=== PATIENT | female | born 1945 | race Caucasian/White ===

== ENCOUNTER 2019-09-03 14:08 | Outpatient (CLI) | payer MEDICARE, MEDICAID, SELFPAY ==
--- NOTE | ~2019-09-03 | MM_ITS ---
EXAMINATION: MM screening [facility] BI w francisco HISTORY: Screening mammogram TECHNIQUE: Craniocaudal and mediolateral oblique 3-D tomosynthesis images were obtained and synthetic 2-D images were generated. CAD analysis was submitted and interpreted. COMPARISON: Comparison to multiple prior studies sequentially, with oldest reviewed study dated 09/2015 2. BREAST PARENCHYMAL COMPOSITION: There are scattered areas of fibroglandular density. FINDINGS: There are areas of fat necrosis centrally in the left breast, likely related to previous vivi mpectomy.. There is no evidence of suspicious mass, calcification, or architectural distortion to sug gest malignancy in either breast. There has been no suspicious interval change. IMPRESSION: 1. No mammographic evidence of malignancy. 2. Recommend routine screening mammography in one year. BI-RADS Category 2: Benign finding(s). Reviewed, dictated and finalized at location A. KNOCKER
== END 2019-09-03 14:09 | disposition home or self-care (01) ==
LOC: ANHIMG 14:14
PROVIDERS: PCP Family Medicine; Visit Provider Family Medicine
DX: Z12.31 Encounter for screening mammogram for malignant neoplasm of breast (principal)
CPT/HCPCS: 77063; 77067

== ENCOUNTER 2020-01-27 15:06 | Outpatient (CLI) | payer MEDICARE, SELFPAY ==
--- NOTE | ~2020-01-27 | DEXA_ITS ---
Bone Density Report Name: Arianne Vasquez Age: 74 Sex: Female Ethnicity: White Date of : 1945 Indication: postmenopausal; height loss; prior fracture; cancer; asthma or emphysema; Referring Provider: [place] Study: Bone densitometry was performed. Exam Date: January 27, 2020 Accession number: [id number] Bone Density: Region BMD T-score Z-score Classification AP Spine (L1, L4) 1.205 1.5 3.8 Normal Femoral Neck (Right) 0.737 -1.0 1.0 Normal Total Hip (Right) 0.866 -0.6 1.1 Normal World Health Organization criteria for BMD impression classify patients as: Normal (T-score at or above -1.0), Osteopenia (T-score between -1.0 and -2.5), or Osteoporosis (T-score at or below -2.5). 10-year Fracture Risk: FRAX not reported because: All T-scores for Spine Total, Hip Total, Femoral Neck at or above -1.0 Prior hip or vertebral fracture Previous Exams: Region Exam Age BMD T-score BMD Change BMD Change Date g/cm2 vs Baseline vs Previous AP Spine(L1, L4) 01/27/2020 74 1.205 1.5 0.129(12.0%)# -0.003(-0.2%)# 04/03/2016 70 1.208 1.6 0.131(12.2%)# 0.194(19.1%)# 04/17/2012 66 1.014 -0.2 -0.063(-5.8%)# -0.116(-10.3%) 06/27/2009 63 1.130 0.8 0.054(5.0%)* -0.032(-2.8%)* 04/04/2007 61 1.162 1.1 0.086(8.0%)* 0.086(8.0%)* 11/08/2003 58 1.076 0.4 Total Hip(Right) 01/27/2020 74 0.866 -0.6 -0.032(-3.6%)# -0.008(-0.9%)# 04/03/2016 70 0.874 -0.6 -0.024(-2.7%)# -0.013(-1.4%)# 04/17/2012 66 0.887 -0.5 -0.011(-1.3%)# 0.027(3.2%)# 06/27/2009 63 0.859 -0.7 -0.039(-4.3%)* -0.011(-1.2%) 04/04/2007 61 0.870 -0.6 -0.028(-3.1%)* -0.028(-3.1%)* 11/08/2003 58 0.898 -0.4 *Denotes significance at 95% confidence level, LSC for AP Spine = 0.022 g/cm2, LSC for Total Hip = 0.027 g/cm2 Clinical Information Provided by Patient: Have had a previous hip or vertebral fracture Has had a low trauma fracture Has used the following medications: Vitamin D, Calcium Has the following medical conditions: Asthma or Emphysema, Cancer Patient maximum height was 67 No regular weight bearing exercise Drinks caffeinated beverages Onset of menses at age 13 Number of children 2 Impression: The patient has normal bone mass. The patient has risk factors, including: previous fracture. No significant bone loss was observed. Discussion: INCREASED RISK OF FRACTURE DUE TO HISTORY OF FRACTURE. The patient's previous fracture puts the patient at high risk of a future fracture.
== END 2020-01-27 15:07 | disposition home or self-care (01) ==
PROVIDERS: PCP Family Medicine; Visit Provider Internal Medicine Hematology & Oncology
DX: M81.0 Age-related osteoporosis without current pathological fracture (principal)
CPT/HCPCS: 77080

== ENCOUNTER 2020-02-09 12:46 | Outpatient (CLI) | payer MEDICARE, MEDICAID, SELFPAY ==
[2020-02-09 13:07] LABS: Basophils Percent Auto 0.4 % (0.2-1.2); Eosinophils Absolute Auto 0.2 K/mm3 (0-0.3); Eosinophils Percent Auto 3.3 % (0-4.4); Hematocrit 36.6 % (37.0-47.0); Hemoglobin 11.4 g/dL (12.0-15.0); Immature Granulocyte Absolute 0.04 K/mm3 (0.00-0.031); Immature Granulocyte Percent A 0.5 % (0-0.5); Lymphocytes Absolute Auto 1.25 K/mm3 (0.9-3.2); Lymphocytes Percent Auto 17.2 % (18.3-44.2); Mean Corpuscular HGB Conc 31.1 g/dl (32-36); Mean Corpuscular Hemoglobin 28.9 pg (26-34); Mean Corpuscular Volume 92.9 fl (80-100); Mean Platelet Volume 10.3 fl (7.4-10.4); Monocytes Absolute Auto 0.5 K/mm3 (0.1-0.6); Monocytes Percent Auto 7.1 % (2.6-8.5); Neutrophils Absolute Auto 5.2 K/mm3 (1.3-6.7); Neutrophils Percent Auto 71.5 % (45.5-73.1); Platelet Count Result 255 k/mm3 (150-375); Red Blood Count 3.94 M/mm3 (4.2-5.4); Red Cell Distribution Width 13.4 % (11.5-14.5); White Blood Count 7.3 K/mm3 (4.5-10.0)
[2020-02-09 15:29] LABS: Alanine Aminotransferase 9 U/L (4-35); Albumin Level 3.7 g/dL (3.5-5.1); Alkaline Phosphatase 89 U/L (38-126); Anion Gap 10 mmol/L (8-16); Aspartate Amino Transferase 14 U/L (14-36); Bilirubin,Total 0.2 mg/dL (0.2-1.3); Blood Urea Nitrogen 30 mg/dL (7-17); Calcium 8.8 mg/dL (8.4-10.2); Carbon Dioxide 27 mmol/L (22-30); Chloride 102 mmol/L (98-107); Estimated Glomerular Filt Rate 54; Glucose 126 mg/dL (65-105); Potassium 4.4 mmol/L (3.4-5.0); Sodium 139 mmol/L (137-145)
[2020-02-11 21:52] LABS: CA 27.29 39 U/mL (<38)
== END 2020-02-09 12:47 | disposition home or self-care (01) ==
LOC: ANHLAB 12:49
PROVIDERS: PCP Family Medicine; Visit Provider Internal Medicine Hematology & Oncology
DX: C50.512 Malignant neoplasm of lower-outer quadrant of left female breast (principal); Z17.0 Estrogen receptor positive status [ER+]
CPT/HCPCS: 36415; 80053; 85025; 86300

== ENCOUNTER 2020-02-25 12:47 | Emergency (ER) | payer MEDICARE, MEDICAID, SELFPAY ==
[2020-02-25 13:07] VITALS: BP 106/61; PULSE 57; RESP 20; TEMP 36.7; O2SAT 94
[2020-02-25 13:38] VITALS: BP 106/61; PULSE 78; RESP 20; TEMP 36.7; O2SAT 94
--- NOTE | 2020-02-25 13:42 | ED.GENADULT ---
HPI - General Adult General Chief complaint: Urogenital-Female Stated complaint: hematuria Time Seen by Provider: 02/25/20 13:06 Source: RN notes reviewed History of Present Illness HPI narrative: Patient presents to emergency department from home for hematuria. Patient states he began noticing blood in her urine yesterday into today. She states that it is painless and is had no abdominal pain or dysuria. She states he is on Plavix. She denies any fevers or chills abdominal pain nausea vomiting or any other symptoms Related Data Home Medications Medication Instructions Recorded Confirmed Entresto 0.5 tablet PO BID 05/15/19 01/28/20 albuterol sulfate [ProAir HFA] 2 puff INHALATION QID PRN 05/15/19 02/25/20 anastrozole 1 mg PO DAILY 05/15/19 02/25/20 aspirin [Aspirin Low Dose] 81 mg PO DAILY 05/15/19 02/25/20 carvedilol [Coreg] 12.5 mg PO BID 05/15/19 02/25/20 simvastatin 40 mg PO HS 05/15/19 02/25/20 furosemide 20 mg PO DAILY 05/16/19 02/25/20 Allergies Allergy/AdvReac Type Severity Reaction Status Date / Time levothyroxine sodium Allergy Intermediate swelling Verified 02/25/20 13:45 in feet diclofenac Allergy Unknown ABDOMINAL Verified 02/25/20 13:45 PAIN nortriptyline Allergy Unknown Rash Verified 02/25/20 13:45 rofecoxib Allergy Unknown HEART Verified 02/25/20 13:45 FAILURE ciprofloxacin [From Cipro] Allergy Unknown Verified 02/25/20 13:45 levothyroxine Allergy Swelling Verified 02/25/20 13:45 Review of Systems Review of Systems: Narrative: Gen.: Denies fevers or chills ENT: Denies congestion Respiratory: Denies shortness of breath or cough CV: Denies chest pain or palpitations GI: Denies abdominal pain nausea, emesis or diarrhea see HPI Musculoskeletal: Denies back pain or muscle pain Neuro: Denies numbness, tingling, weakness or focal weakness Skin: Denies rash Except as documented, all other systems reviewed and negative PMFSH Past Medical History Medical History Abnormal TSH Acute renal insufficiency Anxiety Arthritis Asthma Asthma Breast cancer, left Breast cancer, left Bronchitis Cardiac defibrillator in place Cardiomyopathy Cardiomyopathy CHF (congestive heart failure) Colitis Colitis COPD (chronic obstructive pulmonary disease) COPD (chronic obstructive pulmonary disease) DDD (degenerative disc disease) Depression Depression with anxiety Diverticulitis Diverticulitis Endocarditis Endocarditis Essential (primary) hypertension HTN (hypertension) Hyperthyroidism Hyperthyroidism Hypothyroid Left leg weakness Mitral valve prolapse MVP (mitral valve prolapse) Neuropathy, peripheral, idiopathic KYLER on CPAP Peripheral neuropathy Pneumonia Sciatic leg pain Slurred speech Stress incontinence Suspected cerebrovascular accident (CVA) Systolic CHF, chronic Uses continuous positive airway pressure (CPAP) ventilation at home 2L O2 at night Uses nebulizer and inhaler at home Supposed to use 4x per day, but often just uses it 1x per day Social History Social History Social History: Patient designate , Vel Vasquez, as her surrogate decision maker. She wishes to be a full code. She sees PATIENT CARE SPECIALIST at Dr. Monroe's office as her primary Smoking packs per day: 1 Smoking cigarettes per day: 20.0 Years smoked: 15 Smoking pack-years: 15.00 Smoking status: Former smoker Tobacco type: cigarettes Second hand tobacco smoke exposure: Yes Smoking end date: 07/01/09 Alcohol intake: former Drinks per week: 1 Substance use: current Substance use type: marijuana Other substance usage details: 1 beer/month, pt has edible marijuana Last use: 05/15/19 Additional living arrangements comments: With her Gender identity (if verbalized by the patient): Female Spiritual care concerns: No Agree to blood products: Yes Exam Narrat
[2020-02-25 13:58] LABS: Basophils Percent Auto 0.5 % (0.2-1.2); Eosinophils Absolute Auto 0.2 K/mm3 (0-0.3); Eosinophils Percent Auto 2.5 % (0-4.4); Hematocrit 33.5 % (37.0-47.0); Hemoglobin 10.8 g/dL (12.0-15.0); Immature Granulocyte Absolute 0.03 K/mm3 (0.00-0.031); Immature Granulocyte Percent A 0.3 % (0-0.5); Lymphocytes Absolute Auto 0.94 K/mm3 (0.9-3.2); Lymphocytes Percent Auto 10.8 % (18.3-44.2); Mean Corpuscular HGB Conc 32.2 g/dl (32-36); Mean Corpuscular Hemoglobin 29.1 pg (26-34); Mean Corpuscular Volume 90.3 fl (80-100); Mean Platelet Volume 11.1 fl (7.4-10.4); Monocytes Absolute Auto 0.5 K/mm3 (0.1-0.6); Monocytes Percent Auto 5.2 % (2.6-8.5); Neutrophils Percent Auto 80.7 % (45.5-73.1); Platelet Count Result 240 k/mm3 (150-375); Red Blood Count 3.71 M/mm3 (4.2-5.4); Red Cell Distribution Width 13.3 % (11.5-14.5); White Blood Count 8.7 K/mm3 (4.5-10.0)
[2020-02-25 14:05] LABS: Add Urine Microscopic? YES; Appearance Urine Clear (Clear); Bacteria Urine 2+ /hpf; Bilirubin Urine Negative (Negative); Blood Urine 1+ (Negative); Color Urine Yellow (Yellow); Glucose Urine UA Negative (Negative); Ketones Urine Negative (Negative); Leukocyte Esterase Ur Trace LEU/UL (Negative); Mucus Urine Rare /lpf; Nitrate Urine Negative (Negative); Protein Urine Negative (Negative); RBC Urine 0-2 /hpf (0-2); Specific Grav Ur 1.014 (1.001-1.035); Squamous Epithelial Cell Urine Occasional /hpf (Few); Urobilinogen Urine Negative mg/dL (<2.0)
[2020-02-25 14:07] LABS: INR 1.1; Prothrombin Time 14.3 Seconds (11.1-14.7)
[2020-02-25 14:08] LABS: Partial Thromboplastin Time 36.6 SECONDS (22.3-36.8)
[2020-02-25 14:12] LABS: Anion Gap 10 mmol/L (8-16); Blood Urea Nitrogen 29 mg/dL (7-17); Calcium 9.2 mg/dL (8.4-10.2); Carbon Dioxide 23 mmol/L (22-30); Chloride 104 mmol/L (98-107); Estimated CRCL calculation 50 ml/min; Estimated Glomerular Filt Rate 54; Glucose 114 mg/dL (65-105); Potassium 4.9 mmol/L (3.4-5.0); Sodium 137 mmol/L (137-145)
[2020-02-25] MEDS: NITROFURANTOIN MONOHYD MACROCR 100 MG CAP PO (14:23)
== END 2020-02-25 14:32 | disposition home or self-care (01) ==
PROVIDERS: Emergency Provider Emergency Medicine; PCP Family Medicine
DX: N39.0 Urinary tract infection, site not specified (principal); I50.22 Chronic systolic (congestive) heart failure; J44.9 Chronic obstructive pulmonary disease, unspecified; I11.0 Hypertensive heart disease with heart failure; I34.1 Nonrheumatic mitral (valve) prolapse; G47.33 Obstructive sleep apnea (adult) (pediatric); M19.90 Unspecified osteoarthritis, unspecified site; Z95.810 Presence of automatic (implantable) cardiac defibrillator; Z87.891 Personal history of nicotine dependence; Z85.3 Personal history of malignant neoplasm of breast; G60.9 Hereditary and idiopathic neuropathy, unspecified; Z79.02 Long term (current) use of antithrombotics/antiplatelets
CPT/HCPCS: 36415; 80048; 81001; 85025; 85610; 85730; 99283; A9270

== ENCOUNTER 2020-03-03 05:06 | Emergency (ER) | payer MEDICARE, MEDICAID, SELFPAY ==
[2020-03-03] VITALS (23 sets, daily range): BP systolic 101–130; BP diastolic 56–95; PULSE 64–80; RESP 12–22; TEMP 37; O2SAT 95–100
--- NOTE | ~2020-03-03 | CT_ITS ---
EXAMINATION: CT abdomen pelvis w con INDICATION: Epigastric abdominal pain TECHNIQUE: Computed tomographic images of the abdomen and pelvis were obtained after the administrati on of 100 cc of Omnipaque 350 intravenous contrast. The dose-length product (DLP) was 947.49 mGy-cm. Automated exposure control and iterative reconstruction technique were employed. COMPARISON: 02/14/2012 FINDINGS: There is a small loculated left pleural effusion. Minimal dependent atelectasis is present in the lung bases. More focal pleural-based opacities are seen in the lingula and left lower lobe whi ch have the appearance of round atelectasis. The heart size is normal. The liver, pancreas, and adren al glands are normal. Low-attenuation lesions of the liver measuring up to 7 mm likely reflect cysts or lymphangiomas. Stones are present in the nondistended gallbladder. Cysts of the kidneys measure up to 2.7 cm on the right. There is calcified atherosclerosis of the aorta and many of the other arteri es. No pathologically enlarged abdominal or pelvic lymph nodes are identified. There is no free intra peritoneal gas or evidence of bowel obstruction. The appendix is normal. There is severe lumbar spond ylosis. Changes of left total hip arthroplasty are noted. IMPRESSION: 1. No CT correlate for the patient's symptoms. 2. Cholelithiasis without evidence of cholecystitis. 3. Diverticulosis without diverticulitis. 4. Small loculated left pleural effusion with areas of rounded atelectasis in the left lung base. Reviewed, dictated and finalized at location A. IMPRESSION: 1. No CT correlate for the patient's symptoms. 2. Cholelithiasis without evidence of cholecystitis. 3. Diverticulosis without diverticulitis. 4. Small loculated left pleural effusion with areas of rounded atelectasis in t he left lung base.
--- NOTE | 2020-03-03 05:33 | ECG_ITS ---
Measurements Intervals [place] Rate: 82 P: 90 SD: 173 QRS: 38 QRSD: 110 T: 103 QT: 403 QTc: 472 Interpretive Statements SINUS RHYTHM FREQUENT VENTRICULAR PREMATURE COMPLEXES INCOMPLETE LEFT BUNDLE BRANCH BLOCK LOW QRS VOLTAGE- DIFFUSE LEADS NONSPECIFIC T-WAVE ABNORMALITY- ANTEROLAT/HIGH LAT LEADS BASELINE ARTIFACT- I, II, III, AVL, AVF, V4-V6 ABNORMAL ECG Electronically Signed On 03-03-2020 8:14:44 CDT by Tima Russ D.O.
--- NOTE | 2020-03-03 05:35 | ED.ABDPAIN ---
HPI - Abdominal Pain General Chief Complaint: Abdominal Pain <Ly Bernal MD - Last Filed: 03/03/20 20:59> Stated Complaint: ABD PAIN; N/V <Ly Bernal MD - Last Filed: 03/03/20 20:59> Time Seen by Provider: 03/03/20 05:22 <Ly Bernal MD - Last Filed: 03/03/20 20:59> Source: patient <Ly Bernal MD - Last Filed: 03/03/20 20:59> Mode of arrival: ambulatory <Ly Bernal MD - Last Filed: 03/03/20 20:59> Limitations: no limitations <Ly Bernal MD - Last Filed: 03/03/20 20:59> History of Present Illness HPI narrative: This patient is a 74 year old female who presents for evaluation of upper abdominal pain. She developed pain at 1900 yesterday and she she has continued to have constant pain. This pain is located epigastric and it radiates to lower abdominal pain. She is having associates nausea and vomiting but she denies diarrhea. She denies fever or chills. She reports sob due to the pain but she does wear chronic O2. She denies chest pain. <Ly Bernal MD - Last Filed: 03/03/20 20:59> MD elicited complaint: abdominal pain <Ly Bernal MD - Last Filed: 03/03/20 20:59> Location: epigastric <Ly Bernal MD - Last Filed: 03/03/20 20:59> Severity: severe <Ly Bernal MD - Last Filed: 03/03/20 20:59> Exacerbating factors: eating <Ly Bernal MD - Last Filed: 03/03/20 20:59> Associated symptoms: nausea and vomiting <Ly Bernal MD - Last Filed: 03/03/20 20:59> Related Data Home Medications: Home Medications Medication Instructions Recorded Confirmed Entresto 0.5 tablet PO BID 05/15/19 01/28/20 albuterol sulfate [ProAir HFA] 2 puff INHALATION QID PRN 05/15/19 02/25/20 anastrozole 1 mg PO DAILY 05/15/19 02/25/20 aspirin [Aspirin Low Dose] 81 mg PO DAILY 05/15/19 02/25/20 carvedilol [Coreg] 12.5 mg PO BID 05/15/19 02/25/20 simvastatin 40 mg PO HS 05/15/19 02/25/20 furosemide 20 mg PO DAILY 05/16/19 02/25/20 <Ly Bernal MD - Last Filed: 03/03/20 20:59> Allergies/Adverse Reactions: Allergies Allergy/AdvReac Type Severity Reaction Status Date / Time levothyroxine sodium Allergy Intermediate swelling Verified 02/25/20 13:45 in feet diclofenac Allergy Unknown ABDOMINAL Verified 02/25/20 13:45 PAIN nortriptyline Allergy Unknown Rash Verified 02/25/20 13:45 rofecoxib Allergy Unknown HEART Verified 02/25/20 13:45 FAILURE ciprofloxacin [From Cipro] Allergy Unknown Verified 02/25/20 13:45 levothyroxine Allergy Swelling Verified 02/25/20 13:45 <Ly Bernal MD - Last Filed: 03/03/20 20:59> Review of Systems Review of Systems: All systems reviewed & are unremarkable except as noted in HPI and below <Ly Bernal MD - Last Filed: 03/03/20 20:59> Constitutional: Constitutional: Denies chills and Denies fever(s) <Ly Bernal MD - Last Filed: 03/03/20 20:59> ENT: Denies nasal congestion and Denies sore throat <Ly Bernal MD - Last Filed: 03/03/20 20:59> Cardiovascular: Cardiovascular: Denies chest pain <Ly Bernal MD - Last Filed: 03/03/20 20:59> Respiratory: Respiratory: Denies cough and Reports dyspnea <Ly Bernal MD - Last Filed: 03/03/20 20:59> Gastrointestinal: Gastrointestinal: Reports abdominal pain, Denies diarrhea, Reports nausea and Reports vomiting <Ly Bernal MD - Last Filed: 03/03/20 20:59> Musculoskeletal: Musculoskeletal: Denies back pain <Ly Bernal MD - Last Filed: 03/03/20 20:59> PMFSH Past Medical History Medical History: Medical History Abnormal TSH Acute renal insufficiency Anxiety Arthritis Asthma Asthma Breast cancer, left Breast cancer, left Bronchitis Cardiac defibrillator in place Cardiomyopathy Cardiomyopathy CHF (congestive heart failure) Colitis Colitis COPD (chronic obstructive p
[2020-03-03] MEDS: PANTOPRAZOLE SODIUM IV 40 MG VIAL IV PUSH (05:47)
[2020-03-03] MEDS: ONDANSETRON INJ 4 MG/2 ML VIAL IV PUSH (05:47)
[2020-03-03 05:58] LABS: Basophils Percent Auto 0.3 % (0.2-1.2); Eosinophils Absolute Auto 0.1 K/mm3 (0-0.3); Eosinophils Percent Auto 0.5 % (0-4.4); Hematocrit 37.1 % (37.0-47.0); Immature Granulocyte Absolute 0.09 K/mm3 (0.00-0.031); Immature Granulocyte Percent A 0.6 % (0-0.5); Lymphocytes Absolute Auto 1.34 K/mm3 (0.9-3.2); Mean Corpuscular HGB Conc 32.3 g/dl (32-36); Mean Corpuscular Hemoglobin 29.3 pg (26-34); Mean Corpuscular Volume 90.7 fl (80-100); Mean Platelet Volume 11.4 fl (7.4-10.4); Monocytes Absolute Auto 0.5 K/mm3 (0.1-0.6); Neutrophils Percent Auto 86.6 % (45.5-73.1); Platelet Count Result 338 k/mm3 (150-375); Red Blood Count 4.09 M/mm3 (4.2-5.4); Red Cell Distribution Width 13.3 % (11.5-14.5)
[2020-03-03 06:08] LABS: INR 1.1; Prothrombin Time 13.8 Seconds (11.1-14.7)
[2020-03-03 06:10] LABS: Partial Thromboplastin Time 36.5 SECONDS (22.3-36.8)
[2020-03-03 06:11] LABS: Lactic Acid Reflex 2.1 mmol/L (0.7-2.1)
[2020-03-03 06:12] LABS: Alanine Aminotransferase 11 U/L (4-35); Albumin Level 4.4 g/dL (3.5-5.1); Alkaline Phosphatase 103 U/L (38-126); Anion Gap 11 mmol/L (8-16); Aspartate Amino Transferase 21 U/L (14-36); Bilirubin,Total 0.5 mg/dL (0.2-1.3); Blood Urea Nitrogen 27 mg/dL (7-17); Calcium 10.2 mg/dL (8.4-10.2); Carbon Dioxide 28 mmol/L (22-30); Chloride 98 mmol/L (98-107); Estimated CRCL calculation 54 ml/min; Estimated Glomerular Filt Rate > 60; Glucose 174 mg/dL (65-105); Lipase 81 U/L (23-300); Potassium 4.4 mmol/L (3.4-5.0); Sodium 137 mmol/L (137-145)
[2020-03-03 08:08] LABS: Add Urine Microscopic? YES; Appearance Urine Clear (Clear); Bacteria Urine Trace /hpf; Bilirubin Urine Negative (Negative); Blood Urine Negative (Negative); Color Urine Yellow (Yellow); Glucose Urine UA Negative (Negative); Ketones Urine Negative (Negative); Leukocyte Esterase Ur Negative LEU/UL (Negative); Mucus Urine Rare /lpf; Nitrate Urine Negative (Negative); Protein Urine 1+ mg/dL (Negative); RBC Urine 0-2 /hpf (0-2); Specific Grav Ur 1.028 (1.001-1.035); Squamous Epithelial Cell Urine Rare /hpf (Few); WBC Urine 0-3 /hpf
[2020-03-03 08:55] LABS: Reflex Lactic Acid Yes or No Add Lactic
[2020-03-03 10:04] LABS: Lactic Acid 0.9 mmol/L (0.7-2.1)
== END 2020-03-03 12:01 | disposition home or self-care (01) ==
PROVIDERS: General Practice; Emergency Provider Emergency Medicine; PCP Family Medicine
DX: R10.84 Generalized abdominal pain (principal); J44.9 Chronic obstructive pulmonary disease, unspecified; I11.0 Hypertensive heart disease with heart failure; I50.22 Chronic systolic (congestive) heart failure; G47.33 Obstructive sleep apnea (adult) (pediatric); G62.9 Polyneuropathy, unspecified; I34.1 Nonrheumatic mitral (valve) prolapse; Z79.82 Long term (current) use of aspirin; I42.9 Cardiomyopathy, unspecified; Z95.810 Presence of automatic (implantable) cardiac defibrillator; Z96.642 Presence of left artificial hip joint; Z95.5 Presence of coronary angioplasty implant and graft; Z87.891 Personal history of nicotine dependence; I49.3 Ventricular premature depolarization; I44.7 Left bundle-branch block, unspecified; R94.31 Abnormal electrocardiogram [ECG] [EKG]
CPT/HCPCS: 36415; 74177; 80053; 81001; 82948; 83605; 83690; 85025; 85610; 85730; 93005; 96365; 96375; 99284; C9113; J0131; J1170; J2405; Q9967

== ENCOUNTER 2020-03-11 15:27 | Outpatient (CLI) | payer MEDICARE, MEDICAID, SELFPAY ==
[2020-03-11 15:52] LABS: Basophils Percent Auto 0.4 % (0.2-1.2); Eosinophils Absolute Auto 0.2 K/mm3 (0-0.3); Eosinophils Percent Auto 1.9 % (0-4.4); Hematocrit 33.1 % (37.0-47.0); Hemoglobin 10.6 g/dL (12.0-15.0); Immature Granulocyte Absolute 0.02 K/mm3 (0.00-0.031); Immature Granulocyte Percent A 0.3 % (0-0.5); Lymphocytes Absolute Auto 0.89 K/mm3 (0.9-3.2); Lymphocytes Percent Auto 11.4 % (18.3-44.2); Mean Corpuscular Hemoglobin 29.3 pg (26-34); Mean Corpuscular Volume 91.4 fl (80-100); Mean Platelet Volume 11.3 fl (7.4-10.4); Monocytes Absolute Auto 0.4 K/mm3 (0.1-0.6); Monocytes Percent Auto 5.1 % (2.6-8.5); Neutrophils Absolute Auto 6.3 K/mm3 (1.3-6.7); Neutrophils Percent Auto 80.9 % (45.5-73.1); Platelet Count Result 259 k/mm3 (150-375); Red Blood Count 3.62 M/mm3 (4.2-5.4); Red Cell Distribution Width 13.5 % (11.5-14.5); White Blood Count 7.8 K/mm3 (4.5-10.0)
[2020-03-11 16:00] LABS: Cholesterol 131 mg/dL (0-200); HDL Direct 29 mg/dL; Triglycerides 173 mg/dL (<150)
[2020-03-11 16:01] LABS: Alanine Aminotransferase 7 U/L (4-35); Albumin Level 4.1 g/dL (3.5-5.1); Alkaline Phosphatase 84 U/L (38-126); Anion Gap 7 mmol/L (8-16); Aspartate Amino Transferase 15 U/L (14-36); Bilirubin,Total 0.4 mg/dL (0.2-1.3); Blood Urea Nitrogen 20 mg/dL (7-17); Carbon Dioxide 27 mmol/L (22-30); Chloride 105 mmol/L (98-107); Estimated Glomerular Filt Rate > 60; Glucose 109 mg/dL (65-105); Potassium 4.7 mmol/L (3.4-5.0); Sodium 139 mmol/L (137-145)
[2020-03-11 16:04] LABS: Hemoglobin A1C 5.7 % (<5.7)
[2020-03-11 16:11] LABS: LDL Cholesterol Direct 70 mg/dL
[2020-03-11 18:20] LABS: Free T4 Free Thyroxine Reflex 1.08 ng/dL (0.78-2.19)
[2020-03-11 21:26] LABS: Total Triiodothyronine (T3) 0.91 NG/ML (0.97-1.69)
== END 2020-03-11 15:28 | disposition home or self-care (01) ==
PROVIDERS: PCP Family Medicine; Visit Provider Physician Assistant
DX: R73.03 Prediabetes (principal); I50.9 Heart failure, unspecified; R53.83 Other fatigue; R63.5 Abnormal weight gain
CPT/HCPCS: 36415; 80053; 80061; 83036; 84439; 84443; 84480; 85025

== ENCOUNTER 2020-03-28 07:52 | Outpatient (CLI) | payer MEDICARE, MEDICAID, SELFPAY ==
--- NOTE | ~2020-03-28 | XR_ITS ---
XR chest 2V DATE: 03/28/2020 09:00 INDICATION: Chronic of central pulmonary disease with acute exacerbation TECHNIQUE: PA and lateral views COMPARISON: 07/24/2021 view chest 05/06/2019 CT chest 04/14/2019 PA and lateral chest 03/26/2018 two-view chest FINDINGS: At least 2 x 4 cm opacity is noted along the lower left lateral lung field, suggesting pulm onary pulmonary mass lesion. This area is obscured by the left implant on the lateral view. There is patchy left lower lobe infiltrate. CT Thorax is recommended for further evaluation. The lungs are hyperinflated, consistent with history of COPD. Normal heart size. There is aortic calcification. There is thoracolumbar scoliosis. Again noted is a subcutaneous left lateral chest implant with anterior chest wall electrode. IMPRESSION: Mass density and patchy infiltrate, left lower lung; CT thorax is recommended. Lung neop lasm must be considered. Dr. Ravi telephoned the report and CT Thorax recommendation to Dr. Sawant's Machine Try Out Setter Katie on 03/28/2020 at 1014 hours. Reviewed, dictated and finalized at location B. IMPRESSION: Mass density and patchy infiltrate, left lower lung; CT thorax is r ecommended. Lung neoplasm must be considered. Dr. Ravi telephoned the report and CT Thorax recommendation to Dr. Sawant's [facility] Library Information Technician Katie on 03/28/2020 at 1014 hours.
[2020-03-28 08:30] VITALS: PULSE 70; O2SAT 87
[2020-03-28 08:33] VITALS: O2SAT 87
[2020-03-28 08:35] VITALS: O2SAT 92
[2020-03-28 08:38] VITALS: O2SAT 87
[2020-03-28 08:40] VITALS: PULSE 89; O2SAT 90
[2020-03-28 08:45] VITALS: PULSE 75; O2SAT 94
--- NOTE | 2020-03-28 10:40 | HOMEO2EVAL ---
Home Oxygen Evaluation RC: Home Oxygen (O2) Evaluation Start: 03/28/20 10:37 Freq: Status: Active Protocol: RPE Activity Type Activity Date Activity User E-Sign Co-Sign Detail Recorded Client Recorded Date Recorded By Document 03/28/20 08:30 FARHAD [id number] 03/28/20 10:40 FARHAD Document 03/28/20 08:33 FARHAD [email or web address] 03/28/20 10:40 FARHAD Document 03/28/20 08:35 FARHAD [email or web address] 03/28/20 10:40 FARHAD Document 03/28/20 08:38 FARHAD [email or web address] 03/28/20 10:40 FARHAD Document 03/28/20 08:40 FARHAD [email or web address] 03/28/20 10:40 FARHAD Document 03/28/20 08:45 FARHAD [email or web address] 03/28/20 10:40 FARHAD 03/28/20 03/28/20 03/28/20 08:30 08:33 08:35 Home O2 Evaluation Test Phase Resting Resting Resting Oxygen Delivery Room Air Nasal Cannula Nasal Cannula Oxygen Flow Rate (L/min) 1 2 Pulse Oximetry (90-100 %) 87 L 87 L 92 Pulse Rate (60-100 beats/min) 70 Activity Tolerance Ambulation Distance (feet) Home Oxygen Evaluation Comments Treatment Charges O2 Evaluation 03/28/20 03/28/20 03/28/20 08:38 08:40 08:45 Home O2 Evaluation Test Phase Exercise Exercise Resting Oxygen Delivery Nasal Cannula Nasal Cannula Nasal Cannula Oxygen Flow Rate (L/min) 2 3 2 Pulse Oximetry (90-100 %) 87 L 90 94 Pulse Rate (60-100 beats/min) 89 75 Activity Tolerance Good Ambulation Distance (feet) 300 Home Oxygen Evaluation Comments PT REQUIRES 2 AT REST AND 3 WITH ACTIVITY Treatment Charges
== END 2020-03-28 07:53 | disposition home or self-care (01) ==
PROVIDERS: PCP Family Medicine; Visit Provider Nurse Practitioner Family
DX: J44.1 Chronic obstructive pulmonary disease with (acute) exacerbation (principal); R06.02 Shortness of breath; R91.8 Other nonspecific abnormal finding of lung field
CPT/HCPCS: 71046; 94618

== ENCOUNTER 2020-04-19 02:19 | Outpatient (CLI) | payer MEDICARE, MEDICAID, SELFPAY ==
[2020-04-19 19:02] LABS: SARS-CoV-2 RNA PCR Negative
== END 2020-04-19 02:20 | disposition home or self-care (01) ==
LOC: ANHCOVIDDT 02:20
PROVIDERS: PCP Family Medicine; Visit Provider Internal Medicine Gastroenterology
DX: Z01.812 Encounter for preprocedural laboratory examination (principal); Z20.828 Contact with and (suspected) exposure to other viral communicable diseases
CPT/HCPCS: 87635; C9803; U0003

== ENCOUNTER 2020-04-20 13:23 | Outpatient (CLI) | payer MEDICARE, MEDICAID, SELFPAY ==
--- NOTE | ~2020-04-20 | CT_ITS ---
EXAMINATION:CT chest wo con DATE: 04/20/2020 13:47 INDICATION: Chronic obstructive pulmonary disease, unspecified. TECHNIQUE: Computed tomography (CT) of the chest was performed without intravenous contrast. Automate d exposure control and iterative reconstruction technique were employed. The dose-length product (DLP ) was 278.62 mGy-cm. COMPARISON: Chest CT 05/06/2019 FINDINGS: There is moderate emphysema. There are chronic peripheral reticular opacities in right lung . There is volume loss of left hemithorax. There is a small left pleural effusion with chronic pleura l thickening. There is chronic rounded atelectasis in left upper lobe and left lower lobe adjacent to the pleural thickening. The heart size is normal. There are coronary artery calcifications. No peric ardial effusion. The central pulmonary arteries are enlarged, consistent with pulmonary arterial hype rtension. There is a 9 mm nodule in right thyroid lobe, likely not clinically significant. There is a n electronic device in left chest with subcutaneous electrode in left anterior chest wall. IMPRESSION: 1. Moderate emphysema. 2. Chronic small left pleural effusion with pleural thickening and chronic rounded atelectasis in lef t upper lobe and left lower lobe. Reviewed, dictated and finalized at location A. IMPRESSION: 1. Moderate emphysema. 2. Chronic small left pleural effusion with pleural thickening and chronic roun ded atelectasis in left upper lobe and left lower lobe.
== END 2020-04-20 13:24 | disposition home or self-care (01) ==
PROVIDERS: PCP Family Medicine; Visit Provider Nurse Practitioner Family
DX: J44.9 Chronic obstructive pulmonary disease, unspecified (principal); J43.9 Emphysema, unspecified; J90 Pleural effusion, not elsewhere classified
CPT/HCPCS: 71250

== ENCOUNTER 2020-04-21 01:19 | Day surgery (SDC) | payer MEDICARE, MEDICAID, SELFPAY ==
[2020-04-14 15:10] VITALS: BMI 30.9
[2020-04-21 08:01] VITALS: BP 119/83; PULSE 84; RESP 20; TEMP 36.3; O2SAT 95
[2020-04-21] MEDS: LACTATED RINGERS 1,000 ML 150 ML IV CONT (08:18)
--- NOTE | 2020-04-21 09:05 | WPDANESEPPF ---
Anes - Initial Pre Proc Eval Procedure: Operation Date: 04/21/20 09:00 Proposed Procedures p Esophagogastroduodenoscopy & Screening Colonoscopy - Javy Shields MD Date/Time: 04/21/20 09:05 Surgeon: Javy Shields MD Pre Op Diagnosis: Hx Of Colon Polyps, Dyshphagia Patient Data Age: 74 Gender: F Height: 5 ft 6 in Weight: 86.7 kg Last Vital Signs Temp 97.3 F L 04/21/20 08:01 Pulse 84 04/21/20 08:01 Resp 20 04/21/20 08:01 BP 119/83 04/21/20 08:01 Pulse Ox 95 04/21/20 08:01 Allergies Allergy/AdvReac Type Severity Reaction Status Date / Time levothyroxine sodium Allergy Intermediate swelling Verified 04/21/20 08:00 in feet ciprofloxacin [From Cipro] Allergy Mild Unknown Verified 04/21/20 08:00 diclofenac Allergy Unknown ABDOMINAL Verified 04/21/20 08:00 PAIN nortriptyline Allergy Unknown Rash Verified 04/21/20 08:00 rofecoxib Allergy Unknown HEART Verified 04/21/20 08:00 FAILURE Home Medications Medication Instructions Recorded Confirmed Type Entresto 0.5 tablet PO BID 05/15/19 04/14/20 History anastrozole 1 mg PO DAILY 05/15/19 04/14/20 History aspirin [Aspirin Low Dose] 81 mg PO DAILY 05/15/19 04/14/20 History carvedilol [Coreg] 12.5 mg PO BID 05/15/19 04/14/20 History simvastatin 40 mg PO HS 05/15/19 04/14/20 History furosemide 20 mg PO DAILY 05/16/19 04/14/20 History melatonin 10 mg PO HS #0 tablet 05/19/19 04/14/20 Rx ropinirole 0.5 mg tablet 0.5 mg PO HS 90 Days #90 tablet 02/29/20 04/14/20 Rx albuterol sulfate 90 mcg/actuation 2 puff INHALATION QID PRN #8.5 gm 03/09/20 04/14/20 Rx aerosol inhaler dicyclomine 20 mg tablet 20 mg PO QID #120 tablet 03/11/20 04/14/20 Rx fluticasone fur. 100 mcg-umeclid 1 inh INHALATION DAILY #60 each 03/11/20 04/14/20 Rx 62.5 mcg-vilant 25 mcg inhalat.powder clopidogrel 75 mg tablet 75 mg PO DAILY 30 Days #90 tablet 03/14/20 04/14/20 Rx linaclotide 72 mcg capsule 72 mcg PO DAILY #30 cap 03/14/20 04/14/20 Rx clotrimazole-betamethasone 1 1 applic TOPICAL DAILY #45 gm 03/15/20 04/14/20 Rx %-0.05 % topical cream gabapentin 800 mg tablet 800 mg PO TID #270 tablet 04/11/20 04/14/20 Rx hydrocodone 10 mg-acetaminophen 1 tablet PO Q6H PRN #120 tablet 04/11/20 04/14/20 Rx 325 mg tablet naloxone 4 mg/actuation nasal spray 1 spray INTRANASAL Q3M PRN #2 ea 04/11/20 04/14/20 Rx sertraline 50 mg tablet 50 mg PO BID #180 tablet 04/11/20 04/14/20 Rx Patient hx anesthesia problems: none Family hx anesthesia problems: none PMFSH Past Medical History Medical History (Updated 04/11/20 @ 21:00 by Sameera Monroe MD) Abnormal TSH Acute renal insufficiency Anxiety Arthritis Asthma Asthma Breast cancer, left Breast cancer, left Bronchitis Cardiac defibrillator in place Cardiomyopathy Cardiomyopathy CHF (congestive heart failure) Colitis Colitis COPD (chronic obstructive pulmonary disease) COPD (chronic obstructive pulmonary disease) DDD (degenerative disc disease) Depression Depression with anxiety Diverticulitis Diverticulitis Endocarditis Endocarditis Essential (primary) hypertension HTN (hypertension) Hyperthyroidism Hyperthyroidism Hypothyroid Left leg weakness MDD (major depressive disorder), recurrent episode, moderate Mitral valve prolapse MVP (mitral valve prolapse) Neuropathy, peripheral, idiopathic KYLER on CPAP Peripheral neuropathy Pneumonia Sciatic leg pain Slurred speech Stress incontinence Suspected cerebrovascular accident (CVA) Systolic CHF, chronic Uses continuous positive airway pressure (CPAP) ventilation at home 2L O2 at night Uses nebulizer and inhaler at home Supposed to use 4x per day, but often just uses it 1x per day Surgical History Surgical History H/O cardiac catheterization History of left hip replacement (~2011) History of left hip replacement History of lumpectomy of left breast S/P arterial stent Family History Family H
--- NOTE | 2020-04-21 09:15 | WPDGICN ---
Assessment and Plan Assessment and plan (1) Dysphagia: Code(s): R13.10 - Dysphagia, unspecified Status: Acute Assessment and Plan: Patient has difficulty swallowing with food hanging up in her throat. For this reason EGD will be performed. Further recommendations after endoscopy. (2) History of colon polyps: Code(s): Z86.010 - Personal history of colonic polyps Status: Acute Assessment and Plan: Patient has a history of colon polyps resected 2016. Plan to follow-up EGD at this time. (3) Encounter for diagnostic colonoscopy due to change in bowel habits: Code(s): R19.4 - Change in bowel habit Status: Acute Assessment and Plan: Because of change in bowel habits with increasing constipation, now requiring Linzess treatment. Plan is to proceed with colonoscopy. Particularly because of prior history of colon polyps. GI Consult Note Consult date/time: 04/21/20 09:15 HPI: Arianne Vasquez is a 74 year old female Seen in evaluation at the request of Dr. Cox. Patient has a history of colon polyps resected 2017 has recently had difficulty with constipation for which now takes Linzess. She presents today for follow-up examination because of change in bowel habits as well as history of colon polyps. She does take anticoagulation with Plavix and possibly Xarelto because of atrial fibrillation. Patient complains of difficulty swallowing. Currently states that food hangs up in her throat. This happens more with solids compared to liquids. An EGD is requested to assess for swallowing difficulties. This will be evaluated by EGD. She denies any heartburn or pain currently. Review of Systems Review of Systems: All systems reviewed & are unremarkable except as noted in HPI and below PMFSH Past Medical History Medical History Abnormal TSH Acute renal insufficiency Anxiety Arthritis Asthma Asthma Breast cancer, left Breast cancer, left Bronchitis Cardiac defibrillator in place Cardiomyopathy Cardiomyopathy CHF (congestive heart failure) Colitis Colitis COPD (chronic obstructive pulmonary disease) COPD (chronic obstructive pulmonary disease) DDD (degenerative disc disease) Depression Depression with anxiety Diverticulitis Diverticulitis Endocarditis Endocarditis Essential (primary) hypertension HTN (hypertension) Hyperthyroidism Hyperthyroidism Hypothyroid Left leg weakness MDD (major depressive disorder), recurrent episode, moderate Mitral valve prolapse MVP (mitral valve prolapse) Neuropathy, peripheral, idiopathic KYLER on CPAP Peripheral neuropathy Pneumonia Sciatic leg pain Slurred speech Stress incontinence Suspected cerebrovascular accident (CVA) Systolic CHF, chronic Uses continuous positive airway pressure (CPAP) ventilation at home 2L O2 at night Uses nebulizer and inhaler at home Supposed to use 4x per day, but often just uses it 1x per day Surgical History Surgical History H/O cardiac catheterization History of left hip replacement (~2011) History of left hip replacement History of lumpectomy of left breast S/P arterial stent Family History Family History Sibling Hypertension Mother Family history of cardiovascular disease Parkinsons Hypertension Hx of CABG Father Family history of malignant neoplasm of bone Mother Hypertension Father Bone cancer Daughter Seizures Social History Social History (Updated 04/11/20 @ 14:15 by Natalie Garcia) Social History: Patient designate , Vel Vasquez, as her surrogate decision maker. She wishes to be a full code. She sees HYDRA[employer] CONTROLS TECHNICIAN at Dr. Monroe's office as her primary Smoking packs per day: 1 Smoking cigarettes per day: 20.0 Years smoked: 15 Smoking pack-years: 15.00 Smoking status: Former smoker Marika
[2020-04-21 09:53] VITALS: BP 94/72; PULSE 72; RESP 18; O2SAT 95
[2020-04-21 10:03] VITALS: BP 101/47; PULSE 74; RESP 18; O2SAT 100
[2020-04-21 10:13] VITALS: BP 114/74; PULSE 72; RESP 18; O2SAT 100
== END 2020-04-21 10:38 | disposition home or self-care (01) ==
PROVIDERS: PCP Family Medicine; Visit Provider Internal Medicine Gastroenterology
PROC: 0DJ08ZZ Inspection of Upper Intestinal Tract, Via Natural or Artificial Opening Endoscopic (ICD-10-PCS; CPT 43235; principal; 2020-04-21 09:00)
DX: R13.10 Dysphagia, unspecified (principal); R19.4 Change in bowel habit; K21.00 Gastro-esophageal reflux disease with esophagitis, without bleeding; K29.00 Acute gastritis without bleeding; K57.30 Diverticulosis of large intestine without perforation or abscess without bleeding; K64.8 Other hemorrhoids; Z86.010 Personal history of colon polyps; I11.0 Hypertensive heart disease with heart failure; I50.22 Chronic systolic (congestive) heart failure; I48.20 Chronic atrial fibrillation, unspecified; I34.1 Nonrheumatic mitral (valve) prolapse; J45.909 Unspecified asthma, uncomplicated; J44.9 Chronic obstructive pulmonary disease, unspecified; I42.9 Cardiomyopathy, unspecified; E03.9 Hypothyroidism, unspecified; G60.9 Hereditary and idiopathic neuropathy, unspecified; G47.33 Obstructive sleep apnea (adult) (pediatric); F41.9 Anxiety disorder, unspecified; F32.9 Major depressive disorder, single episode, unspecified; Z96.642 Presence of left artificial hip joint; Z79.01 Long term (current) use of anticoagulants
CPT/HCPCS: 43239; 43450; 45378; 87081; J2704; J7120

== ENCOUNTER 2020-07-25 12:53 | Outpatient (CLI) | payer MEDICARE, MEDICAID, SELFPAY ==
[2020-07-25 13:20] VITALS: O2SAT 86
[2020-07-25 13:22] VITALS: O2SAT 87
[2020-07-25 13:25] VITALS: O2SAT 91
[2020-07-25 13:30] VITALS: O2SAT 87
[2020-07-25 13:33] VITALS: O2SAT 90
[2020-07-25 13:40] VITALS: O2SAT 91
--- NOTE | 2020-07-25 13:48 | HOMEO2EVAL ---
Home Oxygen Evaluation RC: Home Oxygen (O2) Evaluation Start: 07/25/20 13:41 Freq: Status: Active Protocol: RPE Activity Type Activity Date Activity User E-Sign Co-Sign Detail Recorded Client Recorded Date Recorded By Document 07/25/20 13:20 FARHAD [id number] 07/25/20 13:45 FARHAD Document 07/25/20 13:22 FARHAD [email or web address] 07/25/20 13:45 FARHAD Document 07/25/20 13:25 FARHAD [id number] 07/25/20 13:45 FARHAD Document 07/25/20 13:30 FARHAD [id number] 07/25/20 13:45 FARHAD Document 07/25/20 13:33 FARHAD [id number] 07/25/20 13:45 FARHAD Document 07/25/20 13:40 FARHAD [email or web address] 07/25/20 13:45 FARHAD 07/25/20 07/25/20 07/25/20 13:20 13:22 13:25 Home O2 Evaluation Test Phase Resting Resting Resting Oxygen Delivery Room Air Nasal Cannula Nasal Cannula Oxygen Flow Rate (L/min) 1 2 Pulse Oximetry (90-100 %) 86 L 87 L 91 Treatment Charges O2 Evaluation 07/25/20 07/25/20 07/25/20 13:30 13:33 13:40 Home O2 Evaluation Test Phase Exercise Exercise Resting Oxygen Delivery Nasal Cannula Nasal Cannula Nasal Cannula Oxygen Flow Rate (L/min) 2 3 2 Pulse Oximetry (90-100 %) 87 L 90 91 Treatment Charges
--- NOTE | 2020-07-25 13:49 | PCRCNOTE ---
HOME O2 EVAL FAXED TO DR RICKETTS
== END 2020-07-25 12:54 | disposition home or self-care (01) ==
LOC: ANHPFT 12:54
PROVIDERS: Family Provider Hospitalist; PCP Family Medicine; Visit Provider Internal Medicine Critical Care Medicine
DX: J96.10 Chronic respiratory failure, unspecified whether with hypoxia or hypercapnia (principal)
CPT/HCPCS: 94618

== ENCOUNTER 2020-08-18 14:44 | Outpatient (CLI) | payer MEDICARE, SELFPAY ==
[2020-08-18 15:01] LABS: Basophils Absolute Auto 0.1 K/mm3 (0.0-0.1); Basophils Percent Auto 0.5 % (0.2-1.2); Eosinophils Absolute Auto 0.2 K/mm3 (0-0.3); Eosinophils Percent Auto 1.9 % (0-4.4); Hematocrit 36.9 % (37.0-47.0); Immature Granulocyte Absolute 0.02 K/mm3 (0.00-0.031); Immature Granulocyte Percent A 0.2 % (0-0.5); Lymphocytes Percent Auto 13.1 % (18.3-44.2); Mean Corpuscular HGB Conc 32.5 g/dl (32-36); Mean Corpuscular Hemoglobin 28.5 pg (26-34); Mean Corpuscular Volume 87.6 fl (80-100); Mean Platelet Volume 10.2 fl (7.4-10.4); Monocytes Absolute Auto 0.5 K/mm3 (0.1-0.6); Monocytes Percent Auto 5.3 % (2.6-8.5); Neutrophils Absolute Auto 7.2 K/mm3 (1.3-6.7); Platelet Count Result 318 k/mm3 (150-375); Red Blood Count 4.21 M/mm3 (4.2-5.4); Red Cell Distribution Width 14.6 % (11.5-14.5); White Blood Count 9.2 K/mm3 (4.5-10.0)
[2020-08-18 15:05] LABS: Blood Urea Nitrogen 21 mg/dL (8-26); Carbon Dioxide 28 mmol/L (22-30); Chloride 103 mmol/L (98-109); Estimated Glomerular Filt Rate > 60; Glucose 119 mg/dL (70-105); Potassium 4.4 mmol/L (3.5-4.9); Sodium 141 mmol/L (138-146)
[2020-08-18 16:45] LABS: Alanine Aminotransferase 11 U/L (4-35); Albumin Level 3.9 g/dL (3.5-5.1); Alkaline Phosphatase 72 U/L (38-126); Anion Gap 8 mmol/L (8-16); Aspartate Amino Transferase 18 U/L (14-36); Bilirubin,Total 0.4 mg/dL (0.2-1.3); Blood Urea Nitrogen 22 mg/dL (7-17); Calcium 9.2 mg/dL (8.4-10.2); Carbon Dioxide 27 mmol/L (22-30); Chloride 105 mmol/L (98-107); Estimated Glomerular Filt Rate > 60; Glucose 120 mg/dL (65-105); Potassium 4.4 mmol/L (3.4-5.0); Sodium 140 mmol/L (137-145)
== END 2020-08-18 14:45 | disposition home or self-care (01) ==
LOC: ANHLAB 14:45
PROVIDERS: PCP Family Medicine; Visit Provider Internal Medicine Hematology & Oncology
DX: C50.512 Malignant neoplasm of lower-outer quadrant of left female breast (principal); Z17.0 Estrogen receptor positive status [ER+]
CPT/HCPCS: 36415; 80048; 80053; 85025

== ENCOUNTER 2020-09-30 15:05 | Outpatient (CLI) | payer MEDICARE, SELFPAY ==
--- NOTE | ~2020-09-30 | MM_ITS ---
EXAMINATION: MM screening [facility] BI w francisco HISTORY: Screening mammogram, history of left breast cancer TECHNIQUE: Craniocaudal and mediolateral oblique 3-D tomosynthesis images were obtained and synthetic 2-D images were generated. CAD analysis was submitted and interpreted. COMPARISON: 09/03/2019, 08/19/2018, 08/13/2018, 08/07/2017, 07/20/1917 BREAST PARENCHYMAL COMPOSITION: There are scattered areas of fibroglandular density. FINDINGS: Stable lumpectomy changes are present in the left breast. There is no evidence of suspiciou s mass, calcification, or architectural distortion to suggest malignancy in either breast. There has been no suspicious interval change. IMPRESSION: 1. No mammographic evidence of malignancy. 2. Recommend routine screening mammography in one year. BI-RADS Category 2: Benign finding(s). Reviewed, dictated and finalized at location A.
== END 2020-09-30 15:06 | disposition home or self-care (01) ==
PROVIDERS: PCP Family Medicine; Visit Provider Internal Medicine Hematology & Oncology
DX: Z12.31 Encounter for screening mammogram for malignant neoplasm of breast (principal)
CPT/HCPCS: 77063; 77067

== ENCOUNTER 2020-10-10 13:28 | Outpatient (CLI) | payer MEDICARE, SELFPAY | END 2020-10-10 13:29 | disposition home or self-care (01) | LOC: ANHCOVIDVC 13:28 | PROVIDERS: PCP Family Medicine | DX: Z23 Encounter for immunization (principal) | CPT/HCPCS: 0001A; 91300 ==

== ENCOUNTER 2020-10-31 13:29 | Outpatient (CLI) | payer MEDICARE, SELFPAY | END 2020-10-31 13:30 | disposition home or self-care (01) | LOC: ANHCOVIDVC 13:29 | PROVIDERS: PCP Family Medicine | DX: Z23 Encounter for immunization (principal) | CPT/HCPCS: 0002A; 91300 ==

== ENCOUNTER 2020-12-07 18:47 | Observation (INO) | payer MEDICARE, MEDICAID, SELFPAY ==
--- NOTE | ~2020-12-07 | CT_ITS ---
EXAMINATION: CTA chest PE protocol DATE: 12/07/2020 21:54 INDICATION: Dyspnea on exertion. Elevated d-dimer. TECHNIQUE: Computed tomography (CT) pulmonary angiogram of the chest was performed with 100 mL Omnipa que-350 intravenous contrast. Additional 3D reconstructions utilizing coronal maximum intensity proje ction (MIP) were performed. The dose-length product was 499.11 mGy-cm. COMPARISON: None FINDINGS: Excellent contrast opacification of the pulmonary arteries. There is mild streak artifact from dense contrast in the superior vena cava and right atrium. Mild scattered respiratory motion artifact which does not significantly limit evaluation. Moderate emphysema. Chronic small left pleural effusion wit h pleural thickening. Volume loss in the left hemithorax with chronic round atelectasis and associate d architectural distortion at the periphery of the right upper and lower lobes. There is increased sm ooth septal line thickening consistent with mild pulmonary edema at the right lung base and new small right pleural effusion. No pneumonia or pneumothorax. Heart size is normal. No pericardial effusion. Thoracic aorta is normal in caliber with no dissection. Unchanged mild enlargement of the central pu lmonary arteries consistent with pulmonary arterial hypertension. No pathologically enlarged thoracic lymphadenopathy. Likely implantable cardiac defibrillator along the lateral left chest wall with katie d extending cephalad superficial to the left side of the sternum. Visual is upper abdomen is unremark able. Mild thoracic dextroscoliosis with moderate spondylosis. IMPRESSION: 1. No pulmonary embolism. 2. Mild pulmonary edema with new small right pleural effusion. 3. Moderate emphysema. 4. Unchanged chronic small left pleural effusion with pleural thickening and chronic round atelectasi s in the left upper and lower lobes. Reviewed, dictated and finalized at location A. IMPRESSION: 1. No pulmonary embolism. 2. Mild pulmonary edema with new small right pleural effusion. 3. Moderate emphysema. 4. Unchanged chronic small left pleural effusion with pleural thickening and ch ronic round atelectasis in the left upper and lower lobes.
--- NOTE | ~2020-12-07 | XR_ITS ---
EXAMINATION: XR chest 2V DATE: 12/07/2020 19:19 INDICATION: COPD presenting with one week of increasing shortness of breath. TECHNIQUE: PA and lateral views of the chest were obtained. COMPARISON: Chest radiograph dated 03/28/[address] dated 04/20/2020 FINDINGS: Hyperexpansion of lungs with increased lucency and architectural distortion of the upper lung zones c onsistent with emphysema better appreciated on prior CT. Again seen is volume loss in left hemithorax with region of round atelectasis at the lateral left mid to lower lung zone and chronic small left p leural effusion seen both at the lung base and capping the left apex. Interval increase in an indisti nct interstitial pattern in the bilateral mid and lower lung zones most consistent with mild pulmonar y edema. New small right pleural effusion with blunting at the costophrenic angle. No pneumothorax. H eart size is normal. Implantable cardiac defibrillator overlying the lateral left chest wall with katie d extending cephalad in the presternal soft tissues. Thoracic dextroscoliosis with mild spondylosis. IMPRESSION: 1. Increasing indistinct interstitial pattern in the bilateral mid and lower lung zones most likely m ild pulmonary edema with differential including less likely pneumonia. 2. New small right pleural effusion. 3. Chronic small left pleural effusion and round atelectasis along the lateral left mid and lower ming g zones. Reviewed, dictated and finalized at location A. IMPRESSION: 1. Increasing indistinct interstitial pattern in the bilateral mid and lower vivi ng zones most likely mild pulmonary edema with differential including less like ly pneumonia. 2. New small right pleural effusion. 3. Chronic small left pleural effusion and round atelectasis along the lateral left mid and lower lung zones.
[2020-12-07 18:49] VITALS: BP 140/75; PULSE 63; RESP 22; TEMP 36.4; O2SAT 94
--- NOTE | 2020-12-07 18:52 | ECG_ITS ---
Measurements Intervals [place] Rate: 63 P: IN: 0 QRS: 16 QRSD: 96 T: 94 QT: 426 QTc: 438 Interpretive Statements SINUS RHYTHM VENTRICULAR PREMATURE COMPLEXES LOW QRS VOLTAGE- DIFFUSE LEADS CANNOT RULE OUT SEPTAL INFARCT, AGE INDETERMINATE NONSPECIFIC ST & T-WAVE ABNORMALITY- ANTEROLAT/HIGH LAT LEADS BASELINE ARTIFACT- I, II, III, AVR, AVL, AVF ABNORMAL ECG Electronically Signed On 12-07-2020 20:44:57 CDT by Tima Russ D.O.
[2020-12-07 19:03] LABS: Basophils Percent Auto 0.4 % (0.2-1.2); Eosinophils Absolute Auto 0.1 K/mm3 (0-0.3); Eosinophils Percent Auto 1.7 % (0-4.4); Hematocrit 35.7 % (37.0-47.0); Immature Granulocyte Absolute 0.02 K/mm3 (0.00-0.031); Immature Granulocyte Percent A 0.3 % (0-0.5); Lymphocytes Absolute Auto 0.97 K/mm3 (0.9-3.2); Lymphocytes Percent Auto 12.7 % (18.3-44.2); Mean Corpuscular HGB Conc 30.8 g/dl (32-36); Mean Corpuscular Hemoglobin 27.6 pg (26-34); Mean Corpuscular Volume 89.7 fl (80-100); Mean Platelet Volume 10.5 fl (7.4-10.4); Monocytes Absolute Auto 0.5 K/mm3 (0.1-0.6); Monocytes Percent Auto 6.8 % (2.6-8.5); Neutrophils Absolute Auto 5.9 K/mm3 (1.3-6.7); Neutrophils Percent Auto 78.1 % (45.5-73.1); Platelet Count Result 200 k/mm3 (150-375); Red Blood Count 3.98 M/mm3 (4.2-5.4); Red Cell Distribution Width 14.9 % (11.5-14.5); White Blood Count 7.6 K/mm3 (4.5-10.0)
[2020-12-07 19:25] LABS: Anion Gap 10 mmol/L (8-16); Blood Urea Nitrogen 13 mg/dL (7-17); Calcium 8.7 mg/dL (8.4-10.2); Carbon Dioxide 25 mmol/L (22-30); Chloride 108 mmol/L (98-107); Estimated CRCL calculation 66 ml/min; Estimated Glomerular Filt Rate > 60; Glucose 135 mg/dL (65-105); Sodium 143 mmol/L (137-145)
--- NOTE | 2020-12-07 19:43 | PC.NURSE ---
Called Kimberly aleman, added on BNP 1941
[2020-12-07 20:01] LABS: NT Pro B Type Natriuretic Pept 5790 pg/mL (5-100)
--- NOTE | 2020-12-07 20:56 | ED.SOB ---
HPI - SOB/Dyspnea General Chief Complaint: Shortness of Breath/Dyspnea Stated Complaint: sob Time Seen by Provider: 12/07/20 20:35 Source: patient and RN notes reviewed Mode of arrival: ambulatory Limitations: no limitations History of Present Illness HPI Narrative: This is a 75 year old female with history of CHF, COPD, sleep apnea on CPAP who presents for evaluation of shortness of breath. She states she has had intermittent episodes of shortness of breath over the past 1 week. She just returned from [place]. She states she feels better sitting up. Her symptoms are worse with exertion. She denies fever, cough, chest pain, weight gain or edema. She states she stop taking diuretics 2 years ago . She wears 3 L NC all the time and 4 L with activity. She is extremely sob just walking to bathroom. She is having to catch her breath. Related Data Home Medications Medication Instructions Recorded Confirmed Entresto 0.5 tablet PO BID 05/15/19 12/08/20 anastrozole 1 mg PO DAILY 05/15/19 12/08/20 aspirin [Aspirin Low Dose] 81 mg PO DAILY 05/15/19 12/08/20 carvedilol [Coreg] 12.5 mg PO BID 05/15/19 12/08/20 simvastatin 40 mg PO HS 05/15/19 12/08/20 furosemide 20 mg PO DAILY 05/16/19 12/08/20 clonazepam 0.5 mg PO DAILY 12/08/20 12/08/20 clotrimazole-betamethasone 1 applic TOPICAL DAILY PRN 12/08/20 12/08/20 dicyclomine 20 mg PO BID 12/08/20 12/08/20 dicyclomine 20 mg PO BID 12/08/20 12/08/20 gabapentin 2,400 mg PO QID 12/08/20 12/08/20 Allergies Allergy/AdvReac Type Severity Reaction Status Date / Time levothyroxine sodium Allergy Intermediate swelling Verified 12/07/20 23:53 in feet ciprofloxacin [From Cipro] Allergy Mild Unknown Verified 12/07/20 23:53 diclofenac Allergy Unknown ABDOMINAL Verified 12/07/20 23:53 PAIN nortriptyline Allergy Unknown Rash Verified 12/07/20 23:53 rofecoxib Allergy Unknown HEART Verified 12/07/20 23:53 FAILURE Review of Systems Review of Systems: All systems reviewed & are unremarkable except as noted in HPI and below PMFSH Past Medical History Medical History Abnormal TSH Acute renal insufficiency Anxiety Arthritis Asthma Asthma Breast cancer, left Breast cancer, left Bronchitis Cardiac defibrillator in place Cardiomyopathy Cardiomyopathy CHF (congestive heart failure) Chronic respiratory failure Colitis Colitis Complex sleep apnea syndrome COPD (chronic obstructive pulmonary disease) COPD (chronic obstructive pulmonary disease) DDD (degenerative disc disease) Depression Depression with anxiety Diverticulitis Diverticulitis Endocarditis Endocarditis Essential (primary) hypertension HTN (hypertension) Hyperthyroidism Hyperthyroidism Hypothyroid Left leg weakness MDD (major depressive disorder), recurrent episode, moderate Mitral valve prolapse MVP (mitral valve prolapse) Neuropathy, peripheral, idiopathic KYLER on CPAP Peripheral neuropathy Pneumonia Sciatic leg pain Slurred speech Stress incontinence Suspected cerebrovascular accident (CVA) Systolic CHF, chronic Uses nebulizer and inhaler at home Supposed to use 4x per day, but often just uses it 1x per day Vapes non-nicotine containing substance Surgical History Surgical History H/O cardiac catheterization History of left hip replacement (~2011) History of left hip replacement History of lumpectomy of left breast S/P arterial stent Family History Family History Sibling Hypertension Mother Family history of cardiovascular disease Parkinsons Hypertension Hx of CABG Father Family history of malignant neoplasm of bone Mother Hypertension Father Bone cancer Daughter Seizures Social History Social History Social History: Patient designate , Vel Vasquez, as her surrogate decision maker. She wishes to be a full co
[2020-12-07 21:18] LABS: Alveolar/Arterial O2 Gradient 96.9 mmHg; Base Excess ABG -0.4 mEq/l (+/-2.0); Carboxyhemoglobin 0.6 % THb (0-2.0); Fractional Inspired Oxygen 32 %; Methemoglobin ABG 0.1 %THb (0-1.5); Oxygen Content ABG 16.3 %vol (16.0-22.0); Oxygen Saturation ABG 96.7 % (95.0-100.0); Oxyhemoglobin 95.5 % THb (90.0-100.0); PCO2 ABG 38.4 mmHg (35.0-45.0); PO2 ABG 86.3 mmHg (80.0-100.0); Reduced Hemoglobin 3.8 %THb (0-5.0); Total Hemoglobin 12.1 g/dL (12.0-18.0); pH ABG 7.413 (7.350-7.450)
[2020-12-07 21:19] LABS: Device NASAL CANNULA; Modified Allen's Test Pass; Site Drawn RIGHT RADIAL
[2020-12-07 21:33] LABS: Partial Thromboplastin Time 36.1 SECONDS (22.3-36.8)
[2020-12-07 21:36] LABS: D Dimer 0.78 ug/mL (<0.48)
[2020-12-07] MEDS: FUROSEMIDE INJ 40 MG/4 ML VIAL IV PUSH (21:41)
[2020-12-07] MEDS: predniSONE 20 MG TABLET 60 MG PO (22:48)
[2020-12-07 22:59] VITALS: BP 140/89; PULSE 70; RESP 20; O2SAT 99
[2020-12-07 23:01] VITALS: PULSE 74; RESP 26; O2SAT 96
[2020-12-07 23:18] VITALS: PULSE 69; RESP 23; O2SAT 100
[2020-12-07 23:31] VITALS: PULSE 77; RESP 19; O2SAT 99
[2020-12-07 23:45] VITALS: PULSE 68; RESP 16; O2SAT 100
[2020-12-08] VITALS (19 sets, daily range): BP systolic 112–156; BP diastolic 57–79; PULSE 60–85; RESP 13–22; TEMP 36.2–37; O2SAT 95–100
--- NOTE | 2020-12-08 | ECHO_ITS ---
Patient Info Name: Arianne Vasquez Age: 75 years : 1945 Gender: Female Ht: 66 in Wt: 186 lbs BSA: 2.01 m2 HR: 67 bpm BP: 156 / 76 mmHg Heart Rhythm: Sinus Rhythm Technical Quality: Good Exam Date: 12/08/2020 8:32 AM Exam Location: [facility] Pul[facility] Patient Status: Outpatient Admit Date: 12/07/2020 Staff Ordering Physician: Percy Mohan MD Molder Floor: Darvin Hughes, SHADI, RT Attending Provider: Percy Mohan MD Referring Physician: Marques HELMS; Exam Type: CA echo doppler color flow Study Info Indications I50.9 - Heart failure, unspecified Complete two-dimensional, color flow and Doppler transthoracic echocardiogram is performed. Strain analysis performed. Summary 1. Complete two-dimensional, color flow and Doppler transthoracic echocardiogram is performed. 2. Left ventricular systolic function is mildly reduced, estimated at 45-50% with inferolateral hypokinesis.. 3. Left ventricular chamber dimension is mildly enlarged. 4. Left ventricular septal wall motion is abnormal with septal motion related to bundle branch block. 5. There is mildly increased left ventricular wall thickness. 6. The left ventricular diastolic function is grade I diastolic dysfunction. 7. There is mild to moderate mitral valve regurgitation. 8. There is trace tricuspid valve regurgitation. 9. Moderate pulmonary hypertension, estimated pulmonary arterial systolic pressure is 52 mmHg. Left Ventricle Left ventricular chamber dimension is mildly enlarged. Left ventricular systolic function is mildly reduced, estimated at 45-50% with inferolateral hypokinesis.. There is mildly increased left ventricular wall thickness. Left ventricular septal wall motion is abnormal with septal motion related to bundle branch block. The left ventricular diastolic function is grade I diastolic dysfunction. Global longitudinal strain is moderately elevated at -12 %. Right Ventricle Right ventricular chamber dimension is normal. Right ventricular systolic function is normal. Left Atria Left atrial chamber dimension is normal. Right Atria Right atrial chamber dimension is normal. Aortic Valve The aortic valve is probable trileaflet. There is mild aortic valve sclerosis. There is no aortic valve stenosis. Pulmonic Valve The pulmonic valve is not well visualized. There is trace pulmonic regurgitation. Mitral Valve The mitral valve has thickened leaflets. There is mild to moderate mitral valve regurgitation. The mitral valve annulus is moderately calcified. Tricuspid Valve The tricuspid valve leaflets are normal. There is trace tricuspid valve regurgitation. Moderate pulmonary hypertension, estimated pulmonary arterial systolic pressure is 52 mmHg. Pericardium/Pleural The pericardium appears normal. There is small pericardial effusion. Inferior Vena Cava Dilated inferior vena cava with >50% collapse upon inspiration consistent with elevated right atrial pressure, 10 mmHg. Aorta The aortic root size at the sinus of Valsalva is normal. Left Ventricular Outflow Tract Name Value Normal LVOT 2D LVOT Diameter 2.1 cm LVOT Doppler
[2020-12-08 00:57] LABS: Troponin I 0.013 ng/mL (0.000-0.034)
--- NOTE | 2020-12-08 02:00 | ADMGEN ---
This patient, Arianne Vasquez, was admitted to Intensive Care Unit-10. Patient/family oriented to hospital policies and general routines including ID bracelet, bed and alarms, visiting hours, pain management, procedures, bathroom and other care routines, personal items, smoking policy, room service/diet, and visiting hours. Information on how to activate the Rapid Response Team has been discussed. Patient/Family are encouraged to report perceived risks to care and to ask questions if they do not understand what they are told or what they should do.
[2020-12-08] MEDS: ALBUTEROL SULFATE NEB 2.5 MG/0.5 ML INH 5 MG INHALATION ×3 (02:44→21:53)
[2020-12-08] MEDS: IPRATROPIUM BR 0.02% INH SOLN 0.5 MG/2.5 ML VIAL INHALATION ×3 (02:44→21:53)
--- NOTE | 2020-12-08 03:21 | PM.IMHP ---
H&P: HPI History of Present Illness Date/Time: 12/08/20 03:21 Chief Complaint: Shortness of breath Narrative: This is a 75-year-old female with past medical history significant for chronic systolic heart failure ejection fraction of 40-45% as per echo from 2019, diastolic grade 1 congestive heart failure, hypertension, complex obstructive sleep apnea, chronic pain, on chronic opiate, COPD/emphysema, former smoker, currently vaping. Patient went just recently to visit her daughter in [place] and noted that upon coming back she started having increasing daily worsening shortness of breath to the point that he was difficult for her to lay flat in the bed she has also had a persistent cough with clear phlegm production. Patient denies any chills rigors or fevers, no chest pain, no palpitation, no near-syncope or syncope. No nausea no vomiting no diarrhea no abdominal pain. Preliminary workup was significant for elevated brain natriuretic peptide and chest x-ray with moderate emphysema and edema. A CTA was negative for pulmonary embolism but showed bilateral pleural effusions a small in size. In emergency room patient received Lasix and she was feeling better at the time of my visit patient has been placed in telemetry. Review of Systems Review of Systems: Narrative: Worsening shortness of breath Constitutional: Constitutional: Denies chills, Denies fatigue, Denies fever(s) and Denies weakness Eyes: Eyes: Denies change in vision ENT: Denies nasal congestion, Denies nasal discharge and Denies nasal obstruction Cardiovascular: Cardiovascular: Denies edema, Denies irregular heart rhythm, Denies lightheadedness, Denies radiating jaw, neck or arm pain, Denies palpitations, Reports dyspnea, Reports dyspnea on exertion and Reports orthopnea Respiratory: Respiratory: Reports cough, Reports dyspnea and Reports wheezing Comments: Clear phlegm Gastrointestinal: Gastrointestinal: Denies abdominal pain, Denies heartburn and Denies vomiting Genitourinary: Genitourinary: Denies dysuria Musculoskeletal: Musculoskeletal: Denies arthralgias, Denies joint swelling, Denies muscle cramps and Denies muscle weakness Integumentary/Breasts: Skin/Breast: Denies rash Neurologic: Denies focal weakness and Denies Sensory deficit (Neuro) Psychiatric: Psychiatric: Reports no additional psychiatric complaints Endocrine: Endocrine: Reports no additional endocrine complaints Hematologic/Lymphatic: Hematologic/Lymphatic: Reports no additional hematologic/lymphatic complaints Allergic/Immunologic: Allergic/Immunologic: Reports no additional allergic/immunologic complaints [facility] Past Medical History Medical History Abnormal TSH Acute renal insufficiency Anxiety Arthritis Asthma Asthma Breast cancer, left Breast cancer, left Bronchitis Cardiac defibrillator in place Cardiomyopathy Cardiomyopathy CHF (congestive heart failure) Chronic respiratory failure Colitis Colitis Complex sleep apnea syndrome COPD (chronic obstructive pulmonary disease) COPD (chronic obstructive pulmonary disease) DDD (degenerative disc disease) Depression Depression with anxiety Diverticulitis Diverticulitis Endocarditis Endocarditis Essential (primary) hypertension HTN (hypertension) Hyperthyroidism Hyperthyroidism Hypothyroid Left leg weakness MDD (major depressive disorder), recurrent episode, moderate Mitral valve prolapse MVP (mitral valve prolapse) Neuropathy, peripheral, idiopathic KYLER on CPAP Peripheral neuropathy Pneumonia Sciatic leg pain Slurred speech Stress incontinence Suspected cerebrovascular accident (CVA) Systolic CHF, chronic Uses nebulizer and inhaler at home Supposed to use 4x per day, but often just uses it 1x per day Vapes non-nicotine containing substance Surgical History Surgical History H/O cardiac catheterization History of left hip replacement (~2011) History of left hip replacement His
[2020-12-08] MEDS: methylPREDNISolone SOD SUCC 40 MG VIAL IV PUSH ×4 (06:39→23:41)
[2020-12-08] MEDS: ACETAMINOPHEN 325 MG TABLET 650 MG PO (08:30)
--- NOTE | 2020-12-08 09:14 | PM.CNCAR ---
Assessment and Plan Additional Plan 1-acute on chronic combined systolic and diastolic heart failure exacerbation 2-history of hypertension. 3-hyperlipidemia 4-history of peripheral arterial disease. 5-subcutaneous AICD This is a 75-year-old female with past history of chronic systolic and diastolic heart failure with last ejection fraction 35-43% August 2020. She follows up with Dr. bass. Presents to the hospital with increasing shortness of breath for the last 4-5 days. Evidence of pulmonary vascular congestion and right pleural effusion on CT scan of the chest. Continue IV Lasix for today 40 mg IV b.i.d. anticipated to switch to p.o. tomorrow. Continue low-dose Entresto. Continue Plavix. History of Present Illness History of Present Illness Consult date/time: Date of service 12/08/20 09:14 Requesting physician: Percy Mohan MD Consult reason: congestive heart failure Reason For Visit: CHF exacerbation Narrative: This is a 75-year-old female with past medical history significant for chronic systolic heart failure ejection fraction of 35-43% as per echo from August 2020, diastolic grade 1 congestive heart failure, hypertension, obstructive sleep apnea, chronic pain, on chronic opiate, COPD/emphysema, former smoker, currently vaping. Also she has history of subcutaneous AICD. She also has history of stent in the leg. She follows up with Dr. Bass Apparently she came back from [place] after a visit to her daughter and was feeling shortness of breath on exertion. Shortness of breath started to progressively worsened over 4-5 days. Denied lower limb edema, chest pain, dizziness, syncope, palpitations . Serum creatinine 0.7, brain atretic peptide 5800, CT thorax ruled out pulmonary embolism, which shows a new small right pleural effusion, pulmonary vascular congestion, moderate emphysema and chronic atelectasis of the left upper and lower lobes. EKG interpreted analyze myself shows sinus rhythm, low voltage, PVCs Last echocardiogram August 2020 shows ejection fraction visually estimated 35% and measured at 43%. Which is unchanged from before. Review of Systems Constitutional: Constitutional: Denies chills, Denies fever(s) and Denies poor appetite Eyes: Eyes: Denies eye discharge, Denies loss of vision, Denies eye pain and Denies photophobia ENT: Denies dizziness, Denies epistaxis, Denies nasal congestion and Denies sore throat Cardiovascular: Cardiovascular: Denies chest pain, Denies syncope, Denies pedal edema, Denies leg edema, Denies palpitations, Reports dyspnea, Reports dyspnea on exertion and Denies orthopnea Respiratory: Respiratory: Denies cough, Reports dyspnea, Reports dyspnea on exertion and Denies wheezing Gastrointestinal: Gastrointestinal: Denies abdominal pain, Denies diarrhea, Denies nausea and Denies vomiting Genitourinary: Genitourinary: Denies hematuria, Denies genital lesions and Denies dysuria Musculoskeletal: Musculoskeletal: Denies arthralgias, Denies joint swelling and Denies numbness Integumentary/Breasts: Skin/Breast: Denies pruritus and Denies rash Neurologic: Denies dizziness, Denies syncope, Denies loss of vision and Denies numbness Psychiatric: Psychiatric: Denies anxiety and Denies depression Endocrine: Endocrine: Denies cold intolerance, Denies heat intolerance and Denies palpitations Hematologic/Lymphatic: Hematologic/Lymphatic: Denies easy bleeding and Denies easy bruising Allergic/Immunologic: Allergic/Immunologic: Denies urticaria and Denies wheezing PMFSH Past Medical History Medical History Abnormal TSH Acute renal insufficiency Anxiety Arthritis Asthma Asthma Breast cancer, left Breast cancer, left Bronchitis Cardiac defibrillator in place Cardiomyopathy Cardiomyopathy CHF (congestive heart failure) Chronic respiratory failure Colitis Colitis Complex sleep apnea syndrome COPD (chronic obstructive pulmonary disease) COPD (chronic obstructive pulmona
[2020-12-08] MEDS: SACUBITRIL/VALSARTAN 12-13 MG TABLET 1 TAB PO ×2 (09:54→20:01)
[2020-12-08] MEDS: ASPIRIN 81 MG ENTERIC TABLET PO (09:55)
[2020-12-08] MEDS: carvediloL 12.5 MG TABLET PO ×2 (09:55→20:01)
[2020-12-08] MEDS: FUROSEMIDE INJ 40 MG/4 ML VIAL IV PUSH ×2 (09:55→20:01)
[2020-12-08] MEDS: ANASTROZOLE (*CHEMO) 1 MG TABLET PO (09:55)
[2020-12-08] MEDS: CLOPIDOGREL BISULFATE 75 MG TABLET PO (09:55)
[2020-12-08] MEDS: clonazePAM (*CRX) 0.5 MG TABLET PO (09:59)
[2020-12-08] MEDS: HYDROcodone/acetaminophen (*CRX) 10-325 MG TABLET 1 TAB PO ×2 (10:10→20:00)
[2020-12-08] MEDS: DICYCLOMINE HCL 10 MG CAPSULE 20 MG PO ×2 (10:52→17:21)
[2020-12-08] MEDS: POLYSACCHARIDE IRON COMPLEX 150 MG CAPSULE PO (10:52)
[2020-12-08] MEDS: GABAPENTIN 400 MG CAPSULE 800 MG PO ×3 (10:53→17:21)
[2020-12-08] MEDS: SERTRALINE HCL 25 MG TABLET 75 MG PO ×2 (10:53→17:22)
--- NOTE | 2020-12-08 15:51 | PM.IMPN ---
Progress Note: A&P Assessment and Plan (1) Acute on chronic systolic heart failure: Code(s): I50.23 - Acute on chronic systolic (congestive) heart failure Status: Acute Assessment and Plan: DC tomorrow started on entresto Diuresing Lasix 40 mg IV b.i.d. Echocardiogram in a.m. Cardiology consult (2) Essential (primary) hypertension: Code(s): I10 - Essential (primary) hypertension Status: Acute Assessment and Plan: Continue home med (3) Chronic respiratory failure: Qualifiers: Respiratory failure complication: hypoxia Qualified Code(s): J96.11 - Chronic respiratory failure with hypoxia Code(s): J96.10 - Chronic respiratory failure, unspecified whether with hypoxia or hypercapnia Status: Acute Assessment and Plan: Patient is on supplemental oxygen by nasal cannula (4) COPD (chronic obstructive pulmonary disease): Code(s): J44.9 - Chronic obstructive pulmonary disease, unspecified Status: Acute Assessment and Plan: Continue nebulizers Systemic steroids Continue to monitor (5) Vapes non-nicotine containing substance: Code(s): Z72.89 - Other problems related to lifestyle Status: Acute Assessment and Plan: Follow-up in outpatient setting (6) Complex sleep apnea syndrome: Code(s): G47.31 - Primary central sleep apnea Status: Acute Assessment and Plan: Unclear if patient on CPAP at nighttime (7) Chronic pain: Qualifiers: Chronic pain type: chronic pain syndrome Qualified Code(s): G89.4 - Chronic pain syndrome Code(s): G89.29 - Other chronic pain Status: Acute Assessment and Plan: Continue home med Follow-up in outpatient setting (8) Dysphagia: Code(s): R13.10 - Dysphagia, unspecified Status: Acute Assessment and Plan: Continue to monitor Subjective Date/time seen: 12/08/20 15:51 Interval history: 75-year-old female with past medical history significant for chronic systolic heart failure ejection fraction of 40-45% as per echo from 2019, diastolic grade 1 congestive heart failure, hypertension, complex obstructive sleep apnea, chronic pain, on chronic opiate, COPD/emphysema, former smoker, currently vaping. Medical stable. Review of Systems Review of Systems: All systems reviewed & are unremarkable except as noted in HPI and below Exam Const: General: comfortable, no acute distress, well developed, alert and awake Nutritional Appearance: average body habitus Orientation/consciousness: patient oriented x3 Resp: Effort & Inspection: normal respiratory effort and able to speak in complete sentences Cardio: Jugular venous distension: no JVD Rate: regular rate Rhythm: regular rhythm Heart sounds: S1 normal heart sound present and S2 normal heart sound present GI: Inspection: normal to inspection : General: Yes deferred Skin: Lesions: lesions noted Rashes: no rashes Wounds: no wounds Neuro: General: patient oriented x3 and CN's II-XI intact bilaterally Cranial nerves: Yes CN's II-XII intact bilaterally and Yes Equal, round and reactive pupils present Cognition (Neuro): normal cognition Speech: normal speech Gait exam (Neuro): Normal gait present Motor exam (neuro): 5/5 motor strength present throughout Sensory Exam: No Sensory deficit (Neuro) Extrem: General: normal to inspection, full ROM, no joint enlargement and edema bilateral (Ankle) Objective Data Vital Signs Vital Signs: Vital Signs - 24 hr 12/07/20 18:49 12/07/20 22:59 12/07/20 23:01 Temperature 36.4 C Pulse Rate 63 70 74 Respiratory Rate 22 H 20 26 H Blood Pressure 140/75 140/89 Pulse Oximetry 94 99 96 12/07/20 23:18 12/07/20 23:31 12/07/20 23:45 Temperature Pulse Rate 69 77 68 Respiratory Rate 23 H 19 16 Blood Pressure Pulse Oximetry 100 99 100 12/08/20 00:00 12/08/20 00:23 12/08/20 00:35 Temperature Pulse Rate 75 Respir
--- NOTE | 2020-12-08 18:18 | PC.NURSE ---
Transfer received from ICU 10. Patient and family oriented to the room. 12/08/20 2240.
--- NOTE | 2020-12-08 18:24 | PC.NURSE ---
This patient, Arianne Vasquez, was transferred to [facility] via bed on 12/08/20 at 1805 without issue. Personal belongings sent with patient. Report given to RONNY Garcia. Appropriate documentation sent with patient.
--- NOTE | 2020-12-08 19:31 | PHAR ---
Drug Name: Moy Ingredients: Linaclotide -- 72 MCG Related Documents: DRUGDEX Evaluations - LINACLOTIDE Color: White to Off-White Opaque Shape: Capsule-shape Imprint: FL 72 Form: Oral Capsule
[2020-12-08] MEDS: SIMVASTATIN 20 MG TABLET 40 MG PO (20:01)
[2020-12-08] MEDS: MELATONIN 5 MG TABLET 10 MG PO (20:02)
[2020-12-09] VITALS (22 sets, daily range): BP systolic 127–134; BP diastolic 56–59; PULSE 65–96; RESP 18–20; TEMP 36.2–36.3; O2SAT 95–99
[2020-12-09] MEDS: IPRATROPIUM BR 0.02% INH SOLN 0.5 MG/2.5 ML VIAL INHALATION ×4 (01:12→19:43)
[2020-12-09] MEDS: ALBUTEROL SULFATE NEB 2.5 MG/0.5 ML INH 5 MG INHALATION ×4 (01:12→19:43)
[2020-12-09] MEDS: methylPREDNISolone SOD SUCC 40 MG VIAL IV PUSH ×4 (05:55→23:15)
[2020-12-09] MEDS: POLYSACCHARIDE IRON COMPLEX 150 MG CAPSULE PO (08:27)
[2020-12-09] MEDS: ANASTROZOLE (*CHEMO) 1 MG TABLET PO (08:27)
[2020-12-09] MEDS: SACUBITRIL/VALSARTAN 12-13 MG TABLET 1 TAB PO ×2 (08:27→20:08)
[2020-12-09] MEDS: ASPIRIN 81 MG ENTERIC TABLET PO (08:27)
[2020-12-09] MEDS: carvediloL 12.5 MG TABLET PO ×2 (08:27→20:08)
[2020-12-09] MEDS: DICYCLOMINE HCL 10 MG CAPSULE 20 MG PO ×2 (08:27→16:21)
[2020-12-09] MEDS: SERTRALINE HCL 25 MG TABLET 75 MG PO ×2 (08:28→16:21)
[2020-12-09] MEDS: GABAPENTIN 400 MG CAPSULE 800 MG PO ×3 (08:28→16:21)
[2020-12-09] MEDS: CLOPIDOGREL BISULFATE 75 MG TABLET PO (08:28)
[2020-12-09] MEDS: clonazePAM (*CRX) 0.5 MG TABLET PO (08:28)
[2020-12-09] MEDS: FUROSEMIDE INJ 40 MG/4 ML VIAL IV PUSH (08:33)
[2020-12-09] MEDS: FLUTICASONE/UMECLIDIN/VILANTER 100-62.5-25 MCG ELLIPTA 1 PUFF INHALATION (09:08)
[2020-12-09] MEDS: HYDROcodone/acetaminophen (*CRX) 10-325 MG TABLET 1 TAB PO ×2 (12:27→23:15)
--- NOTE | 2020-12-09 14:23 | PM.IMPN ---
Progress Note: A&P Assessment and Plan (1) Acute on chronic systolic heart failure: Code(s): I50.23 - Acute on chronic systolic (congestive) heart failure Status: Acute Assessment and Plan: DC Saturday started on entresto Diuresing Lasix 40 mg IV b.i.d. EF 45% acute on chronic systolic CHf Cardiology consulted (2) Essential (primary) hypertension: Code(s): I10 - Essential (primary) hypertension Status: Acute Assessment and Plan: Continue home med (3) Chronic respiratory failure: Qualifiers: Respiratory failure complication: hypoxia Qualified Code(s): J96.11 - Chronic respiratory failure with hypoxia Code(s): J96.10 - Chronic respiratory failure, unspecified whether with hypoxia or hypercapnia Status: Acute Assessment and Plan: Patient is on supplemental oxygen by nasal cannula (4) COPD (chronic obstructive pulmonary disease): Code(s): J44.9 - Chronic obstructive pulmonary disease, unspecified Status: Acute Assessment and Plan: Continue nebulizers Systemic steroids Continue to monitor (5) Vapes non-nicotine containing substance: Code(s): Z72.89 - Other problems related to lifestyle Status: Acute Assessment and Plan: Follow-up in outpatient setting (6) Complex sleep apnea syndrome: Code(s): G47.31 - Primary central sleep apnea Status: Acute Assessment and Plan: Unclear if patient on CPAP at nighttime (7) Chronic pain: Qualifiers: Chronic pain type: chronic pain syndrome Qualified Code(s): G89.4 - Chronic pain syndrome Code(s): G89.29 - Other chronic pain Status: Acute Assessment and Plan: Continue home med Follow-up in outpatient setting (8) Dysphagia: Code(s): R13.10 - Dysphagia, unspecified Status: Acute Assessment and Plan: Continue to monitor Subjective Date/time seen: 12/09/20 14:23 Interval history: 75-year-old female with past medical history significant for chronic systolic heart failure ejection fraction of 40-45% as per echo from 2019, diastolic grade 1 congestive heart failure, hypertension, complex obstructive sleep apnea, chronic pain, on chronic opiate, COPD/emphysema, former smoker, currently vaping. Sob improving continue to diuresis today home tomorrow. Review of Systems Review of Systems: All systems reviewed & are unremarkable except as noted in HPI and below Exam Const: General: comfortable, no acute distress, well developed, alert and awake Nutritional Appearance: average body habitus Orientation/consciousness: patient oriented x3 Eyes: Pupils: Equal, round and reactive pupils present Resp: Effort & Inspection: normal respiratory effort and able to speak in complete sentences Auscultation: rhonchi (bl bases ) Cardio: Jugular venous distension: no JVD Rate: regular rate Rhythm: regular rhythm Heart sounds: S1 normal heart sound present and S2 normal heart sound present GI: Inspection: normal to inspection Neuro: General: patient oriented x3 and CN's II-XI intact bilaterally Cranial nerves: Yes CN's II-XII intact bilaterally and Yes Equal, round and reactive pupils present Cognition (Neuro): normal cognition Speech: normal speech Gait exam (Neuro): Normal gait present Motor exam (neuro): 5/5 motor strength present throughout Sensory Exam: No Sensory deficit (Neuro) Extrem: General: normal to inspection, full ROM, no joint enlargement and edema bilateral (Ankle) Objective Data Vital Signs Vital Signs: Vital Signs - 24 hr 12/08/20 16:00 12/08/20 20:00 12/08/20 20:01 Temperature 37.0 C Pulse Rate 76 85 80 Respiratory Rate 20 Blood Pressure 112/66 Pulse Oximetry 98 98 12/08/20 21:12 12/08/20 21:53 12/08/20 22:04 Temperature 36.6 C Pulse Rate 70 66 72 Respiratory Rate 18 20 20 Blood Pressure 127/57 L Pulse Oximetry 98 12/09/20 00:00 12/09/20 01:12 12/09/20 01:2
--- NOTE | 2020-12-09 14:48 | PM.PNCARD ---
Progress Note: A&P Assessment and Plan (1) Acute on chronic systolic heart failure: Code(s): I50.23 - Acute on chronic systolic (congestive) heart failure <JERED Blake - Last Filed: 12/09/20 15:15> Status: Acute <JERED Blake - Last Filed: 12/09/20 15:15> Assessment and Plan: History of chronic systolic and diastolic heart failure with last ejection fraction 35-45%. Presented with c/o shortness of breath. Patient had self discontinued her furosemide at home because she did not like using the bathroom frequently. She was placed on IV furosemide and diuresed well. Today, she has no lower extremity edema. She remains on 3 L of oxygen per nasal cannula which is her baseline (on home O2). She is still complaining of some shortness of breath but says it has drastically improved since admission. In anticipation for discharge tomorrow will transition her from IV furosemide to oral. We will see her in our office in a couple of weeks to ensure she is not retaining fluid. -check BMP -Continue Entresto. <JERED Blake - Last Filed: 12/09/20 15:15> Additional Plan Attending addendum: I have personally seen and examined the patient at bedside. I agree with above documentation and plan of care as outlined. Patient admitted with decompensated heart failure with reduced ejection fraction secondary to noncompliance with discontinuation of furosemide. Much improved with diuresis, baseline 3 L nasal cannula. Still short of breath not quite at baseline but close. Despite discharge home tomorrow. Will IV Lasix changed to oral. Follow-up set. Continue cardiovascular medical therapy. No other new complaints. Edema resolved. Exam: 8 0 x 3 nonfocal lungs diminished breath sounds diffusely, prolonged expiratory phase, no crackles. Cardiac exam regular and rhythm S1-S2 abdominal exam soft nontender nondistended positive bowel sounds extremities no edema clubbing cyanosis head atraumatic normocephalic nasal cannula noted. Impression/plan of care: IV Lasix changed to oral in setting of acute on chronic heart failure with reduced ejection fraction EF 35-40%. Continue Entresto. Renal function stable. BP control. Dyslipidemia continue current therapy. PAD stable. ICD. Patient much improved. Anticipate discharge home tomorrow if no acute issues overnight. Follow-up in 2 weeks as outpatient. Keep scheduled appointment with Dr. Bass as well. <Atilio Benedict MD - Last Filed: 12/09/20 19:22> Subjective Date/time seen: 12/09/20 14:48 <JERED Blake - Last Filed: 12/09/20 15:15> Interval history: Cardiology follow-up for his CHF Date of service 12/09/2020: Patient says she is feeling much improved today. She states that she still becomes dyspneic with exertion but denies shortness of breath at rest. She is currently receiving a nebulizer treatment. She is on 3 L of oxygen ordinarily. Her lower extremity edema has resolved. She tells me that she is unsure of how much Lasix she is taking at home and also states that she quit taking it because she did not like having to use the bathroom frequently discussed with her that adhering to her diuretic regimen is necessary in managing her symptoms and therefore keeping her out of the hospital. She verbalizes understanding and agrees to take her Lasix as prescribed. Plan is for her to discharge home tomorrow. <JERED Blake - Last Filed: 12/09/20 15:15> Review of Systems Review of Systems: All systems reviewed & are unremarkable except as noted in HPI and below <JERED Blake - Last Filed: 12/09/20 15:15> Constitutional: Constitutional: Denies chills, Denies fever(s) and Denies night sweats <JERED Blake - Last Filed: 12/09/20 15:15> Eyes: Eyes: Denies change in vision <JERED Blake - Last Filed: 12/09/20 15:15> ENT: Reports Normal hearing present <JERED Blake - Last File
[2020-12-09] MEDS: FUROSEMIDE 40 MG TABLET PO (16:21)
[2020-12-09 18:08] LABS: Anion Gap 13 mmol/L (8-16); Blood Urea Nitrogen 36 mg/dL (7-17); Calcium 8.9 mg/dL (8.4-10.2); Carbon Dioxide 27 mmol/L (22-30); Chloride 99 mmol/L (98-107); Estimated CRCL calculation 51 ml/min; Estimated Glomerular Filt Rate 54; Glucose 153 mg/dL (65-105); Sodium 139 mmol/L (137-145)
[2020-12-09] MEDS: ACETAMINOPHEN 325 MG TABLET 650 MG PO (20:07)
[2020-12-09] MEDS: MELATONIN 5 MG TABLET 10 MG PO (20:08)
[2020-12-09] MEDS: SIMVASTATIN 20 MG TABLET 40 MG PO (20:08)
[2020-12-10] VITALS (14 sets, daily range): BP systolic 140–155; BP diastolic 65–67; PULSE 60–76; RESP 18; TEMP 35.5–36.1; O2SAT 94–97
[2020-12-10] MEDS: ALBUTEROL SULFATE NEB 2.5 MG/0.5 ML INH 5 MG INHALATION ×3 (02:11→14:33)
[2020-12-10] MEDS: IPRATROPIUM BR 0.02% INH SOLN 0.5 MG/2.5 ML VIAL INHALATION ×3 (02:11→14:33)
[2020-12-10] MEDS: methylPREDNISolone SOD SUCC 40 MG VIAL IV PUSH ×2 (05:32→12:57)
--- NOTE | 2020-12-10 08:36 | PM.PNCARD ---
Progress Note: A&P Assessment and Plan (1) Acute on chronic systolic heart failure: Code(s): I50.23 - Acute on chronic systolic (congestive) heart failure Status: Acute Assessment and Plan: History of chronic systolic and diastolic heart failure with last ejection fraction 35-45%. -Continue Entresto. Will change her furosemide 40 mg daily from b.i.d. dosing. Okay for discharge from my perspective. She has follow-up in my office with me on Saturday (2) Essential (primary) hypertension: Code(s): I10 - Essential (primary) hypertension Status: Acute Assessment and Plan: Generally at goal (3) Cardiomyopathy: Code(s): I42.9 - Cardiomyopathy, unspecified Status: Acute Assessment and Plan: Moderate to severe (4) ICD (implantable cardioverter-defibrillator) in place: Code(s): Z95.810 - Presence of automatic (implantable) cardiac defibrillator Status: Acute Assessment and Plan: In place and previously function normally Subjective Date/time seen: 12/10/20 08:36 Interval history: Cardiology follow-up for his CHF Date of service 12/09/2020: Patient says she is feeling much improved today. She states that she still becomes dyspneic with exertion but denies shortness of breath at rest. She is currently receiving a nebulizer treatment. She is on 3 L of oxygen ordinarily. Her lower extremity edema has resolved. She tells me that she is unsure of how much Lasix she is taking at home and also states that she quit taking it because she did not like having to use the bathroom frequently discussed with her that adhering to her diuretic regimen is necessary in managing her symptoms and therefore keeping her out of the hospital. She verbalizes understanding and agrees to take her Lasix as prescribed. Plan is for her to discharge home tomorrow. Date of service 12/10/2020: She feels much better. Short of breath is still present but improved. Swelling gone. No chest pain Review of Systems Review of Systems: All systems reviewed & are unremarkable except as noted in HPI and below Constitutional: Constitutional: Denies chills, Denies fatigue, Denies fever(s), Denies headache(s), Denies night sweats and Denies poor appetite Eyes: Eyes: Denies change in vision, Denies eye discharge, Denies loss of vision, Denies eye pain and Denies photophobia ENT: Reports Normal hearing present, Denies dizziness, Denies headache(s), Denies epistaxis, Denies nasal congestion and Denies sore throat Cardiovascular: Cardiovascular: Denies chest pain, Denies syncope, Denies pedal edema, Denies leg edema, Denies lightheadedness, Denies palpitations, Reports dyspnea, Reports dyspnea on exertion and Denies orthopnea Respiratory: Respiratory: Denies cough, Denies hemoptysis, Reports dyspnea, Reports dyspnea on exertion and Denies wheezing Gastrointestinal: Gastrointestinal: Denies abdominal pain, Denies constipation, Denies diarrhea, Denies nausea and Denies vomiting Genitourinary: Genitourinary: Denies hematuria, Denies genital lesions, Denies dysuria and Reports urinary urgency Musculoskeletal: Musculoskeletal: Denies arthralgias, Denies joint swelling and Denies numbness Integumentary/Breasts: Skin/Breast: Denies pruritus, Denies rash and Denies unusual bruising Neurologic: Reports Normal hearing present, Denies confusion, Denies dizziness, Denies syncope, Denies headache(s), Denies loss of vision and Denies numbness Psychiatric: Psychiatric: Denies anxiety, Denies confusion and Denies depression Endocrine: Endocrine: Denies cold intolerance, Denies fatigue, Denies heat intolerance and Denies palpitations Hematologic/Lymphatic: Hematologic/Lymphatic: Denies easy bleeding and Denies easy bruising Allergic/Immunologic: Allergic/Immunologic: Denies GI upset with certain foods, Denies urticaria and Denies wheezing Exam Const: General: cooperative, comfortable, no acute distress, alert and
[2020-12-10] MEDS: FUROSEMIDE 40 MG TABLET PO (09:14)
[2020-12-10] MEDS: POLYSACCHARIDE IRON COMPLEX 150 MG CAPSULE PO (09:14)
[2020-12-10] MEDS: DICYCLOMINE HCL 10 MG CAPSULE 20 MG PO (09:14)
[2020-12-10] MEDS: carvediloL 12.5 MG TABLET PO (09:15)
[2020-12-10] MEDS: CLOPIDOGREL BISULFATE 75 MG TABLET PO (09:15)
[2020-12-10] MEDS: clonazePAM (*CRX) 0.5 MG TABLET PO (09:15)
[2020-12-10] MEDS: ANASTROZOLE (*CHEMO) 1 MG TABLET PO (09:15)
[2020-12-10] MEDS: GABAPENTIN 400 MG CAPSULE 800 MG PO ×2 (09:15→12:56)
[2020-12-10] MEDS: ASPIRIN 81 MG ENTERIC TABLET PO (09:15)
[2020-12-10] MEDS: SERTRALINE HCL 25 MG TABLET 75 MG PO (09:15)
[2020-12-10] MEDS: ACETAMINOPHEN 325 MG TABLET 650 MG PO (09:17)
[2020-12-10] MEDS: SACUBITRIL/VALSARTAN 12-13 MG TABLET 1 TAB PO (09:18)
[2020-12-10] MEDS: FLUTICASONE/UMECLIDIN/VILANTER 100-62.5-25 MCG ELLIPTA 1 PUFF INHALATION (10:00)
--- NOTE | 2020-12-10 12:43 | PM.DS ---
DS: Admitting Diagnosis Admitting Diagnosis Admitting Diagnosis: acute on chronic HFrEF DS: Discharge Diagnosis Discharge Diagnosis (1) Acute on chronic systolic heart failure: Code(s): I50.23 - Acute on chronic systolic (congestive) heart failure Status: Acute Assessment and Plan: started on entresto Lasix 40 mg PO b.i.d. EF 45% acute on chronic systolic CHf F/u with Dr. Bass in 6 days as scheduled (2) Essential (primary) hypertension: Code(s): I10 - Essential (primary) hypertension Status: Acute Assessment and Plan: Controlled (3) Chronic respiratory failure: Qualifiers: Respiratory failure complication: hypoxia Qualified Code(s): J96.11 - Chronic respiratory failure with hypoxia Code(s): J96.10 - Chronic respiratory failure, unspecified whether with hypoxia or hypercapnia Status: Acute Assessment and Plan: Patient is on supplemental oxygen by nasal cannula (4) COPD (chronic obstructive pulmonary disease): Code(s): J44.9 - Chronic obstructive pulmonary disease, unspecified Status: Acute Assessment and Plan: Continue bronchodilators (5) Vapes non-nicotine containing substance: Code(s): Z72.89 - Other problems related to lifestyle Status: Acute Assessment and Plan: Follow-up in outpatient setting (6) Complex sleep apnea syndrome: Code(s): G47.31 - Primary central sleep apnea Status: Acute Assessment and Plan: Outpatient f/u with PCP (7) Chronic pain: Qualifiers: Chronic pain type: chronic pain syndrome Qualified Code(s): G89.4 - Chronic pain syndrome Code(s): G89.29 - Other chronic pain Status: Acute Assessment and Plan: Continue home med Follow-up in outpatient setting (8) Dysphagia: Code(s): R13.10 - Dysphagia, unspecified Status: Acute Assessment and Plan: Doing well 12/10. Continue to monitor for recurrent sx's with PCP DS: Summary Hospital Course Reason for hospitalization: dyspnea and swelling Hospital Course: Admitted due to swelling and dyspnea. Known chronic systolic CHF and COPD with chronic hypoxemic respiratory failure requiring home oxygen. Confessed to skipping furosemide and eating more salt while visiting family in [place]. Symptoms gradually worsened during the trip. Did well with IV furosemide for diuresis. Tolerated addition of Entresto. By day of discharge was tired with on baseline oxygen and eating well. Pedal edema resolved. Status at Discharge Overall status at discharge: patient is progressing back to baseline Time Spent with Patient Time attestation: Total time spent providing and/or coordinating discharge services: Exam Narrative: Exam Narrative: HEENT: PERRL, sclerae nonicteric, pharyngeal mucosa pink and intact NECK: No JVD CHEST: Clear to auscultation. Normal effort. HEART: NL S1/S2, regular, no murmur ABDOMEN: BS+, soft, nontender, no mass, no bruits EXTREMITIES: No cyanosis, edema, or clubbing NEUROLOGIC: CN intact and symmetric to inspection. MUSCULOSKELETAL: Tone and strength symmetric. PSYCH: Alert. Oriented to person, place, and time. DS: Data Data Completed and Pending Labs on day of discharge: Labs from last 24 hours 12/09/20 17:28 Sodium 139 Potassium 4.0 Chloride 99 Carbon Dioxide 27 Anion Gap 13 BUN 36 H D Creatinine 1.00 Estim Creat Clear Calc 51 Estimated GFR 54 L Glucose 153 H Calcium 8.9 Discharge Plan Discharge Consulting providers: Jett Rivera Discharging Clinician: Micky Cooper Patient Disposition: Home, Self-Care Activity: no straining Diet: heart healthy and low sodium Stand Alone Forms: General Discharge Information Follow-up/Referrals: Juani Townsend, [employer] [Advanced Practice Nurse] - (You are scheduled for a follow up appointment on 12/28 at 10:00. Please arrive 10 minutes prior to your appointm
== END 2020-12-10 15:19 | disposition home or self-care (01) ==
LOC: ANHED 21:34 → ANHICU 23:28 → ANH2MED 12-10 12:50 → ANHICU 12-13 10:21
PROVIDERS: Emergency Medicine; Nurse Practitioner; Admitting Provider Internal Medicine; Emergency Provider General Practice; PCP Family Medicine; Visit Provider Internal Medicine
DX: I11.0 Hypertensive heart disease with heart failure (principal); I50.23 Acute on chronic systolic (congestive) heart failure; J96.11 Chronic respiratory failure with hypoxia; J44.9 Chronic obstructive pulmonary disease, unspecified; G47.31 Primary central sleep apnea; G89.4 Chronic pain syndrome; R13.10 Dysphagia, unspecified; I42.9 Cardiomyopathy, unspecified; F41.8 Other specified anxiety disorders; I34.1 Nonrheumatic mitral (valve) prolapse; G62.9 Polyneuropathy, unspecified; N39.3 Stress incontinence (female) (male); F12.90 Cannabis use, unspecified, uncomplicated; I34.0 Nonrheumatic mitral (valve) insufficiency; E78.5 Hyperlipidemia, unspecified; I73.9 Peripheral vascular disease, unspecified; Z95.820 Peripheral vascular angioplasty status with implants and grafts; Z95.810 Presence of automatic (implantable) cardiac defibrillator; Z85.3 Personal history of malignant neoplasm of breast; Z79.02 Long term (current) use of antithrombotics/antiplatelets; Z79.51 Long term (current) use of inhaled steroids; Z79.891 Long term (current) use of opiate analgesic; Z79.82 Long term (current) use of aspirin; Z79.811 Long term (current) use of aromatase inhibitors; Z87.891 Personal history of nicotine dependence; Z72.89 Other problems related to lifestyle
CPT/HCPCS: 36415; 36600; 71046; 71275; 80048; 82375; 82805; 83050; 83880; 84484; 85025; 85380; 85610; 85730; 93005; 93306; 94640; 96374; 96375; 96376; 97161; 99285; A9270; G0378; J1940; J2920; J7512; Q9967

== ENCOUNTER 2020-12-20 13:54 | Emergency (ER) | payer MEDICARE, SELFPAY ==
--- NOTE | ~2020-12-20 | XR_ITS ---
XR shoulder RT min 2V 12/20/2020 14:44 Indication: Right shoulder pain after fall Procedure: 4 views right shoulder Comparison: No prior studies for comparison. Findings: No fracture, subluxation or dislocation. There is anatomic alignment of the right shoulder. No significant soft tissue abnormality. No foreign bodies. Impression: 1: No significant bone or joint abnormality. Reviewed, dictated and finalized at location B. Impression: 1: No significant bone or joint abnormality.
--- NOTE | ~2020-12-20 | XR_ITS ---
XR knee RT min 4V 12/20/2020 14:43 Indication: Right knee pain after fall Procedure: 5 views right knee Comparison: No prior studies for comparison. Findings: No fracture, subluxation or dislocation. There is a vascular stent above the knee. No signi ficant joint effusion. No foreign bodies. Impression: 1: No acute bone or joint abnormality. Reviewed, dictated and finalized at location B. Impression: 1: No acute bone or joint abnormality.
[2020-12-20 14:01] VITALS: BP 112/69; PULSE 70; RESP 16; TEMP 36.8; O2SAT 100
--- NOTE | 2020-12-20 14:05 | ED.FALL ---
HPI - Fall General Chief Complaint: Fall Stated Complaint: rt elbow injury/henderson/rt knee injury Source: patient and RN notes reviewed Mode of arrival: ambulatory History of Present Illness HPI Narrative: This is a 75-year-old female that presented to urgent care with right knee shoulder and arm pain status post fall. According to patient and family members patient was attempting to get out of bed to go to the restroom and fell over a mattress on the floor. According to patient's daughter patient did not lose consciousness but may have possibly hit her head. I cannot find any evidence of head injury patient family member denies any altered mental status change. Patient denies any visual disturbance headaches, nausea vomiting, bumps, cuts or bruising to the right side of her head. There is no evidence that patient hit her head. Patient does have a laceration to her right elbow and right knee. She is able to bear weight to the right leg denies any numbness sensations positive for range of motion with pain to that right leg, arm and shoulder. Patient is unable to lift right arm in air. The patient denies SOB, CP, palpitation, extremity numbness, lightheadedness, dizziness, constipation, diarrhea, chills, or fever. MD complaint: fall Fall from: out of bed Fall witnessed: yes, by family Place fall occurred: home Loss of consciousness: none Related Data Home Medications Medication Instructions Recorded Confirmed anastrozole 1 mg PO DAILY 05/15/19 12/15/20 aspirin [Aspirin Low Dose] 81 mg PO DAILY 05/15/19 12/15/20 carvedilol [Coreg] 12.5 mg PO BID 05/15/19 12/15/20 simvastatin 40 mg PO HS 05/15/19 12/15/20 clonazepam 0.5 mg PO DAILY 12/08/20 12/15/20 clotrimazole-betamethasone 1 applic TOPICAL DAILY PRN 12/08/20 12/15/20 Allergies Allergy/AdvReac Type Severity Reaction Status Date / Time levothyroxine sodium Allergy Intermediate swelling Verified 12/15/20 16:52 in feet ciprofloxacin [From Cipro] Allergy Mild Unknown Verified 12/15/20 16:52 diclofenac Allergy Unknown ABDOMINAL Verified 12/15/20 16:52 PAIN nortriptyline Allergy Unknown Rash Verified 12/15/20 16:52 rofecoxib Allergy Unknown HEART Verified 12/15/20 16:52 FAILURE Review of Systems Review of Systems: Narrative: A 14 organ system Review of Systems was performed and pertinent positives included in the HPI, otherwise remaining ROS is negative. [facility] Past Medical History Medical History Abnormal TSH Acute renal insufficiency Anxiety Arthritis Asthma Asthma Breast cancer, left Breast cancer, left Bronchitis Cardiac defibrillator in place Cardiomyopathy Cardiomyopathy CHF (congestive heart failure) Chronic respiratory failure Colitis Colitis Complex sleep apnea syndrome COPD (chronic obstructive pulmonary disease) COPD (chronic obstructive pulmonary disease) DDD (degenerative disc disease) Depression Depression with anxiety Diverticulitis Diverticulitis Endocarditis Endocarditis Essential (primary) hypertension HTN (hypertension) Hyperthyroidism Hyperthyroidism Hypothyroid Left leg weakness MDD (major depressive disorder), recurrent episode, moderate Mitral valve prolapse MVP (mitral valve prolapse) Neuropathy, peripheral, idiopathic KYLER on CPAP Peripheral neuropathy Pneumonia Sciatic leg pain Slurred speech Stress incontinence Suspected cerebrovascular accident (CVA) Systolic CHF, chronic Uses nebulizer and inhaler at home Supposed to use 4x per day, but often just uses it 1x per day Vapes non-nicotine containing substance Surgical History Surgical History H/O cardiac catheterization History of left hip replacement (~2011) History of left hip replacement History of lumpectomy of left breast S/P arterial stent Family History Family History Sibling Hypertension Mother Family history of cardiovascular disease Parkinsons
== END 2020-12-20 15:16 | disposition home or self-care (01) ==
PROVIDERS: Emergency Provider Nurse Practitioner; PCP Family Medicine
DX: S46.911A Strain of unspecified muscle, fascia and tendon at shoulder and upper arm level, right arm, initial encounter (principal); S43.401A Unspecified sprain of right shoulder joint, initial encounter; S50.311A Abrasion of right elbow, initial encounter; S80.211A Abrasion, right knee, initial encounter; W18.09XA Striking against other object with subsequent fall, initial encounter; F41.9 Anxiety disorder, unspecified; Z85.3 Personal history of malignant neoplasm of breast; Z95.810 Presence of automatic (implantable) cardiac defibrillator; I11.0 Hypertensive heart disease with heart failure; I50.9 Heart failure, unspecified; J44.9 Chronic obstructive pulmonary disease, unspecified; F32.9 Major depressive disorder, single episode, unspecified; E03.9 Hypothyroidism, unspecified; I34.1 Nonrheumatic mitral (valve) prolapse; G47.33 Obstructive sleep apnea (adult) (pediatric); I34.9 Nonrheumatic mitral valve disorder, unspecified; G62.9 Polyneuropathy, unspecified
CPT/HCPCS: 73030; 73564; 99214; G0463

== ENCOUNTER 2020-12-29 16:46 | Outpatient (CLI) | payer MEDICARE, MEDICAID, SELFPAY ==
[2020-12-29 17:38] LABS: Anion Gap 9 mmol/L (8-16); Blood Urea Nitrogen 34 mg/dL (7-17); Calcium 9.3 mg/dL (8.4-10.2); Carbon Dioxide 31 mmol/L (22-30); Chloride 98 mmol/L (98-107); Estimated Glomerular Filt Rate 44; Glucose 100 mg/dL (65-105); Potassium 4.2 mmol/L (3.4-5.0); Sodium 138 mmol/L (137-145)
== END 2020-12-29 16:47 | disposition home or self-care (01) ==
PROVIDERS: PCP Family Medicine; Visit Provider Internal Medicine Cardiovascular Disease
DX: I50.20 Unspecified systolic (congestive) heart failure (principal)
CPT/HCPCS: 36415; 80048

== ENCOUNTER 2021-01-28 21:44 | Emergency (ER) | payer MEDICARE, MEDICAID, SELFPAY ==
--- NOTE | ~2021-01-28 | XR_ITS ---
EXAMINATION: XR wrist LT min 3V DATE: 01/28/2021 23:07 INDICATION: Generalized left wrist pain post fall TECHNIQUE: Posteroanterior, ulnar deviation, oblique, and lateral views of the left wrist were obtain ed. COMPARISON: none FINDINGS: Diffuse osteopenia. Alignment is normal. No fracture. Mild osteoarthritis at the distal radioulnar idania int and minimal osteoarthritis at many of the remaining joints in the left hand and wrist. Soft tissu es are unremarkable. IMPRESSION: 1. No acute osseous abnormality. Reviewed, dictated and finalized at location A.
--- NOTE | ~2021-01-28 | CT_ITS ---
EXAMINATION: CT cervical spine wo con DATE: 01/28/2021 22:57 INDICATION: Fall with head injury TECHNIQUE: Computed tomography (CT) of the cervical spine was performed without intravenous contrast. Automated exposure control and iterative reconstruction technique were employed. The dose-length pro duct was 438.40 mGy-cm. COMPARISON: None FINDINGS: Severe osteoarthritis at the atlantoaxial articulation. Reversal of the normal cervical lordosis with no spondylolisthesis or facet subluxation. Anterior fusion at C5-C6. Vertebral body heights are othe rwise normal. No fracture. Severe disc height loss at C7-T1, moderate to severe disc height loss at C 4-C5 and C6-C7, moderate disc height loss at T2-T3 and mild disc height loss at C3-C4 and T1-T2. Mult ilevel moderate to severe cervical facet and uncovertebral osteoarthritis. Posterior disc osteophyte complexes resulting in mild central canal stenosis at C4-C5 through C7-T1. There is also bilateral mu ltilevel mild to moderate neural foraminal stenosis. Atherosclerotic calcifications at the bilateral carotid bulbs. Likely benign 1 cm right thyroid nodule. Cervical soft tissues are otherwise unremarka ble. Mild emphysema at the apices of lungs. IMPRESSION: 1. Severe cervical spondylosis with anterior fusion at C5-C6. No acute osseous abnormality. 2. Mild emphysema. Reviewed, dictated and finalized at location A.
--- NOTE | ~2021-01-28 | XR_ITS ---
EXAMINATION: XR hip LT 2V w AP pelvis DATE: 01/28/2021 23:07 INDICATION: Generalized left hip pain post fall TECHNIQUE: Anteroposterior view of the pelvis and anteroposterior and frog-leg lateral views of the l eft hip were obtained. COMPARISON: CT dated 03/03/2020 FINDINGS: Left total hip arthroplasty which is in near-anatomic alignment. No fracture. Mild right hip osteoart hritis. Severe lumbar spondylosis. IMPRESSION: 1. Left total hip arthroplasty. No acute osseous abnormality. 2. Severe lumbar spondylosis. Reviewed, dictated and finalized at location A.
--- NOTE | ~2021-01-28 | CT_ITS ---
EXAMINATION: CT brain wo con DATE: 01/28/2021 22:57 INDICATION: Fall with head injury TECHNIQUE: Computed tomography (CT) of the head was performed without intravenous contrast. Sagittal and coronal reconstructions were performed. The mA was adjusted according to patient size. Iterative reconstruction technique was employed. The dose-length product was 605.33 mGy-cm. COMPARISON: head CT dated 05/15/2019 FINDINGS: No fracture. No acute intracranial hemorrhage, acute infarction or abnormal extra axial fluid collect ion. Small old lacunar infarct at the head of the right caudate nucleus. Symmetric prominence of the sulci consistent with mild to moderate age-appropriate diffuse cerebral volume loss. Ventricles are n ormal and symmetric. No mass/mass effect. Moderate mucosal thickening in the right maxillary sinus wh ich demonstrates thickened sclerotic fagan consistent with chronic sinusitis. The orbits and mastoid air cells are normal. Intracranial calcified cerebral atherosclerosis is noted. IMPRESSION: 1. No fracture or acute intracranial process. 2. Small old lacunar infarct at the head of the right caudate nucleus. 3. Chronic right maxillary sinusitis. Reviewed, dictated and finalized at location A.
[2021-01-28 21:42] VITALS: BP 132/72; PULSE 65; RESP 18; TEMP 36.7; O2SAT 100
--- NOTE | 2021-01-28 21:56 | PC.NURSE ---
updated both drs on pt falling and hitting her head.
--- NOTE | 2021-01-28 22:33 | ED.FALL ---
HPI - Fall History of Present Illness HPI Narrative: 75 yo female w/ multiple medical problems presents to the ED after a fall. She reports that she tripped and fell onto her left side. She caught herself with her right hand. She also struck her head on the ground. No LOC. She is on plavix and aspirin. She has pain in the left wrist, hip and thigh. Related Data Home Medications Medication Instructions Recorded Confirmed anastrozole 1 mg PO DAILY 05/15/19 01/26/21 aspirin [Aspirin Low Dose] 81 mg PO DAILY 05/15/19 01/26/21 carvedilol [Coreg] 12.5 mg PO BID 05/15/19 01/26/21 simvastatin 40 mg PO HS 05/15/19 01/26/21 clonazepam 0.5 mg PO DAILY 12/08/20 01/26/21 clotrimazole-betamethasone 1 applic TOPICAL DAILY PRN 12/08/20 01/26/21 Allergies Allergy/AdvReac Type Severity Reaction Status Date / Time levothyroxine sodium Allergy Intermediate swelling Verified 01/26/21 15:15 in feet ciprofloxacin [From Cipro] Allergy Mild Unknown Verified 01/26/21 15:15 diclofenac Allergy Unknown ABDOMINAL Verified 01/26/21 15:15 PAIN nortriptyline Allergy Unknown Rash Verified 01/26/21 15:15 rofecoxib Allergy Unknown HEART Verified 01/26/21 15:15 FAILURE Review of Systems Review of Systems: All systems reviewed & are unremarkable except as noted in HPI and below Eyes: Eyes: Reports no additional eye complaints ENT: Denies dizziness Cardiovascular: Cardiovascular: Denies chest pain Respiratory: Respiratory: Denies dyspnea Gastrointestinal: Gastrointestinal: Denies nausea Genitourinary: Genitourinary: Reports no additional female genitourinary complaints Neurologic: Denies dizziness, Denies headache(s), Denies numbness and Denies weakness [facility] Past Medical History Medical History Abnormal TSH Acute renal insufficiency Anxiety Arthritis Asthma Asthma Breast cancer, left Breast cancer, left Bronchitis Cardiac defibrillator in place Cardiomyopathy Cardiomyopathy CHF (congestive heart failure) Chronic respiratory failure Colitis Colitis Complex sleep apnea syndrome COPD (chronic obstructive pulmonary disease) COPD (chronic obstructive pulmonary disease) DDD (degenerative disc disease) Depression Depression with anxiety Diverticulitis Diverticulitis Endocarditis Endocarditis Essential (primary) hypertension HTN (hypertension) Hyperthyroidism Hyperthyroidism Hypothyroid Left leg weakness MDD (major depressive disorder), recurrent episode, moderate Mitral valve prolapse MVP (mitral valve prolapse) Neuropathy, peripheral, idiopathic KYLER on CPAP Peripheral neuropathy Pneumonia Sciatic leg pain Slurred speech Stress incontinence Suspected cerebrovascular accident (CVA) Systolic CHF, chronic Uses nebulizer and inhaler at home Supposed to use 4x per day, but often just uses it 1x per day Vapes non-nicotine containing substance Surgical History Surgical History H/O cardiac catheterization History of left hip replacement (~2011) History of left hip replacement History of lumpectomy of left breast S/P arterial stent Family History Family History Sibling Hypertension Mother Family history of cardiovascular disease Parkinsons Hypertension Hx of CABG Father Family history of malignant neoplasm of bone Mother Hypertension Father Bone cancer Daughter Seizures Social History Social History Social History: Patient designate , Vel Vasquez, as her surrogate decision maker. She wishes to be a full code. She sees EMBOSSING UNIT OPERATOR at Dr. Monroe's office as her primary Smoking packs per day: 1 Smoking cigarettes per day: 20.0 Years smoked: 20 Smoking pack-years: 20.00 Smoking status: Former smoker Tobacco type: cigarettes Second hand tobacco smoke exposure: Yes Smoking end date: 07/01/09 Alcohol intake:
[2021-01-29 00:29] VITALS: BP 126/78; PULSE 87; RESP 18; O2SAT 100
== END 2021-01-29 00:31 | disposition home or self-care (01) ==
PROVIDERS: Emergency Provider Emergency Medicine; PCP Family Medicine
DX: S70.02XA Contusion of left hip, initial encounter (principal); S63.502A Unspecified sprain of left wrist, initial encounter; J96.10 Chronic respiratory failure, unspecified whether with hypoxia or hypercapnia; I50.22 Chronic systolic (congestive) heart failure; I11.0 Hypertensive heart disease with heart failure; I38 Endocarditis, valve unspecified; I34.1 Nonrheumatic mitral (valve) prolapse; G47.33 Obstructive sleep apnea (adult) (pediatric); J43.9 Emphysema, unspecified; E05.90 Thyrotoxicosis, unspecified without thyrotoxic crisis or storm; G62.9 Polyneuropathy, unspecified; N39.3 Stress incontinence (female) (male); F41.8 Other specified anxiety disorders; Z85.3 Personal history of malignant neoplasm of breast; Z95.810 Presence of automatic (implantable) cardiac defibrillator; Z96.642 Presence of left artificial hip joint; Z95.5 Presence of coronary angioplasty implant and graft; Z79.82 Long term (current) use of aspirin; Z79.02 Long term (current) use of antithrombotics/antiplatelets; Z87.891 Personal history of nicotine dependence; M47.816 Spondylosis without myelopathy or radiculopathy, lumbar region; J32.0 Chronic maxillary sinusitis; M47.812 Spondylosis without myelopathy or radiculopathy, cervical region; W01.0XXA Fall on same level from slipping, tripping and stumbling without subsequent striking against object, initial encounter
CPT/HCPCS: 70450; 72125; 73110; 73502; 99284

== ENCOUNTER 2021-03-01 15:18 | Outpatient (CLI) | payer MEDICARE, MEDICAID, SELFPAY ==
[2021-03-01 15:36] LABS: Basophils Percent Auto 0.3 % (0.2-1.2); Eosinophils Absolute Auto 0.1 K/mm3 (0-0.3); Eosinophils Percent Auto 1.3 % (0-4.4); Hematocrit 35.6 % (37.0-47.0); Hemoglobin 11.4 g/dL (12.0-15.0); Immature Granulocyte Absolute 0.04 K/mm3 (0.00-0.031); Immature Granulocyte Percent A 0.4 % (0-0.5); Lymphocytes Absolute Auto 1.29 K/mm3 (0.9-3.2); Lymphocytes Percent Auto 12.2 % (18.3-44.2); Mean Corpuscular Hemoglobin 28.5 pg (26-34); Mean Platelet Volume 10.4 fl (7.4-10.4); Monocytes Absolute Auto 0.7 K/mm3 (0.1-0.6); Monocytes Percent Auto 6.3 % (2.6-8.5); Neutrophils Absolute Auto 8.4 K/mm3 (1.3-6.7); Neutrophils Percent Auto 79.5 % (45.5-73.1); Platelet Count Result 235 k/mm3 (150-375); Red Cell Distribution Width 14.9 % (11.5-14.5); White Blood Count 10.6 K/mm3 (4.5-10.0)
[2021-03-01 15:41] LABS: Blood Urea Nitrogen 33 mg/dL (8-26); Carbon Dioxide 28 mmol/L (22-30); Chloride 101 mmol/L (98-109); Estimated Glomerular Filt Rate 54; Glucose 110 mg/dL (70-105); Potassium 4.3 mmol/L (3.5-4.9); Sodium 139 mmol/L (138-146)
[2021-03-01 16:46] LABS: Alanine Aminotransferase 12 U/L (4-35); Albumin Level 4.1 g/dL (3.5-5.1); Alkaline Phosphatase 80 U/L (38-126); Anion Gap 9 mmol/L (8-16); Aspartate Amino Transferase 18 U/L (14-36); Bilirubin,Total 0.4 mg/dL (0.2-1.3); Blood Urea Nitrogen 35 mg/dL (7-17); Carbon Dioxide 26 mmol/L (22-30); Chloride 103 mmol/L (98-107); Estimated Glomerular Filt Rate > 60; Glucose 110 mg/dL (65-110); Potassium 4.5 mmol/L (3.4-5.0); Sodium 138 mmol/L (137-145)
== END 2021-03-01 15:19 | disposition home or self-care (01) ==
LOC: ANHLAB 15:24
PROVIDERS: PCP Family Medicine; Visit Provider Internal Medicine Hematology & Oncology
DX: C50.512 Malignant neoplasm of lower-outer quadrant of left female breast (principal); Z17.0 Estrogen receptor positive status [ER+]
CPT/HCPCS: 36415; 80048; 80053; 85025

== ENCOUNTER 2021-03-10 16:09 | Outpatient (CLI) | payer MEDICARE, MEDICAID, SELFPAY ==
[2021-03-10 16:49] LABS: Anion Gap 11 mmol/L (8-16); Blood Urea Nitrogen 28 mg/dL (7-17); Calcium 8.8 mg/dL (8.4-10.2); Carbon Dioxide 26 mmol/L (22-30); Chloride 102 mmol/L (98-107); Estimated Glomerular Filt Rate > 60; Glucose 146 mg/dL (65-110); Potassium 4.1 mmol/L (3.4-5.0); Sodium 139 mmol/L (137-145)
== END 2021-03-10 16:10 | disposition home or self-care (01) ==
PROVIDERS: PCP Family Medicine; Visit Provider Internal Medicine Cardiovascular Disease
DX: I50.20 Unspecified systolic (congestive) heart failure (principal)
CPT/HCPCS: 36415; 80048

== ENCOUNTER 2021-09-01 15:44 | Outpatient (CLI) | payer MEDICARE, SELFPAY ==
[2021-09-01 16:02] LABS: Basophils Absolute Auto 0.1 K/mm3 (0.0-0.1); Basophils Percent Auto 0.5 % (0.2-1.2); Eosinophils Absolute Auto 0.2 K/mm3 (0-0.3); Eosinophils Percent Auto 1.6 % (0-4.4); Hematocrit 38.2 % (37.0-47.0); Hemoglobin 11.7 g/dL (12.0-15.0); Immature Granulocyte Absolute 0.11 K/mm3 (0.00-0.031); Immature Granulocyte Percent A 1.2 % (0-0.5); Lymphocytes Absolute Auto 1.43 K/mm3 (0.9-3.2); Lymphocytes Percent Auto 15.2 % (18.3-44.2); Mean Corpuscular HGB Conc 30.6 g/dl (32-36); Mean Corpuscular Volume 94.8 fl (80-100); Mean Platelet Volume 10.5 fl (7.4-10.4); Monocytes Absolute Auto 0.5 K/mm3 (0.1-0.6); Monocytes Percent Auto 5.5 % (2.6-8.5); Neutrophils Absolute Auto 7.2 K/mm3 (1.3-6.7); Platelet Count Result 274 k/mm3 (150-375); Red Blood Count 4.03 M/mm3 (4.2-5.4); Red Cell Distribution Width 13.7 % (11.5-14.5); White Blood Count 9.4 K/mm3 (4.5-10.0)
[2021-09-01 16:41] LABS: Alanine Aminotransferase 14 U/L (4-35); Albumin Level 3.9 g/dL (3.5-5.1); Alkaline Phosphatase 79 U/L (38-126); Anion Gap 5 mmol/L (8-16); Aspartate Amino Transferase 66 U/L (14-36); Bilirubin,Total 0.4 mg/dL (0.2-1.3); Blood Urea Nitrogen 20 mg/dL (7-17); Calcium 7.9 mg/dL (8.4-10.2); Carbon Dioxide 38 mmol/L (22-30); Chloride 97 mmol/L (98-107); Estimated Glomerular Filt Rate > 60; Glucose 112 mg/dL (65-110); Potassium 3.6 mmol/L (3.4-5.0); Sodium 140 mmol/L (137-145)
[2021-09-05 20:23] LABS: CA 15-3 20 U/mL (<32)
== END 2021-09-01 15:45 | disposition home or self-care (01) ==
LOC: ANHLAB 15:46
PROVIDERS: PCP Family Medicine; Visit Provider Internal Medicine Hematology & Oncology
DX: C50.512 Malignant neoplasm of lower-outer quadrant of left female breast (principal); Z17.0 Estrogen receptor positive status [ER+]
CPT/HCPCS: 36415; 80053; 85025; 86300

== ENCOUNTER 2021-09-13 10:58 | Outpatient (CLI) | payer MEDICARE, SELFPAY ==
--- NOTE | ~2021-09-13 | XR_ITS ---
XR chest 2V DATE: 09/13/2021 11:15 INDICATION: COPD TECHNIQUE: AP and lateral views COMPARISON: 12/07/2020 CTA chest 12/07/2020 2 view chest FINDINGS: There is chronic left lung volume loss and pleuropulmonary scarring. There is right lung hy perinflation consistent with COPD. No new pulmonary infiltrate or consolidation, pulmonary vascular congestion or pleural effusion or pn eumothorax is detected. Heart size appears within normal range. Implanted left cardial defibrillator. There is aortic calci fication. There is diffuse osteopenia. There is dextroscoliosis. IMPRESSION: No significant change since 12/07/2020 Reviewed, dictated and finalized at location A.
== END 2021-09-13 10:59 | disposition home or self-care (01) ==
LOC: ANHIMG 11:00
PROVIDERS: PCP Family Medicine; Visit Provider Internal Medicine Critical Care Medicine
DX: J44.1 Chronic obstructive pulmonary disease with (acute) exacerbation (principal)
CPT/HCPCS: 71046

== ENCOUNTER → 2021-09-15 04:49 | Outpatient (CLI) | payer MEDICARE, MEDICAID, SELFPAY ==
[2021-09-15 12:32] LABS: SARS-CoV-2 RNA PCR Negative
== END ==
PROVIDERS: PCP Family Medicine; Visit Provider Internal Medicine Critical Care Medicine
DX: J44.1 Chronic obstructive pulmonary disease with (acute) exacerbation (principal); Z20.822 Contact with and (suspected) exposure to COVID-19
CPT/HCPCS: C9803; U0003; U0005

== ENCOUNTER 2021-09-15 16:24 | Outpatient (CLI) | payer MEDICARE, MEDICAID, SELFPAY | END 2021-09-15 16:25 | disposition home or self-care (01) | PROVIDERS: PCP Family Medicine; Visit Provider Internal Medicine Critical Care Medicine | DX: J44.1 Chronic obstructive pulmonary disease with (acute) exacerbation (principal) | CPT/HCPCS: 87070; 87205; C9803; U0003; U0005 ==

== ENCOUNTER 2021-09-26 01:17 | Inpatient (IN) | payer MEDICARE, MEDICAID, SELFPAY ==
[2021-09-26] VITALS (24 sets, daily range): BP systolic 113–158; BP diastolic 56–95; PULSE 69–102; RESP 14–30; TEMP 36.1–36.6; O2SAT 90–99; BMI 33.5
--- NOTE | ~2021-09-26 | XR_ITS ---
EXAMINATION: XR chest 1V portable DATE: 09/26/2021 02:18 INDICATION: Shortness of breath TECHNIQUE: frontal view of the chest was obtained. COMPARISON: Chest radiograph dated 09/13/[address] dated 09/26/2021 and 12/07/2020 FINDINGS: Emphysema with increased lucency and architectural distortion in the upper lung zones. There are incr eased interstitial and airspace opacities in the bilateral mid and lower lung zones, left greater florina n right. More dense peripheral consolidation at the left lower lung zones with appearance on prior CT consistent with round atelectasis. Small left pleural effusion. No pneumothorax. Heart size is withi n normal limits for AP technique. There is increased prominence of the left hilum and widening of the left side of the superior mediastinum corresponding to enlarged lymph nodes suspicious for metastati c disease in subsequent CT. Cardiac defibrillator along the lateral left chest wall with cephalad dir ected left parasternal region. IMPRESSION: 1. Emphysema with diffuse bilateral lung disease most likely mild pulmonary edema although differenti al includes pneumonia. 2. Chronic small left pleural effusion with chronic round atelectasis at the lateral left lower lung zone. 3. Left hilar and mediastinal lymphadenopathy consistent with metastatic disease. Reviewed, dictated and finalized at location A. IMPRESSION: 1. Emphysema with diffuse bilateral lung disease most likely mild pulmonary elda ma although differential includes pneumonia. 2. Chronic small left pleural effusion with chronic round atelectasis at the la teral left lower lung zone. 3. Left hilar and mediastinal lymphadenopathy consistent with metastatic diseas e.
--- NOTE | ~2021-09-26 | XR_ITS ---
EXAMINATION: XR barium swallow modified DATE: 09/29/2021 11:00 INDICATION: Dysphagia. TECHNIQUE: The patient was given barium-containing material of multiple consistencies to swallow by joselo smallwood speech pathologist while I performed fluoroscopy. Dose-area product was 1.533 Gy-cm2. 2 minutes fluoroscopy time FINDINGS: Oral Stage: Within functional limits Pharyngeal Phase: Within functional limits Cervical/Esophageal Stage: Within functional limits IMPRESSION: Modified esophagram findings as above. Please refer to the speech [facility] Reviewed, dictated and finalized at [facility]. Reviewed, dictated and finalized at location A. IMPRESSION: Modified esophagram findings as above. Please refer to the speech t herapy report for specific recommendations.
--- NOTE | ~2021-09-26 | CT_ITS ---
EXAMINATION: CT brain wo/w con DATE: 10/05/2021 11:20 INDICATION: Small cell lung cancer. TECHNIQUE: Computed tomography (CT) of the head was performed without and with 100 mL Omnipaque 350 i ntravenous contrast. The mA was adjusted according to patient size. Iterative reconstruction techniqu e was employed. The dose-length product was 1210.66 mGy-cm. COMPARISON: Head CT 01/28/2021 FINDINGS: There are scattered areas of low attenuation in the cerebral white matter, which is within normal limits for the patient's age. There is no intracranial hemorrhage, acute infarction, or abnorm al intracranial mass lesion. The ventricles are normal in size. There is mild mucosal thickening in t he paranasal sinuses. The mastoid air cells are normal. The orbits are normal. IMPRESSION: 1. Normal aging brain. Reviewed, dictated and finalized at location A. IMPRESSION: 1. Normal aging brain.
--- NOTE | ~2021-09-26 | XR_ITS ---
EXAMINATION: XR chest 1V portable INDICATION: Respiratory failure TECHNIQUE: Portable AP chest at 0529 hours COMPARISON: 10/12/2021 FINDINGS: Again noted are chronic volume loss and atelectasis of the left lung. Right basilar airspac e opacities are not significantly changed. There is no pleural effusion or pneumothorax. Left hilar a nd mediastinal lymphadenopathy are stable. The heart size is normal. A single lead pacemaker is impla nted in the left lower chest wall. IMPRESSION: 1. Stable right basilar airspace opacities, consistent with atelectasis versus pneumonia. 2. Stable chronic volume loss and rounded atelectasis of the left lung and metastatic left hilar and mediastinal lymphadenopathy. Reviewed, dictated and finalized at location A. IMPRESSION: 1. Stable right basilar airspace opacities, consistent with atelectasis versus pneumonia. 2. Stable chronic volume loss and rounded atelectasis of the left lung and meta static left hilar and mediastinal lymphadenopathy.
--- NOTE | ~2021-09-26 | XR_ITS ---
EXAMINATION: XR shoulder LT min 2V DATE: 09/30/2021 18:54 INDICATION: Left shoulder pain. TECHNIQUE: 4 views of left shoulder were obtained. COMPARISON: Chest CT 09/26/2021 FINDINGS: Bone alignment is normal. No fracture. There is mild osteoarthritis of glenohumeral joint a nd severe osteoarthritis of acromioclavicular joint. There is pleural thickening in left hemithorax. Left hilar lymphadenopathy is noted. There are airspace opacities in left lung. An implanted defibril lator is noted. IMPRESSION: 1. Polyarticular osteoarthritis. 2. Left hilar lymphadenopathy and left-sided pleural thickening, consistent with metastatic disease. 3. Airspace opacities in left lung, consistent with atelectasis versus pneumonia. Reviewed, dictated and finalized at location E. IMPRESSION: 1. Polyarticular osteoarthritis. 2. Left hilar lymphadenopathy and left-sided pleural thickening, consistent wit h metastatic disease. 3. Airspace opacities in left lung, consistent with atelectasis versus pneumoni a.
--- NOTE | ~2021-09-26 | XR_ITS ---
EXAMINATION: XR chest 1V portable INDICATION: Respiratory failure TECHNIQUE: Portable AP chest at 0511 hours COMPARISON: 10/11/2021 FINDINGS: Chronic volume loss atelectasis of the left lung are again noted. Right basilar airspace op acities persist without significant change. There is no pleural effusion or pneumothorax. The heart s ize is stable. Left hilar and mediastinal lymphadenopathy are again noted. A single lead pacemaker is implanted in the lower left chest wall. IMPRESSION: 1. Minimal right basilar airspace opacity, consistent with atelectasis versus pneumonia. 2. Chronic volume loss and rounded atelectasis of the left lung with metastatic left hilar and medias tinal lymphadenopathy. Reviewed, dictated and finalized at location A. IMPRESSION: 1. Minimal right basilar airspace opacity, consistent with atelectasis versus p neumonia. 2. Chronic volume loss and rounded atelectasis of the left lung with metastatic left hilar and mediastinal lymphadenopathy.
--- NOTE | ~2021-09-26 | XR_ITS ---
EXAMINATION: XR chest 1V portable INDICATION: Shortness of breath TECHNIQUE: Portable AP chest at 1142 hours COMPARISON: 0530 hours FINDINGS: There is unchanged chronic volume loss and atelectasis of the left lung. Minimal airspace o pacities of the right mid and lower lung zones are unchanged.. There is no pneumothorax. The heart si ze is normal. Left hilar and mediastinal lymphadenopathy. IMPRESSION: 1. Minimal airspace opacities of the right mid and lower lung zones, consistent with atelectasis vers us pneumonia. 2. Chronic volume loss and rounded atelectasis of the left lung with metastatic left hilar and medias tinal lymphadenopathy. Reviewed, dictated and finalized at location A. IMPRESSION: 1. Minimal airspace opacities of the right mid and lower lung zones, consistent with atelectasis versus pneumonia. 2. Chronic volume loss and rounded atelectasis of the left lung with metastatic left hilar and mediastinal lymphadenopathy.
--- NOTE | ~2021-09-26 | CT_ITS ---
EXAMINATION: CT abdomen pelvis w con DATE: 10/05/2021 11:20 INDICATION: Abdominal pain. TECHNIQUE: Computed tomography (CT) of the abdomen and pelvis was performed with 100 mL Omnipaque 350 intravenous contrast. Automated exposure control and iterative reconstruction technique were employe d. The dose-length product was 1414.07 mGy-cm. COMPARISON: CT abdomen and pelvis 03/03/2020 FINDINGS: The visualized portions of the lung bases demonstrate dependent airspace opacities in right lower lobe. There is left-sided nodular pleural thickening with rounded atelectasis abutting the ple ura. There is a 7 mm nodule in lingula. The heart size is normal. There are coronary artery calcifica tions. No pericardial effusion. There are greater than 20 masses in the liver measuring up to 5.9 cm. There are chronic masses in the spleen measuring up to 7 mm, likely granulomatous disease. The gallb ladder, pancreas, and adrenal glands are normal. There is cortical thinning of the kidneys. There is a 2.4 cm cyst in right kidney. There is diverticulosis of the colon without evidence of diverticuliti s. The appendix is normal. There is retrocrural, gastrohepatic, periportal, periceliac, aortocaval, a nd left para-aortic lymphadenopathy. There is a left inguinal hernia containing ascites. There is a t otal left hip arthroplasty. There is an implanted defibrillator in anterior abdominal wall. IMPRESSION: 1. Liver masses, abdominal lymphadenopathy, left lung nodule, and nodular left-sided pleural thickeni ng, consistent with metastatic disease. Reviewed, dictated and finalized at location A. IMPRESSION: 1. Liver masses, abdominal lymphadenopathy, left lung nodule, and nodular left- sided pleural thickening, consistent with metastatic disease.
--- NOTE | ~2021-09-26 | US_ITS ---
. EXAMINATION: US biopsy liver DATE: 10/02/2021 12:10 INDICATION: Liver mass. TECHNIQUE: The procedure including the risks, benefits, and alternatives was discussed with the patie nt. Risks discussed included bleeding and infection. The patient understood the risks and agreed to p roceed. The skin overlying the left hepatic lobe was prepped and draped in usual sterile fashion. An esthetic was administered with 1% lidocaine subcutaneously. An 18 gauge core biopsy needle was then used to obtain 4 core biopsy specimens under continuous sonographic guidance. The entry site was ashley erich and dressed. There were no immediate complications. FINDINGS: Ultrasound images demonstrate the needle in a 14 mm hypoechoic mass in left hepatic lobe. IMPRESSION: 1. Ultrasound-guided core needle biopsy of a liver mass. Reviewed, dictated and finalized at location A.
--- NOTE | ~2021-09-26 | CT_ITS ---
EXAMINATION: CTA chest PE protocol DATE: 09/26/2021 03:37 INDICATION: Dyspnea TECHNIQUE: Computed tomography (CT) pulmonary angiogram of the chest was performed with 100 mL Omnipa que-350 intravenous contrast. Additional 3D reconstructions utilizing coronal maximum intensity proje ction (MIP) were performed. Automated exposure control and iterative reconstruction technique were em ployed. The dose-length product was 884.25 mGy-cm. COMPARISON: None FINDINGS: Could contrast opacification of the pulmonary arteries. There is streak artifact from dense contrast in the superior vena cava and right atrium. Mild to moderate scattered respiratory motion artifact af fecting most prominently the right lower lung zone where it renders assessment in the subsegmental pu lmonary arteries essentially nondiagnostic. There is otherwise decreased sensitivity in the segmental pulmonary arteries in the right lower lung zones and in some of the remaining smaller subsegmental p ulmonary arteries. No pulmonary embolism identified. Emphysema. No significant change in chronic smal l left pleural effusion and a few regions of chronic round atelectasis at the periphery of the left l juan manuel with associated volume loss and architectural distortion. There is some groundglass opacity predo minately at the periphery of the left lung which could represent mild pulmonary edema or pneumonia. M ultiple peripheral pleural-based nodular opacities at the left apex with additional electronically en larged left hilar and mediastinal lymphadenopathy consistent with metastatic disease. Borderline hear t size with right atrial enlargement. Reflux of contrast into the inferior vena cava consistent with tricuspid regurgitation. No pericardial effusion. Thoracic aorta is normal in caliber with no dissect ion. Hypodense hepatic nodules and masses the largest measuring up to 5 cm in the right hepatic lobe consistent with metastatic disease. Multiple enlarged lymph nodes in the upper abdomen also consisten t with metastatic disease. Severe lower cervical spondylosis. Chronic sclerotic T5 bone island. Posto perative change of the left breast consistent with reported history of prior breast cancer. Cardiac d efibrillator along the lateral left chest wall with lead extending cephalad to the subcutaneous tissu es along the left side of the sternum. IMPRESSION: 1. No pulmonary embolism. Evaluation limited in the subsegmental and right lower lobar segmental rakan sathish primarily due to respiratory motion. 2. Metastatic disease with multiple peripheral pleural-based nodules in the left hemithorax, left hil ar, mediastinal and upper abdominal lymphadenopathy and multiple hepatic masses. Could consider ultra sound-guided biopsy of one of the hepatic masses. 3. Chronic small left pleural effusion with unchanged regions of peripheral round atelectasis. 4. Peripheral predominant groundglass opacities in the right lung which could represent pulmonary elda ma or pneumonia. 5. Emphysema. Reviewed, dictated and finalized at location A. IMPRESSION: 1. No pulmonary embolism. Evaluation limited in the subsegmental and right lowe r lobar segmental arteries primarily due to respiratory motion. 2. Metastatic disease with multiple peripheral pleural-based nodules in the lef t hemithorax, left hilar, mediastinal and upper abdominal lymphadenopathy and m ultiple hepatic masses. Could consider ultrasound-guided biopsy of one of the h epatic masses. 3. Chronic small left pleural effusion with unchanged regions of peripheral rou nd atelectasis. 4. Peripheral predominant groundglass opacities in the right lung which could r epresent pulmonary edema or pneumonia. 5. Emphysema.
--- NOTE | ~2021-09-26 | US_ITS ---
EXAMINATION: US renal BI DATE: 10/07/2021 15:13 INDICATION: elevated creatinine TECHNIQUE: Multiple grayscale and Doppler ultrasound images of the abdomen were obtained. COMPARISON: CT abdomen and pelvis with contrast 10/05/2021 ultrasound renal bilateral 05/16/2019. FINDINGS: The right kidney measures 9.6 x 5.7 x 4.4 cm. The left kidney measures 10.5 x 5.2 x 4.9 cm. The kidne ys demonstrate slightly increased parenchymal echogenicity and cortical thinning.No sonographic evide nce of nephrolithiasis. 2.2 cm anechoic right midpole cyst, no other masses. No hydronephrosis. The b ladder is well distended. Bladder wall thickness 0.3 cm. IMPRESSION: 1. Bilateral mild atrophy and medical renal disease. 2. Bladder wall thickening as can be seen with cystitis. Reviewed, dictated and finalized at location K.
--- NOTE | ~2021-09-26 | XR_ITS ---
EXAMINATION: XR chest 1V portable INDICATION: Shortness of breath TECHNIQUE: Portable AP chest at 0533 hours COMPARISON: 10/07/2021 FINDINGS: There is unchanged volume loss of the left hemithorax. Patchy areas of rounded atelectasis are present in the left mid and lower lung zones without significant change. There is stable left hil ar and mediastinal lymphadenopathy. The heart size is normal. There are minimal airspace opacities of the right mid and lower lung zones. A single living pacemaker is implanted in the left lower/lateral chest wall with its lead projecting in the midline. IMPRESSION: 1. Chronic volume loss and rounded atelectasis of the left lung and metastatic left hilar and mediast inal lymphadenopathy. 2. Minimal airspace opacities of the right mid and lower lung zones, consistent with atelectasis vers us pneumonia. Reviewed, dictated and finalized at location A. IMPRESSION: 1. Chronic volume loss and rounded atelectasis of the left lung and metastatic left hilar and mediastinal lymphadenopathy. 2. Minimal airspace opacities of the right mid and lower lung zones, consistent with atelectasis versus pneumonia.
--- NOTE | ~2021-09-26 | XR_ITS ---
EXAMINATION: XR chest 1V portable DATE: 10/14/2021 05:47 INDICATION: Respiratory failure. TECHNIQUE: A single frontal view of the chest was obtained. COMPARISON: Chest single view 10/13/2021, CT abdomen and pelvis 10/05/2021, chest CT 09/26/2021 FINDINGS: There is volume loss of left hemithorax. There is pleural thickening in left hemithorax. Th ere are airspace opacities in all left lung zones. There are mild airspace opacities in right mid and lower lung zones. No pleural effusion or pneumothorax. The heart size is normal. There is a defibril lator in anterior chest wall. There is mediastinal and left hilar lymphadenopathy. IMPRESSION: 1. Mediastinal and left hilar lymphadenopathy, consistent with metastatic disease. 2. Pleural thickening in left hemithorax. Stable airspace opacities in left lung are likely at least predominantly rounded atelectasis. Pneumonia cannot be excluded. 3. Stable mild airspace opacities in right mid and lower lung zones, consistent with atelectasis vers us pneumonia. Reviewed, dictated and finalized at location A. IMPRESSION: 1. Mediastinal and left hilar lymphadenopathy, consistent with metastatic disea se. 2. Pleural thickening in left hemithorax. Stable airspace opacities in left ming g are likely at least predominantly rounded atelectasis. Pneumonia cannot be ex cluded. 3. Stable mild airspace opacities in right mid and lower lung zones, consistent with atelectasis versus pneumonia.
--- NOTE | ~2021-09-26 | XR_ITS ---
EXAMINATION: XR abdomen obstructive series DATE: 10/03/2021 13:16 INDICATION: Nausea and abdominal pain TECHNIQUE: Frontal supine and upright views of the abdomen were obtained. COMPARISON: CT abdomen and pelvis dated 03/03/[address] chest dated 09/26/2021 FINDINGS: Large amount stool in the distal colon with oral contrast material scattered throughout the more prox imal colon likely related to a modified barium swallow study performed 4 days prior which suggest con stipation. No dilated gas-filled loops of bowel to suggest obstruction. No free intraperitoneal gas. Chronic opacities and associated architectural distortion at the left lower lung zone likely relate d to round atelectasis and chronic small left pleural effusion better appreciated on prior CT. Heart size is normal. Implanted cardiac fibrillator along the lateral left chest wall with cephalad extensi on of a left paramedian lead. Left total hip arthroplasty. Severe lumbar spondylosis. IMPRESSION: 1. No free intraperitoneal gas or dilated gas-filled loops of bowel to suggest obstruction. 2. Large amount of colonic stool and retained oral contrast material from study dated 4 days prior co nsistent with constipation. 3. Opacities in the left lower lung zone consistent with chronic small left pleural effusion and asso ciated atelectasis/scarring. Reviewed, dictated and finalized at location B. IMPRESSION: 1. No free intraperitoneal gas or dilated gas-filled loops of bowel to suggest obstruction. 2. Large amount of colonic stool and retained oral contrast material from study dated 4 days prior consistent with constipation. 3. Opacities in the left lower lung zone consistent with chronic small left ple ural effusion and associated atelectasis/scarring.
--- NOTE | ~2021-09-26 | XR_ITS ---
EXAMINATION: XR chest 1V portable EXAM DATE: 10/07/2021 00:36 INDICATION: New onset chest pain. TECHNIQUE: Portable AP frontal chest x-ray was obtained. Comparison is made to prior examination from 09/26/2021. FINDINGS: Single lead pacemaker/AICD device. Cardiomegaly. There is chronic left-sided airspace disea se, chronic left hilar enlargement, patient's known metastatic lymphadenopathy. No evidence of superi mposed acute airspace disease. No pneumothorax.. The cardiomediastinal silhouette is prominent but ma gnified on this AP technique. Chronic left pleural blunting. No right pleural effusion. IMPRESSION: 1. Chronic left lung findings, hilar lymphadenopathy. 2. No definite acute cardiopulmonary findings. Reviewed, dictated and finalized at location A.
--- NOTE | 2021-09-26 01:35 | ECG_ITS ---
Measurements Intervals [place] Rate: 100 P: 80 AR: 191 QRS: 14 QRSD: 97 T: 79 QT: 357 QTc: 462 Interpretive Statements SINUS TACHYCARDIA WITH OCCASIONAL VENTRICULAR PREMATURE COMPLEXES WITH OCCASIONAL SUPRAVENTRICULAR PREMATURE COMPLEXES LOW QRS VOLTAGE [QRS DEFLECTION < 0.5/1.0 mV IN LIMB/CHEST LEADS] CANNOT RULE OUT PREVIOUS SEPTAL INFARCTION COMPARED TO ECG 12/07/2020 19:02:20 NO SIGNIFICANT CHANGE Electronically Signed On 09-26-2021 17:15:02 CDT by Jett Rivera M.D.
[2021-09-26] MEDS: ALBUTEROL SULFATE NEB 2.5 MG/0.5 ML INH 5 MG INHALATION ×3 (01:58→19:48)
[2021-09-26] MEDS: IPRATROPIUM BR 0.02% INH SOLN 0.5 MG/2.5 ML VIAL INHALATION ×3 (01:59→19:48)
[2021-09-26 02:08] LABS: Alveolar/Arterial O2 Gradient 207.8 mmHg; Base Excess ABG 8.5 mEq/l (+/-2.0); Fractional Inspired Oxygen 36 %; HCO3 ABG 33.6 mEq/l (22.0-26.0); PCO2 ABG 48.6 mmHg (35.0-45.0); PO2 FiO2 Ratio Arterial Blood 1.11 %; Total Hemoglobin 12.1 g/dL (12.0-18.0); pH ABG 7.458 (7.350-7.450)
[2021-09-26 02:10] LABS: Oxygen Saturation ABG 77.1 % (95.0-100.0); Oxyhemoglobin 76.7 % THb (90.0-100.0); Site Drawn RIGHT BRACHIAL
[2021-09-26 02:11] LABS: Device NASAL CANNULA; Modified Allen's Test Pass
[2021-09-26 02:33] LABS: Basophils Percent Auto 0.3 % (0.2-1.2); Eosinophils Absolute Auto 0.1 K/mm3 (0-0.3); Eosinophils Percent Auto 0.7 % (0-4.4); Hemoglobin 11.1 g/dL (12.0-15.0); Lymphocytes Absolute Auto 0.68 K/mm3 (0.9-3.2); Lymphocytes Percent Auto 6.7 % (18.3-44.2); Mean Corpuscular HGB Conc 31.7 g/dl (32-36); Mean Corpuscular Hemoglobin 29.5 pg (26-34); Mean Corpuscular Volume 93.1 fl (80-100); Mean Platelet Volume 10.4 fl (7.4-10.4); Monocytes Absolute Auto 0.3 K/mm3 (0.1-0.6); Monocytes Percent Auto 3.3 % (2.6-8.5); Neutrophils Absolute Auto 8.9 K/mm3 (1.3-6.7); Platelet Count Result 205 k/mm3 (150-375); Red Blood Count 3.76 M/mm3 (4.2-5.4); Red Cell Distribution Width 14.8 % (11.5-14.5); White Blood Count 10.2 K/mm3 (4.5-10.0)
[2021-09-26 02:45] LABS: Alanine Aminotransferase 19 U/L (4-35); Albumin Level 3.8 g/dL (3.5-5.1); Alkaline Phosphatase 92 U/L (38-126); Anion Gap 7 mmol/L (8-16); Aspartate Amino Transferase 43 U/L (14-36); Bilirubin,Total 0.6 mg/dL (0.2-1.3); Blood Urea Nitrogen 16 mg/dL (7-17); Calcium 8.1 mg/dL (8.4-10.2); Carbon Dioxide 34 mmol/L (22-30); Chloride 97 mmol/L (98-107); Estimated CRCL calculation 68 ml/min; Estimated Glomerular Filt Rate > 60; Glucose 152 mg/dL (65-110); INR 1.1; Lactic Acid Reflex 1.6 mmol/L (0.7-2.1); Potassium 3.6 mmol/L (3.4-5.0); Prothrombin Time 13.5 Seconds (11.1-14.7); Sodium 138 mmol/L (137-145)
[2021-09-26 02:56] LABS: NT Pro B Type Natriuretic Pept 4340 pg/mL (5-100); Troponin I 0.016 ng/mL (0.000-0.034)
--- NOTE | 2021-09-26 03:27 | ED.GENADULT ---
HPI - General Adult General Chief complaint: Shortness of Breath/Dyspnea Stated complaint: SOB Time Seen by Provider: 09/26/21 01:25 History of Present Illness HPI narrative: Patient 26-year-old female presents the emergency department with chief complaint of shortness of breath. Patient states over the last week she has been having worsening symptoms patient was tested for Covid as an outpatient was negative she been treated with steroids and antibiotic as outpatient by her primary care physician patient is chronically on 4 L nasal cannula for COPD. Patient reports that her symptoms are worsened with exertion and improved with rest Related Data Home Medications Medication Instructions Recorded Confirmed aspirin [Aspirin Low Dose] 81 mg PO DAILY 05/15/19 09/07/21 albuterol sulfate 09/26/21 albuterol sulfate INHALATION 09/26/21 anastrozole mg 09/26/21 carvedilol 09/26/21 clopidogrel 09/26/21 dicyclomine mg 09/26/21 [id number] INHALATION 09/26/21 [Trelegy Ellipta] furosemide 09/26/21 gabapentin 09/26/21 hydrocodone-acetaminophen tablet 09/26/21 ipratropium-albuterol ml INHALATION 09/26/21 nystatin [Nystop] TOPICAL 09/26/21 omeprazole 09/26/21 prednisone 09/26/21 ropinirole mg 09/26/21 sacubitril-valsartan [Entresto] 09/26/21 sertraline mg 09/26/21 simvastatin mg 09/26/21 Allergies Allergy/AdvReac Type Severity Reaction Status Date / Time levothyroxine sodium Allergy Intermediate swelling Verified 09/26/21 01:53 in feet ciprofloxacin [From Cipro] Allergy Mild Unknown Verified 09/26/21 01:53 diclofenac Allergy Unknown ABDOMINAL Verified 09/26/21 01:53 PAIN nortriptyline Allergy Unknown Rash Verified 09/26/21 01:53 rofecoxib Allergy Unknown HEART Verified 09/26/21 01:53 FAILURE Review of Systems Review of Systems: A 10 system review of systems was completed on the patient and is negative except for what is stated in the HPI. Nursing and ancillary documentation was reviewed. PMFSH Past Medical History Medical History Acute renal insufficiency Anxiety Arthritis Asthma Breast cancer, left Bronchitis Cardiac defibrillator in place Cardiomyopathy CHF (congestive heart failure) Chronic respiratory failure Colitis Complex sleep apnea syndrome COPD (chronic obstructive pulmonary disease) DDD (degenerative disc disease) Depression with anxiety Diverticulitis Endocarditis Essential (primary) hypertension HTN (hypertension) Hyperthyroidism Hypothyroid Left leg weakness MDD (major depressive disorder), recurrent episode, moderate Mitral valve prolapse MVP (mitral valve prolapse) Neuropathy, peripheral, idiopathic KYLER on CPAP Peripheral neuropathy Pneumonia Sciatic leg pain Slurred speech Stress incontinence Suspected cerebrovascular accident (CVA) Systolic CHF, chronic Uses nebulizer and inhaler at home Supposed to use 4x per day, but often just uses it 1x per day Vapes non-nicotine containing substance Surgical History Surgical History H/O cardiac catheterization History of left hip replacement (~2011) History of left hip replacement History of lumpectomy of left breast S/P arterial stent Family History Family History Sibling Hypertension Mother Family history of cardiovascular disease Parkinsons Hypertension Hx of CABG Father Family history of malignant neoplasm of bone Mother Hypertension Father Bone cancer Daughter Seizures Social History Social History Social History: Patient designate , Vel Vasquez, as her surrogate decision maker. She wishes to be a full code. She sees FOOT MITER OPERATOR at Dr. Monroe's office as her primary Smoking packs per day: 1 Smoking cigarettes per day: 20.0 Years smoked: 20 Smoking pack-years: 20.
[2021-09-26] MEDS: ONDANSETRON INJ 4 MG/2 ML VIAL IV PUSH ×3 (03:52→22:02)
[2021-09-26] MEDS: FUROSEMIDE INJ 40 MG/4 ML VIAL IV PUSH (03:53)
[2021-09-26] MEDS: MORPHINE SULFATE (*CRX) 4 MG/ML INJ IV PUSH (03:55)
[2021-09-26 05:22] LABS: Add Urine Microscopic? NO; Appearance Urine Clear (Clear); Bilirubin Urine Negative (Negative); Blood Urine Negative (Negative); Color Urine Colorless (Yellow); Glucose Urine UA Negative (Negative); Ketones Urine Negative (Negative); Leukocyte Esterase Ur Negative LEU/UL (Negative); Nitrate Urine Negative (Negative); Protein Urine Negative (Negative); Specific Grav Ur 1.012 (1.001-1.035); Urobilinogen Urine Negative mg/dL (<2.0)
[2021-09-26 06:30] LABS: SARS-CoV-2 RNA PCR Negative
--- NOTE | 2021-09-26 07:55 | ADMGEN ---
This patient, Arianne Vasquez, was admitted to 3 Med Surg Room 317-02. Patient/family oriented to hospital policies and general routines including ID bracelet, bed and alarms, visiting hours, pain management, procedures, bathroom and other care routines, personal items, smoking policy, room service/diet, and visiting hours. Information on how to activate the Rapid Response Team has been discussed. Patient/Family are encouraged to report perceived risks to care and to ask questions if they do not understand what they are told or what they should do.
--- NOTE | 2021-09-26 11:25 | PM.IMHP ---
H&P: HPI History of Present Illness Date/Time: Date of Service 09/26/21 10:10 76F with a past medical history of cardiomyopathy s/p AICD on 4LNC continuous at home, L. breast CA s/p xrt on AI, COPD, depression, anxiety, diverticulitis, HTN, hypothyroidism, idiopathic peripheral neuropathy who presented ot the ED with shortness of breath. Patient says she has noticed increased shortness of breath for the past few days after finishing a course of steroids and augmentin prescribed by her audio visual secretary on 09/13, but says this shortness of breath has been bothersome since May 2021. She reports temporarily feeling better while on the steroids. She says the shortness of breath is only with exertion and denies having shortness of breath at rest. Denies chest pain, lightheadedness, dizziness, fever, chills, rhinorrhea, sore throat, abdominal pain, nausea, vomiting, dysuria, hematuria. Denies having had to increase her home oxygen above 4LPM due to her shortness of breath as it improves with rest. Tested negative for COVID 19 prior to having steroids and antibiotics. Had her two doses and 3rd dose of COVID19 vaccine. Says she recently saw her Glove Parts Inspector who also worked up her shortness of breath and was told she may need to be referred to another specialist as he was unable to find a cause for her new shortness of breath. Patient says she has noticed some increased swelling initially in her feet and then ankles for which she took PRN furosemide 40 mg and the fluid seemed to be removed. In the ED, BNP elevated-->Furosemide 40 mg IV x1, CTA chest noted lymphadenopathy and hepatic nodules concerning for metastatic disease and R. lung ground glass opacity. Leukocytosis. Neative urine and negative COVID19. Chief Complaint: Shortness of Breath Review of Systems ENT: Reports nasal congestion Cardiovascular: Cardiovascular: Denies chest pain, Reports pedal edema, Reports leg edema and Denies lightheadedness Respiratory: Respiratory: Denies chest congestion, Denies cough, Reports dyspnea, Reports dyspnea on exertion and Denies wheezing Gastrointestinal: Gastrointestinal: Denies abdominal pain, Denies nausea and Denies vomiting Genitourinary: Genitourinary: Denies hematuria and Denies dysuria Musculoskeletal: Musculoskeletal: Reports arthralgias Comments: Right shoulder pain Neurologic: Denies confusion and Denies vertigo [facility] Past Medical History Medical History Acute renal insufficiency Anxiety Arthritis Asthma Breast cancer, left Bronchitis Cardiac defibrillator in place Cardiomyopathy CHF (congestive heart failure) Chronic respiratory failure Colitis Complex sleep apnea syndrome COPD (chronic obstructive pulmonary disease) DDD (degenerative disc disease) Depression with anxiety Diverticulitis Endocarditis Essential (primary) hypertension HTN (hypertension) Hyperthyroidism Hypothyroid Left leg weakness MDD (major depressive disorder), recurrent episode, moderate Mitral valve prolapse MVP (mitral valve prolapse) Neuropathy, peripheral, idiopathic KYLER on CPAP Peripheral neuropathy Pneumonia Sciatic leg pain Slurred speech Stress incontinence Suspected cerebrovascular accident (CVA) Systolic CHF, chronic Uses nebulizer and inhaler at home Supposed to use 4x per day, but often just uses it 1x per day Vapes non-nicotine containing substance Surgical History Surgical History H/O cardiac catheterization History of left hip replacement (~2011) History of left hip replacement History of lumpectomy of left breast S/P arterial stent Family History Family History Sibling Hypertension Mother Family history of cardiovascular disease Parkinsons Hypertension Hx of CABG Father Family history of malignant neoplasm of bone Mother Hypertension Father Bone cancer Daughter Seizures Social History Social H
[2021-09-26] MEDS: HYDROcodone/acetaminophen (*CRX) 10-325 MG TABLET 1 TAB PO ×2 (12:09→18:24)
[2021-09-26] MEDS: FUROSEMIDE INJ 40 MG/4 ML VIAL 20 MG IV PUSH (12:39)
[2021-09-26] MEDS: GABAPENTIN 400 MG CAPSULE 800 MG PO ×2 (12:40→16:54)
[2021-09-26] MEDS: ANASTROZOLE (*CHEMO) 1 MG TABLET PO (12:40)
[2021-09-26] MEDS: TOLNAFTATE 1% POWDER 45 GM BTL 1 APPLIC TOPICAL ×2 (12:40→16:55)
[2021-09-26] MEDS: SERTRALINE HCL 50 MG TABLET 200 MG PO (12:44)
[2021-09-26] MEDS: SERTRALINE HCL 50 MG TABLET 100 MG PO (16:54)
[2021-09-26] MEDS: DICYCLOMINE HCL 10 MG CAPSULE 20 MG PO (16:54)
[2021-09-26] MEDS: rOPINIRole HCL 0.5 MG TABLET PO (22:01)
[2021-09-26] MEDS: SACUBITRIL/VALSARTAN 24-26 MG TABLET 1 TAB PO (22:02)
[2021-09-26] MEDS: carvediloL 12.5 MG TABLET PO (22:02)
[2021-09-27] VITALS (15 sets, daily range): BP systolic 105–131; BP diastolic 59–80; PULSE 65–79; RESP 14–20; TEMP 36.1–36.4; O2SAT 92–98
--- NOTE | 2021-09-27 | ECHO_ITS ---
Patient Info Name: Arianne Vasquez Age: 76 years : 1945 Gender: Female Ht: 66 in Wt: 207 lbs BSA: 2.13 m2 HR: 80 bpm BP: 105 / 61 mmHg Heart Rhythm: Sinus Rhythm Technical Quality: Fair Exam Date: 09/27/2021 10:00 AM Exam Location: [facility] Pulmonary Exam Room: [facility] Patient Status: Inpatient Admit Date: 09/26/2021 Staff Ordering Physician: Isa Booker MD [employer]: Kristie Lara RDCS Attending Provider: Radha Martinez DO Referring Physician: Ade EMMANUEL; Exam Type: CA echo doppler color flow Study Info Indications - shortness of breath Complete two-dimensional, color flow and Doppler transthoracic echocardiogram is performed. Summary 1. Complete two-dimensional, color flow and Doppler transthoracic echocardiogram is performed. 2. Left ventricular chamber dimension is mild to moderately enlarged. 3. Left ventricular systolic function is severely reduced, estimated at 30% with hypokinesis of the anterolateral wall.. 4. Left ventricular septal wall motion is abnormal with septal motion related to bundle branch block. 5. The left ventricular diastolic function is grade I diastolic dysfunction. 6. There is no aortic valve stenosis. 7. There is mild mitral valve regurgitation. Left Ventricle Left ventricular chamber dimension is mild to moderately enlarged. Left ventricular systolic function is severely reduced, estimated at 30% with hypokinesis of the anterolateral wall.. There is no increased left ventricular wall thickness. Left ventricular septal wall motion is abnormal with septal motion related to bundle branch block. The left ventricular diastolic function is grade I diastolic dysfunction. Right Ventricle Right ventricular chamber dimension is normal. Right ventricular systolic function is normal. Left Atria Left atrial chamber dimension is mildly enlarged. Right Atria Right atrial chamber dimension is normal. Aortic Valve The aortic valve is not well visualized. There is no aortic valve stenosis. There is no aortic valve regurgitation. Pulmonic Valve The pulmonic valve is not well visualized. Mitral Valve The mitral valve has thickened leaflets. There is mild mitral valve regurgitation. The mitral valve annulus is moderately calcified. Tricuspid Valve The tricuspid valve leaflets are normal. There is trace tricuspid valve regurgitation. No pulmonary hypertension, estimated pulmonary arterial systolic pressure is 33 mmHg. Pericardium/Pleural The pericardium appears normal. There is no pericardial effusion. Inferior Vena Cava Normal inferior vena cava with >50% collapse upon inspiration consistent with normal right atrial pressure, 5 mmHg. Aorta The aortic root size at the sinus of Valsalva is normal. Left Ventricular Outflow Tract Name Value Normal LVOT 2D LVOT Diameter 2.0 cm LVOT Doppler LVOT Peak Gradient 4 mmHg LVOT Mean Gradient 2 mmHg LVOT VTI 22 cm LVOT VTI/AV VTI Ratio 0.7 LVOT Stroke Volume
[2021-09-27] MEDS: HYDROcodone/acetaminophen (*CRX) 10-325 MG TABLET 1 TAB PO ×4 (00:41→23:29)
[2021-09-27] MEDS: IPRATROPIUM BR 0.02% INH SOLN 0.5 MG/2.5 ML VIAL INHALATION ×4 (02:28→21:40)
[2021-09-27] MEDS: ALBUTEROL SULFATE NEB 2.5 MG/0.5 ML INH 5 MG INHALATION ×4 (02:28→21:40)
[2021-09-27 06:47] LABS: Basophils Percent Auto 0.2 % (0.2-1.2); Eosinophils Absolute Auto 0.1 K/mm3 (0-0.3); Eosinophils Percent Auto 0.6 % (0-4.4); Hematocrit 35.8 % (37.0-47.0); Hemoglobin 11.1 g/dL (12.0-15.0); Immature Granulocyte Absolute 0.05 K/mm3 (0.00-0.031); Immature Granulocyte Percent A 0.6 % (0-0.5); Lymphocytes Absolute Auto 0.95 K/mm3 (0.9-3.2); Lymphocytes Percent Auto 10.6 % (18.3-44.2); Mean Corpuscular Hemoglobin 29.5 pg (26-34); Mean Corpuscular Volume 95.2 fl (80-100); Mean Platelet Volume 10.4 fl (7.4-10.4); Monocytes Absolute Auto 0.6 K/mm3 (0.1-0.6); Monocytes Percent Auto 6.6 % (2.6-8.5); Neutrophils Absolute Auto 7.3 K/mm3 (1.3-6.7); Neutrophils Percent Auto 81.4 % (45.5-73.1); Platelet Count Result 201 k/mm3 (150-375); Red Blood Count 3.76 M/mm3 (4.2-5.4); Red Cell Distribution Width 14.6 % (11.5-14.5)
[2021-09-27 06:56] LABS: Anion Gap 7 mmol/L (8-16); Blood Urea Nitrogen 22 mg/dL (7-17); Carbon Dioxide 36 mmol/L (22-30); Chloride 94 mmol/L (98-107); Estimated CRCL calculation 61 ml/min; Estimated Glomerular Filt Rate > 60; Glucose 137 mg/dL (65-110); Potassium 3.7 mmol/L (3.4-5.0); Sodium 137 mmol/L (137-145)
[2021-09-27 07:41] LABS: Procalcitonin 0.1 ng/mL
--- NOTE | 2021-09-27 07:56 | PM.IMPN ---
Progress Note: A&P Assessment and Plan (1) SOB (shortness of breath): Code(s): R06.02 - Shortness of breath Status: Acute Assessment and Plan: Hx of chronic respiratory failure on 4LNC at baseline. BNP elevated w/ hx of multiple hospitalizations for volume overload. COVID19 negative w/ emphysema noted. Former smoker. 08/22/20 echo EF 35% w/ moderate global LV systolic dysfunction and Grade I diastolic dysfunction w/ RVSP 21 mmHg. CTA w/ no PE. Recent treatment w/ steroids w/ mild leukocytosis and CT chest w/ possible PNA vs atelectasis but no worsening of cough or infectious sx. Mild improvement in volume status. TSH normal & procalcitonin equivocal but leukocytosis resolved. Will continue to defer antibiotics. EF 30% w/ anterolateral wall hypokineses & grade I diastolic dysfunction. Pulmonary HTN no longer present. Appears clinically stable. -Oxygen as needed -Furosemide 20 mg po BID (2) Lymphadenopathy: Code(s): R59.1 - Generalized enlarged lymph nodes Status: Acute Assessment and Plan: CTA chest notes metastasic disease with multiple peripheral pleural based nodules in the L. hemithorax, L. hilar, mediastinal and upper abdominal lymphadenopathy. Oncology consulted in ED. -Appreciate recommendations from oncology -Orded CA 15-2 and CEA as per Oncology request (3) Liver mass: Code(s): R16.0 - Hepatomegaly, not elsewhere classified Status: Acute Assessment and Plan: Multiple hepatic masses concerning for metastasis on CTA chest. Oncology consulted in the ED. -Appreciate recommendations from Oncology -Patient is unable to get liver biopsy until clopidogrel is held for five days (4) Leukocytosis: Code(s): D72.829 - Elevated white blood cell count, unspecified Status: Acute Assessment and Plan: UA negative. CXR w/ diffuse bilateral lung disease and CT chest w/ R. lung ground glass opacity concerning for pneumonia. Afebrile. Procalcitonin 0.1 and leukocytosis has resolved. (5) Chronic respiratory failure with hypoxia: Code(s): J96.11 - Chronic respiratory failure with hypoxia Status: Acute Assessment and Plan: Per chart review patient was previously on 2-3LNC documented in SENIOR CREDIT ANALYST note from Cardiology visit. Same note also shows RSVP of November documenting pulmonary HTN that had normalized subsequently. Echo today showed RSVP 33. -Continue oxygen as needed (6) COPD (chronic obstructive pulmonary disease): Qualifiers: COPD type: unspecified COPD Qualified Code(s): J44.9 - Chronic obstructive pulmonary disease, unspecified Code(s): J44.9 - Chronic obstructive pulmonary disease, unspecified Status: Acute Assessment and Plan: Continue home inhalers. (7) Chronic pain disorder: Code(s): G89.4 - Chronic pain syndrome Status: Acute Assessment and Plan: Moon PRN with colace (8) HTN (hypertension): Code(s): I10 - Essential (primary) hypertension Status: Acute Assessment and Plan: Continue carvedilol (9) Cardiomyopathy: Qualifiers: Cardiomyopathy type: unspecified Qualified Code(s): I42.9 - Cardiomyopathy, unspecified Code(s): I42.9 - Cardiomyopathy, unspecified Status: Acute Assessment and Plan: w/ AICD. Continue entresto, furosemide. Subjective Date/time seen: Date of Service 09/27/21 07:56 Patient says she feels ok. Says her legs are a little less swollen today. Clarified saying she has not had a right or left heart cath in a few years but that she had an echo a few months ago. Review of Systems Respiratory: Respiratory: Reports dyspnea Exam Narrative: GENERAL: NAD, cooperative HEENT: Normocephalic, atraumatic, anicteric NECK:Supple CV: Normal S1, S2, RRR, No MRG RESP: CTAB, Normal work of breathing at rest on 4LNC EXTREMITIES: Warm and well perfused, no clubbing, cyanosis. Less bilat
[2021-09-27] MEDS: ONDANSETRON INJ 4 MG/2 ML VIAL IV PUSH (08:18)
[2021-09-27] MEDS: GABAPENTIN 400 MG CAPSULE 800 MG PO ×3 (09:22→17:47)
[2021-09-27] MEDS: SIMVASTATIN 20 MG TABLET 40 MG PO (09:24)
[2021-09-27] MEDS: PANTOPRAZOLE 40 MG TABLET PO (09:24)
[2021-09-27] MEDS: FUROSEMIDE 20 MG TABLET PO (09:25)
[2021-09-27] MEDS: SACUBITRIL/VALSARTAN 24-26 MG TABLET 1 TAB PO ×2 (09:26→21:01)
[2021-09-27] MEDS: carvediloL 12.5 MG TABLET PO ×2 (09:26→21:45)
[2021-09-27] MEDS: DICYCLOMINE HCL 10 MG CAPSULE 20 MG PO ×2 (09:27→17:47)
[2021-09-27] MEDS: ANASTROZOLE (*CHEMO) 1 MG TABLET PO (09:27)
[2021-09-27] MEDS: SERTRALINE HCL 50 MG TABLET 100 MG PO ×2 (09:28→17:48)
[2021-09-27] MEDS: TOLNAFTATE 1% POWDER 45 GM BTL 1 APPLIC TOPICAL (11:42)
[2021-09-27 12:15] LABS: Carcinoembryonic Antigen 3.7 ng/mL (0.0-3.0)
--- NOTE | 2021-09-27 14:00 | PDONCCN ---
HPI - Date of Consult Date/Time: 09/27/21 14:00 Requesting Physician: Radha Martinez DO Primary Care Provider: Sameera Monroe MD - Consult Narrative Narrative: Arianne Vasquez is a 76 year old female whi is being followed by Dr Tolbert for a history of T 1 N 1 Breast Cancer treated in 2014 she was on adjuvant hormonal therapy since- recent follow up was negative for recurrence. She was admitted for dyspnea-she has an COPD for which she was receiving O2. CT scan done showed lymphadenopathy and liver lesions. Review of Systems - Constitutional Reports fatigue - Respiratory Reports dyspnea - Neurologic Denies confusion, Denies vertigo PMFSH Medical History: Medical History (Last Reviewed 09/26/21 @ 22:53 by Isa Booker MD) Acute renal insufficiency Anxiety Arthritis Asthma Breast cancer, left Bronchitis Cardiac defibrillator in place Cardiomyopathy CHF (congestive heart failure) Chronic respiratory failure Colitis Complex sleep apnea syndrome COPD (chronic obstructive pulmonary disease) DDD (degenerative disc disease) Depression with anxiety Diverticulitis Endocarditis Essential (primary) hypertension HTN (hypertension) Hyperthyroidism Hypothyroid Left leg weakness MDD (major depressive disorder), recurrent episode, moderate Mitral valve prolapse MVP (mitral valve prolapse) Neuropathy, peripheral, idiopathic KYLER on CPAP Peripheral neuropathy Pneumonia Sciatic leg pain Slurred speech Stress incontinence Suspected cerebrovascular accident (CVA) Systolic CHF, chronic Uses nebulizer and inhaler at home Supposed to use 4x per day, but often just uses it 1x per day Vapes non-nicotine containing substance Surgical History: Surgical History (Last Reviewed 09/26/21 @ 22:53 by Isa Booker MD) H/O cardiac catheterization History of left hip replacement Onset Date: ~2011 History of left hip replacement History of lumpectomy of left breast S/P arterial stent Family History: Family History (Last Reviewed 09/26/21 @ 22:53 by Isa Booker MD) Sibling Hypertension Mother Family history of cardiovascular disease Parkinsons Hypertension Hx of CABG Father Family history of malignant neoplasm of bone Mother Hypertension Father Bone cancer Daughter Seizures - Social History Social History: Social History (Last Reviewed 09/26/21 @ 22:53 by Isa Booker MD) Gender Identity: Gender identity (if verbalized by the patient): Female Sexual Orientation: Sexual Orientation (if Verbalized by the Patient): Straight or Heterosexual Alcohol Use: Alcohol intake: current Alcohol use details: occasionally Substance Use: Substance use: current Substance use type: marijuana Other substance usage details: 1 beer/month, pt has edible marijuana once a day Last use: 05/15/19 Others: Spiritual care concerns: No Agree to blood products: Yes Smoking Status: Smoking status: Former smoker Second hand tobacco smoke exposure: Yes Smoking Pack-years: Smoking packs per day: 1 Smoking cigarettes per day: 20.0 Years smoked: 20 Smoking pack-years: 20.00 Meds Home Medications Medication Instructions Recorded Confirmed Type aspirin [Aspirin Low Dose] 81 mg PO DAILY 05/15/19 09/07/21 History polysaccharide iron complex 150 mg 150 mg PO DAILY #90 cap 06/13/20 09/07/21 Rx iron capsule albuterol sulfate 2 puff INHALATION QID PRN 09/26/21 09/26/21 History albuterol sulfate 2.5 mg INHALATION Q4-6H PRN 09/26/21 09/26/21 History anastrozole 1 mg PO DAILY 09/26/21 09/26/21 History carvedilol 12.5 mg PO Q12H 09/26/21 09/26/21 History clopidogrel 75 mg PO DAILY 09/26/21 09/26/21 History clotrimazole-betamethasone 1 applic TOPICAL DAILY 09/26/21 09/26/21 History dicyclomine 20 mg PO BID 09/26/21 09/26/21 History venckomxnvq-qnbbpsedo-vxckdlsm 1 ea INHALATION DAILY 09/26/21 09/26/21 History [Trelegy
--- NOTE | 2021-09-27 14:18 | PC.NURSE ---
On 09/27/21, the student, Jameel Lara, provided care and completed [facility] documentation on this patient. I have reviewed the student's documentation and agree with the findings.
--- NOTE | 2021-09-27 14:34 | PCCCNOTE ---
On 09/27/21, the student, [Imelda Pires ], provided care and completed [facility] documentation on this patient. I have reviewed the student's documentation and agree with the findings.
[2021-09-27] MEDS: BETAMETHASONE/CLOTRIMAZOLE CR 45 GM TUBE 1 APPLIC TOPICAL (15:30)
--- NOTE | 2021-09-27 17:23 | PCRCNOTE ---
PT states is bringing their home unit in sometime this evening for pt to use.
[2021-09-27] MEDS: ENOXAPARIN 40 MG/0.4 ML SYRINGE SUB-Q (18:00)
[2021-09-27] MEDS: rOPINIRole HCL 0.5 MG TABLET PO (21:01)
[2021-09-27] MEDS: DOCUSATE SODIUM 100 MG CAPSULE PO (21:01)
--- NOTE | 2021-09-27 23:43 | PCRCNOTE ---
Pt wears ASV at home and we do not have a machine to accompany ASV. Per DR's order pt is to be placed in AVAPS: VT 430, RR 12, EPAP 10, and varying pressures of 13-25.
[2021-09-28] VITALS (19 sets, daily range): BP systolic 106–145; BP diastolic 45–94; PULSE 68–80; RESP 15–20; TEMP 35.9–36.3; O2SAT 94–98
--- NOTE | 2021-09-28 01:25 | PCRCNOTE ---
RT unaware that pt had home unit on person in room. RT called maintenance to have them look over pt home unit. Maintenance okayed machine, pt signed consent form to use home unit, and the pt is now resting comfortably on her home unit with 4L 02 bleed in.
[2021-09-28] MEDS: ALBUTEROL SULFATE NEB 2.5 MG/0.5 ML INH 5 MG INHALATION ×3 (02:39→13:40)
[2021-09-28] MEDS: IPRATROPIUM BR 0.02% INH SOLN 0.5 MG/2.5 ML VIAL INHALATION ×3 (02:39→13:40)
[2021-09-28] MEDS: HYDROcodone/acetaminophen (*CRX) 10-325 MG TABLET 1 TAB PO ×3 (05:31→22:55)
[2021-09-28 05:54] LABS: Basophils Percent Auto 0.3 % (0.2-1.2); Eosinophils Absolute Auto 0.2 K/mm3 (0-0.3); Eosinophils Percent Auto 1.6 % (0-4.4); Hematocrit 36.8 % (37.0-47.0); Hemoglobin 11.5 g/dL (12.0-15.0); Immature Granulocyte Absolute 0.07 K/mm3 (0.00-0.031); Immature Granulocyte Percent A 0.7 % (0-0.5); Lymphocytes Absolute Auto 0.86 K/mm3 (0.9-3.2); Lymphocytes Percent Auto 9.1 % (18.3-44.2); Mean Corpuscular HGB Conc 31.3 g/dl (32-36); Mean Corpuscular Hemoglobin 29.3 pg (26-34); Mean Corpuscular Volume 93.6 fl (80-100); Mean Platelet Volume 10.5 fl (7.4-10.4); Monocytes Absolute Auto 0.7 K/mm3 (0.1-0.6); Monocytes Percent Auto 7.7 % (2.6-8.5); Neutrophils Absolute Auto 7.7 K/mm3 (1.3-6.7); Neutrophils Percent Auto 80.6 % (45.5-73.1); Platelet Count Result 196 k/mm3 (150-375); Red Blood Count 3.93 M/mm3 (4.2-5.4); Red Cell Distribution Width 14.5 % (11.5-14.5); White Blood Count 9.5 K/mm3 (4.5-10.0)
[2021-09-28 06:06] LABS: Anion Gap 4 mmol/L (8-16); Blood Urea Nitrogen 26 mg/dL (7-17); Calcium 8.1 mg/dL (8.4-10.2); Carbon Dioxide 37 mmol/L (22-30); Chloride 93 mmol/L (98-107); Estimated CRCL calculation 55 ml/min; Estimated Glomerular Filt Rate > 60; Glucose 137 mg/dL (65-110); Potassium 4.1 mmol/L (3.4-5.0); Sodium 134 mmol/L (137-145)
--- NOTE | 2021-09-28 07:28 | PM.IMPN ---
Progress Note: A&P Assessment and Plan (1) SOB (shortness of breath): Code(s): R06.02 - Shortness of breath Status: Acute Assessment and Plan: Hx of chronic respiratory failure on 4LNC at baseline. BNP elevated w/ hx of multiple hospitalizations for volume overload. COVID19 negative w/ emphysema noted. Former smoker. 08/22/20 echo EF 35% w/ moderate global LV systolic dysfunction and Grade I diastolic dysfunction w/ RSVP 21 mmHg. CTA w/ no PE. Recent treatment w/ steroids w/ mild leukocytosis and CT chest w/ possible PNA vs atelectasis but no worsening of cough or infectious sx. Mild improvement in volume status. TSH normal & procalcitonin equivocal but leukocytosis resolved. Will continue to defer antibiotics. EF 30% w/ anterolateral wall hypokineses & grade I diastolic dysfunction. RSVP 33. -Oxygen as needed -Furosemide 20 mg IV daily -Pulmonology consult -Cardiology consult (2) Lymphadenopathy: Code(s): R59.1 - Generalized enlarged lymph nodes Status: Acute Assessment and Plan: CTA chest notes metastasic disease with multiple peripheral pleural based nodules in the L. hemithorax, L. hilar, mediastinal and upper abdominal lymphadenopathy. Oncology consulted in ED. -Appreciate recommendations from oncology -Orded CA 15-2 and CEA as per Oncology request (3) Liver mass: Code(s): R16.0 - Hepatomegaly, not elsewhere classified Status: Acute Assessment and Plan: Multiple hepatic masses concerning for metastasis on CTA chest. Oncology consulted in the ED. -Appreciate recommendations from Oncology -Patient is unable to get liver biopsy until clopidogrel is held for five days (Last dose of clopidogrel 09/26/2021) (4) Leukocytosis: Code(s): D72.829 - Elevated white blood cell count, unspecified Status: Acute Assessment and Plan: UA negative. CXR w/ diffuse bilateral lung disease and CT chest w/ R. lung ground glass opacity concerning for pneumonia. Afebrile. Procalcitonin 0.1 and leukocytosis has resolved. (5) Chronic respiratory failure with hypoxia: Code(s): J96.11 - Chronic respiratory failure with hypoxia Status: Acute Assessment and Plan: Per chart review patient was previously on 2-3LNC documented in LEGAL EXECUTIVE note from Cardiology visit. Same note also shows RSVP of November documenting pulmonary HTN that had normalized subsequently. Echo RSVP 33. -Continue oxygen as needed (6) COPD (chronic obstructive pulmonary disease): Qualifiers: COPD type: unspecified COPD Qualified Code(s): J44.9 - Chronic obstructive pulmonary disease, unspecified Code(s): J44.9 - Chronic obstructive pulmonary disease, unspecified Status: Acute Assessment and Plan: Continue home inhalers. (7) Chronic pain disorder: Code(s): G89.4 - Chronic pain syndrome Status: Acute Assessment and Plan: Coldiron PRN with colace (8) HTN (hypertension): Code(s): I10 - Essential (primary) hypertension Status: Acute Assessment and Plan: Continue carvedilol (9) Cardiomyopathy: Qualifiers: Cardiomyopathy type: unspecified Qualified Code(s): I42.9 - Cardiomyopathy, unspecified Code(s): I42.9 - Cardiomyopathy, unspecified Status: Acute Assessment and Plan: w/ AICD. Continue entresto, furosemide. Subjective Date/time seen: Date of Service 09/28/21 07:28 Patient says she continues to feel short of breath. She denies chest pain. She say she had seen her Cardioloist Dr. Bass within the last few weeks and was told she was an anomaly. She says she had mentioned her increasing shortness of breath to the Information Tech and had some workup for it. She says just going from her hospital bed to the bedside commode cause her to have to rest due to shortness of breath. Review of Systems Cardiovascular: Cardiovascular: Reports pedal edema Respi
[2021-09-28] MEDS: GABAPENTIN 400 MG CAPSULE 800 MG PO ×3 (09:26→17:10)
[2021-09-28] MEDS: DICYCLOMINE HCL 10 MG CAPSULE 20 MG PO ×2 (09:26→17:09)
[2021-09-28] MEDS: DOCUSATE SODIUM 100 MG CAPSULE PO ×2 (09:26→20:40)
[2021-09-28] MEDS: SIMVASTATIN 20 MG TABLET 40 MG PO (09:26)
[2021-09-28] MEDS: ANASTROZOLE (*CHEMO) 1 MG TABLET PO (09:26)
[2021-09-28] MEDS: PANTOPRAZOLE 40 MG TABLET PO (09:27)
[2021-09-28] MEDS: SACUBITRIL/VALSARTAN 24-26 MG TABLET 1 TAB PO ×2 (09:27→20:40)
[2021-09-28] MEDS: SERTRALINE HCL 50 MG TABLET 100 MG PO ×2 (09:27→17:10)
[2021-09-28] MEDS: carvediloL 12.5 MG TABLET PO ×2 (09:27→20:40)
[2021-09-28] MEDS: FUROSEMIDE 20 MG TABLET PO (09:28)
[2021-09-28] MEDS: ONDANSETRON INJ 4 MG/2 ML VIAL IV PUSH ×2 (09:37→17:08)
--- NOTE | 2021-09-28 10:26 | PCSTNOTE ---
Please refer to the Bedside Swallow Evaluation in the EMR. Please note, silent aspiration cannot be ruled out at bedside.
[2021-09-28] MEDS: ENOXAPARIN 40 MG/0.4 ML SYRINGE SUB-Q (10:59)
[2021-09-28] MEDS: DICLOFENAC SODIUM 1% 100 GM GEL (*BKC) 1 APPLIC TOPICAL ×3 (12:57→20:43)
--- NOTE | 2021-09-28 13:03 | PM.CNPUL ---
Assessment and Plan Assessment and plan (1) Dyspnea: Code(s): R06.00 - Dyspnea, unspecified Status: Acute Assessment and Plan: 76-year-old woman with a history of 50 pack year tobacco, quit 10 years ago, COPD with PFTS from 2018 with moderate obstructive abnormality with air trapping and a severely decreased DLCO ( I have a report but no raw data), hypoxemic respiratory failure requiring 4 L nasal cannula 24-7, obstructive sleep apnea on noninvasive ventilation at night with 4 L nasal cannula presents now with dyspnea on exertion at 3 steps. Regarding pulmonary etiologies for her dyspnea she has no PE by CT angiogram, she has tested negative for COVID, she has no complaints of a pneumonia or bronchitis and no change in her phlegm production or volume suggestive of a COPD exacerbation. She has no wheezes on presentation and no wheezes today. she does have new pleural based lesions as well as hilar and mediastinal adenopathy, hepatic masses and abdominal lymphadenopathy which are new since most recent CT scan on 12/07/2020. She may have metastatic disease and this may be leading to worsening dyspnea on exertion. I would proceed with ultrasound-guided liver biopsy once off plavix for 5 days. I agree with trelegy inhaler and will discontinue nebulized albuterol and ipratropium because she is on maximum dose of beta agonist and anti muscarinic antagonist with the trelegy. I do not recommend antibiotics or systemic steroids at this time. The patient is morbidly obese and deconditioned and this may also be contributing to her dyspnea on exertion. The patient has an elevated BNP and an echocardiogram now with an EF of 30%. Patient has been followed by Cardiology and their outpatient note on 09/15/21 recommended that she have a right and left heart catheterization. Would discuss with her team their approach now that she is admitted to the hospital. (2) KYLER (obstructive sleep apnea): Code(s): G47.33 - Obstructive sleep apnea (adult) (pediatric) Status: Acute Assessment and Plan: Patient has a history of obstructive sleep apnea and is on ASV mode of ventilation at home with 4 L bleed in. I have contacted our coordinator of library services who will attempt to obtain a download. In the meantime I agree with continuing her home machine with 4 L bleed in. ropinerole for RLS. Discussed with Dr. Rocío Booker. Will follow with you History of Present Illness History of Present Illness Consult date: 09/28/21 Reason for consult: dyspnea Chief complaint: Dyspnea, Hilar Lymphadenopathy/Mass Narrative: 09/28/2021: This is a new Pulmonary consultation for dyspnea. 76-year-old woman with a history of hypertension, congestive heart failure, AICD, history of left breast cancer on adjuvant therapy, COPD with hypoxemic respiratory failure requiring 4 L oxygen 24-7 and Sleep apnea on ASV ventilation at night With 4 L bleed in. Patient was seen in the Pulmonary Clinic on 09/13 for COPD exacerbation and was prescribed Augmentin and prednisone. COVID test was negative, and chest x-ray was no significant change from 12/07/2020 with right lung hyperinflation, chronic left lung volume loss with pleural scarring. sputum culture showed moderate wbc's few epithelial cells and mixed bacterial erika. Patient took the Augmentin and prednisone and improved but when she stop taking the prednisone on 09/22 and stop taking the antibiotic on 09/24 her dyspnea on exertion returned. Her phlegm had improved With this treatment. Saw Cardiology on 09/15/2021, Dr. Bass, his assessment and plan was to per for ER form a right and left heart catheterization and per the patient this was scheduled on 10/12/2021. at baseline the patient's does that a month ago she could walk across the room and currently can only walk 3 steps now. She smoked tobacco from age [age] at 1 pack per day. Patient was exposed to secondhand smoke f
[2021-09-28] MEDS: FUROSEMIDE INJ 40 MG/4 ML VIAL 20 MG IV PUSH (14:38)
--- NOTE | 2021-09-28 15:14 | PM.CNCAR ---
Assessment and Plan Assessment and plan (1) Dyspnea: Code(s): R06.00 - Dyspnea, unspecified <JERED Blake - Last Filed: 09/28/21 16:43> Status: Acute <Juani LuKesha JERED Townsend - Last Filed: 09/28/21 16:43> Assessment and Plan: Progressive dyspnea over a number of months but worsening dyspnea exertion in the past couple of weeks. Probably multifactorial. She does have COPD and chronic hypoxic respiratory failure on home oxygen. She also had an elevated BNP on presentation though on exam she does not appear to be volume overloaded, so doubt this is related to CHF. Concerningly, her chest CTA showed evidence of metastatic disease with multiple peripheral pleural-based nodules in the left hemothorax, left hilar, mediastinal and upper abdominal lymphadenopathy and multiple hepatic masses. Metastatic disease certainly could be contributing to her worsening dyspnea. Oncology has been consulted and recommended liver lesion biopsy. Pulmonology is also following. Prior to this admission patient had right and left heart catheterization arranged at [facility] ordered by Dr. Bass because of patient's complaints of worsening dyspnea. Plan for now will not be to pursue R/LHC during this admission until liver lesion biopsy and other work up complete. <JERED Blake - Last Filed: 09/28/21 16:43> (2) Acute on chronic systolic heart failure: Code(s): I50.23 - Acute on chronic systolic (congestive) heart failure <JERED Blake - Last Filed: 09/28/21 16:43> Status: Acute <JERED Blake - Last Filed: 09/28/21 16:43> Assessment and Plan: Her BNP was elevated on presentation around 4000. However, no edema, do not appreciate any pulmonary rales or crackles on exam. Continue with 20 mg IV furosemide daily for now. Continue current medical regimen. <JERED Blake - Last Filed: 09/28/21 16:43> (3) Chronic respiratory failure with hypoxia: Code(s): J96.11 - Chronic respiratory failure with hypoxia <JERED Blake - Last Filed: 09/28/21 16:43> Status: Acute <JAC BlakeC - Last Filed: 09/28/21 16:43> Assessment and Plan: History of COPD on continuous home oxygen. Pulmonology is following. <JERED Blake - Last Filed: 09/28/21 16:43> (4) Liver mass: Code(s): R16.0 - Hepatomegaly, not elsewhere classified <JERED Blake - Last Filed: 09/28/21 16:43> Status: Acute <JAC BlakeC - Last Filed: 09/28/21 16:43> Assessment and Plan: Oncology is following. Plan for liver mass biopsy. <JERED Blake - Last Filed: 09/28/21 16:43> (5) Lymphadenopathy: Code(s): R59.1 - Generalized enlarged lymph nodes <JERED Blake - Last Filed: 09/28/21 16:43> Status: Acute <JAC BlakeC - Last Filed: 09/28/21 16:43> Assessment and Plan: Oncology is following <JERED Blake - Last Filed: 09/28/21 16:43> (6) KYLER (obstructive sleep apnea): Code(s): G47.33 - Obstructive sleep apnea (adult) (pediatric) <JAC BlakeC - Last Filed: 09/28/21 16:43> Status: Acute <JERED Blake - Last Filed: 09/28/21 16:43> Assessment and Plan: On CPAP. <JERED Blake - Last Filed: 09/28/21 16:43> Additional Plan Attending Addendum: I have personally seen and examined this patient at bedside. I agree with the above documentation and plan of care as outlined. -patient is a very pleasant 76-year-old female followed by Dr. Carter with history of nonobstructive CAD, nonischemic cardiomyopathy, chronic heart failure with reduced ejection fraction, history of breast cancer, COPD chronic hypoxic respiratory failure on home oxygen with progressive shortness of breath without clear explanation who was scheduled for left and right heart catheterization
--- NOTE | 2021-09-28 15:43 | PCSTNOTE ---
MBS will be completed in the morning.
[2021-09-28] MEDS: rOPINIRole HCL 0.5 MG TABLET PO (20:40)
[2021-09-29] VITALS (14 sets, daily range): BP systolic 96–128; BP diastolic 54–81; PULSE 68–88; RESP 16–18; TEMP 35.9–36.8; O2SAT 92–98
[2021-09-29] MEDS: ONDANSETRON INJ 4 MG/2 ML VIAL IV PUSH ×2 (00:28→18:32)
[2021-09-29] MEDS: HYDROcodone/acetaminophen (*CRX) 10-325 MG TABLET 1 TAB PO ×3 (05:55→18:32)
[2021-09-29 06:01] LABS: Basophils Percent Auto 0.2 % (0.2-1.2); Eosinophils Absolute Auto 0.1 K/mm3 (0-0.3); Eosinophils Percent Auto 1.2 % (0-4.4); Hematocrit 36.1 % (37.0-47.0); Hemoglobin 10.9 g/dL (12.0-15.0); Immature Granulocyte Absolute 0.05 K/mm3 (0.00-0.031); Immature Granulocyte Percent A 0.6 % (0-0.5); Lymphocytes Absolute Auto 0.81 K/mm3 (0.9-3.2); Lymphocytes Percent Auto 9.1 % (18.3-44.2); Mean Corpuscular HGB Conc 30.2 g/dl (32-36); Mean Corpuscular Hemoglobin 28.7 pg (26-34); Mean Platelet Volume 10.3 fl (7.4-10.4); Monocytes Absolute Auto 0.6 K/mm3 (0.1-0.6); Monocytes Percent Auto 6.9 % (2.6-8.5); Neutrophils Absolute Auto 7.3 K/mm3 (1.3-6.7); Platelet Count Result 173 k/mm3 (150-375); Red Cell Distribution Width 14.3 % (11.5-14.5); White Blood Count 8.9 K/mm3 (4.5-10.0)
[2021-09-29 06:18] LABS: Anion Gap 4 mmol/L (8-16); Blood Urea Nitrogen 27 mg/dL (7-17); Calcium 8.1 mg/dL (8.4-10.2); Carbon Dioxide 38 mmol/L (22-30); Chloride 93 mmol/L (98-107); Estimated CRCL calculation 50 ml/min; Estimated Glomerular Filt Rate 54; Glucose 146 mg/dL (65-110); Potassium 4.1 mmol/L (3.4-5.0); Sodium 135 mmol/L (137-145)
[2021-09-29] MEDS: FLUTICASONE/UMECLIDIN/VILANTER 100-62.5-25 MCG ELLIPTA 1 PUFF INHALATION (09:02)
[2021-09-29] MEDS: DICLOFENAC SODIUM 1% 100 GM GEL (*BKC) 1 APPLIC TOPICAL ×4 (09:22→20:28)
[2021-09-29] MEDS: ANASTROZOLE (*CHEMO) 1 MG TABLET PO (09:23)
[2021-09-29] MEDS: carvediloL 12.5 MG TABLET PO ×2 (09:23→20:28)
[2021-09-29] MEDS: DICYCLOMINE HCL 10 MG CAPSULE 20 MG PO ×2 (09:23→18:25)
[2021-09-29] MEDS: ENOXAPARIN 40 MG/0.4 ML SYRINGE SUB-Q (09:24)
[2021-09-29] MEDS: DOCUSATE SODIUM 100 MG CAPSULE PO ×2 (09:24→20:28)
[2021-09-29] MEDS: FUROSEMIDE INJ 40 MG/4 ML VIAL 20 MG IV PUSH (09:24)
[2021-09-29] MEDS: PANTOPRAZOLE 40 MG TABLET PO ×2 (09:24→22:45)
[2021-09-29] MEDS: GABAPENTIN 400 MG CAPSULE 800 MG PO ×3 (09:24→18:26)
[2021-09-29] MEDS: SACUBITRIL/VALSARTAN 24-26 MG TABLET 1 TAB PO ×2 (09:25→20:28)
[2021-09-29] MEDS: SERTRALINE HCL 50 MG TABLET 100 MG PO ×2 (09:25→18:26)
[2021-09-29] MEDS: SIMVASTATIN 20 MG TABLET 40 MG PO (09:25)
--- NOTE | 2021-09-29 10:00 | PM.PNPUL ---
Progress Note: A&P Assessment and Plan (1) Dyspnea: Code(s): R06.00 - Dyspnea, unspecified Status: Acute Assessment and Plan: 76-year-old woman with a history of 50 pack year tobacco, quit 10 years ago, COPD with PFTS from 2018 with moderate obstructive abnormality with air trapping and a severely decreased DLCO ( I have a report but no raw data), hypoxemic respiratory failure requiring 4 L nasal cannula 24-7, obstructive sleep apnea on noninvasive ventilation at night with 4 L nasal cannula presents now with dyspnea on exertion at 3 steps. 09/28 Regarding pulmonary etiologies for her dyspnea she has no PE by CT angiogram, she has tested negative for COVID, she has no complaints of a pneumonia or bronchitis and no change in her phlegm production or volume suggestive of a COPD exacerbation. She has no wheezes on presentation and no wheezes today. she does have new pleural based lesions as well as hilar and mediastinal adenopathy, hepatic masses and abdominal lymphadenopathy which are new since most recent CT scan on 12/07/2020. She may have metastatic disease and this may be leading to worsening dyspnea on exertion. I would proceed with ultrasound-guided liver biopsy once off plavix for 5 days. I agree with trelegy inhaler and will discontinue nebulized albuterol and ipratropium because she is on maximum dose of beta agonist and anti muscarinic antagonist with the trelegy. I do not recommend antibiotics or systemic steroids at this time. The patient is morbidly obese and deconditioned and this may also be contributing to her dyspnea on exertion. The patient has an elevated BNP and an echocardiogram now with an EF of 30%. Patient has been followed by Cardiology and their outpatient note on 09/15/21 recommended that she have a right and left heart catheterization. Would discuss with her team their approach now that she is admitted to the hospital. 09/29 Patient is 30% better and has no wheezing and continues on her trelegy. she is being diuresed with Lasix 20 IV a day. Creatinine is 1.0. I do not believe she has an active COPD exacerbation at this time and I see no need for antibiotics or steroids. I suspect that the pleural lesions are causing her left chest are min back pain. Diuresis per hospitalist and Cardiology. Patient will ultimately get a hepatic mass biopsy once she is off the Plavix for 5 days. Further cardiac workup pending results from this biopsy. I updated the patient's daughter via face time with the patient this morning. (2) KYLER (obstructive sleep apnea): Code(s): G47.33 - Obstructive sleep apnea (adult) (pediatric) Status: Acute Assessment and Plan: 09/28 Patient has a history of obstructive sleep apnea and is on ASV mode of ventilation at home with 4 L bleed in. I have contacted our printing services coordinator who will attempt to obtain a download. In the meantime I agree with continuing her home machine with 4 L bleed in. ropinerole for RLS. 09/29 Patient tolerated her home machine with nasal pillows and 4 L bleed in overnight. I am attempting to get a download to determine patient's compliance at home. I will perform an overnight oximetry on her home machine with 4 L bleed in tonight. Discussed with Dr. Rocío Booker. Inpatient Pulmonary Services will resume on 10/02. Subjective Date/time seen: 09/29/21 10:00 Interval history: 09/28/2021: This is a new Pulmonary consultation for dyspnea. 76-year-old woman with a history of hypertension, congestive heart failure, AICD, history of left breast cancer on adjuvant therapy, COPD with hypoxemic respiratory failure requiring 4 L oxygen 24-7 and Sleep apnea on ASV ventilation at night With 4 L bleed in. Patient was seen in the Pulmonary Clinic on 09/13 for COPD exacerbation and was prescribed Augmentin and prednisone. COVID test was negative, and chest x-ray was no significant change from 12/07/2020 with
--- NOTE | 2021-09-29 13:05 | P.PNONC_ITS ---
Progress Note: A/P (1) Adenopathy, hilar Code(s): R59.0 - Localized enlarged lymph nodes Status: Acute - Additional Plan Will await pethology of biopsy when done- Dr Tolbert to follow - Time Spent With Patient Total time spent is greater than 50% in coordination of care (as documented) at patient's floor/unit and/or counseling patient: 15 - 25 minutes Review of Systems - Review of Systems All systems reviewed & are unremarkable except as noted in HPI and bel - Neurologic Reports system reviewed and no additional complaints, except as documented, Reports hearing normal, Denies confusion, Denies vertigo, Denies headache(s), Denies loss of vision, Denies numbness, Denies weakness Exam Vital signs: Temp Pulse Resp BP Pulse Ox 36.1 C L 76 16 96/55 L 97 09/29/21 12:00 09/29/21 12:00 09/29/21 12:00 09/29/21 12:00 09/29/21 12:00 PN: Objective Data - Labs CBC & Chem 7: 09/29/21 05:52 09/29/21 05:52 Labs: Laboratory Results - last 24 hr 09/29/21 09/29/21 05:52 05:52 WBC 8.9 RBC 3.80 L Hgb 10.9 L Hct 36.1 L MCV 95.0 MCH 28.7 MCHC 30.2 L RDW 14.3 Plt Count 173 MPV 10.3 Immature Gran % (Auto) 0.6 H Neut % (Auto) 82.0 H Lymph % (Auto) 9.1 L [place] % (Auto) 6.9 Eos % (Auto) 1.2 Baso % (Auto) 0.2 Lymph # (Auto) 0.81 L [place] # (Auto) 0.6 Eos # (Auto) 0.1 Baso # (Auto) 0.0 Abs Immat Gran (auto) 0.05 H Absolute Neuts (auto) 7.3 H Absolute Nucleated RBC 0.0 Nucleated RBC % 0.0 Sodium 135 L Potassium 4.1 Chloride 93 L Carbon Dioxide 38 H Anion Gap 4 L BUN 27 H Creatinine 1.00 Estim Creat Clear Calc 50 Estimated GFR 54 L Glucose 146 H Calcium 8.1 L
--- NOTE | 2021-09-29 14:52 | PM.IMPN ---
Progress Note: A&P Assessment and Plan (1) SOB (shortness of breath): Code(s): R06.02 - Shortness of breath Status: Acute Assessment and Plan: Hx of chronic respiratory failure on 4LNC at baseline. BNP elevated w/ hx of multiple hospitalizations for volume overload. COVID19 negative w/ emphysema noted. Former smoker. 08/22/20 echo EF 35% w/ moderate global LV systolic dysfunction and Grade I diastolic dysfunction w/ RSVP 21 mmHg. CTA w/ no PE. Recent treatment w/ steroids w/ mild leukocytosis and CT chest w/ possible PNA vs atelectasis but no worsening of cough or infectious sx. Mild improvement in volume status. TSH normal & procalcitonin equivocal but leukocytosis resolved. Will continue to defer antibiotics. EF 30% w/ anterolateral wall hypokineses & grade I diastolic dysfunction. RSVP 33. New wheezing on exam. -Oxygen as needed -Furosemide 20 mg IV daily -Pulmonology consult - Recommends discontinue Trelegy. Give budesonide 500 mg BID and albuterol q4h scheduled. -Cardiology consult - will defer R&LHC until after biopsy (2) Lymphadenopathy: Code(s): R59.1 - Generalized enlarged lymph nodes Status: Acute Assessment and Plan: CTA chest notes metastasic disease with multiple peripheral pleural based nodules in the L. hemithorax, L. hilar, mediastinal and upper abdominal lymphadenopathy. Oncology consulted in ED. CEA elevated. -Appreciate recommendations from oncology -CA 15-2 pending (3) Liver mass: Code(s): R16.0 - Hepatomegaly, not elsewhere classified Status: Acute Assessment and Plan: Multiple hepatic masses concerning for metastasis on CTA chest. Oncology consulted in the ED. -Appreciate recommendations from Oncology -Patient is unable to get liver biopsy until clopidogrel is held for five days (Last dose of clopidogrel 09/26/2021) -3/5 days with plan for liver biopsy on Saturday (4) Leukocytosis: Code(s): D72.829 - Elevated white blood cell count, unspecified Status: Acute Assessment and Plan: UA negative. CXR w/ diffuse bilateral lung disease and CT chest w/ R. lung ground glass opacity concerning for pneumonia. Afebrile. Procalcitonin 0.1 and leukocytosis has resolved. (5) Chronic respiratory failure with hypoxia: Code(s): J96.11 - Chronic respiratory failure with hypoxia Status: Acute Assessment and Plan: Per chart review patient was previously on 2-3LNC documented in SENIOR HEALTH CONSULTANT note from Cardiology visit. Same note also shows RSVP of November documenting pulmonary HTN that had normalized subsequently. Echo RSVP 33. -Continue oxygen as needed (6) COPD (chronic obstructive pulmonary disease): Qualifiers: COPD type: unspecified COPD Qualified Code(s): J44.9 - Chronic obstructive pulmonary disease, unspecified Code(s): J44.9 - Chronic obstructive pulmonary disease, unspecified Status: Acute Assessment and Plan: May be having a COPD exacerbation with significant wheezing noted on exam today. -Discontinue Trelegy -Budesonide 500 mg BID -Albuterol neb q4h scheduled (7) Chronic pain disorder: Code(s): G89.4 - Chronic pain syndrome Status: Acute Assessment and Plan: [place] PRN with colace (8) HTN (hypertension): Code(s): I10 - Essential (primary) hypertension Status: Acute Assessment and Plan: Continue carvedilol (9) Cardiomyopathy: Qualifiers: Cardiomyopathy type: unspecified Qualified Code(s): I42.9 - Cardiomyopathy, unspecified Code(s): I42.9 - Cardiomyopathy, unspecified Status: Acute Assessment and Plan: w/ AICD. Continue entresto, furosemide. Subjective Date/time seen: Date of Service 09/29/21 0920 Pateint says she feels worse today. She says she is wheezing. Patient says her left shoulder is hurting her and florina previously she had a similar type of pain when she had a gastric ulcer
--- NOTE | 2021-09-29 16:41 | PM.PNCARD ---
Progress Note: A&P Assessment and Plan (1) Dyspnea: Code(s): R06.00 - Dyspnea, unspecified Status: Acute Assessment and Plan: Progressive dyspnea over a number of months but worsening dyspnea exertion in the past couple of weeks. Probably multifactorial. She does have COPD and chronic hypoxic respiratory failure on home oxygen. She also had an elevated BNP on presentation though on exam she does not appear to be volume overloaded, so doubt this is related to CHF. Concerningly, her chest CTA showed evidence of metastatic disease with multiple peripheral pleural-based nodules in the left hemothorax, left hilar, mediastinal and upper abdominal lymphadenopathy and multiple hepatic masses. Metastatic disease certainly could be contributing to her worsening dyspnea. Oncology has been consulted and recommended liver lesion biopsy. Pulmonology is also following. Prior to this admission patient had right and left heart catheterization arranged at [facility] ordered by Dr. Bass because of patient's complaints of worsening dyspnea. No plans to pursue R/LHC during this admission until clarification of prognosis and nature of her metastatic disease. Patient clinically stable from cardiac perspective at this time. Will see patient on an as-needed basis. Disposition per hospitalist service. Continue patient's current medical therapy. (2) Acute on chronic systolic heart failure: Code(s): I50.23 - Acute on chronic systolic (congestive) heart failure Status: Acute Assessment and Plan: Her BNP was elevated on presentation around 4000. However, no edema, do not appreciate any pulmonary rales or crackles on exam. Change Lasix to 40 mg p.o. daily. (3) Chronic respiratory failure with hypoxia: Code(s): J96.11 - Chronic respiratory failure with hypoxia Status: Acute Assessment and Plan: History of COPD on continuous home oxygen. Pulmonology is following. (4) Liver mass: Code(s): R16.0 - Hepatomegaly, not elsewhere classified Status: Acute Assessment and Plan: Oncology is following. Plan for liver mass biopsy. (5) Lymphadenopathy: Code(s): R59.1 - Generalized enlarged lymph nodes Status: Acute Assessment and Plan: Oncology is following (6) KYLER (obstructive sleep apnea): Code(s): G47.33 - Obstructive sleep apnea (adult) (pediatric) Status: Acute Assessment and Plan: On CPAP. Subjective Date/time seen: Date of service: 09/29/21 16:41 Follow-up for shortness of breath, cardiomyopathy Patient feels about the same. No new issues overnight. Short of breath with activity. No chest pain, palpitations. No fevers or chills. Review of Systems Review of Systems: All systems reviewed & are unremarkable except as noted in HPI and below Constitutional: Constitutional: Denies excessive sweating, Denies fatigue, Denies headache(s), Denies lethargy and Denies weakness Eyes: Eyes: Denies change in vision, Denies loss of vision and Denies other visual disturbances ENT: Reports Normal hearing present, Denies headache(s), Denies neck pain and Denies tinnitus Cardiovascular: Cardiovascular: Denies chest pain, Denies pedal edema, Denies leg edema, Denies palpitations, Reports dyspnea and Reports dyspnea on exertion Respiratory: Respiratory: Reports dyspnea and Reports dyspnea on exertion Gastrointestinal: Gastrointestinal: Denies abdominal pain, Denies melena, Denies bloating, Denies constipation, Denies diarrhea and Reports nausea Genitourinary: Genitourinary: Denies nocturia, Denies urinary incontinence and Denies urinary hesitancy Musculoskeletal: Musculoskeletal: Denies back pain, Denies arthralgias, Denies neck pain and Denies numbness Integumentary/Breasts: Skin/Breast: Reports unusual bruising Neurologic: Reports Normal hearing present, Denies confusion, Denies headache(s), Denies loss of vision, Denies numbness and Denies we
[2021-09-29] MEDS: BUDESONIDE RESPULE NEB 0.5 MG/2 ML AMP INHALATION ×2 (16:49→21:35)
[2021-09-29] MEDS: ALBUTEROL SULFATE NEB 2.5 MG/0.5 ML INH INHALATION ×2 (16:49→21:35)
[2021-09-29] MEDS: rOPINIRole HCL 0.5 MG TABLET PO (20:28)
[2021-09-29] MEDS: ONDANSETRON HCL ODT 4 MG TABLET PO (22:34)
[2021-09-30] VITALS (23 sets, daily range): BP systolic 100–123; BP diastolic 44–73; PULSE 62–84; RESP 16–20; TEMP 36.6–36.8; O2SAT 90–97
[2021-09-30] MEDS: HYDROcodone/acetaminophen (*CRX) 10-325 MG TABLET 1 TAB PO ×4 (00:41→23:53)
[2021-09-30] MEDS: WATER FOR IRRIGATION, STERILE 1,000 ML BOTTLE 1000 ML (00:44)
--- NOTE | 2021-09-30 00:57 | PCRCNOTE ---
0000 UPD treatment not given on 09/30 due to pt being on apnea link study.
[2021-09-30] MEDS: ALBUTEROL SULFATE NEB 2.5 MG/0.5 ML INH INHALATION ×6 (04:35→23:51)
[2021-09-30 06:05] LABS: CA 15-3 27 U/mL (<32)
[2021-09-30] MEDS: ONDANSETRON HCL ODT 4 MG TABLET PO ×3 (06:51→23:54)
[2021-09-30] MEDS: BUDESONIDE RESPULE NEB 0.5 MG/2 ML AMP INHALATION ×2 (08:25→19:43)
[2021-09-30] MEDS: FLUTICASONE/UMECLIDIN/VILANTER 100-62.5-25 MCG ELLIPTA 1 PUFF INHALATION ×2 (08:33→08:37)
[2021-09-30] MEDS: SIMVASTATIN 20 MG TABLET 40 MG PO (08:35)
[2021-09-30] MEDS: DICLOFENAC SODIUM 1% 100 GM GEL (*BKC) 1 APPLIC TOPICAL ×4 (08:35→20:04)
[2021-09-30] MEDS: ENOXAPARIN 40 MG/0.4 ML SYRINGE SUB-Q (08:35)
[2021-09-30] MEDS: GABAPENTIN 400 MG CAPSULE 800 MG PO ×3 (08:35→16:37)
[2021-09-30] MEDS: SERTRALINE HCL 50 MG TABLET 100 MG PO ×2 (08:36→16:38)
[2021-09-30] MEDS: DOCUSATE SODIUM 100 MG CAPSULE PO ×2 (08:36→20:01)
[2021-09-30] MEDS: carvediloL 12.5 MG TABLET PO ×2 (08:36→20:02)
[2021-09-30] MEDS: PANTOPRAZOLE 40 MG TABLET PO ×2 (08:36→20:02)
[2021-09-30] MEDS: SACUBITRIL/VALSARTAN 24-26 MG TABLET 1 TAB PO ×2 (08:36→20:02)
[2021-09-30] MEDS: ANASTROZOLE (*CHEMO) 1 MG TABLET PO (08:37)
[2021-09-30] MEDS: DICYCLOMINE HCL 10 MG CAPSULE 20 MG PO ×2 (08:37→16:37)
[2021-09-30] MEDS: FUROSEMIDE 40 MG TABLET PO (08:37)
[2021-09-30 08:50] LABS: Anion Gap 2 mmol/L (8-16); Blood Urea Nitrogen 25 mg/dL (7-17); Calcium 8.2 mg/dL (8.4-10.2); Carbon Dioxide 38 mmol/L (22-30); Chloride 93 mmol/L (98-107); Estimated CRCL calculation 55 ml/min; Estimated Glomerular Filt Rate > 60; Glucose 126 mg/dL (65-110); Magnesium 2.2 mg/dL (1.6-2.3); Phosphorus 3.4 mg/dL (2.5-4.5); Sodium 133 mmol/L (137-145)
[2021-09-30 08:56] LABS: Potassium 4.5 mmol/L (3.4-5.0)
--- NOTE | 2021-09-30 10:02 | ECG_ITS ---
Measurements Intervals [place] Rate: 63 P: 34 GA: 174 QRS: 13 QRSD: 92 T: 91 QT: 379 QTc: 389 Interpretive Statements SINUS RHYTHM BASELINE ARTIFACT LOW QRS VOLTAGE IN EXTREMITY LEADS [QRS DEFLECTION < 0.5 mV IN LIMB LEADS] NONSPECIFIC T-WAVE ABNORMALITY BORDERLINE ECG COMPARED TO ECG 09/26/2021 03:40:56 HEART RATE HAS DECREASED Electronically Signed On 09-30-2021 16:57:51 CDT by Atilio Benedict M.D.
--- NOTE | 2021-09-30 10:08 | PC.NURSE ---
Reported pt c/o chest pain to Md Booker and cardiologyist Jose Antonio. STAT EKg and trops ordered. pt c/o l chest/arm pain 6/10 continuous pain per pt report. Awaiting ekg and trop results.
--- NOTE | 2021-09-30 10:31 | PC.NURSE ---
MD Booker reported EKG sinus rhythm low qrs voltage in extremity leads <0.5ms abnormal qrs-t axis angle axis difference >60 abnormal ekg. vent rate 63 bpm, pr int 174 ms, 92 ms, qt/qtc 379/386 prt axes 34 13 91. Reported to MD Marcosmit cardiology.
[2021-09-30 10:45] LABS: Troponin I 0.014 ng/mL (0.000-0.034)
--- NOTE | 2021-09-30 11:52 | PC.NURSE ---
trop 0.014 report to Md Booker, nno.
[2021-09-30] MEDS: polyethylene glycoL 3350 17 GM POWD.PACK PO (16:37)
--- NOTE | 2021-09-30 18:15 | PM.IMPN ---
Progress Note: A&P Assessment and Plan (1) SOB (shortness of breath): Code(s): R06.02 - Shortness of breath Status: Acute Assessment and Plan: Hx of chronic respiratory failure on 4LNC at baseline. BNP elevated w/ hx of multiple hospitalizations for volume overload. COVID19 negative w/ emphysema noted. Former smoker. 08/22/20 echo EF 35% w/ moderate global LV systolic dysfunction and Grade I diastolic dysfunction w/ RSVP 21 mmHg. CTA w/ no PE. Recent treatment w/ steroids w/ mild leukocytosis and CT chest w/ possible PNA vs atelectasis but no worsening of cough or infectious sx. Mild improvement in volume status. TSH normal & procalcitonin equivocal but leukocytosis resolved. Will continue to defer antibiotics. EF 30% w/ anterolateral wall hypokineses & grade I diastolic dysfunction. RSVP 33. New wheezing on exam. -Oxygen as needed -Furosemide 40 mg po daily -Pulmonology consult - Recommends discontinue Trelegy. Give budesonide 500 mg BID and albuterol q4h scheduled. -Cardiology consult - will defer R&LHC until after biopsy (2) Lymphadenopathy: Code(s): R59.1 - Generalized enlarged lymph nodes Status: Acute Assessment and Plan: CTA chest notes metastasic disease with multiple peripheral pleural based nodules in the L. hemithorax, L. hilar, mediastinal and upper abdominal lymphadenopathy. Oncology consulted in ED. CEA elevated. -Appreciate recommendations from oncology -CA 15-2 pending (3) Liver mass: Code(s): R16.0 - Hepatomegaly, not elsewhere classified Status: Acute Assessment and Plan: Multiple hepatic masses concerning for metastasis on CTA chest. Oncology consulted in the ED. -Appreciate recommendations from Oncology -Patient is unable to get liver biopsy until clopidogrel is held for five days (Last dose of clopidogrel 09/26/2021) -4/5 days with plan for liver biopsy on Saturday (4) Leukocytosis: Code(s): D72.829 - Elevated white blood cell count, unspecified Status: Acute Assessment and Plan: UA negative. CXR w/ diffuse bilateral lung disease and CT chest w/ R. lung ground glass opacity concerning for pneumonia. Afebrile. Procalcitonin 0.1 and leukocytosis has resolved. (5) Chronic respiratory failure with hypoxia: Code(s): J96.11 - Chronic respiratory failure with hypoxia Status: Acute Assessment and Plan: Per chart review patient was previously on 2-3LNC documented in TECHNICAL SPECIALIST note from Cardiology visit. Same note also shows RSVP of November documenting pulmonary HTN that had normalized subsequently. Echo RSVP 33. -Continue oxygen as needed (6) COPD (chronic obstructive pulmonary disease): Qualifiers: COPD type: unspecified COPD Qualified Code(s): J44.9 - Chronic obstructive pulmonary disease, unspecified Code(s): J44.9 - Chronic obstructive pulmonary disease, unspecified Status: Acute Assessment and Plan: May be having a COPD exacerbation with significant wheezing noted on exam today. -Discontinue Trelegy -Budesonide 500 mg BID -Albuterol neb q4h scheduled (7) Chronic pain disorder: Code(s): G89.4 - Chronic pain syndrome Status: Acute Assessment and Plan: [place] PRN with colace (8) HTN (hypertension): Code(s): I10 - Essential (primary) hypertension Status: Acute Assessment and Plan: Continue carvedilol (9) Cardiomyopathy: Qualifiers: Cardiomyopathy type: unspecified Qualified Code(s): I42.9 - Cardiomyopathy, unspecified Code(s): I42.9 - Cardiomyopathy, unspecified Status: Acute Assessment and Plan: w/ AICD. Continue entresto, furosemide. (10) Left shoulder pain: Code(s): M25.512 - Pain in left shoulder Status: Acute Assessment and Plan: Will get XR left shoulder to look for pathology. (11) Chest pain: Code(s): R07.9 - Chest pain, unspecified
[2021-09-30] MEDS: rOPINIRole HCL 0.5 MG TABLET PO (20:01)
[2021-09-30] MEDS: SUCRALFATE SUSP 100 MG/ML 10 ML UDC 1000 MG PO (21:08)
[2021-10-01] VITALS (19 sets, daily range): BP systolic 94–109; BP diastolic 45–88; PULSE 60–76; RESP 16–20; TEMP 36.2–36.8; O2SAT 94–97
[2021-10-01] MEDS: ALBUTEROL SULFATE NEB 2.5 MG/0.5 ML INH INHALATION ×5 (03:29→19:59)
[2021-10-01] MEDS: ACETAMINOPHEN 325 MG TABLET 650 MG PO ×3 (03:31→16:07)
[2021-10-01] MEDS: SUCRALFATE SUSP 100 MG/ML 10 ML UDC 1000 MG PO ×4 (05:35→20:21)
[2021-10-01 06:22] LABS: Anion Gap 1 mmol/L (8-16); Blood Urea Nitrogen 28 mg/dL (7-17); Calcium 8.2 mg/dL (8.4-10.2); Carbon Dioxide 36 mmol/L (22-30); Chloride 94 mmol/L (98-107); Estimated CRCL calculation 50 ml/min; Estimated Glomerular Filt Rate 54; Glucose 121 mg/dL (65-110); Magnesium 2.2 mg/dL (1.6-2.3); Phosphorus 3.4 mg/dL (2.5-4.5); Potassium 4.9 mmol/L (3.4-5.0); Sodium 131 mmol/L (137-145)
[2021-10-01] MEDS: BUDESONIDE RESPULE NEB 0.5 MG/2 ML AMP INHALATION ×2 (08:01→20:00)
--- NOTE | 2021-10-01 08:12 | PM.IMPN ---
Progress Note: A&P Assessment and Plan (1) SOB (shortness of breath): Code(s): R06.02 - Shortness of breath Status: Acute Assessment and Plan: Hx of chronic respiratory failure on 4LNC at baseline. BNP elevated w/ hx of multiple hospitalizations for volume overload. COVID19 negative w/ emphysema noted. Former smoker. 08/22/20 echo EF 35% w/ moderate global LV systolic dysfunction and Grade I diastolic dysfunction w/ RSVP 21 mmHg. CTA w/ no PE. Recent treatment w/ steroids w/ mild leukocytosis and CT chest w/ possible PNA vs atelectasis but no worsening of cough or infectious sx. Mild improvement in volume status. TSH normal & procalcitonin equivocal but leukocytosis resolved. Will continue to defer antibiotics. EF 30% w/ anterolateral wall hypokineses & grade I diastolic dysfunction. RSVP 33. Clinically stable. -Oxygen as needed -Furosemide 40 mg po daily -Pulmonology consult - Recommends discontinue Trelegy. Give budesonide 500 mg BID and albuterol q4h scheduled. -Cardiology consult - will defer R&LHC until after biopsy with no plans for intervention this hospitalization (2) Lymphadenopathy: Code(s): R59.1 - Generalized enlarged lymph nodes Status: Acute Assessment and Plan: CTA chest notes metastasic disease with multiple peripheral pleural based nodules in the L. hemithorax, L. hilar, mediastinal and upper abdominal lymphadenopathy. Oncology consulted in ED. CEA elevated. CA 15-2 27 up from 20 in early 2021. -Appreciate recommendations from oncology (3) Liver mass: Code(s): R16.0 - Hepatomegaly, not elsewhere classified Status: Acute Assessment and Plan: Multiple hepatic masses concerning for metastasis on CTA chest. Oncology consulted in the ED. -Appreciate recommendations from Oncology -Patient is unable to get liver biopsy until clopidogrel is held for five days (Last dose of clopidogrel 09/26/2021) -5/5 days with plan for liver biopsy on Saturday -US liver biopsy ordered and coags ordered for the morning -NPO after midnight for liver biopsy (4) Leukocytosis: Code(s): D72.829 - Elevated white blood cell count, unspecified Status: Acute Assessment and Plan: UA negative. CXR w/ diffuse bilateral lung disease and CT chest w/ R. lung ground glass opacity concerning for pneumonia. Afebrile. Procalcitonin 0.1 and leukocytosis has resolved. (5) Chronic respiratory failure with hypoxia: Code(s): J96.11 - Chronic respiratory failure with hypoxia Status: Acute Assessment and Plan: Per chart review patient was previously on 2-3LNC documented in HAZARDOUS WASTE MATERIAL TECHNICIAN note from Cardiology visit. Same note also shows RSVP of November documenting pulmonary HTN that had normalized subsequently. Echo RSVP 33. -Continue oxygen as needed (6) COPD (chronic obstructive pulmonary disease): Qualifiers: COPD type: unspecified COPD Qualified Code(s): J44.9 - Chronic obstructive pulmonary disease, unspecified Code(s): J44.9 - Chronic obstructive pulmonary disease, unspecified Status: Acute Assessment and Plan: May be having a COPD exacerbation with significant wheezing noted on exam today. -Discontinue Trelegy -Budesonide 500 mg BID -Albuterol neb q4h scheduled (7) Chronic pain disorder: Code(s): G89.4 - Chronic pain syndrome Status: Acute Assessment and Plan: [place] PRN with colace (8) HTN (hypertension): Code(s): I10 - Essential (primary) hypertension Status: Acute Assessment and Plan: Continue carvedilol (9) Cardiomyopathy: Qualifiers: Cardiomyopathy type: unspecified Qualified Code(s): I42.9 - Cardiomyopathy, unspecified Code(s): I42.9 - Cardiomyopathy, unspecified Status: Acute Assessment and Plan: w/ AICD. Continue entresto, furosemide. (10) Left shoulder pain: Code(s): M25.512 - Pain in left shoulder
[2021-10-01] MEDS: FUROSEMIDE 40 MG TABLET PO (08:24)
[2021-10-01] MEDS: carvediloL 12.5 MG TABLET PO ×2 (08:24→22:21)
[2021-10-01] MEDS: DICYCLOMINE HCL 10 MG CAPSULE 20 MG PO ×2 (08:24→16:05)
[2021-10-01] MEDS: SERTRALINE HCL 50 MG TABLET 100 MG PO ×2 (08:24→16:05)
[2021-10-01] MEDS: DICLOFENAC SODIUM 1% 100 GM GEL (*BKC) 1 APPLIC TOPICAL ×4 (08:24→20:20)
[2021-10-01] MEDS: ENOXAPARIN 40 MG/0.4 ML SYRINGE SUB-Q (08:24)
[2021-10-01] MEDS: ANASTROZOLE (*CHEMO) 1 MG TABLET PO (08:24)
[2021-10-01] MEDS: DOCUSATE SODIUM 100 MG CAPSULE PO ×2 (08:24→20:21)
[2021-10-01] MEDS: PANTOPRAZOLE 40 MG TABLET PO ×2 (08:25→20:21)
[2021-10-01] MEDS: SIMVASTATIN 20 MG TABLET 40 MG PO (08:25)
[2021-10-01] MEDS: GABAPENTIN 400 MG CAPSULE 800 MG PO ×3 (08:25→16:05)
[2021-10-01] MEDS: SACUBITRIL/VALSARTAN 24-26 MG TABLET 1 TAB PO ×2 (08:25→20:21)
[2021-10-01] MEDS: HYDROcodone/acetaminophen (*CRX) 10-325 MG TABLET 1 TAB PO ×3 (09:03→22:22)
[2021-10-01] MEDS: ONDANSETRON HCL ODT 4 MG TABLET PO ×3 (09:03→22:21)
--- NOTE | 2021-10-01 09:28 | PC.NURSE ---
called MD Cooper for tylenol order, pt requesting tylenol order, currently taking norco 10/325 prn q6hrs. Awaiting call back from .
--- NOTE | 2021-10-01 10:05 | PC.NURSE ---
Md Booker called for tylenol order, N.O tylenol 650 mg po q6h prn .
[2021-10-01] MEDS: polyethylene glycoL 3350 17 GM POWD.PACK PO (10:44)
[2021-10-01] MEDS: FLUTICASONE/UMECLIDIN/VILANTER 100-62.5-25 MCG ELLIPTA 1 PUFF INHALATION (12:00)
[2021-10-01] MEDS: LIDOCAINE 5% PATCH 1 PATCH TRANSDERM ×2 (13:17)
[2021-10-01] MEDS: TOLNAFTATE 1% POWDER 45 GM BTL 1 APPLIC TOPICAL (13:19)
[2021-10-01] MEDS: rOPINIRole HCL 0.5 MG TABLET PO (20:21)
[2021-10-02] VITALS (18 sets, daily range): BP systolic 130–147; BP diastolic 77–120; PULSE 65–96; RESP 16–19; TEMP 36.2–36.7; O2SAT 92–100
[2021-10-02] MEDS: ALBUTEROL SULFATE NEB 2.5 MG/0.5 ML INH INHALATION ×3 (00:23→08:00)
[2021-10-02] MEDS: ACETAMINOPHEN 325 MG TABLET 650 MG PO ×4 (00:37→21:19)
[2021-10-02] MEDS: HYDROcodone/acetaminophen (*CRX) 10-325 MG TABLET 1 TAB PO ×3 (05:27→21:19)
[2021-10-02] MEDS: SUCRALFATE SUSP 100 MG/ML 10 ML UDC 1000 MG PO ×3 (05:29→21:17)
[2021-10-02 06:06] LABS: Basophils Percent Auto 0.2 % (0.2-1.2); Eosinophils Absolute Auto 0.1 K/mm3 (0-0.3); Eosinophils Percent Auto 1.2 % (0-4.4); Hematocrit 34.9 % (37.0-47.0); Hemoglobin 10.8 g/dL (12.0-15.0); Immature Granulocyte Absolute 0.04 K/mm3 (0.00-0.031); Immature Granulocyte Percent A 0.5 % (0-0.5); Lymphocytes Absolute Auto 0.69 K/mm3 (0.9-3.2); Mean Corpuscular HGB Conc 30.9 g/dl (32-36); Mean Corpuscular Volume 93.6 fl (80-100); Mean Platelet Volume 10.7 fl (7.4-10.4); Monocytes Absolute Auto 0.6 K/mm3 (0.1-0.6); Monocytes Percent Auto 6.4 % (2.6-8.5); Neutrophils Absolute Auto 7.2 K/mm3 (1.3-6.7); Neutrophils Percent Auto 83.7 % (45.5-73.1); Platelet Count Result 180 k/mm3 (150-375); Red Blood Count 3.73 M/mm3 (4.2-5.4); Red Cell Distribution Width 14.1 % (11.5-14.5); White Blood Count 8.6 K/mm3 (4.5-10.0)
[2021-10-02 06:13] LABS: Anion Gap 4 mmol/L (8-16); Blood Urea Nitrogen 29 mg/dL (7-17); Calcium 8.5 mg/dL (8.4-10.2); Carbon Dioxide 38 mmol/L (22-30); Chloride 92 mmol/L (98-107); Estimated CRCL calculation 45 ml/min; Estimated Glomerular Filt Rate 48; Glucose 117 mg/dL (65-110); Potassium 4.7 mmol/L (3.4-5.0); Sodium 134 mmol/L (137-145)
[2021-10-02 06:23] LABS: INR 1.1; Prothrombin Time 13.6 Seconds (11.1-14.7)
[2021-10-02 06:24] LABS: Partial Thromboplastin Time 38.8 SECONDS (22.3-36.8)
[2021-10-02] MEDS: ALBUTEROL SULFATE NEB 2.5 MG/0.5 ML INH (08:00)
[2021-10-02] MEDS: FLUTICASONE/UMECLIDIN/VILANTER 100-62.5-25 MCG ELLIPTA 1 PUFF INHALATION (08:12)
[2021-10-02] MEDS: LIDOCAINE 5% PATCH 1 PATCH TRANSDERM ×2 (09:25→09:26)
[2021-10-02] MEDS: DICLOFENAC SODIUM 1% 100 GM GEL (*BKC) 1 APPLIC TOPICAL ×3 (09:27→16:28)
--- NOTE | 2021-10-02 11:04 | PM.PNPUL ---
Progress Note: A&P Assessment and Plan (1) Dyspnea: Code(s): R06.00 - Dyspnea, unspecified Status: Acute Assessment and Plan: 76-year-old woman with a history of 50 pack year tobacco, quit 10 years ago, COPD with PFTS from 2018 with moderate obstructive abnormality with air trapping and a severely decreased DLCO ( I have a report but no raw data), hypoxemic respiratory failure requiring 4 L nasal cannula 24-7, obstructive sleep apnea on noninvasive ventilation at night with 4 L nasal cannula presents now with dyspnea on exertion at 3 steps. 09/28 Regarding pulmonary etiologies for her dyspnea she has no PE by CT angiogram, she has tested negative for COVID, she has no complaints of a pneumonia or bronchitis and no change in her phlegm production or volume suggestive of a COPD exacerbation. She has no wheezes on presentation and no wheezes today. she does have new pleural based lesions as well as hilar and mediastinal adenopathy, hepatic masses and abdominal lymphadenopathy which are new since most recent CT scan on 12/07/2020. She may have metastatic disease and this may be leading to worsening dyspnea on exertion. I would proceed with ultrasound-guided liver biopsy once off plavix for 5 days. I agree with trelegy inhaler and will discontinue nebulized albuterol and ipratropium because she is on maximum dose of beta agonist and anti muscarinic antagonist with the trelegy. I do not recommend antibiotics or systemic steroids at this time. The patient is morbidly obese and deconditioned and this may also be contributing to her dyspnea on exertion. The patient has an elevated BNP and an echocardiogram now with an EF of 30%. Patient has been followed by Cardiology and their outpatient note on 09/15/21 recommended that she have a right and left heart catheterization. Would discuss with her team their approach now that she is admitted to the hospital. 09/29 Patient is 30% better and has no wheezing and continues on her trelegy. she is being diuresed with Lasix 20 IV a day. Creatinine is 1.0. I do not believe she has an active COPD exacerbation at this time and I see no need for antibiotics or steroids. I suspect that the pleural lesions are causing her left chest are min back pain. Diuresis per hospitalist and Cardiology. Patient will ultimately get a hepatic mass biopsy once she is off the Plavix for 5 days. Further cardiac workup pending results from this biopsy. I updated the patient's daughter via face time with the patient this morning. 10/02 10/02 In use to improvement tells me she has not been breathing this well in the last 3-4 months. The best she can do is walk from her car to the door of [employer] and then get an electric cart and she feels like she could walk this far today. She denies wheezing, or rest shortness of breath. She states her left arm and chest pain is better with the medications, lidocaine ointment and Andrew-Saenz or ointment. Patient had an overnight oximetry on 09/29/2021 demonstrating a baseline saturation of 89%, lowest saturation 77%, saturation less than or equal to 88% was 183 minutes or 64% of monitored time. Patient states she does not need the scheduled albuterol nebulizer and I will change him to p.r.n.. Will continue her trilogy 100-62.5-25 at 1 puff q.day. (2) KYLER (obstructive sleep apnea): Code(s): G47.33 - Obstructive sleep apnea (adult) (pediatric) Status: Acute Assessment and Plan: 09/28 Patient has a history of obstructive sleep apnea and is on ASV mode of ventilation at home with 4 L bleed in. I have contacted our audience coordinator who will attempt to obtain a download. In the meantime I agree with continuing her home machine with 4 L bleed in. ropinerole for RLS. 09/29 Patient tolerated her home machine with nasal pillows and 4 L bleed in overnight. I am attempting to get a download to determine patient's compliance at home. I will
--- NOTE | 2021-10-02 12:41 | PM.IMPN ---
Progress Note: A&P Assessment and Plan (1) SOB (shortness of breath): Code(s): R06.02 - Shortness of breath Status: Acute Assessment and Plan: Hx of chronic respiratory failure on 4LNC at baseline. BNP elevated w/ hx of multiple hospitalizations for volume overload. COVID19 negative w/ emphysema noted. Former smoker. Echo EF 30% w/ Grade I diastolic dysfunction and anterolateral HK but no pulmonary HTN. CTA w/ no PE. Recent treatment w/ steroids w/ mild leukocytosis and CT chest w/ possible PNA vs atelectasis but no worsening of cough or infectious sx. Mild improvement in volume status. TSH normal & procalcitonin equivocal but leukocytosis resolved. Will continue to defer antibiotics. Pulmonology consulted and appreciate their input. Will continue Trelegy and stop budesonide. Discussed with pulmonary. Echo showing further decline in EF and now wall motion abnormalities. Cardiology consult and appreciate their input. (2) Lymphadenopathy: Code(s): R59.1 - Generalized enlarged lymph nodes Status: Acute Assessment and Plan: CTA chest notes metastatic disease with multiple peripheral pleural based nodules in the left hemithorax, left hilar, mediastinal and upper abdominal lymphadenopathy. Probably the etiology of the chest pain. Oncology consulted. CEA elevated. CA 15-2 27 up from 20 in early 2021. Appreciate recommendations from oncology. Liver biopsy today. (3) Liver mass: Code(s): R16.0 - Hepatomegaly, not elsewhere classified Status: Acute Assessment and Plan: Multiple hepatic masses concerning for metastasis on CTA chest. As above. Patient is unable to get liver biopsy until clopidogrel is held for five days (Last dose of clopidogrel 09/26/2021). Biopsy planned for today. (4) Leukocytosis: Code(s): D72.829 - Elevated white blood cell count, unspecified Status: Acute Assessment and Plan: UA negative. CT chest w/ right lung ground glass opacity concerning for pneumonia but afebrile and procalcitonin 0.1. Leukocytosis has resolved. (5) Chronic respiratory failure with hypoxia: Code(s): J96.11 - Chronic respiratory failure with hypoxia Status: Acute Assessment and Plan: Patient is on 4LNC chronically at home. She was noted to be severely hypoxic at night despite the 4L O2 and ASV unit. Adjustments being made by pulmonary. Discussed. Plan home tomorow. (6) COPD (chronic obstructive pulmonary disease): Qualifiers: COPD type: unspecified COPD Qualified Code(s): J44.9 - Chronic obstructive pulmonary disease, unspecified Code(s): J44.9 - Chronic obstructive pulmonary disease, unspecified Status: Acute Assessment and Plan: Patietn with chronic resp failure but not felt to be having a COPD exacerbation. Continue Trelegy and stop Budesonide. Albuterol changed to prn. Follow (7) Chronic pain disorder: Code(s): G89.4 - Chronic pain syndrome Status: Acute Assessment and Plan: Topical agents available. Oral narcotics as Seney available PRN. Add scheduled Miralax (8) HTN (hypertension): Code(s): I10 - Essential (primary) hypertension Status: Acute Assessment and Plan: Patient's blood pressure was reviewed on 10/02 Blood pressure remains reasonably well controlled. Will continue current medications. (9) Cardiomyopathy: Qualifiers: Cardiomyopathy type: unspecified Qualified Code(s): I42.9 - Cardiomyopathy, unspecified Code(s): I42.9 - Cardiomyopathy, unspecified Status: Acute Assessment and Plan: w/ AICD. Continue entresto, furosemide and Coreg. Appreciate cardiology. (10) Left shoulder pain: Code(s): M25.512 - Pain in left shoulder Status: Acute Assessment and Plan: XR left shoulder shows severe acromioclavicular joint arthritis. Lidocaine TD to left shoulder. Tylenol and Norca as needed
[2021-10-02] MEDS: polyethylene glycoL 3350 17 GM POWD.PACK PO (14:45)
[2021-10-02] MEDS: ONDANSETRON HCL ODT 4 MG TABLET PO ×2 (15:20→21:19)
[2021-10-02] MEDS: GABAPENTIN 400 MG CAPSULE 800 MG PO (16:29)
[2021-10-02] MEDS: DICYCLOMINE HCL 10 MG CAPSULE 20 MG PO (16:30)
[2021-10-02] MEDS: SERTRALINE HCL 50 MG TABLET 100 MG PO (16:30)
[2021-10-02] MEDS: SACUBITRIL/VALSARTAN 24-26 MG TABLET 1 TAB PO (21:17)
[2021-10-02] MEDS: DOCUSATE SODIUM 100 MG CAPSULE PO (21:17)
[2021-10-02] MEDS: PANTOPRAZOLE 40 MG TABLET PO (21:18)
[2021-10-02] MEDS: rOPINIRole HCL 0.5 MG TABLET PO (21:18)
[2021-10-02] MEDS: carvediloL 12.5 MG TABLET PO (21:22)
[2021-10-03] VITALS (17 sets, daily range): BP systolic 103–141; BP diastolic 60–107; PULSE 69–89; RESP 14–18; TEMP 35.7–37.1; O2SAT 87–97
[2021-10-03] MEDS: ONDANSETRON HCL ODT 4 MG TABLET PO ×3 (02:50→17:57)
[2021-10-03] MEDS: HYDROcodone/acetaminophen (*CRX) 10-325 MG TABLET 1 TAB PO ×3 (02:50→21:39)
[2021-10-03] MEDS: ACETAMINOPHEN 325 MG TABLET 650 MG PO ×2 (02:56→08:47)
[2021-10-03] MEDS: DICLOFENAC SODIUM 1% 100 GM GEL (*BKC) 1 APPLIC TOPICAL ×5 (03:02→21:44)
[2021-10-03] MEDS: SUCRALFATE SUSP 100 MG/ML 10 ML UDC 1000 MG PO ×4 (07:26→21:38)
[2021-10-03] MEDS: GABAPENTIN 400 MG CAPSULE 800 MG PO ×3 (08:06→16:02)
[2021-10-03] MEDS: ENOXAPARIN 40 MG/0.4 ML SYRINGE SUB-Q (08:17)
[2021-10-03] MEDS: polyethylene glycoL 3350 17 GM POWD.PACK PO ×2 (08:21→16:00)
[2021-10-03] MEDS: ANASTROZOLE (*CHEMO) 1 MG TABLET PO (08:23)
[2021-10-03] MEDS: FUROSEMIDE 40 MG TABLET PO (08:27)
[2021-10-03] MEDS: SERTRALINE HCL 50 MG TABLET 100 MG PO ×2 (08:28→16:02)
[2021-10-03] MEDS: DICYCLOMINE HCL 10 MG CAPSULE 20 MG PO ×2 (08:33→16:02)
[2021-10-03] MEDS: DOCUSATE SODIUM 100 MG CAPSULE PO ×2 (08:35→21:40)
[2021-10-03] MEDS: SACUBITRIL/VALSARTAN 24-26 MG TABLET 1 TAB PO ×2 (08:36→21:40)
[2021-10-03] MEDS: SIMVASTATIN 20 MG TABLET 40 MG PO (08:36)
[2021-10-03] MEDS: carvediloL 12.5 MG TABLET PO ×2 (08:37→21:41)
[2021-10-03] MEDS: PANTOPRAZOLE 40 MG TABLET PO ×2 (08:38→21:40)
[2021-10-03] MEDS: LIDOCAINE 5% PATCH 1 PATCH TRANSDERM ×2 (08:40→09:24)
[2021-10-03] MEDS: FLUTICASONE/UMECLIDIN/VILANTER 100-62.5-25 MCG ELLIPTA 1 PUFF INHALATION (09:04)
--- NOTE | 2021-10-03 09:18 | PM.PNCARD ---
Progress Note: A&P Assessment and Plan (1) Dyspnea: Code(s): R06.00 - Dyspnea, unspecified Status: Acute Assessment and Plan: Progressive dyspnea over a number of months but worsening dyspnea exertion in the past couple of weeks. Probably multifactorial. She does have COPD and chronic hypoxic respiratory failure on home oxygen. She also had an elevated BNP on presentation though on exam she does not appear to be volume overloaded, so doubt this is related to CHF. Concerningly, her chest CTA showed evidence of metastatic disease with multiple peripheral pleural-based nodules in the left hemothorax, left hilar, mediastinal and upper abdominal lymphadenopathy and multiple hepatic masses. Metastatic disease certainly could be contributing to her worsening dyspnea. Oncology has been consulted and recommended liver lesion biopsy which was performed yesterday, results are pending. Pulmonology is also following. Prior to this admission patient had right and left heart catheterization arranged at [facility] ordered by Dr. Bass because of patient's complaints of worsening dyspnea. No plans to pursue R/LHC during this admission until clarification of prognosis and nature of her metastatic disease. Patient clinically stable from cardiac perspective at this time. Will see patient on an as-needed basis. Disposition per hospitalist service. Continue patient's current medical therapy. (2) Acute on chronic systolic heart failure: Code(s): I50.23 - Acute on chronic systolic (congestive) heart failure Status: Acute Assessment and Plan: Her BNP was elevated on presentation around 4000. Looks euvolemic on exam. Continue current diuretic dose. (3) Chronic respiratory failure with hypoxia: Code(s): J96.11 - Chronic respiratory failure with hypoxia Status: Acute Assessment and Plan: History of COPD on continuous home oxygen. Pulmonology is following. (4) Liver mass: Code(s): R16.0 - Hepatomegaly, not elsewhere classified Status: Acute Assessment and Plan: Oncology is following. Plan for liver mass biopsy. (5) Lymphadenopathy: Code(s): R59.1 - Generalized enlarged lymph nodes Status: Acute Assessment and Plan: Oncology is following (6) KYLER (obstructive sleep apnea): Code(s): G47.33 - Obstructive sleep apnea (adult) (pediatric) Status: Acute Assessment and Plan: On CPAP. Subjective Date/time seen: 10/03/21 09:18 Cardiology follow up Patient is complaining of abdominal pain. She states this pain has been persistent for a few days but improves with Review of Systems Review of Systems: All systems reviewed & are unremarkable except as noted in HPI and below Constitutional: Constitutional: Denies excessive sweating, Denies fatigue, Denies headache(s), Denies lethargy and Denies weakness Eyes: Eyes: Denies change in vision, Denies loss of vision and Denies other visual disturbances ENT: Reports Normal hearing present, Denies headache(s), Denies neck pain and Denies tinnitus Cardiovascular: Cardiovascular: Denies chest pain, Denies pedal edema, Denies leg edema, Denies palpitations, Reports dyspnea and Reports dyspnea on exertion Respiratory: Respiratory: Reports dyspnea and Reports dyspnea on exertion Gastrointestinal: Gastrointestinal: Denies abdominal pain, Denies melena, Denies bloating, Denies constipation, Denies diarrhea and Reports nausea Genitourinary: Genitourinary: Denies nocturia, Denies urinary incontinence and Denies urinary hesitancy Musculoskeletal: Musculoskeletal: Denies back pain, Denies arthralgias, Denies neck pain and Denies numbness Integumentary/Breasts: Skin/Breast: Reports unusual bruising Neurologic: Reports Normal hearing present, Denies confusion, Denies headache(s), Denies loss of vision, Denies numbness and Denies weakness Psychiatric: Psychiatric: Denies confusion and Denies depression
--- NOTE | 2021-10-03 09:28 | PCPTNOTE ---
Patient refused treatment this session due to pain. RN aware.
--- NOTE | 2021-10-03 10:14 | PM.PNPUL ---
Progress Note: A&P Assessment and Plan (1) Dyspnea: Code(s): R06.00 - Dyspnea, unspecified Status: Acute Assessment and Plan: 76-year-old woman with a history of 50 pack year tobacco, quit 10 years ago, COPD with PFTS from 2018 with moderate obstructive abnormality with air trapping and a severely decreased DLCO ( I have a report but no raw data), hypoxemic respiratory failure requiring 4 L nasal cannula 24-7, obstructive sleep apnea on noninvasive ventilation at night with 4 L nasal cannula presents now with dyspnea on exertion at 3 steps. 09/28 Regarding pulmonary etiologies for her dyspnea she has no PE by CT angiogram, she has tested negative for COVID, she has no complaints of a pneumonia or bronchitis and no change in her phlegm production or volume suggestive of a COPD exacerbation. She has no wheezes on presentation and no wheezes today. she does have new pleural based lesions as well as hilar and mediastinal adenopathy, hepatic masses and abdominal lymphadenopathy which are new since most recent CT scan on 12/07/2020. She may have metastatic disease and this may be leading to worsening dyspnea on exertion. I would proceed with ultrasound-guided liver biopsy once off plavix for 5 days. I agree with trelegy inhaler and will discontinue nebulized albuterol and ipratropium because she is on maximum dose of beta agonist and anti muscarinic antagonist with the trelegy. I do not recommend antibiotics or systemic steroids at this time. The patient is morbidly obese and deconditioned and this may also be contributing to her dyspnea on exertion. The patient has an elevated BNP and an echocardiogram now with an EF of 30%. Patient has been followed by Cardiology and their outpatient note on 09/15/21 recommended that she have a right and left heart catheterization. Would discuss with her team their approach now that she is admitted to the hospital. 09/29 Patient is 30% better and has no wheezing and continues on her trelegy. she is being diuresed with Lasix 20 IV a day. Creatinine is 1.0. I do not believe she has an active COPD exacerbation at this time and I see no need for antibiotics or steroids. I suspect that the pleural lesions are causing her left chest are min back pain. Diuresis per hospitalist and Cardiology. Patient will ultimately get a hepatic mass biopsy once she is off the Plavix for 5 days. Further cardiac workup pending results from this biopsy. I updated the patient's daughter via face time with the patient this morning. 10/02 In use to improvement tells me she has not been breathing this well in the last 3-4 months. The best she can do is walk from her car to the door of [employer] and then get an electric cart and she feels like she could walk this far today. She denies wheezing, or rest shortness of breath. She states her left arm and chest pain is better with the medications, lidocaine ointment and Andrew-Saenz or ointment. Patient had an overnight oximetry on 09/29/2021 demonstrating a baseline saturation of 89%, lowest saturation 77%, saturation less than or equal to 88% was 183 minutes or 64% of monitored time. liver biopsy performed later in the day. Patient states she does not need the scheduled albuterol nebulizer and I will change him to p.r.n.. Will continue her trelegy 100-62.5-25 at 1 puff q.day. 10/03 Patient tells me that she is close to her baseline. She still has dyspnea on exertion walking across the room. Saturations on 4 L nasal cannula are 96. She also complains of indigestion upper abdominal pain and this pain happened she also gets right shoulder pain. This was successfully treated with Tylenol gabapentin and Zofran last night. From a pulmonary perspective patient is stable for discharge on these pulmonary medicines: Trelegy 100/62.5/25 At 1 puff q.day Rescue albuterol 2 puffs q.i.d. p.r.n shortness of breath and wheezing Rescue albuterol nebulizers Q 4-6 hour
--- NOTE | 2021-10-03 11:31 | PCPTNOTE ---
Patient refused treatment this session due to pain. Patient reported pain at 6/10 and that she is in too much pain to work with therapy. RN notified.
--- NOTE | 2021-10-03 12:02 | HOMEO2EVAL ---
Evaluation was performed at [facility] Home Oxygen Evaluation RC: Home Oxygen (O2) Evaluation Start: 10/03/21 08:34 Freq: ONCE Status: Active Protocol: RPE Activity Type Activity Date Activity User E-Sign Co-Sign Detail Recorded Client Recorded Date Recorded By Document 10/03/21 11:45 FARHAD [email or web address] 10/03/21 12:02 FARHAD Document 10/03/21 11:46 FARHAD [email or web address] 10/03/21 12:02 FARHAD Document 10/03/21 11:50 FARHAD [email or web address] 10/03/21 12:02 FARHAD Document 10/03/21 11:55 FARHAD [email or web address] 10/03/21 12:02 FARHAD 10/03/21 10/03/21 10/03/21 11:45 11:46 11:50 Home O2 Evaluation Test Phase Resting Resting Exercise Oxygen Delivery Room Air Nasal Cannula Nasal Cannula Oxygen Flow Rate (L/min) 4 4 Pulse Oximetry (90-100 %) 87 L 93 91 Home Oxygen Evaluation Comments PT REQUIRES 4L AT REST AN DWITH ACTIVITY Treatment Charges O2 Evaluation - Inpatient 10/03/21 11:55 Home O2 Evaluation Test Phase Resting Oxygen Delivery Nasal Cannula Oxygen Flow Rate (L/min) 4 Pulse Oximetry (90-100 %) 94 Home Oxygen Evaluation Comments Treatment Charges
--- NOTE | 2021-10-03 12:02 | PCRCNOTE ---
HOME O2 EVAL DONE, NO CHANGE FROM PRIOR SETTINGS. PT HAS POC, WILL BRING IN UPON D/C.
[2021-10-03] MEDS: LACTULOSE 20 GM/30 ML UDC PO (14:03)
--- NOTE | 2021-10-03 14:30 | PM.IMPN ---
Progress Note: A&P Assessment and Plan (1) Small cell lung cancer: Code(s): C34.90 - Malignant neoplasm of unspecified part of unspecified bronchus or lung Status: Acute Assessment and Plan: Called by basket machine operator informed that the preliminary biopsy results showing small cell cancer. Probably lung as primary. Will notify Oncology of these findings. She will most likely need CT Abd/Pelvis and brain MR. Will defer to Oncology about further imaging. (2) Constipation: Qualifiers: Constipation type: drug induced constipation Qualified Code(s): K59.03 - Drug induced constipation Code(s): K59.00 - Constipation, unspecified Status: Acute Assessment and Plan: Patient still has not had a bowel movement. Obstructive series shows large amount of colonic stool retained oral contrast consistent with constipation. Continue MiraLax and will advance dose. Continue Colace. Lactulose once. (3) SOB (shortness of breath): Code(s): R06.02 - Shortness of breath Status: Acute Assessment and Plan: Hx of chronic respiratory failure on 4LNC at baseline. BNP elevated w/ hx of multiple hospitalizations for volume overload. COVID19 negative w/ emphysema noted. Former smoker. Echo EF 30% w/ Grade I diastolic dysfunction and anterolateral HK but no pulmonary HTN. CTA w/ no PE. Recent treatment w/ steroids w/ mild leukocytosis and CT chest w/ possible PNA vs atelectasis but no worsening of cough or infectious sx. Mild improvement in volume status. TSH normal & procalcitonin equivocal but leukocytosis resolved. Will continue to defer antibiotics. Suspect related to the lung masses. Echo showing further decline in EF and now wall motion abnormalities. Cardiology consult and appreciate their input. Pulmonology consulted and appreciate their input. Discussed with pulmonary. (4) Lymphadenopathy: Code(s): R59.1 - Generalized enlarged lymph nodes Status: Acute Assessment and Plan: CTA chest notes metastatic disease with multiple peripheral pleural based nodules in the left hemithorax, left hilar, mediastinal and upper abdominal lymphadenopathy. Probably the etiology of the chest pain. Oncology consulted. CEA elevated. CA 15-2 27 up from 20 in early 2021. Biopsy results as above. (5) Liver mass: Code(s): R16.0 - Hepatomegaly, not elsewhere classified Status: Acute Assessment and Plan: Multiple hepatic masses concerning for metastasis on CTA chest. As above. Patient was unable to get liver biopsy until clopidogrel is held for five days (Last dose of clopidogrel 09/26/2021). Biopsy completed on 10/02. Okay to resume Plavix. As above. (6) Leukocytosis: Code(s): D72.829 - Elevated white blood cell count, unspecified Status: Acute Assessment and Plan: UA negative. CT chest w/ right lung ground glass opacity concerning for pneumonia but afebrile and procalcitonin 0.1. Leukocytosis has resolved. (7) Chronic respiratory failure with hypoxia: Code(s): J96.11 - Chronic respiratory failure with hypoxia Status: Acute Assessment and Plan: Patient is on 4LNC chronically at home. She was noted to be severely hypoxic at night despite the 4L O2 and ASV unit. O2 changed to 6L at night by pulmonary. Discussed. Plan home tomorrow if feeling better. (8) COPD (chronic obstructive pulmonary disease): Qualifiers: COPD type: unspecified COPD Qualified Code(s): J44.9 - Chronic obstructive pulmonary disease, unspecified Code(s): J44.9 - Chronic obstructive pulmonary disease, unspecified Status: Acute Assessment and Plan: Patient with chronic resp failure but not felt to be having a COPD exacerbation. Continue Trelegy. Albuterol changed to prn. Follow (9) Chronic pain disorder: Code(s): G89.4 - Chronic pain syndrome Status: Acute Assessment and Plan: Topical agents avail
--- NOTE | 2021-10-03 14:56 | PC.NURSE ---
On 10/03/21, the student, Whitley Nguyen, provided care and completed [facility] documentation on this patient. I have reviewed the student's documentation and agree with the findings.
[2021-10-03] MEDS: ALBUTEROL SULFATE NEB 2.5 MG/0.5 ML INH INHALATION (19:58)
[2021-10-03] MEDS: ONDANSETRON INJ 4 MG/2 ML VIAL IV PUSH (21:38)
[2021-10-03] MEDS: rOPINIRole HCL 0.5 MG TABLET PO (21:40)
[2021-10-04] VITALS (9 sets, daily range): BP systolic 85–119; BP diastolic 54–81; PULSE 64–96; RESP 16–20; TEMP 36.1–37; O2SAT 90–99
[2021-10-04] MEDS: HYDROcodone/acetaminophen (*CRX) 10-325 MG TABLET 1 TAB PO ×2 (03:25→09:25)
[2021-10-04] MEDS: SUCRALFATE SUSP 100 MG/ML 10 ML UDC 1000 MG PO ×4 (06:14→20:40)
[2021-10-04] MEDS: ACETAMINOPHEN 325 MG TABLET 650 MG PO ×2 (06:15→16:37)
[2021-10-04 06:25] LABS: Basophils Percent Auto 0.2 % (0.2-1.2); Eosinophils Absolute Auto 0.1 K/mm3 (0-0.3); Eosinophils Percent Auto 0.5 % (0-4.4); Hematocrit 38.2 % (37.0-47.0); Hemoglobin 11.8 g/dL (12.0-15.0); Immature Granulocyte Absolute 0.08 K/mm3 (0.00-0.031); Immature Granulocyte Percent A 0.8 % (0-0.5); Lymphocytes Percent Auto 6.7 % (18.3-44.2); Mean Corpuscular HGB Conc 30.9 g/dl (32-36); Mean Corpuscular Hemoglobin 28.6 pg (26-34); Mean Corpuscular Volume 92.5 fl (80-100); Mean Platelet Volume 10.5 fl (7.4-10.4); Monocytes Absolute Auto 0.6 K/mm3 (0.1-0.6); Neutrophils Percent Auto 85.8 % (45.5-73.1); Platelet Count Result 197 k/mm3 (150-375); Red Blood Count 4.13 M/mm3 (4.2-5.4); Red Cell Distribution Width 13.9 % (11.5-14.5); White Blood Count 10.4 K/mm3 (4.5-10.0)
[2021-10-04 06:37] LABS: Alanine Aminotransferase 21 U/L (4-35); Albumin Level 3.8 g/dL (3.5-5.1); Alkaline Phosphatase 122 U/L (38-126); Anion Gap 6 mmol/L (8-16); Aspartate Amino Transferase 50 U/L (14-36); Blood Urea Nitrogen 23 mg/dL (7-17); Calcium 8.4 mg/dL (8.4-10.2); Carbon Dioxide 33 mmol/L (22-30); Chloride 90 mmol/L (98-107); Estimated CRCL calculation 55 ml/min; Estimated Glomerular Filt Rate > 60; Glucose 150 mg/dL (65-110); Potassium 4.1 mmol/L (3.4-5.0); Sodium 129 mmol/L (137-145)
[2021-10-04] MEDS: FLUTICASONE/UMECLIDIN/VILANTER 100-62.5-25 MCG ELLIPTA 1 PUFF INHALATION (08:05)
--- NOTE | 2021-10-04 08:38 | PM.PNPUL ---
Progress Note: A&P Assessment and Plan (1) Dyspnea: Code(s): R06.00 - Dyspnea, unspecified Status: Acute Assessment and Plan: 76-year-old woman with a history of 50 pack year tobacco, quit 10 years ago, COPD with PFTS from 2018 with moderate obstructive abnormality with air trapping and a severely decreased DLCO ( I have a report but no raw data), hypoxemic respiratory failure requiring 4 L nasal cannula 24-7, obstructive sleep apnea on noninvasive ventilation at night with 4 L nasal cannula presents now with dyspnea on exertion at 3 steps. 09/28 Regarding pulmonary etiologies for her dyspnea she has no PE by CT angiogram, she has tested negative for COVID, she has no complaints of a pneumonia or bronchitis and no change in her phlegm production or volume suggestive of a COPD exacerbation. She has no wheezes on presentation and no wheezes today. she does have new pleural based lesions as well as hilar and mediastinal adenopathy, hepatic masses and abdominal lymphadenopathy which are new since most recent CT scan on 12/07/2020. She may have metastatic disease and this may be leading to worsening dyspnea on exertion. I would proceed with ultrasound-guided liver biopsy once off plavix for 5 days. I agree with trelegy inhaler and will discontinue nebulized albuterol and ipratropium because she is on maximum dose of beta agonist and anti muscarinic antagonist with the trelegy. I do not recommend antibiotics or systemic steroids at this time. The patient is morbidly obese and deconditioned and this may also be contributing to her dyspnea on exertion. The patient has an elevated BNP and an echocardiogram now with an EF of 30%. Patient has been followed by Cardiology and their outpatient note on 09/15/21 recommended that she have a right and left heart catheterization. Would discuss with her team their approach now that she is admitted to the hospital. 09/29 Patient is 30% better and has no wheezing and continues on her trelegy. she is being diuresed with Lasix 20 IV a day. Creatinine is 1.0. I do not believe she has an active COPD exacerbation at this time and I see no need for antibiotics or steroids. I suspect that the pleural lesions are causing her left chest are min back pain. Diuresis per hospitalist and Cardiology. Patient will ultimately get a hepatic mass biopsy once she is off the Plavix for 5 days. Further cardiac workup pending results from this biopsy. I updated the patient's daughter via face time with the patient this morning. 10/02 In use to improvement tells me she has not been breathing this well in the last 3-4 months. The best she can do is walk from her car to the door of [employer] and then get an electric cart and she feels like she could walk this far today. She denies wheezing, or rest shortness of breath. She states her left arm and chest pain is better with the medications, lidocaine ointment and Andrew-Saenz or ointment. Patient had an overnight oximetry on 09/29/2021 demonstrating a baseline saturation of 89%, lowest saturation 77%, saturation less than or equal to 88% was 183 minutes or 64% of monitored time. liver biopsy performed later in the day. Patient states she does not need the scheduled albuterol nebulizer and I will change him to p.r.n.. Will continue her trelegy 100-62.5-25 at 1 puff q.day. 10/03 Patient tells me that she is close to her baseline. She still has dyspnea on exertion walking across the room. Saturations on 4 L nasal cannula are 96. She also complains of indigestion upper abdominal pain and this pain happened she also gets right shoulder pain. This was successfully treated with Tylenol gabapentin and Zofran last night. Later in the day the pathologist called me and told me the liver biopsy was consistent with small cell cancer, additional stains are pending. Oncology, Dr. Tolbert, was consulted. 10/04 Patient states that she is at her baseline from a br
[2021-10-04] MEDS: GABAPENTIN 400 MG CAPSULE 800 MG PO ×2 (09:26→14:21)
[2021-10-04] MEDS: ENOXAPARIN 40 MG/0.4 ML SYRINGE SUB-Q (09:26)
[2021-10-04] MEDS: SIMVASTATIN 20 MG TABLET 40 MG PO (09:26)
[2021-10-04] MEDS: FUROSEMIDE 40 MG TABLET PO (09:26)
[2021-10-04] MEDS: DICLOFENAC SODIUM 1% 100 GM GEL (*BKC) 1 APPLIC TOPICAL ×3 (09:27→20:45)
[2021-10-04] MEDS: ANASTROZOLE (*CHEMO) 1 MG TABLET PO (09:27)
[2021-10-04] MEDS: CLOPIDOGREL BISULFATE 75 MG TABLET PO (09:27)
[2021-10-04] MEDS: LIDOCAINE 5% PATCH 1 PATCH TRANSDERM ×3 (09:28→10:45)
[2021-10-04] MEDS: polyethylene glycoL 3350 17 GM POWD.PACK PO (09:30)
[2021-10-04] MEDS: DOCUSATE SODIUM 100 MG CAPSULE PO ×2 (09:31→20:39)
[2021-10-04] MEDS: ONDANSETRON HCL ODT 4 MG TABLET PO ×2 (10:44→16:37)
[2021-10-04] MEDS: SACUBITRIL/VALSARTAN 24-26 MG TABLET 1 TAB PO ×2 (10:44→20:40)
[2021-10-04] MEDS: carvediloL 12.5 MG TABLET PO ×2 (10:45→20:39)
[2021-10-04] MEDS: DICYCLOMINE HCL 10 MG CAPSULE 20 MG PO ×2 (10:45→16:39)
[2021-10-04] MEDS: PANTOPRAZOLE 40 MG TABLET PO ×2 (10:46→20:39)
[2021-10-04] MEDS: SERTRALINE HCL 50 MG TABLET 100 MG PO ×2 (10:46→16:39)
--- NOTE | 2021-10-04 12:31 | PM.IMPN ---
Progress Note: A&P Assessment and Plan (1) Small cell lung cancer: Code(s): C34.90 - Malignant neoplasm of unspecified part of unspecified bronchus or lung Status: Acute Assessment and Plan: Called by special collections librarian and informed that the preliminary biopsy results showing small cell cancer. Probably lung as primary. Oncology was notified of these findings. She will most likely need CT Abd/Pelvis and brain MR. Will proceed with CT A/P with contrast today given her current symptoms. (2) Constipation: Qualifiers: Constipation type: drug induced constipation Qualified Code(s): K59.03 - Drug induced constipation Code(s): K59.00 - Constipation, unspecified Status: Acute Assessment and Plan: Patient still has not had a bowel movement. Obstructive series shows large amount of colonic stool retained oral contrast consistent with constipation but no free air or dilated loops. Continue MiraLax and Colace. Soap suds enema today. Consider hypaque enema. (3) SOB (shortness of breath): Code(s): R06.02 - Shortness of breath Status: Acute Assessment and Plan: Hx of chronic respiratory failure on 4LNC at baseline. BNP elevated w/ hx of multiple hospitalizations for volume overload. COVID19 negative w/ emphysema noted. Former smoker. Echo EF 30% w/ Grade I diastolic dysfunction and anterolateral HK but no pulmonary HTN. CTA w/ no PE. Recent treatment w/ steroids w/ mild leukocytosis and CT chest w/ possible PNA vs atelectasis but no worsening of cough or infectious sx. Mild improvement in volume status. TSH normal & procalcitonin equivocal but leukocytosis resolved. Will continue to defer antibiotics. Suspect SOB related to the lung masses. Echo showing further decline in EF and now wall motion abnormalities. Cardiology consult and appreciate their input. Pulmonology consulted and appreciate their input. (4) Lymphadenopathy: Code(s): R59.1 - Generalized enlarged lymph nodes Status: Acute Assessment and Plan: CTA chest notes metastatic disease with multiple peripheral pleural based nodules in the left hemithorax, left hilar, mediastinal and upper abdominal lymphadenopathy. Probably the etiology of the chest pain and SOB. Oncology consulted. CEA elevated. CA 15-2 27 up from 20 in early 2021. Biopsy results as above. (5) Liver mass: Code(s): R16.0 - Hepatomegaly, not elsewhere classified Status: Acute Assessment and Plan: Multiple hepatic masses concerning for metastasis on CTA chest. As above. Patient was unable to get liver biopsy until clopidogrel is held for five days (Last dose of clopidogrel 09/26/2021). Biopsy completed on 10/02. Plavix was reviewed. As above. (6) Leukocytosis: Code(s): D72.829 - Elevated white blood cell count, unspecified Status: Acute Assessment and Plan: UA negative. CT chest w/ right lung ground glass opacity concerning for pneumonia but afebrile and procalcitonin 0.1. Leukocytosis has resolved. (7) Chronic respiratory failure with hypoxia: Code(s): J96.11 - Chronic respiratory failure with hypoxia Status: Acute Assessment and Plan: Patient is on 4LNC chronically at home. She was noted to be severely hypoxic at night despite the 4L O2 and ASV unit. O2 changed to 6L at night by pulmonary. Discussed. Plan home when feeling better. (8) COPD (chronic obstructive pulmonary disease): Qualifiers: COPD type: unspecified COPD Qualified Code(s): J44.9 - Chronic obstructive pulmonary disease, unspecified Code(s): J44.9 - Chronic obstructive pulmonary disease, unspecified Status: Acute Assessment and Plan: Patient with chronic resp failure but not felt to be having a COPD exacerbation. Continue Trelegy. Albuterol changed to prn. Follow (9) Chronic pain disorder: Code(s): G89.4 - Chronic pain syndrome Status: Acute
--- NOTE | 2021-10-04 13:01 | P.PNONC_ITS ---
Progress Note: A/P - Additional Plan Extensive stage small cell lung cancer. Patient had liver biopsy done on October 02 and pathology came back positive for small cell cancer likely primary site is lung cancer. I have discussed pathology with Dr. Talamantes. I had a long discussion with patient and the daughter on the phone today. I discussed the treatment and prognosis with the patient in detail. I will order brain scan as well. CTA chest showed metastatic disease with multiple pleural based nodules in the left hemothorax, left hilar mediastinal upper abdominal lymphadenopathy and multiple hepatic masses. I recommended palliative chemotherapy. Patient would discuss and think about chemotherapy. If she decides to proceed with chemotherapy as an outpatient then we will proceed with MediPort placement while she is in the hospital. I have answered all the questions to patient's satisfaction. History of stage I left-sided breast cancer. Patient is in remission and currently on Arimidex. - Time Spent With Patient Total time spent is greater than 50% in coordination of care (as documented) at patient's floor/unit and/or counseling patient: 15 - 25 minutes Subjective Interval history: Extensive stage small cell lung cancer Review of Systems - Review of Systems Patient complain of tiredness and fatigue. She remains short of breath. Denies any chest pain. Denies any headache and seizures. No other new complaints. - Neurologic Reports system reviewed and no additional complaints, except as documented, Reports hearing normal, Denies confusion, Denies vertigo, Denies headache(s), Denies loss of vision, Denies numbness, Denies weakness Exam Vital signs: Temp Pulse Resp BP Pulse Ox 37.0 C 80 16 119/81 96 10/04/21 05:38 10/04/21 10:45 10/04/21 08:00 10/04/21 05:38 10/04/21 08:05 Narrative: Lungs are clear to auscultation bilaterally Cardiovascular regular rate rhythm no murmurs Abdomen soft nontender nondistended bowel sounds are positive Extremities mild edema PN: Objective Data - Labs CBC & Chem 7: 10/04/21 06:12 10/04/21 06:12 Labs: Laboratory Results - last 24 hr 10/04/21 10/04/21 06:12 06:12 WBC 10.4 H RBC 4.13 L Hgb 11.8 L Hct 38.2 MCV 92.5 MCH 28.6 MCHC 30.9 L RDW 13.9 Plt Count 197 MPV 10.5 H Immature Gran % (Auto) 0.8 H Neut % (Auto) 85.8 H Lymph % (Auto) 6.7 L [place] % (Auto) 6.0 Eos % (Auto) 0.5 Baso % (Auto) 0.2 Lymph # (Auto) 0.70 L [place] # (Auto) 0.6 Eos # (Auto) 0.1 Baso # (Auto) 0.0 Abs Immat Gran (auto) 0.08 H Absolute Neuts (auto) 9.0 H Absolute Nucleated RBC 0.0 Nucleated RBC % 0.0 Sodium 129 L Potassium 4.1 Chloride 90 L Carbon Dioxide 33 H Anion Gap 6 L BUN 23 H Creatinine 0.90 Estim Creat Clear Calc 55 Estimated GFR > 60 Glucose 150 H Calcium 8.4 Total Bilirubin 1.0 AST 50 H ALT 21 Alkaline Phosphatase 122 Total Protein 7.0 Albumin 3.8
--- NOTE | 2021-10-04 15:58 | PC.NURSE ---
will attempt ct scan tomorrow no iv access, pt will need to be npo for scan x4hrs prior to scan.
[2021-10-04] MEDS: HYDROcodone/acetaminophen (*CRX) 5-325 MG TABLET 1 TAB PO ×2 (16:41→22:28)
--- NOTE | 2021-10-04 18:28 | PC.NURSE ---
Plan for MRI tomorrow r/t on IV access, MD Levy aware. IV US nurse can hopefully place IV tomorrow due to pt this difficulty stick.
[2021-10-04] MEDS: rOPINIRole HCL 0.5 MG TABLET PO (20:39)
[2021-10-05] VITALS (14 sets, daily range): BP systolic 100–129; BP diastolic 50–79; PULSE 66–94; RESP 16–18; TEMP 36.5–36.6; O2SAT 92–98
[2021-10-05 06:23] LABS: Anion Gap 5 mmol/L (8-16); Blood Urea Nitrogen 22 mg/dL (7-17); Calcium 8.3 mg/dL (8.4-10.2); Carbon Dioxide 34 mmol/L (22-30); Chloride 88 mmol/L (98-107); Estimated CRCL calculation 55 ml/min; Estimated Glomerular Filt Rate > 60; Glucose 121 mg/dL (65-110); Potassium 3.8 mmol/L (3.4-5.0); Sodium 127 mmol/L (137-145)
--- NOTE | 2021-10-05 07:49 | PC.NURSE ---
Adelita IV nurse called this am for IV placement with US for MRI and Ct with contrast needed for pt.
[2021-10-05] MEDS: FLUTICASONE/UMECLIDIN/VILANTER 100-62.5-25 MCG ELLIPTA 1 PUFF INHALATION (07:58)
[2021-10-05] MEDS: ACETAMINOPHEN 325 MG TABLET 650 MG PO ×2 (08:55→14:45)
[2021-10-05] MEDS: DICLOFENAC SODIUM 1% 100 GM GEL (*BKC) 1 APPLIC TOPICAL ×4 (08:56→21:05)
[2021-10-05] MEDS: ONDANSETRON HCL ODT 4 MG TABLET PO (08:56)
[2021-10-05] MEDS: HYDROcodone/acetaminophen (*CRX) 5-325 MG TABLET 1 TAB PO ×3 (08:56→21:02)
[2021-10-05] MEDS: SIMVASTATIN 20 MG TABLET 40 MG PO (08:57)
[2021-10-05] MEDS: LIDOCAINE 5% PATCH 1 PATCH TRANSDERM ×2 (08:57→08:59)
[2021-10-05] MEDS: carvediloL 12.5 MG TABLET PO ×2 (08:57→21:03)
[2021-10-05] MEDS: ENOXAPARIN 40 MG/0.4 ML SYRINGE SUB-Q (08:57)
[2021-10-05] MEDS: polyethylene glycoL 3350 17 GM POWD.PACK PO ×2 (08:58→17:24)
[2021-10-05] MEDS: DOCUSATE SODIUM 100 MG CAPSULE PO ×2 (08:58→21:03)
[2021-10-05] MEDS: ANASTROZOLE (*CHEMO) 1 MG TABLET PO (08:58)
[2021-10-05] MEDS: FUROSEMIDE 40 MG TABLET PO (08:58)
[2021-10-05] MEDS: SACUBITRIL/VALSARTAN 24-26 MG TABLET 1 TAB PO ×2 (08:59→21:02)
[2021-10-05] MEDS: PANTOPRAZOLE 40 MG TABLET PO ×2 (08:59→21:03)
[2021-10-05] MEDS: CLOPIDOGREL BISULFATE 75 MG TABLET PO (08:59)
[2021-10-05] MEDS: DICYCLOMINE HCL 10 MG CAPSULE 20 MG PO ×2 (08:59→16:19)
[2021-10-05] MEDS: GABAPENTIN 400 MG CAPSULE 800 MG PO ×3 (09:00→17:24)
[2021-10-05] MEDS: SERTRALINE HCL 50 MG TABLET 100 MG PO ×2 (09:01→16:19)
[2021-10-05] MEDS: SUCRALFATE SUSP 100 MG/ML 10 ML UDC 1000 MG PO ×3 (12:21→21:03)
--- NOTE | 2021-10-05 13:04 | WPDONCPN ---
Progress Note: A/P - Additional Plan Extensive stage small cell lung cancer status post liver biopsy. CT head showed no evidence of metastatic disease. CT abdomen and pelvis noted that showed liver masses, abdominal lymphadenopathy, left lung nodule and nodular left-sided pleural thickening consistent with metastatic disease. I had a long discussion with patient and the family today. She decided to proceed with chemotherapy. We will order MediPort placement. Patient will follow-up with me in the office to initiate the chemotherapy. - Time Spent With Patient Total time spent is greater than 50% in coordination of care (as documented) at patient's floor/unit and/or counseling patient: 15 - 25 minutes Subjective Interval history: Extensive stage small cell lung cancer Review of Systems - Review of Systems Patient complain of lower abdominal pain. She denies any chest pain. Does have some shortness of breath. Denies any headache. Remains quite tired and fatigued. - Neurologic Reports system reviewed and no additional complaints, except as documented, Reports hearing normal, Denies confusion, Denies vertigo, Denies headache(s), Denies loss of vision, Denies numbness, Denies weakness Exam Narrative: Lungs are clear to auscultation bilaterally Cardiovascular regular rate rhythm no murmurs Abdomen soft nontender nondistended Extremities no edema PN: Objective Data - Labs CBC & Chem 7: 10/04/21 06:12 10/05/21 05:54 Labs: Laboratory Results - last 24 hr 10/05/21 05:54 Sodium 127 L Potassium 3.8 Chloride 88 L Carbon Dioxide 34 H Anion Gap 5 L BUN 22 H Creatinine 0.90 Estim Creat Clear Calc 55 Estimated GFR > 60 Glucose 121 H Calcium 8.3 L
[2021-10-05] MEDS: ONDANSETRON INJ 4 MG/2 ML VIAL IV PUSH (14:46)
--- NOTE | 2021-10-05 15:03 | P.PNIM_ITS ---
Progress Note: A&P Assessment and Plan (1) Small cell lung cancer: Code(s): C34.90 - Malignant neoplasm of unspecified part of unspecified bronchus or lung Status: Acute Assessment and Plan: Called by bitumastic applier and informed that the preliminary biopsy results showing small cell cancer. Probably lung as primary. Oncology was notified of these findings. She will most likely need CT Abd/Pelvis and brain MR. Will proceed with CT A/P with contrast today given her current symptoms. (2) Constipation: Qualifiers: Constipation type: drug induced constipation Qualified Code(s): K59.03 - Drug induced constipation Code(s): K59.00 - Constipation, unspecified Status: Acute Assessment and Plan: Patient still has not had a bowel movement. Obstructive series shows large amount of colonic stool retained oral contrast consistent with constipation but no free air or dilated loops. Continue MiraLax and Colace. Soap suds enema today. Consider hypaque enema. (3) SOB (shortness of breath): Code(s): R06.02 - Shortness of breath Status: Acute Assessment and Plan: Hx of chronic respiratory failure on 4LNC at baseline. BNP elevated w/ hx of multiple hospitalizations for volume overload. COVID19 negative w/ emphysema noted. Former smoker. Echo EF 30% w/ Grade I diastolic dysfunction and anterolateral HK but no pulmonary HTN. CTA w/ no PE. Recent treatment w/ steroids w/ mild leukocytosis and CT chest w/ possible PNA vs atelectasis but no worsening of cough or infectious sx. Mild improvement in volume status. TSH normal & procalcitonin equivocal but leukocytosis resolved. Will continue to defer antibiotics. Suspect SOB related to the lung masses. Echo showing further decline in EF and now wall motion abnormalities. Cardiology consult and appreciate their input. Pulmonology consulted and appreciate their input. (4) Lymphadenopathy: Code(s): R59.1 - Generalized enlarged lymph nodes Status: Acute Assessment and Plan: CTA chest notes metastatic disease with multiple peripheral pleural based nodule s in the left hemithorax, left hilar, mediastinal and upper abdominal lymphadenopathy. Probably the etiology of the chest pain and SOB. Oncology consulted. CEA elevated. CA 15-2 27 up from 20 in early 2021. Biopsy results as above. (5) Liver mass: Code(s): R16.0 - Hepatomegaly, not elsewhere classified Status: Acute Assessment and Plan: Multiple hepatic masses concerning for metastasis on CTA chest. As above. Patient was unable to get liver biopsy until clopidogrel is held for five days (Last dose of clopidogrel 09/26/2021). Biopsy completed on 10/02. Plavix was reviewed. As above. (6) Leukocytosis: Code(s): D72.829 - Elevated white blood cell count, unspecified Status: Acute Assessment and Plan: UA negative. CT chest w/ right lung ground glass opacity concerning for pneumonia but afebrile and procalcitonin 0.1. Leukocytosis has resolved. (7) Chronic respiratory failure with hypoxia: Code(s): J96.11 - Chronic respiratory failure with hypoxia Status: Acute Assessment and Plan: Patient is on 4LNC chronically at home. She was noted to be severely hypoxic at night despite the 4L O2 and ASV unit. O2 changed to 6L at night by pulmonary. Discussed. Plan home when feeling better. (8) COPD (chronic obstructive pulmonary disease): Qualifiers: COPD type: unspecified COPD Qualified Code(s): J44.9 - Chronic obstructive pulmonary disease, unspecified Code(s):
[2021-10-05] MEDS: SODIUM CHLORIDE 0.9% IV 500 ML 50 ML IV CONT (17:24)
--- NOTE | 2021-10-05 18:03 | PC.NURSE ---
Pt daughter used TENS unit for pain relief on pt, pt defibilator fired and shocked pt, reported to Md Clark. vital signs stable 98% 18 66 109/77, continued to monitor per Md Clark.
[2021-10-05] MEDS: rOPINIRole HCL 0.5 MG TABLET PO (21:03)
[2021-10-06] VITALS (9 sets, daily range): BP systolic 107–135; BP diastolic 51–72; PULSE 62–72; RESP 16–18; TEMP 36.2–36.6; O2SAT 93–100
[2021-10-06] MEDS: ONDANSETRON INJ 4 MG/2 ML VIAL IV PUSH (01:19)
[2021-10-06] MEDS: ACETAMINOPHEN 325 MG TABLET 650 MG PO (01:19)
[2021-10-06] MEDS: SUCRALFATE SUSP 100 MG/ML 10 ML UDC 1000 MG PO ×4 (05:25→20:41)
--- NOTE | 2021-10-06 08:11 | PCNWS ---
Weekly nutritional screen. Patient is tolerating current diet with adequate intake. No weight loss reported. No nutritional needs at this time.
[2021-10-06] MEDS: HYDROcodone/acetaminophen (*CRX) 5-325 MG TABLET 1 TAB PO ×2 (08:27→20:49)
[2021-10-06] MEDS: CALCIUM CARBONATE (TUMS) 500 MG (200 MG ELEMENTAL) PO ×2 (08:27→16:33)
[2021-10-06] MEDS: ENOXAPARIN 40 MG/0.4 ML SYRINGE SUB-Q (08:29)
[2021-10-06] MEDS: SERTRALINE HCL 50 MG TABLET 100 MG PO ×2 (08:29→16:30)
[2021-10-06] MEDS: DICYCLOMINE HCL 10 MG CAPSULE 20 MG PO ×2 (08:29→16:29)
[2021-10-06] MEDS: PANTOPRAZOLE 40 MG TABLET PO ×2 (08:29→20:42)
[2021-10-06] MEDS: LIDOCAINE 5% PATCH 1 PATCH TRANSDERM (08:29)
[2021-10-06] MEDS: DOCUSATE SODIUM 100 MG CAPSULE PO ×2 (08:30→20:41)
[2021-10-06] MEDS: ANASTROZOLE (*CHEMO) 1 MG TABLET PO (08:30)
[2021-10-06] MEDS: carvediloL 12.5 MG TABLET PO ×2 (08:30→20:41)
[2021-10-06] MEDS: SIMVASTATIN 20 MG TABLET 40 MG PO (08:30)
[2021-10-06] MEDS: CLOPIDOGREL BISULFATE 75 MG TABLET PO (08:30)
[2021-10-06] MEDS: FUROSEMIDE 40 MG TABLET PO (08:30)
[2021-10-06] MEDS: SACUBITRIL/VALSARTAN 24-26 MG TABLET 1 TAB PO ×2 (08:31→20:41)
[2021-10-06] MEDS: polyethylene glycoL 3350 17 GM POWD.PACK PO (08:31)
[2021-10-06] MEDS: DICLOFENAC SODIUM 1% 100 GM GEL (*BKC) 1 APPLIC TOPICAL ×4 (08:31→20:46)
[2021-10-06] MEDS: GABAPENTIN 400 MG CAPSULE 800 MG PO ×3 (08:31→16:29)
[2021-10-06] MEDS: FLUTICASONE/UMECLIDIN/VILANTER 100-62.5-25 MCG ELLIPTA 1 PUFF INHALATION (09:14)
--- NOTE | 2021-10-06 14:45 | PM.IMPN ---
Progress Note: A&P Assessment and Plan (1) Constipation: Qualifiers: Constipation type: drug induced constipation Qualified Code(s): K59.03 - Drug induced constipation Code(s): K59.00 - Constipation, unspecified Status: Resolved Assessment and Plan: Patient had a good bowel movement. (2) SOB (shortness of breath): Code(s): R06.02 - Shortness of breath Status: Acute Assessment and Plan: Hx of chronic respiratory failure on 4LNC at baseline. BNP elevated w/ hx of multiple hospitalizations for volume overload. COVID19 negative w/ emphysema noted. Former smoker. Echo EF 30% w/ Grade I diastolic dysfunction and anterolateral HK but no pulmonary HTN. CTA w/ no PE. Recent treatment w/ steroids w/ mild leukocytosis and CT chest w/ possible PNA vs atelectasis but no worsening of cough or infectious symptoms. Sob most likely secondary to COPD exacerbation continue to treat (3) Lymphadenopathy: Code(s): R59.1 - Generalized enlarged lymph nodes Status: Acute Assessment and Plan: CTA chest notes metastatic disease with multiple peripheral pleural based nodules in the left hemithorax, left hilar, mediastinal and upper abdominal lymphadenopathy. Oncology consulted. CEA elevated. CA 15-2 27 up from 20 in early 2021. Pt had negative biopsy. Pt to follow up with Dr Tolbert for her treatment for breast cancer (4) Liver mass: Code(s): R16.0 - Hepatomegaly, not elsewhere classified Status: Acute Assessment and Plan: Multiple hepatic masses concerning for metastasis on CTA chest. As above. Patient was unable to get liver biopsy until clopidogrel is held for five days (Last dose of clopidogrel 09/26/2021). Biopsy completed on 10/02. Plavix was reviewed. (5) Leukocytosis: Code(s): D72.829 - Elevated white blood cell count, unspecified Status: Acute Assessment and Plan: UA negative. CT chest w/ right lung ground glass opacity concerning for pneumonia but afebrile and procalcitonin 0.1. Leukocytosis has resolved. (6) Chronic respiratory failure with hypoxia: Code(s): J96.11 - Chronic respiratory failure with hypoxia Status: Acute Assessment and Plan: Patient is on 4LNC chronically at home. She was noted to be severely hypoxic at night despite the 4L O2 and ASV unit. O2 changed to 6L at night by pulmonary. (7) COPD (chronic obstructive pulmonary disease): Qualifiers: COPD type: unspecified COPD Qualified Code(s): J44.9 - Chronic obstructive pulmonary disease, unspecified Code(s): J44.9 - Chronic obstructive pulmonary disease, unspecified Status: Acute Assessment and Plan: Patient with chronic resp failure but not felt to be having a COPD exacerbation. Continue Trelegy. Albuterol changed to prn. Follow (8) Chronic pain disorder: Code(s): G89.4 - Chronic pain syndrome Status: Acute Assessment and Plan: Topical agents available. Oral narcotics as [place] available PRN. (9) HTN (hypertension): Code(s): I10 - Essential (primary) hypertension Status: Acute Assessment and Plan: Patient's blood pressure was reviewed on 10/04 Blood pressure remains well controlled. (10) Cardiomyopathy: Qualifiers: Cardiomyopathy type: unspecified Qualified Code(s): I42.9 - Cardiomyopathy, unspecified Code(s): I42.9 - Cardiomyopathy, unspecified Status: Acute Assessment and Plan: w/ AICD. Continue Entresto, furosemide and Coreg. Appreciate cardiology input. (11) Left shoulder pain: Code(s): M25.512 - Pain in left shoulder Status: Acute Assessment and Plan: XR left shoulder shows severe acromioclavicular joint arthritis. Lidocaine topical to left shoulder. Continue Tylenol. Decrease [place] (12) Chest pain: Code(s): R07.9 - Chest pain, unspecified Status: Acute
[2021-10-06] MEDS: rOPINIRole HCL 0.5 MG TABLET PO (20:41)
[2021-10-06] MEDS: FAMOTIDINE 20 MG TABLET PO (20:41)
[2021-10-07] VITALS (13 sets, daily range): BP systolic 85–109; BP diastolic 59–72; PULSE 61–70; RESP 16–22; TEMP 35.6–37.1; O2SAT 93–100
--- NOTE | 2021-10-07 00:16 | ECG_ITS ---
Measurements Intervals [place] Rate: 64 P: 91 IN: 193 QRS: 15 QRSD: 110 T: 89 QT: 445 QTc: 460 Interpretive Statements SINUS RHYTHM LOW QRS VOLTAGE IN EXTREMITY LEADS [QRS DEFLECTION < 0.5 mV IN LIMB LEADS] MODERATE INTRAVENTRICULAR CONDUCTION DELAY [105+ ms QRS DURATION, 80+ ms Q/S IN V1/V2, NO Q AND 60+ ms R IN I/aVL/V5/V6] COMPARED TO ECG 09/30/2021 10:22:05 INTRAVENTRICULAR CONDUCTION DELAY NOW PRESENT Electronically Signed On 10-07-2021 6:47:39 CDT by Mi Marcus M.D.
[2021-10-07] MEDS: ACETAMINOPHEN 325 MG TABLET 650 MG PO (00:40)
[2021-10-07] MEDS: CALCIUM CARBONATE (TUMS) 500 MG (200 MG ELEMENTAL) PO (00:40)
[2021-10-07] MEDS: ONDANSETRON INJ 4 MG/2 ML VIAL IV PUSH ×2 (00:40→12:01)
[2021-10-07 01:10] LABS: Troponin I < 0.012 ng/mL (0.000-0.034)
[2021-10-07 01:17] LABS: Alanine Aminotransferase 22 U/L (4-35); Albumin Level 3.6 g/dL (3.5-5.1); Alkaline Phosphatase 130 U/L (38-126); Anion Gap 7 mmol/L (8-16); Aspartate Amino Transferase 59 U/L (14-36); Bilirubin,Total 0.7 mg/dL (0.2-1.3); Blood Urea Nitrogen 35 mg/dL (7-17); Calcium 8.2 mg/dL (8.4-10.2); Carbon Dioxide 31 mmol/L (22-30); Chloride 83 mmol/L (98-107); Estimated CRCL calculation 32 ml/min; Estimated Glomerular Filt Rate 31; Glucose 119 mg/dL (65-110); Potassium 3.7 mmol/L (3.4-5.0); Sodium 121 mmol/L (137-145)
[2021-10-07] MEDS: IBUPROFEN 400 MG TABLET PO (01:57)
[2021-10-07 06:03] LABS: Basophils Percent Auto 0.3 % (0.2-1.2); Eosinophils Absolute Auto 0.1 K/mm3 (0-0.3); Eosinophils Percent Auto 0.8 % (0-4.4); Hematocrit 33.6 % (37.0-47.0); Hemoglobin 11.1 g/dL (12.0-15.0); Immature Granulocyte Absolute 0.04 K/mm3 (0.00-0.031); Immature Granulocyte Percent A 0.5 % (0-0.5); Lymphocytes Percent Auto 8.8 % (18.3-44.2); Mean Corpuscular Volume 87.7 fl (80-100); Mean Platelet Volume 10.4 fl (7.4-10.4); Monocytes Absolute Auto 0.5 K/mm3 (0.1-0.6); Monocytes Percent Auto 6.7 % (2.6-8.5); Neutrophils Absolute Auto 6.6 K/mm3 (1.3-6.7); Neutrophils Percent Auto 82.9 % (45.5-73.1); Platelet Count Result 211 k/mm3 (150-375); Red Blood Count 3.83 M/mm3 (4.2-5.4)
[2021-10-07 06:15] LABS: Anion Gap 5 mmol/L (8-16); Blood Urea Nitrogen 35 mg/dL (7-17); Calcium 7.9 mg/dL (8.4-10.2); Carbon Dioxide 34 mmol/L (22-30); Chloride 83 mmol/L (98-107); Estimated CRCL calculation 28 ml/min; Estimated Glomerular Filt Rate 27; Glucose 104 mg/dL (65-110); Potassium 3.4 mmol/L (3.4-5.0); Sodium 122 mmol/L (137-145)
[2021-10-07 06:24] LABS: Troponin I < 0.012 ng/mL (0.000-0.034)
[2021-10-07 07:17] LABS: Glucose Point of Care 103 mg/dl (65-105)
[2021-10-07] MEDS: LIDOCAINE 5% PATCH 1 PATCH TRANSDERM ×2 (08:38)
[2021-10-07] MEDS: SIMVASTATIN 20 MG TABLET 40 MG PO (08:39)
[2021-10-07] MEDS: PANTOPRAZOLE 40 MG TABLET PO ×2 (08:39→20:22)
[2021-10-07] MEDS: DICYCLOMINE HCL 10 MG CAPSULE 20 MG PO ×2 (08:39→17:07)
[2021-10-07] MEDS: FAMOTIDINE 20 MG TABLET PO ×2 (08:39→20:22)
[2021-10-07] MEDS: SACUBITRIL/VALSARTAN 24-26 MG TABLET 1 TAB PO ×2 (08:39→20:22)
[2021-10-07] MEDS: carvediloL 12.5 MG TABLET PO ×2 (08:39→20:22)
[2021-10-07] MEDS: GABAPENTIN 400 MG CAPSULE 800 MG PO ×3 (08:39→17:05)
[2021-10-07] MEDS: ENOXAPARIN 40 MG/0.4 ML SYRINGE SUB-Q (08:39)
[2021-10-07] MEDS: SERTRALINE HCL 50 MG TABLET 100 MG PO ×2 (08:40→17:08)
[2021-10-07] MEDS: DICLOFENAC SODIUM 1% 100 GM GEL (*BKC) 1 APPLIC TOPICAL ×4 (08:40→20:23)
[2021-10-07] MEDS: FUROSEMIDE 40 MG TABLET PO (08:40)
[2021-10-07] MEDS: DOCUSATE SODIUM 100 MG CAPSULE PO (08:40)
[2021-10-07] MEDS: ANASTROZOLE (*CHEMO) 1 MG TABLET PO (08:40)
[2021-10-07] MEDS: CLOPIDOGREL BISULFATE 75 MG TABLET PO (08:40)
--- NOTE | 2021-10-07 10:28 | PM.IMPN ---
Progress Note: A&P Assessment and Plan (1) Constipation: Qualifiers: Constipation type: drug induced constipation Qualified Code(s): K59.03 - Drug induced constipation Code(s): K59.00 - Constipation, unspecified Status: Resolved Assessment and Plan: Improved, monitor (2) SOB (shortness of breath): Code(s): R06.02 - Shortness of breath Status: Acute Assessment and Plan: Hx of chronic respiratory failure on 4LNC at baseline. BNP elevated w/ hx of multiple hospitalizations for volume overload. COVID19 negative w/ emphysema noted. Former smoker. Echo EF 30% w/ Grade I diastolic dysfunction Respiratory status appears to be improved today (3) Lymphadenopathy: Code(s): R59.1 - Generalized enlarged lymph nodes Status: Acute Assessment and Plan: CTA chest notes metastatic disease with multiple peripheral pleural based nodules in the left hemithorax, left hilar, mediastinal and upper abdominal lymphadenopathy. (4) Liver mass: Code(s): R16.0 - Hepatomegaly, not elsewhere classified Status: Acute Assessment and Plan: Multiple hepatic masses concerning for metastasis on CTA chest. Diagnosis of cancer being followed by Oncology (5) Leukocytosis: Code(s): D72.829 - Elevated white blood cell count, unspecified Status: Acute Assessment and Plan: Improved, monitored (6) Chronic respiratory failure with hypoxia: Code(s): J96.11 - Chronic respiratory failure with hypoxia Status: Acute Assessment and Plan: Patient is on 4LNC chronically at home. Monitor (7) COPD (chronic obstructive pulmonary disease): Qualifiers: COPD type: unspecified COPD Qualified Code(s): J44.9 - Chronic obstructive pulmonary disease, unspecified Code(s): J44.9 - Chronic obstructive pulmonary disease, unspecified Status: Acute Assessment and Plan: Patient with chronic resp failure but not felt to be having a COPD exacerbation. (8) Chronic pain disorder: Code(s): G89.4 - Chronic pain syndrome Status: Acute Assessment and Plan: Oral narcotics as [place] available PRN. (9) HTN (hypertension): Code(s): I10 - Essential (primary) hypertension Status: Acute Assessment and Plan: Monitor blood pressure (10) Cardiomyopathy: Qualifiers: Cardiomyopathy type: unspecified Qualified Code(s): I42.9 - Cardiomyopathy, unspecified Code(s): I42.9 - Cardiomyopathy, unspecified Status: Acute Assessment and Plan: w/ AICD. Continue Entresto, furosemide and Coreg. Appreciate cardiology input. (11) Left shoulder pain: Code(s): M25.512 - Pain in left shoulder Status: Acute Assessment and Plan: XR left shoulder shows severe acromioclavicular joint arthritis. Lidocaine topical to left shoulder. Continue Tylenol. Decrease [place] (12) Chest pain: Code(s): R07.9 - Chest pain, unspecified Status: Acute Assessment and Plan: EKG similar to previous EKGs. Troponin negative. (13) DVT prophylaxis: Code(s): Z29.9 - Encounter for prophylactic measures, unspecified Status: Acute Assessment and Plan: Lovenox (14) Acute kidney failure: Code(s): N17.9 - Acute kidney failure, unspecified Status: Acute Assessment and Plan: Creatinine is 1 point 8. Baseline is normal. Consul Nephrology (15) Hyponatremia: Code(s): E87.1 - Hypo-osmolality and hyponatremia Status: Acute Assessment and Plan: Will check labs for hyponatremia workup. Likely multifactorial with decreased p.o. intake heart failure. Will consult Nephrology Subjective Date/time seen: 10/07/21 10:28 patient is pleasant without complaints Exam Narrative: GENERAL: Tired chronically ill moderately obese on oxygen LUNGS: normal respiratory effort CVS: RRR A
[2021-10-07] MEDS: FLUTICASONE/UMECLIDIN/VILANTER 100-62.5-25 MCG ELLIPTA 1 PUFF INHALATION (11:03)
[2021-10-07 11:21] LABS: Glucose Point of Care 118 mg/dl (65-105)
[2021-10-07] MEDS: HYDROcodone/acetaminophen (*CRX) 5-325 MG TABLET 1 TAB PO (11:56)
[2021-10-07] MEDS: SUCRALFATE SUSP 100 MG/ML 10 ML UDC 1000 MG PO ×3 (11:57→20:22)
--- NOTE | 2021-10-07 12:17 | PM.CNNEP ---
Assessment and Plan Additional Plan 1. the patient has acute kidney injury. The patient's baseline creatinine is normal at 0.9. It was 1.6 yesterday and 1.8 today. She is making urine but it is not being collected. She did have a CT with contrast the day before the creatinine started rising. She does have chronic pre renal azotemia because of her heart failure which is probably the risk factor for this. Although she looks euvolemic to me right now. There are other causes of kidney disease as well including obstruction, interstitial nephritis, glomerulonephritis, and paraneoplastic issues such as membranous glomerulonephritis. However I think these are less likely in this clinical scenario. I will check urinalysis, renal ultrasound, and follow along. Hopefully the renal function will improve spontaneously. 1.5. The patient has hyponatremia. Her sodium level is low. Her sodium was normal on admission. Couple days after admission while her creatinine was still okay, her sodium was mildly low. Then it worsened substantially along with the decline of kidney function. This does not look like a chronic problem, but there are several components to the low sodium.. Her renal insufficiency is certainly playing a role. She is on diuretics which could do this. She has congestive heart failure which could do this as well. She is on sertraline which could do this also. And pain pills can do this as well. Of course she has metastatic breast cancer which could also be contributing. CT head was negative so this is not a cause for her hyponatremia. I will put her on a fluid restriction. Will check serum and urine osmolality. We can check a TSH and a cortisol level as well. 2. Metastatic breast cancer. Oncology is on the case. 3. Congestive heart failure. The patient looks euvolemic right now. 4. COPD. The patient is on supportive care. 5. Anemia. The patient has mildly reduced hemoglobin. 6. 7. 8. History of Present Illness Reason for Consult Consult date: 10/07/21 Chief Complaint Chief complaint: Dyspnea, Hilar Lymphadenopathy/Mass History of Present Illness Narrative: Arianne is a very pleasant 76-year-old lady who has multiple medical problems including metastatic breast cancer, congestive heart failure, COPD, anxiety, arthritis, congestive heart failure, hypertension, hypothyroidism, depression, sleep apnea, asthma, bronchitis, stroke, neuropathy, and mitral valve prolapse. The patient came in the hospital because of shortness of breath. She was admitted. She was given diuretics and improved a little bit. Cardiology felt that her volume status was good but she was still little short of breath so pulmonary consultation was requested. She is getting supportive care for her COPD and asthma. The patient also was found to have a liver lesion. This was biopsied which showed metastatic breast cancer. Because of this further workup was performed. One of these was a CT of the chest with contrast. This was done on the . Yesterday and today it was noted that the patient's creatinine, which had been prior to this running around 0.9, kim to 1.6 yesterday that and then 1.8 today so renal consultation was requested. the patient has had no kidney problems before this. No kidney stones. Occasional bladder infections but not very often. The patient denies any bloody urine, foamy urine, kidney stones, or bladder infections. No pain with urination. No swelling that is unusual. No skin rash or itching. No unusual joint pains. She did receive a dose of ibuprofen today but has not received any before today. Review of Systems Constitutional: Constitutional: Reports no additional constitutional complaints Eyes: Eyes: Reports no additional eye complaints ENT: Reports system reviewed and no additional complaints, except as documented Cardiovascular: Cardiovascular: Reports no additional cardiovascular com
[2021-10-07 13:49] LABS: Creatine Kinase 128 U/L (30-135)
[2021-10-07 17:33] LABS: Add Urine Microscopic? YES; Appearance Urine Cloudy (Clear); Bilirubin Urine Negative (Negative); Blood Urine Negative (Negative); Color Urine Yellow (Yellow); Glucose Urine UA Negative (Negative); Ketones Urine Negative (Negative); Leukocyte Esterase Ur Negative LEU/UL (NEGATIVE); Nitrate Urine Negative (Negative); Protein Urine Negative (Negative); Squamous Epithelial Cell Urine Rare /hpf (Few); WBC Urine 0-3 /hpf (0-3)
[2021-10-07 17:36] LABS: Creatinine Urine 94.7 mg/dL
[2021-10-07 17:37] LABS: Sodium Urine Random 13 meq/L
--- NOTE | 2021-10-07 17:55 | PC.NURSE ---
4pm sodium level not drawn per lab. unable to call provider. lab to try and draw lab at another time.
[2021-10-07] MEDS: rOPINIRole HCL 0.5 MG TABLET PO (20:22)
[2021-10-07] MEDS: ALBUTEROL SULFATE NEB 2.5 MG/0.5 ML INH INHALATION (20:42)
[2021-10-07 22:34] LABS: Sodium 120 mmol/L (137-145)
[2021-10-08] VITALS (13 sets, daily range): BP systolic 102–153; BP diastolic 63–88; PULSE 61–88; RESP 16–20; TEMP 36.3–36.7; O2SAT 90–99
[2021-10-08 02:28] LABS: Free T4 Free Thyroxine Reflex 1.21 ng/dL (0.78-2.19)
[2021-10-08 04:30] LABS: Total Triiodothyronine (T3) 0.65 NG/ML (0.97-1.69)
[2021-10-08 06:37] LABS: Anion Gap 9 mmol/L (8-16); Blood Urea Nitrogen 42 mg/dL (7-17); Calcium 7.9 mg/dL (8.4-10.2); Carbon Dioxide 27 mmol/L (22-30); Chloride 86 mmol/L (98-107); Estimated CRCL calculation 23 ml/min; Estimated Glomerular Filt Rate 22; Glucose 88 mg/dL (65-110); Phosphorus 4.1 mg/dL (2.5-4.5); Potassium 3.8 mmol/L (3.4-5.0); Sodium 122 mmol/L (137-145)
[2021-10-08] MEDS: FLUTICASONE/UMECLIDIN/VILANTER 100-62.5-25 MCG ELLIPTA 1 PUFF INHALATION (08:19)
[2021-10-08] MEDS: ONDANSETRON INJ 4 MG/2 ML VIAL IV PUSH ×3 (08:56→21:24)
[2021-10-08] MEDS: DOCUSATE SODIUM 100 MG CAPSULE PO ×2 (08:56→20:40)
[2021-10-08] MEDS: HYDROcodone/acetaminophen (*CRX) 5-325 MG TABLET 1 TAB PO (08:56)
[2021-10-08] MEDS: ENOXAPARIN 40 MG/0.4 ML SYRINGE SUB-Q (08:56)
[2021-10-08] MEDS: LIDOCAINE 5% PATCH 1 PATCH TRANSDERM ×2 (08:57)
[2021-10-08] MEDS: PANTOPRAZOLE 40 MG TABLET PO ×2 (08:57→20:40)
[2021-10-08] MEDS: ANASTROZOLE (*CHEMO) 1 MG TABLET PO (08:57)
[2021-10-08] MEDS: SERTRALINE HCL 50 MG TABLET 100 MG PO ×2 (08:57→16:15)
[2021-10-08] MEDS: FAMOTIDINE 20 MG TABLET PO ×2 (08:57→20:40)
[2021-10-08] MEDS: GABAPENTIN 400 MG CAPSULE 800 MG PO ×3 (08:57→16:14)
[2021-10-08] MEDS: carvediloL 12.5 MG TABLET PO ×2 (08:58→20:42)
[2021-10-08] MEDS: DICLOFENAC SODIUM 1% 100 GM GEL (*BKC) 1 APPLIC TOPICAL ×4 (08:58→20:44)
[2021-10-08] MEDS: SIMVASTATIN 20 MG TABLET 40 MG PO (08:58)
[2021-10-08] MEDS: CLOPIDOGREL BISULFATE 75 MG TABLET PO (08:58)
[2021-10-08] MEDS: FUROSEMIDE 40 MG TABLET PO (08:58)
[2021-10-08] MEDS: SACUBITRIL/VALSARTAN 24-26 MG TABLET 1 TAB PO ×2 (08:58→20:40)
[2021-10-08] MEDS: DICYCLOMINE HCL 10 MG CAPSULE 20 MG PO ×2 (08:58→16:15)
--- NOTE | 2021-10-08 09:18 | PM.PNNEP ---
Progress Note: A&P Additional Plan 1. the patient has acute kidney injury. The patient's baseline creatinine is normal at 0.9. It was 1.6 then 1.8 and now 2.2. Renal ultrasound shows mild renal atrophy. Urine electrolytes are pre renal. CPK is normal urinalysis is bland most likely this is acute kidney injury due to Pre renal azotemia and contrast. chest x-rays does not show excess fluid and the patient is comfortable. Will try 1L of IV fluids. Check another creatinine tomorrow. 1.5. The patient has hyponatremia. Her sodium level is low. She has baseline normal sodium. Cortisol is okay. TSH is a little high. She is on diuretics. She is on sertraline She is on narcotics. She has breast cancer. She is on a fluid restriction of 1800cc. Will change this [id number]. We are stopping the diuretics and I will give a little bit of fluid. 2. Metastatic breast cancer. Oncology is on the case. 3. Congestive heart failure. The patient looks euvolemic right now. 4. COPD. The patient is on supportive care. 5. Anemia. The patient has mildly reduced hemoglobin. Subjective Date/time seen: 10/08/21 09:18 Interval history: Arianne feels okay. She slept well. She is eating okay. Review of Systems Cardiovascular: Cardiovascular: Reports no additional cardiovascular complaints Respiratory: Respiratory: Reports no additional respiratory complaints Gastrointestinal: Gastrointestinal: Reports no additional gastrointestinal complaints Genitourinary: Genitourinary: Reports no additional female genitourinary complaints Exam Narrative: WDWN in NAD skin no rash head ncat lungs clear cor reg no rub abd BS+ nontender and soft ext Trace edema. Objective Data Vital Signs Vital Signs: Vital Signs - 24 hr 10/07/21 11:05 10/07/21 12:00 10/07/21 14:00 Temperature 35.6 C L Pulse Rate 61 69 68 Respiratory Rate 22 H Blood Pressure 102/59 L Pulse Oximetry 93 99 10/07/21 20:22 10/07/21 20:43 10/07/21 20:49 Temperature Pulse Rate 67 64 Respiratory Rate 18 Blood Pressure Pulse Oximetry 100 10/07/21 21:59 10/07/21 22:10 10/08/21 02:30 Temperature 37.1 C Pulse Rate 64 65 70 Respiratory Rate 18 Blood Pressure 85/67 L Pulse Oximetry 100 99 95 10/08/21 06:00 10/08/21 08:22 10/08/21 08:23 Temperature 36.3 C L Pulse Rate 75 71 71 Respiratory Rate 18 16 Blood Pressure 102/63 Pulse Oximetry 90 97 10/08/21 08:58 Temperature Pulse Rate 78 Respiratory Rate Blood Pressure Pulse Oximetry Intake/Output Intake/Output: Intake & Output 10/05/21 10/06/21 10/07/21 10/08/21 23:59 23:59 23:59 23:59 Intake Total 777 533 2558 220 Output Total 1 501 Balance 036 970 9053 281 Meds/Results Medications: Active Medications Generic Name Dose Route Start Last Admin Trade Name Freq PRN Reason Stop Dose Admin Acetaminophen 650 mg 10/04/21 12:45 10/07/21 00:40 Acetaminophen 325 Mg Tablet PO 650 mg Q6H PRN Administration Pain Rated 5 or Less Hydrocodone Bitart/Acetaminophen 1 tab 10/04/21 12:41 10/08/21 08:56 Hydrocodone/Acetaminophen (*Crx) 5-325 Mg Tablet PO 1 tab Q6H PRN Administration Pain Rated 6-10 Albuterol 2.5 mg 10/02/21 11:13 10/07/21 20:42 Albuterol Sulfate Neb 2.5 Mg/0.5 Ml Inh INHALATION 2.5 mg Q6HRT PRN Administration Wheezing Anastrozole 1 mg 09/26/21 12:05 10/08/21 08:57 Anastrozole (*Chemo) 1 Mg Tablet PO 1 mg DAILY CELESTINA Administration Calcium Carbonate 200 mg 10/02/21 22:01 10/07/21 00:40 Calcium Carbonate (Tums) 500 Mg (200 Mg Elemental) PO 200 mg Q6H PRN Administration Indigestion Carvedilol 12.5 mg 09/26/21 21:00 10/08/21 08:58 Carvedilol 12.5 Mg Tablet PO 12.5 mg Q12HR CELESTINA Administration Clopidogrel Bisulfate 75 mg 09/27/21 09:00 10/08/21 08:58 Clopidogrel Bisulfate 75 Mg Tablet PO 75 mg DAILY CELESTINA
[2021-10-08] MEDS: SODIUM CHLORIDE 0.9% IV 1,000 ML 100 ML IV CONT (09:41)
[2021-10-08] MEDS: CALCIUM CARBONATE (TUMS) 500 MG (200 MG ELEMENTAL) PO (11:00)
[2021-10-08] MEDS: SUCRALFATE SUSP 100 MG/ML 10 ML UDC 1000 MG PO ×3 (12:14→20:39)
--- NOTE | 2021-10-08 12:25 | PM.IMPN ---
Progress Note: A&P Assessment and Plan (1) Constipation: Qualifiers: Constipation type: drug induced constipation Qualified Code(s): K59.03 - Drug induced constipation Code(s): K59.00 - Constipation, unspecified Status: Resolved Assessment and Plan: Improved, monitor (2) SOB (shortness of breath): Code(s): R06.02 - Shortness of breath Status: Acute Assessment and Plan: Hx of chronic respiratory failure on 4LNC at baseline. BNP elevated w/ hx of multiple hospitalizations for volume overload. COVID19 negative w/ emphysema noted. Former smoker. Echo EF 30% w/ Grade I diastolic dysfunction Respiratory status appears to be improved overall. 1liter of normal saline has been ordered by renal to help kidney function. Will monitor respiratory status. (3) Lymphadenopathy: Code(s): R59.1 - Generalized enlarged lymph nodes Status: Acute Assessment and Plan: CTA chest notes metastatic disease with multiple peripheral pleural based nodules in the left hemithorax, left hilar, mediastinal and upper abdominal lymphadenopathy. Primary diagnosis per Oncology. (4) Liver mass: Code(s): R16.0 - Hepatomegaly, not elsewhere classified Status: Acute Assessment and Plan: Multiple hepatic masses concerning for metastasis on CTA chest. Diagnosis of cancer being followed by Oncology (5) Leukocytosis: Code(s): D72.829 - Elevated white blood cell count, unspecified Status: Acute Assessment and Plan: Improved, monitored (6) Chronic respiratory failure with hypoxia: Code(s): J96.11 - Chronic respiratory failure with hypoxia Status: Acute Assessment and Plan: Patient is on 4LNC chronically at home. Monitor (7) COPD (chronic obstructive pulmonary disease): Qualifiers: COPD type: unspecified COPD Qualified Code(s): J44.9 - Chronic obstructive pulmonary disease, unspecified Code(s): J44.9 - Chronic obstructive pulmonary disease, unspecified Status: Acute Assessment and Plan: Patient with chronic resp failure but not felt to be having a COPD exacerbation. (8) Chronic pain disorder: Code(s): G89.4 - Chronic pain syndrome Status: Acute Assessment and Plan: Monitored continue pain medicine (9) HTN (hypertension): Code(s): I10 - Essential (primary) hypertension Status: Acute Assessment and Plan: Monitor blood pressure (10) Cardiomyopathy: Qualifiers: Cardiomyopathy type: unspecified Qualified Code(s): I42.9 - Cardiomyopathy, unspecified Code(s): I42.9 - Cardiomyopathy, unspecified Status: Acute Assessment and Plan: w/ AICD. Continue Entresto, furosemide and Coreg. Appreciate cardiology input. (11) Left shoulder pain: Code(s): M25.512 - Pain in left shoulder Status: Acute Assessment and Plan: XR left shoulder shows severe acromioclavicular joint arthritis. Lidocaine topical to left shoulder. Continue Tylenol. Decrease Gaffney (12) Chest pain: Code(s): R07.9 - Chest pain, unspecified Status: Acute Assessment and Plan: EKG similar to previous EKGs. Troponin negative. No further workup indicated (13) DVT prophylaxis: Code(s): Z29.9 - Encounter for prophylactic measures, unspecified Status: Acute Assessment and Plan: Lovenox (14) Acute kidney failure: Code(s): N17.9 - Acute kidney failure, unspecified Status: Acute Assessment and Plan: Creatinine is elevated 2.2. Likely prerenal. IV fluids. Monitor for CHF Once resolve or improve creatinine can likely be discharged home (15) Hyponatremia: Code(s): E87.1 - Hypo-osmolality and hyponatremia Status: Acute Assessment and Plan: Will check labs for hyponatremia workup. Likely multifactorial with decreased p.o. intake heart failure i
[2021-10-08 16:21] LABS: Sodium 126 mmol/L (137-145)
[2021-10-08] MEDS: ALBUTEROL SULFATE NEB 2.5 MG/0.5 ML INH INHALATION (18:39)
[2021-10-08] MEDS: rOPINIRole HCL 0.5 MG TABLET PO (20:40)
[2021-10-09] VITALS (12 sets, daily range): BP systolic 81–104; BP diastolic 49–72; PULSE 62–108; RESP 16–20; TEMP 35.9–36.8; O2SAT 91–98
[2021-10-09 05:56] LABS: Albumin Level 3.7 g/dL (3.5-5.1); Anion Gap 10 mmol/L (8-16); Blood Urea Nitrogen 44 mg/dL (7-17); Calcium 8.1 mg/dL (8.4-10.2); Carbon Dioxide 26 mmol/L (22-30); Chloride 87 mmol/L (98-107); Estimated CRCL calculation 23 ml/min; Estimated Glomerular Filt Rate 22; Glucose 104 mg/dL (65-110); Phosphorus 4.1 mg/dL (2.5-4.5); Potassium 3.7 mmol/L (3.4-5.0); Sodium 123 mmol/L (137-145)
[2021-10-09] MEDS: SUCRALFATE SUSP 100 MG/ML 10 ML UDC 1000 MG PO ×4 (06:08→20:39)
[2021-10-09] MEDS: FLUTICASONE/UMECLIDIN/VILANTER 100-62.5-25 MCG ELLIPTA 1 PUFF INHALATION (08:16)
[2021-10-09] MEDS: SIMVASTATIN 20 MG TABLET 40 MG PO (08:35)
[2021-10-09] MEDS: FAMOTIDINE 20 MG TABLET PO ×2 (08:38→20:37)
[2021-10-09] MEDS: LIDOCAINE 5% PATCH 1 PATCH TRANSDERM (08:38)
[2021-10-09] MEDS: ENOXAPARIN 40 MG/0.4 ML SYRINGE SUB-Q (08:38)
[2021-10-09] MEDS: HYDROcodone/acetaminophen (*CRX) 5-325 MG TABLET 1 TAB PO (08:40)
[2021-10-09] MEDS: SERTRALINE HCL 50 MG TABLET 100 MG PO ×2 (08:41→16:21)
[2021-10-09] MEDS: DICYCLOMINE HCL 10 MG CAPSULE 20 MG PO ×2 (08:41→16:21)
[2021-10-09] MEDS: PANTOPRAZOLE 40 MG TABLET PO ×2 (08:42→20:37)
[2021-10-09] MEDS: SACUBITRIL/VALSARTAN 24-26 MG TABLET 1 TAB PO ×2 (08:42→20:39)
[2021-10-09] MEDS: CLOPIDOGREL BISULFATE 75 MG TABLET PO (08:42)
[2021-10-09] MEDS: GABAPENTIN 400 MG CAPSULE 800 MG PO ×3 (08:42→16:22)
[2021-10-09] MEDS: ANASTROZOLE (*CHEMO) 1 MG TABLET PO (08:42)
[2021-10-09] MEDS: carvediloL 12.5 MG TABLET PO (08:42)
[2021-10-09] MEDS: DICLOFENAC SODIUM 1% 100 GM GEL (*BKC) 1 APPLIC TOPICAL ×2 (08:43→20:35)
[2021-10-09] MEDS: ONDANSETRON INJ 4 MG/2 ML VIAL IV PUSH ×3 (09:44→20:47)
--- NOTE | 2021-10-09 09:46 | PCOTNOTE ---
Attempted to see patient for OT. Patient in bed and refused secondary to nausea and not getting a good night's rest.
[2021-10-09 11:08] LABS: Anion Gap 8 mmol/L (8-16); Blood Urea Nitrogen 44 mg/dL (7-17); Calcium 7.8 mg/dL (8.4-10.2); Carbon Dioxide 29 mmol/L (22-30); Chloride 87 mmol/L (98-107); Estimated CRCL calculation 26 ml/min; Estimated Glomerular Filt Rate 24; Glucose 104 mg/dL (65-110); Potassium 4.1 mmol/L (3.4-5.0); Sodium 124 mmol/L (137-145)
[2021-10-09] MEDS: ACETAMINOPHEN 325 MG TABLET 650 MG PO (11:43)
--- NOTE | 2021-10-09 12:36 | WPDCDIQUERY2 ---
CDI Query Clarification Request . 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 Looks euvolemic on exam. Continue current diuretic dose. 09/26 CXR IMPRESSION: 1. Emphysema with diffuse bilateral lung disease most likely mild pulmonary edema although differential includes pneumonia. 2. Chronic small left pleural effusion with chronic round atelectasis at the lateral left lower lung zone. 3. Left hilar and mediastinal lymphadenopathy consistent with metastatic disease. Please clarify if Acute on Chronic systolic (congestive) heart failure has been ruled in or ruled out or unable to determine <Sharlene Chavarria - Last Filed: 10/09/21 12:50> Provider Comments Acute on chronic systolic (congestive) heart failure Pt appears euvolemic at this time <Inocencia Otoole MD - Last Filed: 10/09/21 17:53>
[2021-10-09] MEDS: oxyCODONE HCL (*CRX) 5 MG TAB IR PO ×2 (13:17→20:41)
[2021-10-09] MEDS: ALBUTEROL SULFATE NEB 2.5 MG/0.5 ML INH INHALATION ×2 (14:40→21:20)
--- NOTE | 2021-10-09 15:46 | PM.PNNEP ---
Progress Note: A&P Assessment and Plan (1) SOHEILA (acute kidney injury): Code(s): N17.9 - Acute kidney failure, unspecified Status: Acute Assessment and Plan: suspect due to prerenal azotemia and contrast exposure evaluation to date: renal ultrasound shows mild renal atrophy urine electrolytes are pre renal CPK normal urinalysis is bland follow trend with supportive therapy (2) Hyponatremia: Code(s): E87.1 - Hypo-osmolality and hyponatremia Status: Acute Assessment and Plan: multiple risk factors for this issue: diuretic use SSRI use (sertraline) narcotic use underlying lung disease (COPD) malinancy (breast and lung cancer) cortisol okay; TSH a bit elevated slow improvement in sodium noted continue fluid restriction diuretic currently on hold follow trend of sodium (3) COPD (chronic obstructive pulmonary disease): Code(s): J44.9 - Chronic obstructive pulmonary disease, unspecified Status: Chronic Assessment and Plan: etiology of chronic respiratory failure on chronic supplemental oxygen stable at this time (4) CHF (congestive heart failure): Qualifiers: Heart failure type: unspecified Heart failure chronicity: unspecified Qualified Code(s): I50.9 - Heart failure, unspecified Code(s): I50.9 - Heart failure, unspecified Status: Chronic Assessment and Plan: known cardiomyopathy at baseline appears compensated follow closely since diuretics on hold Will contiue to follow. Subjective Date/time seen: 10/09/21 15:46 Chart reviewed - assuming care from Dr. Denney; no apparent distress voiced at the time of my visit; no issues/events overnight or earlier this morning. Exam Narrative: General: elderly female in NAD Heart: normal S1 and S2; no rub Lungs: clear to auscultation Abdomen: soft, nontender, nondistended, positive bowel sounds Extremities: no cyanosis or clubbing; trace edema Skin: warm and dry Objective Data Vital Signs Vital Signs: Vital Signs Temp Pulse Resp BP Pulse Ox 10/09/21 14:49 63 18 10/09/21 14:41 65 18 10/09/21 14:00 35.9 C L 67 16 81/52 L 94 10/09/21 08:42 82 10/09/21 08:17 93 10/09/21 08:00 93 10/09/21 06:00 36.5 C 70 18 104/49 L 91 10/09/21 03:10 62 98 10/08/21 22:30 65 99 10/08/21 21:59 36.7 C 73 18 115/80 99 10/08/21 20:42 70 10/08/21 20:20 70 20 99 10/08/21 18:49 64 20 10/08/21 18:39 61 18 Intake/Output Intake/Output: Intake & Output 10/06/21 10/07/21 10/08/21 10/09/21 23:59 23:59 23:59 23:59 Intake Total 600 1122 820 236 Output Total 1 1451 Balance 599 1122 -631 236 Meds/Results Medications: Active Medications Generic Name Dose Route Start Last Admin Trade Name Freq PRN Reason Stop Dose Admin Acetaminophen 650 mg 10/04/21 12:45 10/09/21 11:43 Acetaminophen 325 Mg Tablet PO 650 mg Q6H PRN Administration Pain Rated 5 or Less Albuterol 2.5 mg 10/02/21 11:13 10/09/21 14:40 Albuterol Sulfate Neb 2.5 Mg/0.5 Ml Inh INHALATION 2.5 mg Q6HRT PRN Administration Wheezing Anastrozole 1 mg 09/26/21 12:05 10/09/21 08:42 Anastrozole (*Chemo) 1 Mg Tablet PO 1 mg DAILY CELESTINA Administration Calcium Carbonate 200 mg 10/02/21 22:01 10/08/21 11:00 Calcium Carbonate (Tums) 500 Mg (200 Mg Elemental) PO 200 mg Q6H PRN Administration Indigestion Carvedilol 12.5 mg 09/26/21 21:00 10/09/21 08:42 Carvedilol 12.5 Mg Tablet PO 12.5 mg Q12HR CELESTINA Administration Clopidogrel Bisulfate 75 mg 09/27/21 09:00 10/09/21 08:42 Clopidogrel Bisulfate 75 Mg Tablet PO 75 mg DAILY CELESTINA Administration Diclofenac Sodium 1 applic 09/28/21 13:00 10/09/21 16:22 Diclofenac Sodium 1% 100 Gm Gel (*Bkc) TOPICAL Not Given QID CELESTINA Dicyclomine HCl 20 mg 09/26/21 17:00 10/09/21 16:21 Dicy
--- NOTE | 2021-10-09 15:46 | P.PNNP_ITS ---
Progress Note: A&P Assessment and Plan (1) SOHEILA (acute kidney injury): Code(s): N17.9 - Acute kidney failure, unspecified Status: Acute Assessment and Plan: * suspect due to prerenal azotemia and contrast exposure * evaluation to date: * renal ultrasound shows mild renal atrophy * urine electrolytes are pre renal * CPK normal * urinalysis is bland * follow trend with supportive therapy (2) Hyponatremia: Code(s): E87.1 - Hypo-osmolality and hyponatremia Status: Acute Assessment and Plan: * multiple risk factors for this issue: * diuretic use * SSRI use (sertraline) * narcotic use * underlying lung disease (COPD) * malinancy (breast and lung cancer) * cortisol okay; TSH a bit elevated * slow improvement in sodium noted * continue fluid restriction * diuretic currently on hold * follow trend of sodium (3) COPD (chronic obstructive pulmonary disease): Code(s): J44.9 - Chronic obstructive pulmonary disease, unspecified Status: Chronic Assessment and Plan: * etiology of chronic respiratory failure * on chronic supplemental oxygen * stable at this time (4) CHF (congestive heart failure): Qualifiers: Heart failure type: unspecified Heart failure chronicity: unspecified Qualified Code(s): I50.9 - Heart failure, unspecified Code(s): I50.9 - Heart failure, unspecified Status: Chronic Assessment and Plan: * known cardiomyopathy at baseline * appears compensated * follow closely since diuretics on hold Will contiue to follow. Subjective Date/time seen: 10/09/21 15:46 Chart reviewed - assuming care from Dr. Denney; no apparent distress voiced at the time of my visit; no issues/events overnight or earlier this morning. Exam Narrative: General: elderly female in NAD Heart: normal S1 and S2; no rub Lungs: clear to auscultation Abdomen: soft, nontender, nondistended, positive bowel sounds Extremities: no cyanosis or clubbing; trace edema Skin: warm and dry Objective Data Vital Signs Vital Signs: Vital Signs Temp Pulse Resp BP Pulse Ox 10/09/21 14:49 63 18 10/09/21 14:41 65 18 10/09/21 14:00 35.9 C L 67 16 81/52 L 94 10/09/21 08:42 82 10/09/21 08:17 93 10/09/21 08:00 93 10/09/21 06:00 36.5 C 70 18 104/49 L 91 10/09/21 03:10 62 98 10/08/21 22:30 65 99 10/08/21 21:59 36.7 C 73 18 115/80 99 10/08/21 20:42 70 10/08/21 20:20 70 20 99 10/08/21 18:49 64 20 10/08/21 18:39 61 18 Intake/Output Intake/Output: Intake & Output 10/06/21 10/07/21 10/08/21 10/09/21 23:59 23:59 23:59 23:59 Intake Total 600 1122 820 236 Output Total 1 1451 Balance 599 1122 -631 236 Meds/Results Medications: Active Medications Generic Name Dose Route Start Last Admin Trade Name Freq PRN Reason Stop Dose Admin Acetaminophen 650 mg 10/04/21 12:45 10/09/21 11:43 Acetaminophen 325 Mg Tablet PO 650 mg Q6H PRN Administration Pain Rated 5 or Less Albuterol 2.5 mg 10/02/21 11:13 10/09/21 14:40 Albuterol Sulfate Neb 2.5 Mg/0.5 Ml Inh
--- NOTE | 2021-10-09 17:32 | PM.IMPN ---
Progress Note: A&P Assessment and Plan (1) Constipation: Qualifiers: Constipation type: drug induced constipation Qualified Code(s): K59.03 - Drug induced constipation Code(s): K59.00 - Constipation, unspecified Status: Resolved Assessment and Plan: Improved, monitor (2) SOB (shortness of breath): Code(s): R06.02 - Shortness of breath Status: Acute Assessment and Plan: Hx of chronic respiratory failure on 4LNC at baseline. (3) Lymphadenopathy: Code(s): R59.1 - Generalized enlarged lymph nodes Status: Acute Assessment and Plan: CTA chest notes metastatic disease with multiple peripheral pleural based nodules in the left hemithorax, left hilar, mediastinal and upper abdominal lymphadenopathy. Oncology consulted. CEA elevated. CA 15-2 27 up from 20 in early 2021. Pt had negative biopsy. Pt to follow up with Dr Tolbert for her treatment for breast cancer (4) Liver mass: Code(s): R16.0 - Hepatomegaly, not elsewhere classified Status: Acute Assessment and Plan: Multiple hepatic masses concerning for metastasis on CTA chest. (5) Leukocytosis: Code(s): D72.829 - Elevated white blood cell count, unspecified Status: Acute Assessment and Plan: Improved, monitored (6) Chronic respiratory failure with hypoxia: Code(s): J96.11 - Chronic respiratory failure with hypoxia Status: Acute Assessment and Plan: Patient is on 4LNC chronically at home. Monitor (7) COPD (chronic obstructive pulmonary disease): Qualifiers: COPD type: unspecified COPD Qualified Code(s): J44.9 - Chronic obstructive pulmonary disease, unspecified Code(s): J44.9 - Chronic obstructive pulmonary disease, unspecified Status: Acute Assessment and Plan: Patient with chronic resp failure but not felt to be having a COPD exacerbation. (8) Chronic pain disorder: Code(s): G89.4 - Chronic pain syndrome Status: Acute Assessment and Plan: Monitored continue pain medicine (9) HTN (hypertension): Code(s): I10 - Essential (primary) hypertension Status: Acute Assessment and Plan: Monitor blood pressure (10) Cardiomyopathy: Qualifiers: Cardiomyopathy type: unspecified Qualified Code(s): I42.9 - Cardiomyopathy, unspecified Code(s): I42.9 - Cardiomyopathy, unspecified Status: Acute Assessment and Plan: w/ AICD. Continue Entresto, furosemide and Coreg. Appreciate cardiology input. (11) Left shoulder pain: Code(s): M25.512 - Pain in left shoulder Status: Acute Assessment and Plan: XR left shoulder shows severe acromioclavicular joint arthritis. (12) Chest pain: Code(s): R07.9 - Chest pain, unspecified Status: Acute Assessment and Plan: EKG similar to previous EKGs. Troponin negative. No further workup indicated (13) DVT prophylaxis: Code(s): Z29.9 - Encounter for prophylactic measures, unspecified Status: Acute Assessment and Plan: Lovenox (14) Acute kidney failure: Code(s): N17.9 - Acute kidney failure, unspecified Status: Acute Assessment and Plan: Creatinine is elevated 2.0 (15) Hyponatremia: Code(s): E87.1 - Hypo-osmolality and hyponatremia Status: Acute Assessment and Plan: Will check labs for hyponatremia sodium 124 Subjective Date/time seen: 10/09/21 17:32 Interval history: 76F with a past medical history of cardiomyopathy s/p AICD on 4LNC continuous at home, L. breast CA s/p xrt on AI, COPD, depression, anxiety, diverticulitis, HTN, hypothyroidism, idiopathic peripheral neuropathy who presented ot the ED with shortness of breath. Patient says she has noticed increased shortness of breath for the past few days after finishing a course of steroids and Augmentin prescribed by her pulmono
[2021-10-09] MEDS: rOPINIRole HCL 0.5 MG TABLET PO (20:38)
--- NOTE | 2021-10-09 23:19 | PCRCNOTE ---
Pt has her home ASV machine, which she uses independently. Machine is set up and ready for pt use. However, pt states that she is feeling extremely nauseous and does not want to use it right now. Pt was advised that it is ready for her to use if she changes her mind.
[2021-10-10] VITALS (14 sets, daily range): BP systolic 113–130; BP diastolic 62–86; PULSE 64–86; RESP 16–20; TEMP 35.7–36.6; O2SAT 90–95
[2021-10-10] MEDS: oxyCODONE HCL (*CRX) 5 MG TAB IR PO ×3 (00:45→14:14)
--- NOTE | 2021-10-10 01:20 | PCRCNOTE ---
Pt requested PRN albuterol treatment due to being short of breath. Pt not eligible for PRN treatment until 02:50. Pt placed on home ASV machine to see if that helps with SOB. PRN treatment will be given if ASV does not remedy situation. Nurse notified.
[2021-10-10] MEDS: ALBUTEROL SULFATE NEB 2.5 MG/0.5 ML INH INHALATION ×2 (02:59→09:05)
[2021-10-10] MEDS: SUCRALFATE SUSP 100 MG/ML 10 ML UDC 1000 MG PO ×4 (05:57→20:14)
[2021-10-10 07:37] LABS: Glucose Point of Care 108 mg/dl (65-105)
[2021-10-10 07:41] LABS: Hemoglobin 10.8 g/dL (12.0-15.0); Mean Corpuscular HGB Conc 32.7 g/dl (32-36); Mean Corpuscular Volume 88.7 fl (80-100); Mean Platelet Volume 9.8 fl (7.4-10.4); Platelet Count Result 279 k/mm3 (150-375); Red Blood Count 3.72 M/mm3 (4.2-5.4); Red Cell Distribution Width 14.6 % (11.5-14.5); White Blood Count 9.2 K/mm3 (4.5-10.0)
[2021-10-10 07:49] LABS: Anion Gap 8 mmol/L (8-16); Blood Urea Nitrogen 47 mg/dL (7-17); Calcium 8.2 mg/dL (8.4-10.2); Carbon Dioxide 31 mmol/L (22-30); Chloride 86 mmol/L (98-107); Estimated CRCL calculation 19 ml/min; Estimated Glomerular Filt Rate 17; Glucose 103 mg/dL (65-110); Potassium 3.9 mmol/L (3.4-5.0); Sodium 125 mmol/L (137-145)
[2021-10-10] MEDS: ENOXAPARIN 40 MG/0.4 ML SYRINGE SUB-Q (08:45)
[2021-10-10] MEDS: SERTRALINE HCL 50 MG TABLET 100 MG PO ×2 (08:46→16:21)
[2021-10-10] MEDS: ONDANSETRON INJ 4 MG/2 ML VIAL IV PUSH ×2 (08:46→13:04)
[2021-10-10] MEDS: LIDOCAINE 5% PATCH 1 PATCH TRANSDERM (08:46)
[2021-10-10] MEDS: SIMVASTATIN 20 MG TABLET 40 MG PO (08:46)
[2021-10-10] MEDS: CLOPIDOGREL BISULFATE 75 MG TABLET PO (08:47)
[2021-10-10] MEDS: GABAPENTIN 400 MG CAPSULE 800 MG PO ×3 (08:47→16:20)
[2021-10-10] MEDS: FAMOTIDINE 20 MG TABLET PO ×2 (08:47→20:14)
[2021-10-10] MEDS: DICYCLOMINE HCL 10 MG CAPSULE 20 MG PO ×2 (08:47→16:21)
[2021-10-10] MEDS: SACUBITRIL/VALSARTAN 24-26 MG TABLET 1 TAB PO ×2 (08:47→20:14)
[2021-10-10] MEDS: ANASTROZOLE (*CHEMO) 1 MG TABLET PO (08:47)
[2021-10-10] MEDS: DICLOFENAC SODIUM 1% 100 GM GEL (*BKC) 1 APPLIC TOPICAL ×4 (08:48→20:17)
[2021-10-10] MEDS: FLUTICASONE/UMECLIDIN/VILANTER 100-62.5-25 MCG ELLIPTA 1 PUFF INHALATION (09:06)
[2021-10-10 11:30] LABS: Glucose Point of Care 105 mg/dl (65-105)
--- NOTE | 2021-10-10 12:09 | P.PNNP_ITS ---
Progress Note: A&P Assessment and Plan (1) SOHEILA (acute kidney injury): Code(s): N17.9 - Acute kidney failure, unspecified Status: Acute Assessment and Plan: * suspect due to prerenal azotemia and contrast exposure * worse today -- possibly due to bouts of hypotension yestersday * evaluation to date: * renal ultrasound shows mild renal atrophy * urine electrolytes are pre renal * CPK normal * urinalysis is bland * follow trend with supportive therapy (2) Hyponatremia: Code(s): E87.1 - Hypo-osmolality and hyponatremia Status: Acute Assessment and Plan: * multiple risk factors for this issue: * diuretic use * SSRI use (sertraline) * narcotic use * underlying lung disease (COPD) * malinancy (breast and lung cancer) * cortisol okay; TSH a bit elevated * slow improvement in sodium noted * continue fluid restriction * diuretic currently on hold * follow trend of sodium (3) COPD (chronic obstructive pulmonary disease): Code(s): J44.9 - Chronic obstructive pulmonary disease, unspecified Status: Chronic Assessment and Plan: * etiology of chronic respiratory failure * on chronic supplemental oxygen * stable at this time (4) CHF (congestive heart failure): Qualifiers: Heart failure type: unspecified Heart failure chronicity: unspecified Qualified Code(s): I50.9 - Heart failure, unspecified Code(s): I50.9 - Heart failure, unspecified Status: Chronic Assessment and Plan: * known cardiomyopathy at baseline * appears compensated * follow closely since diuretics on hold Will contiue to follow. Subjective Date/time seen: 10/10/21 12:09 Major complaint is that of shortness of breath but this appears to be a chronic issues at baseline; no other concerns/complaints voiced at this time; no events overnight. Exam Narrative: General: elderly female in NAD Heart: normal S1 and S2; no rub Lungs: coarse breath sound throughout Abdomen: soft, nontender, nondistended, positive bowel sounds Extremities: no cyanosis or clubbing; trace edema Skin: warm and intact Objective Data Vital Signs Vital Signs: Vital Signs Temp Pulse Resp BP Pulse Ox 10/10/21 09:13 75 20 10/10/21 09:08 90 10/10/21 09:06 73 20 10/10/21 08:00 94 10/10/21 05:39 36.1 C L 76 16 130/72 92 10/10/21 03:04 64 18 10/10/21 02:59 73 18 10/10/21 02:57 67 94 10/10/21 01:19 73 93 10/09/21 22:00 36.8 C 108 H 16 101/72 94 10/09/21 21:25 76 18 10/09/21 21:20 74 20 95 10/09/21 20:40 108 H 16 94 10/09/21 14:49 63 18 10/09/21 14:41 65 18 10/09/21 14:00 35.9 C L 67 16 81/52 L 94 Intake/Output Intake/Output: Intake & Output 10/07/21 10/08/21 10/09/21 10/10/21 23:59 23:59 23:59 23:59 Intake Total 1122 820 354 240 Output Total 1451 50 700 Balance 1122 -241 304 -460 Meds/Results Medications: Active Medications Generic Name Dose Route Start Last Admin Trade Name Hector PRN Reason Stop Dose Admin Acetaminophen 650 mg 10/04/21 12:45 10/09/21 11:43 Acetaminophen 325 Mg Tablet
--- NOTE | 2021-10-10 12:09 | PM.PNNEP ---
Progress Note: A&P Assessment and Plan (1) SOHEILA (acute kidney injury): Code(s): N17.9 - Acute kidney failure, unspecified Status: Acute Assessment and Plan: suspect due to prerenal azotemia and contrast exposure worse today -- possibly due to bouts of hypotension yestersday evaluation to date: renal ultrasound shows mild renal atrophy urine electrolytes are pre renal CPK normal urinalysis is bland follow trend with supportive therapy (2) Hyponatremia: Code(s): E87.1 - Hypo-osmolality and hyponatremia Status: Acute Assessment and Plan: multiple risk factors for this issue: diuretic use SSRI use (sertraline) narcotic use underlying lung disease (COPD) malinancy (breast and lung cancer) cortisol okay; TSH a bit elevated slow improvement in sodium noted continue fluid restriction diuretic currently on hold follow trend of sodium (3) COPD (chronic obstructive pulmonary disease): Code(s): J44.9 - Chronic obstructive pulmonary disease, unspecified Status: Chronic Assessment and Plan: etiology of chronic respiratory failure on chronic supplemental oxygen stable at this time (4) CHF (congestive heart failure): Qualifiers: Heart failure type: unspecified Heart failure chronicity: unspecified Qualified Code(s): I50.9 - Heart failure, unspecified Code(s): I50.9 - Heart failure, unspecified Status: Chronic Assessment and Plan: known cardiomyopathy at baseline appears compensated follow closely since diuretics on hold Will contiue to follow. Subjective Date/time seen: 10/10/21 12:09 Major complaint is that of shortness of breath but this appears to be a chronic issues at baseline; no other concerns/complaints voiced at this time; no events overnight. Exam Narrative: General: elderly female in NAD Heart: normal S1 and S2; no rub Lungs: coarse breath sound throughout Abdomen: soft, nontender, nondistended, positive bowel sounds Extremities: no cyanosis or clubbing; trace edema Skin: warm and intact Objective Data Vital Signs Vital Signs: Vital Signs Temp Pulse Resp BP Pulse Ox 10/10/21 09:13 75 20 10/10/21 09:08 90 10/10/21 09:06 73 20 10/10/21 08:00 94 10/10/21 05:39 36.1 C L 76 16 130/72 92 10/10/21 03:04 64 18 10/10/21 02:59 73 18 10/10/21 02:57 67 94 10/10/21 01:19 73 93 10/09/21 22:00 36.8 C 108 H 16 101/72 94 10/09/21 21:25 76 18 10/09/21 21:20 74 20 95 10/09/21 20:40 108 H 16 94 10/09/21 14:49 63 18 10/09/21 14:41 65 18 10/09/21 14:00 35.9 C L 67 16 81/52 L 94 Intake/Output Intake/Output: Intake & Output 10/07/21 10/08/21 10/09/21 10/10/21 23:59 23:59 23:59 23:59 Intake Total 1122 820 354 240 Output Total 1451 50 700 Balance 1122 -396 304 -460 Meds/Results Medications: Active Medications Generic Name Dose Route Start Last Admin Trade Name Freq PRN Reason Stop Dose Admin Acetaminophen 650 mg 10/04/21 12:45 10/09/21 11:43 Acetaminophen 325 Mg Tablet PO 650 mg Q6H PRN Administration Pain Rated 5 or Less Albuterol 2.5 mg 10/02/21 11:13 10/10/21 09:05 Albuterol Sulfate Neb 2.5 Mg/0.5 Ml Inh INHALATION 2.5 mg Q6HRT PRN Administration Wheezing Anastrozole 1 mg 09/26/21 12:05 10/10/21 08:47 Anastrozole (*Chemo) 1 Mg Tablet PO 1 mg DAILY CELESTINA Administration Calcium Carbonate 200 mg 10/02/21 22:01 10/08/21 11:00 Calcium Carbonate (Tums) 500 Mg (200 Mg Elemental) PO 200 mg Q6H PRN Administration Indigestion Carvedilol 12.5 mg 09/26/21 21:00 10/09/21 08:42 Carvedilol 12.5 Mg Tablet PO 12.5 mg Q12HR CELESTINA Administration Clopidogrel Bisulfate 75 mg 09/27/21 09:00 10/10/21 08:47 Clopidogrel Bisulfate 75 Mg Tablet PO 75 mg DAILY CELESTINA Administration Diclofenac Sodium 1 applic
[2021-10-10] MEDS: PANTOPRAZOLE 40 MG TABLET PO ×2 (12:10→20:14)
--- NOTE | 2021-10-10 12:57 | PM.IMPN ---
Progress Note: A&P Assessment and Plan (1) Constipation: Qualifiers: Constipation type: drug induced constipation Qualified Code(s): K59.03 - Drug induced constipation Code(s): K59.00 - Constipation, unspecified Status: Resolved Assessment and Plan: Improved, monitor (2) SOB (shortness of breath): Code(s): R06.02 - Shortness of breath Status: Acute Assessment and Plan: Hx of chronic respiratory failure on 4LNC at baseline. (3) Lymphadenopathy: Code(s): R59.1 - Generalized enlarged lymph nodes Status: Acute Assessment and Plan: CTA chest notes metastatic disease with multiple peripheral pleural based nodules in the left hemithorax, left hilar, mediastinal and upper abdominal lymphadenopathy. Oncology consulted. CEA elevated. CA 15-2 27 up from 20 in early 2021. Pt had negative biopsy. Pt to follow up with Dr Tolbert for her treatment for breast cancer (4) Liver mass: Code(s): R16.0 - Hepatomegaly, not elsewhere classified Status: Acute Assessment and Plan: Multiple hepatic masses concerning for metastasis on CTA chest. (5) Leukocytosis: Code(s): D72.829 - Elevated white blood cell count, unspecified Status: Acute Assessment and Plan: Improved, monitored (6) Chronic respiratory failure with hypoxia: Code(s): J96.11 - Chronic respiratory failure with hypoxia Status: Acute Assessment and Plan: Patient is on 4LNC chronically at home. Monitor (7) COPD (chronic obstructive pulmonary disease): Qualifiers: COPD type: unspecified COPD Qualified Code(s): J44.9 - Chronic obstructive pulmonary disease, unspecified Code(s): J44.9 - Chronic obstructive pulmonary disease, unspecified Status: Acute Assessment and Plan: Patient with chronic resp failure but not felt to be having a COPD exacerbation. (8) Chronic pain disorder: Code(s): G89.4 - Chronic pain syndrome Status: Acute Assessment and Plan: Monitored continued pain medicine (9) HTN (hypertension): Code(s): I10 - Essential (primary) hypertension Status: Acute Assessment and Plan: Monitor blood pressure (10) Cardiomyopathy: Qualifiers: Cardiomyopathy type: unspecified Qualified Code(s): I42.9 - Cardiomyopathy, unspecified Code(s): I42.9 - Cardiomyopathy, unspecified Status: Acute Assessment and Plan: w/ AICD. Continue Entresto, furosemide and Coreg. Appreciate cardiology input. (11) Left shoulder pain: Code(s): M25.512 - Pain in left shoulder Status: Acute Assessment and Plan: XR left shoulder shows severe acromioclavicular joint arthritis. (12) Chest pain: Code(s): R07.9 - Chest pain, unspecified Status: Acute Assessment and Plan: EKG similar to previous EKGs. Troponin negative. No further workup indicated (13) DVT prophylaxis: Code(s): Z29.9 - Encounter for prophylactic measures, unspecified Status: Acute Assessment and Plan: Lovenox (14) Acute kidney failure: Code(s): N17.9 - Acute kidney failure, unspecified Status: Acute Assessment and Plan: Creatinine is elevated 2.7 order consult with nephrology (15) Hyponatremia: Code(s): E87.1 - Hypo-osmolality and hyponatremia Status: Acute Assessment and Plan: Will check labs for hyponatremia sodium 125 Subjective Date/time seen: 10/10/21 12:57 Interval history: 76F with a past medical history of cardiomyopathy s/p AICD on 4LNC continuous at home, L. breast CA s/p xrt on AI, COPD, depression, anxiety, diverticulitis, HTN, hypothyroidism, idiopathic peripheral neuropathy who presented ot the ED with shortness of breath. Patient says she has noticed increased shortness of breath for the past few days after finishing a course of steroids and Augmen
[2021-10-10] MEDS: ALBUTEROL SULFATE (*SP) AEROSOL 1 PUFF 2 PUFF INHALATION ×2 (15:45→19:34)
[2021-10-10] MEDS: THYROID 30 MG TABLET PO (16:20)
[2021-10-10] MEDS: DOXYCYCLINE HYCLATE 100 MG TABLET PO ×2 (16:20→20:14)
[2021-10-10 16:27] LABS: Appearance Urine Cloudy (Clear); Bilirubin Urine 1+ (Negative); Blood Urine 3+ (Negative); Color Urine Brown (Yellow); Glucose Urine UA Negative (Negative); Ketones Urine Negative (Negative); Leukocyte Esterase Ur Negative LEU/UL (Negative); Nitrate Urine Negative (Negative); Protein Urine 1+ mg/dL (Negative); Urobilinogen Urine 0.2 mg/dL (<2.0); pH Urine 5.5 (5.0-9.0)
[2021-10-10 16:30] LABS: Add Urine Microscopic? YES
[2021-10-10 16:35] LABS: Glucose Point of Care 104 mg/dl (65-105)
[2021-10-10 16:42] LABS: Mucus Urine Rare /lpf; RBC Urine >75 /hpf (0-2); WBC Urine >75 /hpf
[2021-10-10] MEDS: carvediloL 12.5 MG TABLET PO (20:14)
[2021-10-10] MEDS: DOCUSATE SODIUM 100 MG CAPSULE PO (20:14)
[2021-10-10] MEDS: rOPINIRole HCL 0.5 MG TABLET PO (20:14)
[2021-10-11] VITALS (20 sets, daily range): BP systolic 113–154; BP diastolic 64–95; PULSE 66–84; RESP 9–19; TEMP 36.7–36.8; O2SAT 88–98
[2021-10-11 04:38] LABS: Osmolality, Urine 310 mOsm/kg (50-1200)
[2021-10-11] MEDS: THYROID 30 MG TABLET PO (05:55)
[2021-10-11] MEDS: SUCRALFATE SUSP 100 MG/ML 10 ML UDC 1000 MG PO ×2 (05:55→21:05)
[2021-10-11] MEDS: ALBUTEROL SULFATE (*SP) AEROSOL 1 PUFF 2 PUFF INHALATION ×2 (06:51→09:47)
[2021-10-11 07:39] LABS: Glucose Point of Care 94 mg/dl (65-105)
[2021-10-11 08:08] LABS: Anion Gap 11 mmol/L (8-16); Blood Urea Nitrogen 34 mg/dL (7-17); Calcium 8.2 mg/dL (8.4-10.2); Carbon Dioxide 28 mmol/L (22-30); Chloride 88 mmol/L (98-107); Estimated CRCL calculation 36 ml/min; Estimated Glomerular Filt Rate 37; Glucose 94 mg/dL (65-110); Potassium 3.7 mmol/L (3.4-5.0); Sodium 127 mmol/L (137-145)
[2021-10-11 08:26] LABS: Hematocrit 33.9 % (37.0-47.0); Hemoglobin 11.3 g/dL (12.0-15.0); Mean Corpuscular HGB Conc 33.3 g/dl (32-36); Mean Corpuscular Hemoglobin 29.3 pg (26-34); Mean Corpuscular Volume 87.8 fl (80-100); Mean Platelet Volume 9.8 fl (7.4-10.4); Platelet Count Result 291 k/mm3 (150-375); Red Blood Count 3.86 M/mm3 (4.2-5.4); Red Cell Distribution Width 14.6 % (11.5-14.5); White Blood Count 7.2 K/mm3 (4.5-10.0)
[2021-10-11] MEDS: oxyCODONE HCL (*CRX) 5 MG TAB IR PO (08:28)
[2021-10-11] MEDS: ACETAMINOPHEN 325 MG TABLET 650 MG PO (08:28)
[2021-10-11] MEDS: SIMVASTATIN 20 MG TABLET 40 MG PO (08:29)
[2021-10-11] MEDS: DICYCLOMINE HCL 10 MG CAPSULE 20 MG PO (08:29)
[2021-10-11] MEDS: DOCUSATE SODIUM 100 MG CAPSULE PO (08:38)
[2021-10-11] MEDS: DICLOFENAC SODIUM 1% 100 GM GEL (*BKC) 1 APPLIC TOPICAL ×3 (08:38→21:05)
[2021-10-11] MEDS: ANASTROZOLE (*CHEMO) 1 MG TABLET PO (08:38)
[2021-10-11] MEDS: polyethylene glycoL 3350 17 GM POWD.PACK PO (08:38)
[2021-10-11] MEDS: LIDOCAINE 5% PATCH 1 PATCH TRANSDERM ×2 (08:39)
[2021-10-11] MEDS: CLOPIDOGREL BISULFATE 75 MG TABLET PO (08:39)
[2021-10-11] MEDS: SACUBITRIL/VALSARTAN 24-26 MG TABLET 1 TAB PO (08:39)
[2021-10-11] MEDS: PANTOPRAZOLE 40 MG TABLET PO ×2 (08:39→21:05)
[2021-10-11] MEDS: SERTRALINE HCL 50 MG TABLET 100 MG PO (08:39)
[2021-10-11] MEDS: carvediloL 12.5 MG TABLET PO ×2 (08:40→21:05)
[2021-10-11] MEDS: GABAPENTIN 400 MG CAPSULE 800 MG PO (08:40)
[2021-10-11] MEDS: DOXYCYCLINE HYCLATE 100 MG TABLET PO ×2 (08:40→21:05)
[2021-10-11] MEDS: FAMOTIDINE 20 MG TABLET PO ×2 (08:40→21:05)
[2021-10-11] MEDS: FLUTICASONE/UMECLIDIN/VILANTER 100-62.5-25 MCG ELLIPTA 1 PUFF INHALATION (09:46)
[2021-10-11] MEDS: CALCIUM CARBONATE (TUMS) 500 MG (200 MG ELEMENTAL) PO (10:25)
--- NOTE | 2021-10-11 10:30 | PM.IMPN ---
Progress Note: A&P Assessment and Plan (1) Acute and chronic respiratory failure: Code(s): J96.20 - Acute and chronic respiratory failure, unspecified whether with hypoxia or hypercapnia Status: Acute Assessment and Plan: Notable increase of breathing, with accessory muscle use, unable to complete a full sentence, desaturation Saturations recovered with NT suction Acute on chronic Respiratory failure is multifactorial and secondary to COPD exacerbation, congestive heart failure, metastatic breast cancer to lungs Patient was not significantly hypoxic from baseline as her sats were adequate on 6 L but she was in respiratory distress with increased work of breathing with wheezing on exam She received Lasix 40 mg IV x1 on the floor I have placed patient on BiPAP / and she is maintaining adequate saturation at 35% FiO2 ABG shows hypercarbia and respiratory acidosis. I will repeat ABG in 30 minutes on BiPAP. Obviously if patient does not improve or further deteriorates she may need intubation and invasive mechanical ventilation hence continue to monitor closely at this time Start q.6 hours bronchodilators Start Solu-Medrol (2) COPD exacerbation: Code(s): J44.1 - Chronic obstructive pulmonary disease with (acute) exacerbation Status: Acute Assessment and Plan: See above (3) SOHEILA (acute kidney injury): Code(s): N17.9 - Acute kidney failure, unspecified Status: Acute Assessment and Plan: Patient developed SOHEILA with creatinine still peaking at 2.7. Patient is being seen by Nephrology Renal ultrasound showed mild renal atrophy. Urine electrolytes were pre renal. And CPK was normal Since that her creatinine has improved and is at 1.3 today She did receive a dose of Lasix Continue monitor urine output electrolytes and creatinine (4) Metastatic breast cancer: Code(s): C50.919 - Malignant neoplasm of unspecified site of unspecified female breast Status: Acute Assessment and Plan: She has history of T 1 N 1 Breast Cancer treated in 2015. she was on adjuvant hormonal therapy. Workup during this hospitalization showed metastatic breast cancer to liver and lung. Oncology plans to resume chemotherapy as an outpatient once patient is discharged She is currently on Arimidex (5) CHF (congestive heart failure): Qualifiers: Heart failure type: unspecified Heart failure chronicity: unspecified Qualified Code(s): I50.9 - Heart failure, unspecified Code(s): I50.9 - Heart failure, unspecified Status: Acute Assessment and Plan: She has cardiomyopathy with EF of 30% Lasix IV given Patient denies any chest pain at this time She had a troponin checked multiple times during this hospitalization [place] [address] Troponin elevated probably from CHF or even respiratory status Daily weights Check EKG (6) Hyponatremia: Code(s): E87.1 - Hypo-osmolality and hyponatremia Status: Acute Assessment and Plan: She is on fluid restriction diet as per nephrology Time Spent With Patient Time with patient: Greater than 35 minutes Subjective Date/time seen: 10/11/21 10:30 Interval history: Was called by the nurse stating that patient was having a hard time breathing. Went up to see the patient and she had a strong gurgling sound while talking and breathing. She also had increased work of breathing with use of accessory muscles and inability to move. She denied any other symptoms like chest pain or nausea or vomiting. Patient was on 6 L nasal cannula. Observation showed patient was desatting and saturations got to 80% on the 6 L. patient was titrated up to 10 L. Sosa was inserted and patient was given 40 mg of IV Lasix with no good urine output return. Patient was then NT section which did seem to help a lot. ABG was ordered and did show the patient was in respiratory acidosis. BiPAP was initiated and
--- NOTE | 2021-10-11 10:59 | PC.NURSE ---
called Henri [facility] [employer] report sob and wet lung sounds, pt sounding fluid overloaded.
--- NOTE | 2021-10-11 11:03 | PCOTNOTE ---
Per [employer], patient being held for therapy today due to increased difficulty with breathing. Patient not seen for OT this date. Will continue plan of care as appropriate.
[2021-10-11 11:18] LABS: Glucose Point of Care 146 mg/dl (65-105)
[2021-10-11] MEDS: FUROSEMIDE INJ 40 MG/4 ML VIAL (11:32)
[2021-10-11 12:04] LABS: Basophils Percent Auto 0.4 % (0.2-1.2); Eosinophils Percent Auto 0.2 % (0-4.4); Hematocrit 36.4 % (37.0-47.0); Hemoglobin 11.4 g/dL (12.0-15.0); Immature Granulocyte Absolute 0.11 K/mm3 (0.00-0.031); Immature Granulocyte Percent A 1.2 % (0-0.5); Lymphocytes Percent Auto 9.6 % (18.3-44.2); Mean Corpuscular HGB Conc 31.3 g/dl (32-36); Mean Corpuscular Hemoglobin 28.9 pg (26-34); Mean Corpuscular Volume 92.2 fl (80-100); Mean Platelet Volume 9.6 fl (7.4-10.4); Monocytes Percent Auto 10.4 % (2.6-8.5); Neutrophils Absolute Auto 7.3 K/mm3 (1.3-6.7); Neutrophils Percent Auto 78.2 % (45.5-73.1); Platelet Count Result 306 k/mm3 (150-375); Red Blood Count 3.95 M/mm3 (4.2-5.4); Red Cell Distribution Width 14.6 % (11.5-14.5); White Blood Count 9.4 K/mm3 (4.5-10.0)
[2021-10-11 12:12] LABS: Alanine Aminotransferase 33 U/L (4-35); Albumin Level 3.7 g/dL (3.5-5.1); Alkaline Phosphatase 199 U/L (38-126); Anion Gap 8 mmol/L (8-16); Aspartate Amino Transferase 103 U/L (14-36); Bilirubin,Total 1.1 mg/dL (0.2-1.3); Blood Urea Nitrogen 34 mg/dL (7-17); Calcium 8.1 mg/dL (8.4-10.2); Carbon Dioxide 28 mmol/L (22-30); Chloride 89 mmol/L (98-107); Estimated CRCL calculation 39 ml/min; Estimated Glomerular Filt Rate 40; Glucose 148 mg/dL (65-110); Potassium 4.1 mmol/L (3.4-5.0); Sodium 125 mmol/L (137-145)
[2021-10-11 12:14] LABS: Alveolar/Arterial O2 Gradient 138.1 mmHg; Base Excess ABG -0.1 mEq/l (+/-2.0); Fractional Inspired Oxygen 40 %; HCO3 ABG 27.9 mEq/l (22.0-26.0); Oxygen Content ABG 15.6 %vol (16.0-22.0); Oxyhemoglobin 92.1 % THb (90.0-100.0); PO2 ABG 75.9 mmHg (80.0-100.0)
[2021-10-11 12:15] LABS: PCO2 ABG 61.9 mmHg (35.0-45.0); pH ABG 7.271 (7.350-7.450)
[2021-10-11 12:16] LABS: Device BIPAP; Expiratory Pressure 8 cmH2O; Inspiratory Pressure 16 cmH2O; Modified Allen's Test Pass; Site Drawn RIGHT RADIAL
--- NOTE | 2021-10-11 12:35 | WPDCNINT ---
Assessment and Plan Assessment and plan (1) Acute and chronic respiratory failure: Code(s): J96.20 - Acute and chronic respiratory failure, unspecified whether with hypoxia or hypercapnia Status: Acute Assessment and Plan: Patient at baseline has moderate COPD and is on 6 L oxygen Acute on chronic Respiratory failure is multifactorial and secondary to COPD exacerbation, congestive heart failure, metastatic breast cancer to lungs Patient was not significantly hypoxic from baseline as her sats were adequate on 6 L but she was in respiratory distress with increased work of breathing with wheezing on exam She received Lasix 40 mg IV x1 on the floor I have placed patient on BiPAP 06/05 and she is maintaining adequate saturation at 35% FiO2 ABG shows hypercarbia and respiratory acidosis. I will repeat ABG in 30 minutes on BiPAP. Obviously if patient does not improve or further deteriorates she may need intubation and invasive mechanical ventilation hence continue to monitor closely at this time Start q.6 hours bronchodilators Start Solu-Medrol She has been inpatient for many days now, her WBC is normal, her chest x-ray does not show any significant change and she is afebrile hence I do not suspect pneumonia will not start her on antibiotics at this time. (2) COPD exacerbation: Code(s): J44.1 - Chronic obstructive pulmonary disease with (acute) exacerbation Status: Acute Assessment and Plan: See above (3) SOHEILA (acute kidney injury): Code(s): N17.9 - Acute kidney failure, unspecified Status: Acute Assessment and Plan: Patient developed SOHEILA with creatinine still peaking at 2.7. Patient is being seen by Nephrology Renal ultrasound showed mild renal atrophy. Urine electrolytes were pre renal. And CPK was normal Since that her creatinine has improved and is at 1.3 today She did receive a dose of Lasix Continue monitor urine output electrolytes and creatinine (4) Metastatic breast cancer: Code(s): C50.919 - Malignant neoplasm of unspecified site of unspecified female breast Status: Acute Assessment and Plan: She has history of T 1 N 1 Breast Cancer treated in 2014. she was on adjuvant hormonal therapy. Workup during this hospitalization showed metastatic breast cancer to liver and lung. Oncology plans to resume chemotherapy as an outpatient once patient is discharged She is currently on Arimidex (5) CHF (congestive heart failure): Qualifiers: Heart failure chronicity: unspecified Heart failure type: unspecified Qualified Code(s): I50.9 - Heart failure, unspecified Code(s): I50.9 - Heart failure, unspecified Status: Acute Assessment and Plan: She has cardiomyopathy with EF of 30% Lasix IV given Patient denies any chest pain at this time She had a troponin checked multiple times during this hospitalization and they were all negative Recheck BNP, serial troponin Check EKG Echo 09/27 Summary 1. Complete two-dimensional, color flow and Doppler transthoracic echocardiogram is performed. 2. Left ventricular chamber dimension is mild to moderately enlarged. 3. Left ventricular systolic function is severely reduced, estimated at 30% with hypokinesis of the anterolateral wall.. 4. Left ventricular septal wall motion is abnormal with septal motion related to bundle branch block. 5. The left ventricular diastolic function is grade I diastolic dysfunction. 6. There is no aortic valve stenosis. 7. There is mild mitral valve regurgitation. (6) Hyponatremia: Code(s): E87.1 - Hypo-osmolality and hyponatremia Status: Acute Assessment and Plan: She is on fluid restriction diet as per nephrology Additional Plan DVT prophylaxis -Lovenox Stress ulcer prophylaxis -Pepcid Nutrition -NPO Code Status -I spoke to patient's daughter and at bedside. I also reviewed her advance directive. Is full code but does not want hemodialy
[2021-10-11 12:38] LABS: Magnesium 2.1 mg/dL (1.6-2.3); Phosphorus 4.9 mg/dL (2.5-4.5)
[2021-10-11 12:39] LABS: Lactic Acid Reflex 1.5 mmol/L (0.7-2.1)
[2021-10-11] MEDS: methylPREDNISolone SOD SUCC 125 MG VIAL 60 MG IV PUSH ×3 (12:45→23:30)
--- NOTE | 2021-10-11 12:45 | PM.PNNEP ---
Progress Note: A&P Assessment and Plan (1) SOHEILA (acute kidney injury): Code(s): N17.9 - Acute kidney failure, unspecified Status: Acute Assessment and Plan: suspect due to prerenal azotemia and contrast exposure worse today -- possibly due to bouts of hypotension yestersday evaluation to date: renal ultrasound shows mild renal atrophy urine electrolytes are pre renal CPK normal urinalysis is bland follow trend with supportive therapy (2) Hyponatremia: Code(s): E87.1 - Hypo-osmolality and hyponatremia Status: Acute Assessment and Plan: multiple risk factors for this issue: diuretic use SSRI use (sertraline) narcotic use underlying lung disease (COPD) malinancy (breast and lung cancer) cortisol okay; TSH a bit elevated slow improvement in sodium noted continue fluid restriction diuretic currently on hold follow trend of sodium (3) Acute on chronic respiratory failure: Code(s): J96.20 - Acute and chronic respiratory failure, unspecified whether with hypoxia or hypercapnia Status: Acute Assessment and Plan: as evidence by events earlier this AM on ventilator support suspect exacerbation of #4 IV diuretics follow I/Os (4) CHF (congestive heart failure): Qualifiers: Heart failure type: unspecified Heart failure chronicity: unspecified Qualified Code(s): I50.9 - Heart failure, unspecified Code(s): I50.9 - Heart failure, unspecified Status: Chronic Assessment and Plan: known cardiomyopathy at baseline resume diuretics PRN given #3 (5) COPD (chronic obstructive pulmonary disease): Code(s): J44.9 - Chronic obstructive pulmonary disease, unspecified Status: Chronic Assessment and Plan: etiology of chronic respiratory failure on chronic supplemental oxygen suspect contributing factor to #3 Will continue to follow. Subjective Date/time seen: 10/11/21 12:45 Events noted earlier today -- acute worsening of shortness of breath with concerns with volume overload; attempt at BiPAP failed and patient transferred to ICU with subsequent intubation and placement on mechanical ventilation; repeat labs demonstrate improvement in renal function and stability in sodium level. Exam Narrative: General: elderly female intubated/sedated Heart: normal S1 and S2; no rub Lungs: coarse breath sound throughout Abdomen: soft, nontender, nondistended, positive bowel sounds Extremities: no cyanosis or clubbing; trace edema Skin: no rash or nodules Objective Data Vital Signs Vital Signs: Vital Signs Temp Pulse Resp BP Pulse Ox 10/11/21 12:30 36.7 C 76 15 113/83 88 L 10/11/21 12:00 92 10/11/21 09:53 94 10/11/21 08:40 84 10/11/21 08:00 84 18 94 10/11/21 06:00 36.8 C 74 18 142/95 H 90 10/11/21 01:40 94 10/10/21 23:43 95 10/10/21 20:26 36.6 C 86 20 113/86 93 10/10/21 20:14 86 10/10/21 19:37 92 Intake/Output Intake/Output: Intake & Output 10/08/21 10/09/21 10/10/21 10/11/21 23:59 23:59 23:59 23:59 Intake Total 792 543 9370 240 Output Total 1451 50 1350 Balance -631 304 -90 240 Meds/Results Medications: Active Medications Generic Name Dose Route Start Last Admin Trade Name Hector PRN Reason Stop Dose Admin Acetaminophen 650 mg 10/04/21 12:45 10/11/21 08:28 Acetaminophen 325 Mg Tablet PO 650 mg Q6H PRN Administration Pain Rated 5 or Less Albuterol 2 puff 10/10/21 14:09 10/11/21 09:47 Albuterol Sulfate (*Sp) Aerosol 1 Puff INHALATION 2 puff QIDRT PRN Administration Shortness Of Breath Albuterol 2.5 mg 10/11/21 14:00 10/11/21 13:45 Albuterol Sulfate Neb 2.5 Mg/0.5 Ml Inh INHALATION 2.5 mg Q6HRT CELESTINA Administration Anastrozole 1 mg 09/26/21 12:05 10/11/21 08:38 Anastrozole (*Chemo) 1 Mg Tablet PO 1 mg DAILY CELESTINA Administration Calciu
--- NOTE | 2021-10-11 12:45 | P.PNNP_ITS ---
Progress Note: A&P Assessment and Plan (1) SOHEILA (acute kidney injury): Code(s): N17.9 - Acute kidney failure, unspecified Status: Acute Assessment and Plan: * suspect due to prerenal azotemia and contrast exposure * worse today -- possibly due to bouts of hypotension yestersday * evaluation to date: * renal ultrasound shows mild renal atrophy * urine electrolytes are pre renal * CPK normal * urinalysis is bland * follow trend with supportive therapy (2) Hyponatremia: Code(s): E87.1 - Hypo-osmolality and hyponatremia Status: Acute Assessment and Plan: * multiple risk factors for this issue: * diuretic use * SSRI use (sertraline) * narcotic use * underlying lung disease (COPD) * malinancy (breast and lung cancer) * cortisol okay; TSH a bit elevated * slow improvement in sodium noted * continue fluid restriction * diuretic currently on hold * follow trend of sodium (3) Acute on chronic respiratory failure: Code(s): J96.20 - Acute and chronic respiratory failure, unspecified whether with hypoxia or hypercapnia Status: Acute Assessment and Plan: * as evidence by events earlier this AM * on ventilator support * suspect exacerbation of #4 * IV diuretics * follow I/Os (4) CHF (congestive heart failure): Qualifiers: Heart failure type: unspecified Heart failure chronicity: unspecified Qualified Code(s): I50.9 - Heart failure, unspecified Code(s): I50.9 - Heart failure, unspecified Status: Chronic Assessment and Plan: * known cardiomyopathy at baseline * resume diuretics PRN given #3 (5) COPD (chronic obstructive pulmonary disease): Code(s): J44.9 - Chronic obstructive pulmonary disease, unspecified Status: Chronic Assessment and Plan: * etiology of chronic respiratory failure * on chronic supplemental oxygen * suspect contributing factor to #3 Will continue to follow. Subjective Date/time seen: 10/11/21 12:45 Events noted earlier today -- acute worsening of shortness of breath with concerns with volume overload; attempt at BiPAP failed and patient transferred to ICU with subsequent intubation and placement on mechanical ventilation; repeat labs demonstrate improvement in renal function and stability in sodium level. Exam 2 Narrative: General: elderly female intubated/sedated Heart: normal S1 and S2; no rub Lungs: coarse breath sound throughout Abdomen: soft, nontender, nondistended, positive bowel sounds Extremities: no cyanosis or clubbing; trace edema Skin: no rash or nodules Objective Data Vital Signs Vital Signs: Vital Signs Temp Pulse Resp BP Pulse Ox 10/11/21 12:30 36.7 C 76 15 113/83 88 L 10/11/21 12:00 92 10/11/21 09:53 94 10/11/21 08:40 84 10/11/21 08:00 84 18 94 10/11/21 06:00 36.8 C 74 18 142/95 H 90 10/11/21 01:40 94 10/10/21 23:43 95 10/10/21 20:26 36.6 C 86 20 113/86 93 10/10/21 20:14 86 10/10/21 19:37 92 Intake/Output Intake/Output: Intake & Output 10/08/21 10/09/21 10/10/21 10/11/21 23:59 23:59 23:59 23:59 Intake Total 430 315 9507 240 Output Total 1451 50 1350 Balance -631 304 -90 240
--- NOTE | 2021-10-11 12:45 | ECG_ITS ---
Measurements Intervals [place] Rate: 72 P: 94 NE: 205 QRS: 17 QRSD: 123 T: 95 QT: 414 QTc: 456 Interpretive Statements SINUS RHYTHM MODERATE INTRAVENTRICULAR CONDUCTION DELAY [105+ ms QRS DURATION, 80+ ms Q/S IN V1/V2, NO Q AND 60+ ms R IN I/aVL/V5/V6] ABNORMAL QRS-T ANGLE [QRS-T AXIS DIFFERENCE > 60] LOW VOLTAGE NONSPECIFIC T-WAVE ABNORMALITY ABNORMAL ECG COMPARED TO ECG 10/07/2021 00:27:26 NO SIGNIFICANT CHANGES Electronically Signed On 10-11-2021 15:58:48 CDT by Vitaliy Bass M.D.
[2021-10-11 12:46] LABS: INR 1.2; Prothrombin Time 14.3 Seconds (11.1-14.7)
[2021-10-11 13:07] LABS: Alveolar/Arterial O2 Gradient 110.8 mmHg; Base Excess ABG -0.6 mEq/l (+/-2.0); Fractional Inspired Oxygen 35 %; HCO3 ABG 27.1 mEq/l (22.0-26.0); Oxygen Content ABG 15.2 %vol (16.0-22.0); Oxygen Saturation ABG 91.1 % (95.0-100.0); Oxyhemoglobin 90.8 % THb (90.0-100.0); PCO2 ABG 59.9 mmHg (35.0-45.0); PO2 ABG 69.1 mmHg (80.0-100.0); PO2 FiO2 Ratio Arterial Blood 1.97 %; Total Hemoglobin 11.9 g/dL (12.0-18.0)
[2021-10-11 13:08] LABS: pH ABG 7.274 (7.350-7.450)
[2021-10-11 13:09] LABS: Device BIPAP; Expiratory Pressure 6 cmH2O; Inspiratory Pressure 12 cmH2O; Modified Allen's Test Pass; Site Drawn RIGHT RADIAL
[2021-10-11 13:16] LABS: NT Pro B Type Natriuretic Pept 11100 pg/mL (5-100)
[2021-10-11 13:26] LABS: Troponin I 0.105 ng/mL (0.000-0.034)
[2021-10-11] MEDS: ALBUTEROL SULFATE NEB 2.5 MG/0.5 ML INH INHALATION ×2 (13:45→20:18)
[2021-10-11] MEDS: IPRATROPIUM BR 0.02% INH SOLN 0.5 MG/2.5 ML VIAL INHALATION ×2 (13:45→20:18)
--- NOTE | 2021-10-11 15:25 | PCPTNOTE ---
PT held today due change in medical status and patient was transferred to ICU. PT will hold until further orders are received.
[2021-10-11 19:49] LABS: Troponin I 0.084 ng/mL (0.000-0.034)
[2021-10-12] VITALS (28 sets, daily range): BP systolic 88–119; BP diastolic 55–69; PULSE 66–97; RESP 11–26; TEMP 36.3–36.9; O2SAT 91–99
[2021-10-12] MEDS: ONDANSETRON INJ 4 MG/2 ML VIAL IV PUSH ×2 (00:05→20:57)
[2021-10-12] MEDS: ACETAMINOPHEN 325 MG TABLET 650 MG PO ×3 (00:33→11:15)
[2021-10-12] MEDS: ALBUTEROL SULFATE NEB 2.5 MG/0.5 ML INH INHALATION ×4 (02:52→19:48)
[2021-10-12] MEDS: IPRATROPIUM BR 0.02% INH SOLN 0.5 MG/2.5 ML VIAL INHALATION ×4 (02:52→19:48)
[2021-10-12] MEDS: SUCRALFATE SUSP 100 MG/ML 10 ML UDC 1000 MG PO ×4 (04:35→20:58)
[2021-10-12] MEDS: methylPREDNISolone SOD SUCC 125 MG VIAL 60 MG IV PUSH ×4 (04:35→23:22)
[2021-10-12] MEDS: THYROID 30 MG TABLET PO (04:35)
[2021-10-12 04:59] LABS: Hematocrit 37.2 % (37.0-47.0); Mean Corpuscular HGB Conc 32.3 g/dl (32-36); Mean Corpuscular Hemoglobin 28.9 pg (26-34); Mean Corpuscular Volume 89.6 fl (80-100); Mean Platelet Volume 9.5 fl (7.4-10.4); Platelet Count Result 286 k/mm3 (150-375); Red Blood Count 4.15 M/mm3 (4.2-5.4); Red Cell Distribution Width 14.6 % (11.5-14.5); White Blood Count 7.7 K/mm3 (4.5-10.0)
[2021-10-12 05:06] LABS: Alveolar/Arterial O2 Gradient 86.7 mmHg; Base Excess ABG -0.3 mEq/l (+/-2.0); Carboxyhemoglobin 0.1 % THb (0-2.0); Fractional Inspired Oxygen 35 %; HCO3 ABG 26.2 mEq/l (22.0-26.0); Methemoglobin ABG 0.2 %THb (0-1.5); Oxygen Content ABG 17.4 %vol (16.0-22.0); Oxygen Saturation ABG 97.4 % (95.0-100.0); PCO2 ABG 50.6 mmHg (35.0-45.0); PO2 FiO2 Ratio Arterial Blood 2.97 %; Reduced Hemoglobin 2.7 %THb (0-5.0); Total Hemoglobin 12.7 g/dL (12.0-18.0); pH ABG 7.332 (7.350-7.450)
[2021-10-12 05:07] LABS: Device NON-INVASIVE VENT; Modified Allen's Test Pass; Site Drawn RIGHT RADIAL
[2021-10-12 05:08] LABS: Non-Invasive Expiratory Pressure 6 CMH2O; Non-Invasive Inspiratory Pressure 14 CMH2O; Non-Invasive Vent Rate 10 /MIN
[2021-10-12 05:21] LABS: Alanine Aminotransferase 33 U/L (4-35); Albumin Level 3.5 g/dL (3.5-5.1); Alkaline Phosphatase 205 U/L (38-126); Anion Gap 11 mmol/L (8-16); Aspartate Amino Transferase 89 U/L (14-36); Bilirubin,Total 0.9 mg/dL (0.2-1.3); Blood Urea Nitrogen 35 mg/dL (7-17); Calcium 8.2 mg/dL (8.4-10.2); Carbon Dioxide 28 mmol/L (22-30); Chloride 90 mmol/L (98-107); Estimated CRCL calculation 45 ml/min; Estimated Glomerular Filt Rate 48; Glucose 121 mg/dL (65-110); Potassium 3.7 mmol/L (3.4-5.0); Sodium 129 mmol/L (137-145)
[2021-10-12 05:39] LABS: Troponin I 0.077 ng/mL (0.000-0.034)
[2021-10-12] MEDS: carvediloL 12.5 MG TABLET PO ×2 (08:06→21:00)
[2021-10-12] MEDS: SIMVASTATIN 20 MG TABLET 40 MG PO (08:06)
[2021-10-12] MEDS: CLOPIDOGREL BISULFATE 75 MG TABLET PO (08:06)
[2021-10-12] MEDS: DICYCLOMINE HCL 10 MG CAPSULE 20 MG PO ×2 (08:06→17:15)
[2021-10-12] MEDS: ANASTROZOLE (*CHEMO) 1 MG TABLET PO (08:06)
[2021-10-12] MEDS: SERTRALINE HCL 50 MG TABLET 100 MG PO ×2 (08:07→17:15)
[2021-10-12] MEDS: PANTOPRAZOLE 40 MG TABLET PO ×2 (08:07→20:59)
[2021-10-12] MEDS: FAMOTIDINE 20 MG TABLET PO ×2 (08:07→20:59)
[2021-10-12] MEDS: LIDOCAINE 5% PATCH 1 PATCH TRANSDERM ×2 (08:08)
[2021-10-12] MEDS: DOXYCYCLINE HYCLATE 100 MG TABLET PO ×2 (08:08→21:02)
[2021-10-12] MEDS: CALCIUM CARBONATE (TUMS) 500 MG (200 MG ELEMENTAL) PO (08:09)
--- NOTE | 2021-10-12 08:35 | WPDINTPN ---
Progress Note: A&P Assessment and Plan (1) Acute and chronic respiratory failure: Code(s): J96.20 - Acute and chronic respiratory failure, unspecified whether with hypoxia or hypercapnia Status: Acute Assessment and Plan: Patient at baseline has moderate COPD and is on 6 L oxygen Acute on chronic Respiratory failure is multifactorial and secondary to COPD exacerbation, congestive heart failure, metastatic breast cancer to lungs Patient was not significantly hypoxic from baseline as her sats were adequate on 6 L but she was in respiratory distress with increased work of breathing with wheezing on exam She received Lasix 40 mg IV x1 on the floor and was placed patient on BiPAP / and she is maintaining adequate saturation at 35% FiO2 ABG shows hypercarbia and respiratory acidosis. ABG this morning appears to have improved he is also clinically improved. Will transition her from BiPAP to nasal cannula and monitor. Incentive spirometry Use BiPAP at night and p.r.n. basis Continue bronchodilators Continue Solu-Medrol She has been inpatient for many days now, her WBC is normal, her chest x-ray does not show any significant change and she is afebrile hence I do not suspect pneumonia will not start her on antibiotics at this time. (2) COPD exacerbation: Code(s): J44.1 - Chronic obstructive pulmonary disease with (acute) exacerbation Status: Acute Assessment and Plan: See above (3) SOHEILA (acute kidney injury): Code(s): N17.9 - Acute kidney failure, unspecified Status: Acute Assessment and Plan: Patient developed SOHEILA with creatinine still peaking at 2.7. Patient is being seen by Nephrology Renal ultrasound showed mild renal atrophy. Urine electrolytes were pre renal. And CPK was normal Since that her creatinine has improved and is at 1.1 today She did receive a dose of Lasix yesterday on arrival to ICU Continue monitor urine output electrolytes and creatinine (4) Metastatic breast cancer: Code(s): C50.919 - Malignant neoplasm of unspecified site of unspecified female breast Status: Acute Assessment and Plan: She has history of T 1 N 1 Breast Cancer treated in 2014. she was on adjuvant hormonal therapy. Workup during this hospitalization showed metastatic breast cancer to liver and lung. Oncology plans to resume chemotherapy as an outpatient once patient is discharged. She is currently on Arimidex (5) CHF (congestive heart failure): Qualifiers: Heart failure type: unspecified Heart failure chronicity: unspecified Qualified Code(s): I50.9 - Heart failure, unspecified Code(s): I50.9 - Heart failure, unspecified Status: Chronic Assessment and Plan: She has cardiomyopathy with EF of 30% Lasix IV was given on admission to ICU. Does not appear to be any significant volume overload. Hold further Lasix Patient denied any chest pain at this time She had a troponin checked they were all flat [place] [id number], EKG reviewed and showed nonspecific T-wave changes and sinus rhythm Cardiology following Echo 09/27 Summary 1. Complete two-dimensional, color flow and Doppler transthoracic echocardiogram is performed. 2. Left ventricular chamber dimension is mild to moderately enlarged. 3. Left ventricular systolic function is severely reduced, estimated at 30% with hypokinesis of the anterolateral wall.. 4. Left ventricular septal wall motion is abnormal with septal motion related to bundle branch block. 5. The left ventricular diastolic function is grade I diastolic dysfunction. 6. There is no aortic valve stenosis. 7. There is mild mitral valve regurgitation. (6) Hyponatremia: Code(s): E87.1 - Hypo-osmolality and hyponatremia Status: Acute Assessment and Plan: She is on fluid restriction diet as per nephrology Sodium is improved as compared to yesterday. Continue to monitor Additional Plan DVT prophylaxis -Love
[2021-10-12] MEDS: FLUTICASONE/UMECLIDIN/VILANTER 100-62.5-25 MCG ELLIPTA 1 PUFF INHALATION (09:26)
[2021-10-12] MEDS: oxyCODONE HCL (*CRX) 5 MG TAB IR PO ×3 (09:41→17:13)
--- NOTE | 2021-10-12 09:57 | PM.PNNEP ---
Progress Note: A&P Additional Plan 1. the patient has acute kidney injury. The patient's baseline creatinine is normal at 0.9. Renal ultrasound shows mild renal atrophy. Urine electrolytes are pre renal. CPK is normal urinalysis is bland most likely this is acute kidney injury due to Pre renal azotemia and contrast. Her creatinine has improved to 1.1. Check another creatinine tomorrow. 1.5. The patient has hyponatremia. Her sodium level is low. She has baseline normal sodium. Cortisol is okay. TSH is a little high. She is on diuretics. She is on sertraline She is on narcotics. She has breast cancer. Not on a fluid restriction because of her intubation. Will reinstate this about 1500cc. 2. Metastatic breast cancer. Oncology is on the case. 3. Congestive heart failure. The patient looks euvolemic better today. 4. COPD. The patient is on supportive care. 5. Anemia. The patient has mildly reduced hemoglobin. Subjective Date/time seen: 10/12/21 09:57 Interval history: Arianne developed volume overload, was intubated, not extubated, and she feels better. Urinating okay. Exam Narrative: General: elderly female intubated/sedated Heart: normal S1 and S2; no rub or gallop Lungs: coarse breath sound throughout Abdomen: soft, nontender, nondistended, positive bowel sounds Extremities: no cyanosis or clubbing; trace edema Skin: no rash Objective Data Vital Signs Vital Signs: Vital Signs - 24 hr 10/11/21 12:00 10/11/21 12:30 10/11/21 13:45 Temperature 36.7 C Pulse Rate 76 73 Respiratory Rate 15 12 Blood Pressure 113/83 Pulse Oximetry 92 88 L 10/11/21 13:54 10/11/21 13:58 10/11/21 14:00 Temperature Pulse Rate 72 71 Respiratory Rate 13 11 L 15 Blood Pressure 128/66 Pulse Oximetry 94 98 10/11/21 16:00 10/11/21 17:33 10/11/21 18:00 Temperature 36.7 C Pulse Rate 66 73 Respiratory Rate 9 L 13 17 Blood Pressure 118/71 154/88 H Pulse Oximetry 92 94 97 10/11/21 20:00 10/11/21 20:20 10/11/21 20:22 Temperature 36.8 C Pulse Rate 76 74 75 Respiratory Rate 18 19 19 Blood Pressure 128/64 Pulse Oximetry 97 96 10/11/21 20:30 10/11/21 21:05 10/11/21 22:00 Temperature Pulse Rate 76 71 75 Respiratory Rate 18 18 Blood Pressure 128/69 Pulse Oximetry 97 10/12/21 00:00 10/12/21 00:50 10/12/21 01:59 Temperature 36.8 C Pulse Rate 73 71 67 Respiratory Rate 18 12 13 Blood Pressure 119/69 115/59 L Pulse Oximetry 97 97 97 10/12/21 02:53 10/12/21 02:57 10/12/21 03:03 Temperature Pulse Rate 66 66 69 Respiratory Rate 14 14 14 Blood Pressure Pulse Oximetry 97 10/12/21 03:48 10/12/21 04:00 10/12/21 05:09 Temperature 36.9 C Pulse Rate 67 67 66 Respiratory Rate 11 L 13 14 Blood Pressure 108/61 Pulse Oximetry 96 96 98 10/12/21 06:00 10/12/21 08:00 10/12/21 08:12 Temperature 36.3 C L Pulse Rate 68 75 70 Respiratory Rate 12 19 16 Blood Pressure 105/62 113/69 Pulse Oximetry 99 92 97 10/12/21 08:13 10/12/21 08:14 10/12/21 08:27 Temperature Pulse Rate 78 71 78 Respiratory Rate 20 26 H Blood Pressure Pulse Oximetry 97 Intake/Output Intake/Output: Intake & Output 10/09/21 10/10/21 10/11/21 10/12/21 23:59 23:59 23:59 23:59 Intake Total 354 1260 240 240 Output Total 50 8570 992 500 Balance 304 -90 -385 -260 Meds/Results Medications: Active Medications Generic Name Dose Route Start Last Admin Trade Name Freq PRN Reason Stop Dose Admin Acetaminophen 650 mg 10/04/21 12:45 10/12/21 05:35 Acetaminophen 325 Mg Tablet PO 650 mg Q6H PRN Administration Pain Rated 5 or Less Albuterol 2 puff 10/10/21 14:09 10/11/21 09:47 Albuterol Sulfate (*Sp) Aerosol 1 Puff INHALATION 2 puff QIDRT PRN Administration Shortness Of Breath Albuterol 2.5 mg 10/11/21 14:00 10/12/21 08:14 Albuterol Sulfate Neb 2.5 Mg/0.5 Ml Inh INHALATION
--- NOTE | 2021-10-12 10:22 | PM.PNCARD ---
Progress Note: A&P Assessment and Plan (1) Dyspnea: Code(s): R06.00 - Dyspnea, unspecified Status: Acute Assessment and Plan: Progressive dyspnea over a number of months but worsening dyspnea exertion in the past couple of weeks. Probably multifactorial. She does have COPD and chronic hypoxic respiratory failure on home oxygen. She also had an elevated BNP on presentation though on exam she does not appear to be volume overloaded, so doubt this is related to CHF. Concerningly, her chest CTA showed evidence of metastatic disease with multiple peripheral pleural-based nodules in the left hemothorax, left hilar, mediastinal and upper abdominal lymphadenopathy and multiple hepatic masses. Metastatic disease certainly could be contributing to her worsening dyspnea. Oncology has been consulted and recommended liver lesion biopsy which was performed yesterday, results are pending. Pulmonology is also following. Will restart her Entresto at 12/13 mg p.o. b.i.d.. Up titrate as need be and able (2) Acute on chronic systolic heart failure: Code(s): I50.23 - Acute on chronic systolic (congestive) heart failure Status: Acute Assessment and Plan: Her BNP was elevated on presentation around 4000. Looks euvolemic on exam. Continue current diuretic dose. (3) Chronic respiratory failure with hypoxia: Code(s): J96.11 - Chronic respiratory failure with hypoxia Status: Acute Assessment and Plan: History of COPD on continuous home oxygen. Pulmonology is following. (4) Liver mass: Code(s): R16.0 - Hepatomegaly, not elsewhere classified Status: Acute Assessment and Plan: Oncology is following. Plan for liver mass biopsy. (5) Lymphadenopathy: Code(s): R59.1 - Generalized enlarged lymph nodes Status: Acute Assessment and Plan: Oncology is following (6) KYLER (obstructive sleep apnea): Code(s): G47.33 - Obstructive sleep apnea (adult) (pediatric) Status: Acute Assessment and Plan: On CPAP. Subjective Date/time seen: 10/12/21 10:22 Interval history: 76-year-old with COPD, nonischemic cardiomyopathy shortness of breath found to have metastatic breast cancer Date of service 10/12/2021: Events of yesterday noted. She was significantly dyspneic but improved following nebulizer treatment. Looks and feels much better today. Does have some reproducible left-sided chest pain. Review of Systems Review of Systems: All systems reviewed & are unremarkable except as noted in HPI and below Constitutional: Constitutional: Denies excessive sweating, Denies fatigue, Denies headache(s), Denies lethargy and Denies weakness Eyes: Eyes: Denies change in vision, Denies loss of vision and Denies other visual disturbances ENT: Reports Normal hearing present, Denies headache(s), Denies neck pain and Denies tinnitus Cardiovascular: Cardiovascular: Denies chest pain, Denies pedal edema, Denies leg edema, Denies palpitations, Reports dyspnea and Reports dyspnea on exertion Respiratory: Respiratory: Reports dyspnea and Reports dyspnea on exertion Gastrointestinal: Gastrointestinal: Denies abdominal pain, Denies melena, Denies bloating, Denies constipation, Denies diarrhea and Reports nausea Genitourinary: Genitourinary: Denies nocturia, Denies urinary incontinence and Denies urinary hesitancy Musculoskeletal: Musculoskeletal: Denies back pain, Denies arthralgias, Denies neck pain and Denies numbness Integumentary/Breasts: Skin/Breast: Reports unusual bruising Neurologic: Reports Normal hearing present, Denies confusion, Denies headache(s), Denies loss of vision, Denies numbness and Denies weakness Psychiatric: Psychiatric: Denies confusion and Denies depression Endocrine: Endocrine: Denies excessive sweating, Denies fatigue, Denies flushing and Denies palpitations Hematologic/Lymphatic: Hematologic/Lymphatic: Denies easy bleeding and Reports easy
--- NOTE | 2021-10-12 11:11 | PCOTNOTE ---
Attempted to see patient this am, however patient refused due to pain. Notified RN of patient's complaint from pain. No, they just took the respirator off, and I'm just getting acclimated to breathing on my own. They gave me some pain medicine two hours ago, but you know it's like a headache, it didn't help.
[2021-10-12] MEDS: oxyCODONE/ACETAMINOPHEN (*CRX) 5-325 MG TABLET 1 TABLET PO ×2 (13:09→17:13)
[2021-10-12] MEDS: polyethylene glycoL 3350 17 GM POWD.PACK PO (17:15)
--- NOTE | 2021-10-12 18:50 | PM.PNPUL ---
Progress Note: A&P Assessment and Plan (1) SOB (shortness of breath): Code(s): R06.02 - Shortness of breath Status: Acute Assessment and Plan: She was transferred to ICU 10/11 with increased shortness of breath, seemed improved after BiPAP and diuresis. She has many contributing factors to her dyspnea; pleural based mets from recurrent breast cancer, COPD, chronic respiratory failure on O2, elevated BMI, deconditioning, nonischemic cardiomyopathy 08/22/20 echo EF 35% w/ moderate global LV systolic dysfunction and Grade I diastolic dysfunction w/ RSVP 21 mmHg. She is improved today, possibly due to diuresis. (2) Acute on chronic respiratory failure: Qualifiers: Respiratory failure complication: hypoxia and hypercapnia Qualified Code(s): J96.21 - Acute and chronic respiratory failure with hypoxia; J96.22 - Acute and chronic respiratory failure with hypercapnia Code(s): J96.20 - Acute and chronic respiratory failure, unspecified whether with hypoxia or hypercapnia Status: Acute Assessment and Plan: Acute on chronic hypercapnic hypoxemic respiratory failure is multifactorial with contributions from COPD, poor cardiac function with ef 35%, systolic and diastolic dysfunction, and metastatic breast cancer to lungs. She also has complex sleep apnea, and is on ASV at home. She has been using BiPAP at night last night. She was on O2 3-4 L/min prior to admission, now is back to that level with O2 at 35% with BiPAP. (3) COPD (chronic obstructive pulmonary disease): Code(s): J44.9 - Chronic obstructive pulmonary disease, unspecified Status: Chronic Assessment and Plan: Long standing, on triple inhaled therapy She finally quit smoking , but started vaping and doing edibles (marijuana). (4) Metastatic breast cancer: Code(s): C50.919 - Malignant neoplasm of unspecified site of unspecified female breast Status: Acute Assessment and Plan: Initial diagnosed Left breast in 2014, now with metastatic disease in lungs with a left lung nodule and nodular left-sided pleural thickening consistent with metastatic disease, liver, abdominal lymphadenopathy, with plans for out patient chemotherapy after discharge. (5) Complex sleep apnea syndrome: Code(s): G47.31 - Primary central sleep apnea Status: Acute Assessment and Plan: Has ASV machine at home, now using BiPAP in the hospital. Using ASV may be more beneficial for her. Subjective Date/time seen: 10/12/21 18:50 Dr Pearson asked me pulmonary to re-consult on this patient as she has been transferred to the ICU with increased respiratory distress yesterday. Dr Trimble saw her in consultation September 29, signed off. She has widely metastatic breast cancer to liver, lungs made on a biopsy from the liver. She deteriorated yesterday 10/11 with increased shortness of breath, had volume overload improved with diuresis. She is talking, sitting up in bed, son is visiting. She is on BiPAP 12/12, 35% and a back up rate 10. At home, she is on 4 L/min, and 35% is about her baseline. She feels much better today. Review of Systems Review of Systems: All systems reviewed & are unremarkable except as noted in HPI and below Exam Narrative: HEENT: pupils are equal, EOMI, symmetrical face; oral membranes dry, Mallampati III airway, many missing teeth, remaining teeth in poor repair; NECK: Trachea is midline CHEST: Equal air entry, hyperinflated thorax, symmetric excursion, decreased breath sounds, rhonchi Right anterior chest with faint wheezes. CV: Regular S1S2 with a faint systolic murmur at LSB, no ga
[2021-10-12] MEDS: MORPHINE SULFATE (*CRX) 2 MG/ML INJ IV PUSH ×2 (18:55→23:22)
[2021-10-12] MEDS: SACUBITRIL/VALSARTAN 12-13 MG TABLET 1 TAB PO (20:58)
[2021-10-12] MEDS: DOCUSATE SODIUM 100 MG CAPSULE PO (20:59)
[2021-10-13] VITALS (32 sets, daily range): BP systolic 103–129; BP diastolic 48–91; PULSE 76–107; RESP 11–25; TEMP 36.1–36.8; O2SAT 90–96
[2021-10-13] MEDS: MELATONIN 5 MG TABLET 10 MG PO ×2 (00:15→20:50)
[2021-10-13] MEDS: ALBUTEROL SULFATE NEB 2.5 MG/0.5 ML INH INHALATION ×4 (02:00→19:43)
[2021-10-13] MEDS: IPRATROPIUM BR 0.02% INH SOLN 0.5 MG/2.5 ML VIAL INHALATION ×4 (02:00→19:43)
[2021-10-13] MEDS: SUCRALFATE SUSP 100 MG/ML 10 ML UDC 1000 MG PO ×3 (05:20→20:53)
[2021-10-13] MEDS: THYROID 30 MG TABLET PO (05:20)
[2021-10-13] MEDS: methylPREDNISolone SOD SUCC 125 MG VIAL 60 MG IV PUSH ×4 (05:21→23:50)
[2021-10-13 05:47] LABS: Alanine Aminotransferase 39 U/L (4-35); Albumin Level 3.3 g/dL (3.5-5.1); Alkaline Phosphatase 232 U/L (38-126); Anion Gap 7 mmol/L (8-16); Aspartate Amino Transferase 94 U/L (14-36); Bilirubin,Total 0.8 mg/dL (0.2-1.3); Blood Urea Nitrogen 47 mg/dL (7-17); Calcium 8.1 mg/dL (8.4-10.2); Carbon Dioxide 32 mmol/L (22-30); Chloride 90 mmol/L (98-107); Estimated CRCL calculation 41 ml/min; Estimated Glomerular Filt Rate 44; Glucose 163 mg/dL (65-110); Magnesium 2.1 mg/dL (1.6-2.3); Phosphorus 3.7 mg/dL (2.5-4.5); Potassium 4.4 mmol/L (3.4-5.0); Sodium 129 mmol/L (137-145)
[2021-10-13 05:53] LABS: Alveolar/Arterial O2 Gradient 90.7 mmHg; Base Excess ABG 3.7 mEq/l (+/-2.0); Carboxyhemoglobin 0.3 % THb (0-2.0); Fractional Inspired Oxygen 35 %; HCO3 ABG 29.8 mEq/l (22.0-26.0); Methemoglobin ABG 0.2 %THb (0-1.5); Oxygen Content ABG 17.9 %vol (16.0-22.0); Oxygen Saturation ABG 97.4 % (95.0-100.0); Oxyhemoglobin 96.6 % THb (90.0-100.0); PCO2 ABG 50.9 mmHg (35.0-45.0); PO2 ABG 99.7 mmHg (80.0-100.0); PO2 FiO2 Ratio Arterial Blood 2.85 %; Reduced Hemoglobin 2.9 %THb (0-5.0); Total Hemoglobin 13.1 g/dL (12.0-18.0); pH ABG 7.385 (7.350-7.450)
[2021-10-13 05:54] LABS: Modified Allen's Test Pass; Site Drawn RIGHT RADIAL
[2021-10-13 05:55] LABS: Device NON-INVASIVE VENT; Non-Invasive Expiratory Pressure 6 CMH2O; Non-Invasive Inspiratory Pressure 14 CMH2O; Non-Invasive Vent Rate 10 /MIN
[2021-10-13 06:06] LABS: Hematocrit 38.9 % (37.0-47.0); Hemoglobin 12.5 g/dL (12.0-15.0); Mean Corpuscular HGB Conc 32.1 g/dl (32-36); Mean Corpuscular Hemoglobin 28.8 pg (26-34); Mean Corpuscular Volume 89.6 fl (80-100); Mean Platelet Volume 9.7 fl (7.4-10.4); Platelet Count Result 355 k/mm3 (150-375); Red Blood Count 4.34 M/mm3 (4.2-5.4); Red Cell Distribution Width 14.6 % (11.5-14.5)
[2021-10-13] MEDS: FLUTICASONE/UMECLIDIN/VILANTER 100-62.5-25 MCG ELLIPTA 1 PUFF INHALATION (07:51)
--- NOTE | 2021-10-13 08:39 | PM.PNCARD ---
Progress Note: A&P Assessment and Plan (1) Dyspnea: Code(s): R06.00 - Dyspnea, unspecified Status: Acute Assessment and Plan: Progressive dyspnea over a number of months but worsening dyspnea exertion in the past couple of weeks. Probably multifactorial. She does have COPD and chronic hypoxic respiratory failure on home oxygen. She also had an elevated BNP on presentation though on exam she does not appear to be volume overloaded, so doubt this is related to CHF. Concerningly, her chest CTA showed evidence of metastatic disease with multiple peripheral pleural-based nodules in the left hemothorax, left hilar, mediastinal and upper abdominal lymphadenopathy and multiple hepatic masses. Metastatic disease certainly could be contributing to her worsening dyspnea. Oncology has been consulted and recommended liver lesion biopsy which was performed yesterday, results are pending. Pulmonology is also following. Continue Entresto at 12/13 mg p.o. b.i.d.. Up titrate as need be and able (2) Acute on chronic systolic heart failure: Code(s): I50.23 - Acute on chronic systolic (congestive) heart failure Status: Acute Assessment and Plan: Her BNP was elevated on presentation around 4000. Looks euvolemic on exam. I will Resume her home dose furosemide 20 daily (3) Chronic respiratory failure with hypoxia: Code(s): J96.11 - Chronic respiratory failure with hypoxia Status: Acute Assessment and Plan: History of COPD on continuous home oxygen. Pulmonology is following. (4) Liver mass: Code(s): R16.0 - Hepatomegaly, not elsewhere classified Status: Acute Assessment and Plan: Oncology is following. Plan for liver mass biopsy. (5) Lymphadenopathy: Code(s): R59.1 - Generalized enlarged lymph nodes Status: Acute Assessment and Plan: Oncology is following (6) KYLER (obstructive sleep apnea): Code(s): G47.33 - Obstructive sleep apnea (adult) (pediatric) Status: Acute Assessment and Plan: On CPAP. Subjective Date/time seen: 10/13/21 08:39 Interval history: 76-year-old with COPD, nonischemic cardiomyopathy shortness of breath found to have metastatic breast cancer Date of service 10/12/2021: Events of yesterday noted. She was significantly dyspneic but improved following nebulizer treatment. Looks and feels much better today. Does have some reproducible left-sided chest pain. Date of service 10/13/2021: Still short of breath better. No chest pain. No Swelling Review of Systems Review of Systems: All systems reviewed & are unremarkable except as noted in HPI and below Constitutional: Constitutional: Denies excessive sweating, Denies fatigue, Denies headache(s), Denies lethargy and Denies weakness Eyes: Eyes: Denies change in vision, Denies loss of vision and Denies other visual disturbances ENT: Reports Normal hearing present, Denies headache(s), Denies neck pain and Denies tinnitus Cardiovascular: Cardiovascular: Denies chest pain, Denies pedal edema, Denies leg edema, Denies palpitations, Reports dyspnea and Reports dyspnea on exertion Respiratory: Respiratory: Reports dyspnea and Reports dyspnea on exertion Gastrointestinal: Gastrointestinal: Denies abdominal pain, Denies melena, Denies bloating, Denies constipation, Denies diarrhea and Reports nausea Genitourinary: Genitourinary: Denies nocturia, Denies urinary incontinence and Denies urinary hesitancy Musculoskeletal: Musculoskeletal: Denies back pain, Denies arthralgias, Denies neck pain and Denies numbness Integumentary/Breasts: Skin/Breast: Reports unusual bruising Neurologic: Reports Normal hearing present, Denies confusion, Denies headache(s), Denies loss of vision, Denies numbness and Denies weakness Psychiatric: Psychiatric: Denies confusion and Denies depression Endocrine: Endocrine: Denies excessive sweating, Denies fatigue, Denies flushing and Denies
[2021-10-13] MEDS: ANASTROZOLE (*CHEMO) 1 MG TABLET PO (08:47)
[2021-10-13] MEDS: carvediloL 12.5 MG TABLET PO ×2 (08:47→20:49)
[2021-10-13] MEDS: DICYCLOMINE HCL 10 MG CAPSULE 20 MG PO ×2 (08:48→16:55)
[2021-10-13] MEDS: DOXYCYCLINE HYCLATE 100 MG TABLET PO ×2 (08:49→20:52)
[2021-10-13] MEDS: CLOPIDOGREL BISULFATE 75 MG TABLET PO (08:49)
[2021-10-13] MEDS: FAMOTIDINE 20 MG TABLET PO ×2 (08:50→20:50)
[2021-10-13] MEDS: PANTOPRAZOLE 40 MG TABLET PO ×2 (08:50→20:52)
[2021-10-13] MEDS: polyethylene glycoL 3350 17 GM POWD.PACK PO (08:50)
[2021-10-13] MEDS: SIMVASTATIN 20 MG TABLET 40 MG PO (08:51)
[2021-10-13] MEDS: SERTRALINE HCL 50 MG TABLET 100 MG PO ×2 (08:51→16:55)
[2021-10-13] MEDS: SACUBITRIL/VALSARTAN 12-13 MG TABLET 1 TAB PO ×2 (08:51→20:53)
[2021-10-13] MEDS: DOCUSATE SODIUM 100 MG CAPSULE PO ×2 (08:53→20:49)
[2021-10-13] MEDS: LIDOCAINE 5% PATCH 1 PATCH TRANSDERM (08:57)
[2021-10-13] MEDS: ONDANSETRON INJ 4 MG/2 ML VIAL IV PUSH (09:07)
--- NOTE | 2021-10-13 09:38 | PM.IMPN ---
Progress Note: A&P Assessment and Plan (1) Acute and chronic respiratory failure: Code(s): J96.20 - Acute and chronic respiratory failure, unspecified whether with hypoxia or hypercapnia Status: Acute Assessment and Plan: Patient at baseline has moderate COPD and is on 6 L oxygen Acute on chronic Respiratory failure is multifactorial and secondary to COPD exacerbation, congestive heart failure, metastatic breast cancer to lungs Patient was not significantly hypoxic from baseline as her sats were adequate on 6 L but she was in respiratory distress with increased work of breathing with wheezing on exam She received Lasix 40 mg IV x1 on the floor prior to transfer to ICU and and was placed patient on BiPAP / and she is maintaining adequate saturation at 35% FiO2 ABG shows hypercarbia and respiratory acidosis. ABG this morning appears to have improved and she is also clinically improved. Continue BiPAP p.r.n. and at night Continue Incentive spirometry Continue bronchodilators Continue Solu-Medrol She has been inpatient for many days now, her WBC is normal, her chest x-ray does not show any significant change and she is afebrile hence I do not suspect pneumonia will not start her on antibiotics at this time. (2) COPD exacerbation: Code(s): J44.1 - Chronic obstructive pulmonary disease with (acute) exacerbation Status: Acute Assessment and Plan: See above (3) SOHEILA (acute kidney injury): Code(s): N17.9 - Acute kidney failure, unspecified Status: Acute Assessment and Plan: Patient developed SOHEILA with creatinine still peaking at 2.7. Patient is being seen by Nephrology Renal ultrasound showed mild renal atrophy. Urine electrolytes were pre renal. And CPK was normal Since that her creatinine has improved and is at 1.2 today She did receive a dose of Lasix yesterday on arrival to ICU Discussed with Dr. Denney he would like to hold further fluids to minimize risk of respiratory deterioration Continue monitor urine output electrolytes and creatinine (4) Metastatic breast cancer: Code(s): C50.919 - Malignant neoplasm of unspecified site of unspecified female breast Status: Acute Assessment and Plan: She has history of T 1 N 1 Breast Cancer treated in 2014. she was on adjuvant hormonal therapy. Workup during this hospitalization showed metastatic breast cancer to liver and lung. Oncology plans to resume chemotherapy as an outpatient once patient is discharged. She is currently on Arimidex (5) CHF (congestive heart failure): Qualifiers: Heart failure type: unspecified Heart failure chronicity: unspecified Qualified Code(s): I50.9 - Heart failure, unspecified Code(s): I50.9 - Heart failure, unspecified Status: Chronic Assessment and Plan: She has cardiomyopathy with EF of 30% Lasix IV was given on admission to ICU. Does not appear to be any significant volume overload. Hold further Lasix Patient denied any chest pain at that time She had a troponin checked they were [place] [address]21, EKG reviewed and showed nonspecific T-wave changes and sinus rhythm Cardiology following Echo 09/27 Summary 1. Complete two-dimensional, color flow and Doppler transthoracic echocardiogram is performed. 2. Left ventricular chamber dimension is mild to moderately enlarged. 3. Left ventricular systolic function is severely reduced, estimated at 30% with hypokinesis of the anterolateral wall.. 4. Left ventricular septal wall motion is abnormal with septal motion related to bundle branch block. 5. The left ventricular diastolic function is grade I diastolic dysfunction. 6. There is no aortic valve stenosis. 7. There is mild mitral valve regurgitation. (6) Hyponatremia: Code(s): E87.1 - Hypo-osmolality and hyponatremia Status: Acute Assessment and Plan: She is on fluid restriction diet as per nephrology Sodium is imp
[2021-10-13] MEDS: MORPHINE SULFATE (*CRX) 2 MG/ML INJ IV PUSH (10:20)
--- NOTE | 2021-10-13 10:48 | PM.PNNEP ---
Progress Note: A&P Additional Plan 1. the patient has acute kidney injury. The patient's baseline creatinine is normal at 0.9. Renal ultrasound shows mild renal atrophy. Urine electrolytes are pre renal. CPK is normal urinalysis is bland most likely this is acute kidney injury due to Pre renal azotemia and contrast. Her creatinine ranging in the low 1s. Check another creatinine tomorrow. 1.5. The patient has hyponatremia. Her sodium level is low. She has baseline normal sodium. Cortisol is okay. TSH is a little high. She is on diuretics. She is on sertraline She is on narcotics. She has breast cancer. Sodium level is stable at 129. 2. Metastatic breast cancer. Oncology is on the case. 3. Congestive heart failure. The patient Is a little more short of breath today. Will hold off on the fluids and give diuretics. 4. COPD. The patient is on supportive care. 5. Anemia. The patient has mildly reduced hemoglobin. Subjective Date/time seen: 10/13/21 10:48 Interval history: Patient is feeling okay. Somewhat worsened shortness of breath Exam Narrative: General: elderly female intubated/sedated Heart: normal S1 and S2; no rub or gallop Lungs: coarse breath sound throughout Abdomen: soft, nontender, nondistended, positive bowel sounds Extremities: no cyanosis or clubbing; trace edema Skin: no rash Objective Data Vital Signs Vital Signs: Vital Signs - 24 hr 10/12/21 12:00 10/12/21 14:00 10/12/21 14:14 Temperature 36.6 C Pulse Rate 76 74 73 Respiratory Rate 22 H 18 20 Blood Pressure 100/55 L 88/55 L Pulse Oximetry 92 93 10/12/21 14:23 10/12/21 16:00 10/12/21 19:49 Temperature Pulse Rate 72 74 80 Respiratory Rate 23 H 15 22 H Blood Pressure 93/58 L Pulse Oximetry 91 10/12/21 19:52 10/12/21 20:00 10/12/21 21:00 Temperature 36.4 C Pulse Rate 87 92 92 Respiratory Rate 21 H 23 H Blood Pressure 107/69 Pulse Oximetry 95 94 91 10/12/21 22:00 10/12/21 22:54 10/12/21 23:06 Temperature Pulse Rate 97 82 Respiratory Rate 19 20 Blood Pressure 104/57 L Pulse Oximetry 94 94 94 10/13/21 00:00 10/13/21 02:00 10/13/21 02:10 Temperature 36.6 C Pulse Rate 92 87 83 Respiratory Rate 22 H 18 20 Blood Pressure 108/65 Pulse Oximetry 92 92 10/13/21 04:00 10/13/21 05:50 10/13/21 06:00 Temperature 36.7 C Pulse Rate 96 93 Respiratory Rate 11 L 16 Blood Pressure 103/77 Pulse Oximetry 93 94 91 10/13/21 07:50 10/13/21 07:53 10/13/21 08:00 Temperature 36.8 C Pulse Rate 93 93 Respiratory Rate 20 23 H Blood Pressure 120/91 H Pulse Oximetry 90 90 10/13/21 08:16 10/13/21 08:47 10/13/21 09:00 Temperature Pulse Rate 99 103 H Respiratory Rate 24 H Blood Pressure Pulse Oximetry 90 10/13/21 10:00 Temperature Pulse Rate 89 Respiratory Rate Blood Pressure Pulse Oximetry Intake/Output Intake/Output: Intake & Output 10/10/21 10/11/21 10/12/21 10/13/21 23:59 23:59 23:59 23:59 Intake Total 5707 032 4347 Output Total 1350 625 600 175 Balance -90 -385 480 -175 Meds/Results Medications: Active Medications Generic Name Dose Route Start Last Admin Trade Name Freq PRN Reason Stop Dose Admin Acetaminophen 650 mg 10/04/21 12:45 10/12/21 11:15 Acetaminophen 325 Mg Tablet PO 650 mg Q6H PRN Administration Pain Rated 5 or Less Albuterol 2 puff 10/10/21 14:09 10/11/21 09:47 Albuterol Sulfate (*Sp) Aerosol 1 Puff INHALATION 2 puff QIDRT PRN Administration Shortness Of Breath Albuterol 2.5 mg 10/11/21 14:00 10/13/21 07:51 Albuterol Sulfate Neb 2.5 Mg/0.5 Ml Inh INHALATION 2.5 mg Q6HRT CELESTINA Administration Anastrozole 1 mg 09/26/21 12:05 10/13/21 08:47 Anastrozole (*Chemo) 1 Mg Tablet PO 1 mg DAILY CELESTINA Administration Calcium Carbonate 200 mg 10/02/21 22:01 10/12/21 08:09 Calcium Carbonate (Tums) 500 Mg
--- NOTE | 2021-10-13 10:51 | PCNWS ---
Weekly nutritional screen. Patient is tolerating current diet with adequate intake. No weight loss reported. No nutritional needs at this time.
--- NOTE | 2021-10-13 13:54 | PCPTNOTE ---
frequency decreased due to poor patient tolerance and pt desaturating during treatment.
[2021-10-13] MEDS: ACETAMINOPHEN 325 MG TABLET 650 MG PO (16:53)
--- NOTE | 2021-10-13 20:13 | PM.PNPUL ---
Progress Note: A&P Assessment and Plan (1) Acute on chronic respiratory failure: Qualifiers: Respiratory failure complication: hypoxia and hypercapnia Qualified Code(s): J96.21 - Acute and chronic respiratory failure with hypoxia; J96.22 - Acute and chronic respiratory failure with hypercapnia Code(s): J96.20 - Acute and chronic respiratory failure, unspecified whether with hypoxia or hypercapnia Status: Acute Assessment and Plan: PLAN: Increased bipap to 16/12, capnography, ABG in am. O2 to maintain sat 90-94%. Acute on chronic hypercapnic hypoxemic respiratory failure is multifactorial with contributions from COPD, poor cardiac function with ef 35%, systolic and diastolic dysfunction, and metastatic breast cancer to lungs. She also has complex sleep apnea, does not qualify for ASV with a drop in EF to less than 45%. Last echo September 17 - EF 30%. She had ASV at home. She has been using BiPAP at night last night. She was on O2 3-4 L/min prior to admission, now on 50%. (2) SOB (shortness of breath): Code(s): R06.02 - Shortness of breath Status: Acute Assessment and Plan: Today, worse. Transferred to ICU 10/11 with increased shortness of breath, seemed improved after BiPAP and diuresis. Causes for her dyspnea include pleural based mets from recurrent breast cancer, COPD, chronic respiratory failure on O2, elevated BMI, deconditioning, nonischemic cardiomyopathy 08/22/20 echo EF 35% w/ moderate global LV systolic dysfunction and Grade I diastolic dysfunction w/ RSVP 21 mmHg. (3) COPD (chronic obstructive pulmonary disease): Code(s): J44.9 - Chronic obstructive pulmonary disease, unspecified Status: Chronic Assessment and Plan: Long standing, on triple inhaled therapy Stopped smoking; prior to admission, was vaping and doing edibles (marijuana). (4) Metastatic breast cancer: Code(s): C50.919 - Malignant neoplasm of unspecified site of unspecified female breast Status: Acute Assessment and Plan: Initial diagnosed Left breast in 2014, now with metastatic disease in lungs with a left lung nodule and nodular left-sided pleural thickening consistent with metastatic disease, liver, abdominal lymphadenopathy, with plans for out patient chemotherapy after discharge. (5) Complex sleep apnea syndrome: Code(s): G47.31 - Primary central sleep apnea Status: Acute Assessment and Plan: Has ASV machine at home, now using BiPAP in the hospital. not a candidate for ASV with EF now 30%. Subjective Date/time seen: 10/13/21 20:13 This 76 year old female is seen in follow up for shortness of breath, COPD, acute on chronic respiratory failure, complex sleep apnea. She was moved out of ICU, now in Room 202 IMU. She is on BiPAP 12/12 and 50%.Today, she looks much worse than yesterday. She is anxious, more short of breath. She had IV morphine, go a bit loopy. Roberta, her tech, is sitting at the bedside keeping her company. The patient says that she cannot breathe easily with the current BiPAP settings. She feels like she cannot get an adequate breath.TV ok, 450-600+. ABG @ 5:31 today = 7.38/50.9/99.7/29.8 on 12/12 and 35%. pCO2 is controlled. She has been on ASV in the past, but tells me today that she has not been using it at home for the last several months. She has not in the office for almost a year, came in Aug 16 with increased shortness of breath and infectious symptoms. She has had several decompensated episodes of cardiac function over the last year, may be due to undertreatment of CHF. Hard ot say. With her EF 30%, she should not be co
[2021-10-14] VITALS (16 sets, daily range): BP systolic 86–113; BP diastolic 59–73; PULSE 70–82; RESP 16–27; TEMP 36–36.5; O2SAT 32–96
[2021-10-14] MEDS: ALBUTEROL SULFATE NEB 2.5 MG/0.5 ML INH INHALATION ×3 (03:06→13:12)
[2021-10-14] MEDS: IPRATROPIUM BR 0.02% INH SOLN 0.5 MG/2.5 ML VIAL INHALATION ×3 (03:07→13:12)
[2021-10-14] MEDS: ONDANSETRON HCL ODT 4 MG TABLET PO (04:18)
[2021-10-14 05:15] LABS: Hematocrit 40.8 % (37.0-47.0); Hemoglobin 12.3 g/dL (12.0-15.0); Mean Corpuscular HGB Conc 30.1 g/dl (32-36); Mean Corpuscular Hemoglobin 28.9 pg (26-34); Mean Corpuscular Volume 95.8 fl (80-100); Mean Platelet Volume 9.6 fl (7.4-10.4); Platelet Count Result 313 k/mm3 (150-375); Red Blood Count 4.26 M/mm3 (4.2-5.4); Red Cell Distribution Width 15.1 % (11.5-14.5); White Blood Count 9.9 K/mm3 (4.5-10.0)
[2021-10-14 05:29] LABS: Alanine Aminotransferase 42 U/L (4-35); Albumin Level 3.5 g/dL (3.5-5.1); Alkaline Phosphatase 228 U/L (38-126); Anion Gap 6 mmol/L (8-16); Aspartate Amino Transferase 91 U/L (14-36); Blood Urea Nitrogen 60 mg/dL (7-17); Calcium 8.3 mg/dL (8.4-10.2); Carbon Dioxide 34 mmol/L (22-30); Chloride 92 mmol/L (98-107); Estimated CRCL calculation 36 ml/min; Estimated Glomerular Filt Rate 37; Glucose 170 mg/dL (65-110); Magnesium 2.3 mg/dL (1.6-2.3); Phosphorus 5.5 mg/dL (2.5-4.5); Potassium 4.4 mmol/L (3.4-5.0); Sodium 132 mmol/L (137-145)
[2021-10-14 05:47] LABS: Base Excess ABG 1.3 mEq/l (+/-2.0); Carboxyhemoglobin 0.1 % THb (0-2.0); Fractional Inspired Oxygen 50 %; HCO3 ABG 32.1 mEq/l (22.0-26.0); Methemoglobin ABG 0.2 %THb (0-1.5); Oxygen Saturation ABG 92.8 % (95.0-100.0); Oxyhemoglobin 93.8 % THb (90.0-100.0); PO2 ABG 82.6 mmHg (80.0-100.0); PO2 FiO2 Ratio Arterial Blood 1.65 %; Reduced Hemoglobin 5.9 %THb (0-5.0); Total Hemoglobin 13.6 g/dL (12.0-18.0)
[2021-10-14 05:48] LABS: pH ABG 7.189 (7.350-7.450)
[2021-10-14 05:49] LABS: Device NON-INVASIVE VENT; Modified Allen's Test Pass; PCO2 ABG 86.1 mmHg (35.0-45.0); Site Drawn RIGHT RADIAL
[2021-10-14 05:50] LABS: Non-Invasive Expiratory Pressure 12 CMH2O; Non-Invasive Inspiratory Pressure 16 CMH2O; Non-Invasive Vent Rate 10 /MIN
[2021-10-14] MEDS: methylPREDNISolone SOD SUCC 125 MG VIAL 60 MG IV PUSH ×2 (06:15→12:44)
[2021-10-14] MEDS: FLUTICASONE/UMECLIDIN/VILANTER 100-62.5-25 MCG ELLIPTA 1 PUFF INHALATION (08:05)
--- NOTE | 2021-10-14 08:46 | PM.PNCARD ---
Progress Note: A&P Assessment and Plan (1) Dyspnea: Code(s): R06.00 - Dyspnea, unspecified Status: Acute Assessment and Plan: Progressive dyspnea over a number of months but worsening dyspnea exertion in the past couple of weeks. Probably multifactorial. She does have COPD and chronic hypoxic respiratory failure on home oxygen. She also had an elevated BNP on presentation though on exam she does not appear to be volume overloaded, so doubt this is related to CHF. Concerningly, her chest CTA showed evidence of metastatic disease with multiple peripheral pleural-based nodules in the left hemothorax, left hilar, mediastinal and upper abdominal lymphadenopathy and multiple hepatic masses. Metastatic disease certainly could be contributing to her worsening dyspnea. Oncology has been consulted and recommended liver lesion biopsy which was performed yesterday, results are pending. Pulmonology is also following. Continue Entresto at 12/13 mg p.o. b.i.d.. Up titrate as need be and able (2) Acute on chronic systolic heart failure: Code(s): I50.23 - Acute on chronic systolic (congestive) heart failure Status: Acute Assessment and Plan: Her BNP was elevated on presentation around 4000. Looks euvolemic on exam. Continue furosemide 20 mg daily. (3) Chronic respiratory failure with hypoxia: Code(s): J96.11 - Chronic respiratory failure with hypoxia Status: Acute Assessment and Plan: History of COPD on continuous home oxygen. Pulmonology is following. Will give nebulizer treatment now (4) Liver mass: Code(s): R16.0 - Hepatomegaly, not elsewhere classified Status: Acute Assessment and Plan: Oncology is following. Plan for liver mass biopsy. (5) Lymphadenopathy: Code(s): R59.1 - Generalized enlarged lymph nodes Status: Acute Assessment and Plan: Oncology is following (6) KLYER (obstructive sleep apnea): Code(s): G47.33 - Obstructive sleep apnea (adult) (pediatric) Status: Acute Assessment and Plan: On CPAP. Subjective Date/time seen: 10/14/21 08:46 Interval history: 76-year-old with COPD, nonischemic cardiomyopathy shortness of breath found to have metastatic breast cancer Date of service 10/12/2021: Events of yesterday noted. She was significantly dyspneic but improved following nebulizer treatment. Looks and feels much better today. Does have some reproducible left-sided chest pain. Date of service 10/13/2021: Still short of breath better. No chest pain. No Swelling Date of service 10/14/2021: Appears very uncomfortable on BiPAP today. Short of breath. No chest pain Review of Systems Review of Systems: All systems reviewed & are unremarkable except as noted in HPI and below Constitutional: Constitutional: Denies excessive sweating, Denies fatigue, Denies headache(s), Denies lethargy and Denies weakness Eyes: Eyes: Denies change in vision, Denies loss of vision and Denies other visual disturbances ENT: Reports Normal hearing present, Denies headache(s), Denies neck pain and Denies tinnitus Cardiovascular: Cardiovascular: Denies chest pain, Denies pedal edema, Denies leg edema, Denies palpitations, Reports dyspnea and Reports dyspnea on exertion Respiratory: Respiratory: Reports dyspnea and Reports dyspnea on exertion Gastrointestinal: Gastrointestinal: Denies abdominal pain, Denies melena, Denies bloating, Denies constipation, Denies diarrhea and Reports nausea Genitourinary: Genitourinary: Denies nocturia, Denies urinary incontinence and Denies urinary hesitancy Musculoskeletal: Musculoskeletal: Denies back pain, Denies arthralgias, Denies neck pain and Denies numbness Integumentary/Breasts: Skin/Breast: Reports unusual bruising Neurologic: Reports Normal hearing present, Denies confusion, Denies headache(s), Denies loss of vision, Denies numbness and Denies weakness Psychiatric: Psychiatric: Denies c
--- NOTE | 2021-10-14 09:03 | PM.IMPN ---
Progress Note: A&P Additional Plan (1) Acute and chronic respiratory failure: Code(s): J96.20 - Acute and chronic respiratory failure, unspecified whether with hypoxia or hypercapnia Status: Acute Assessment and Plan: Patient at baseline has moderate COPD and is on 6 L oxygen Acute on chronic Respiratory failure is multifactorial and secondary to COPD exacerbation, congestive heart failure, metastatic breast cancer to lungs Patient was not significantly hypoxic from baseline as her sats were adequate on 6 L but she was in respiratory distress with increased work of breathing with wheezing on exam She received Lasix 40 mg IV x1 on the floor prior to transfer to ICU and and was placed patient on BiPAP / and she is maintaining adequate saturation at 35% FiO2 ABG shows hypercarbia and respiratory acidosis. ABG this morning appears to have improved and she is also clinically improved. Continue BiPAP p.r.n. and at night Continue Incentive spirometry Continue bronchodilators Continue Solu-Medrol She has been inpatient for many days now, her WBC is normal, her chest x-ray does not show any significant change and she is afebrile hence I do not suspect pneumonia will not start her on antibiotics at this time. worsened today, on Bipap. Pulmonary and Cardiology is following. today, pulmonary increased pressure difference between IPAP and EPAP, 16/6 from 15/06, capnography, repeat ABG. O2 to maintain sat 90-94%. (2) COPD exacerbation: Code(s): J44.1 - Chronic obstructive pulmonary disease with (acute) exacerbation Status: Acute Assessment and Plan: See above (3) SOHEILA (acute kidney injury): Code(s): N17.9 - Acute kidney failure, unspecified Status: Acute Assessment and Plan: Patient developed SOHEILA with creatinine still peaking at 2.7. Patient is being seen by Nephrology Renal ultrasound showed mild renal atrophy. Urine electrolytes were pre renal. And CPK was normal intermittently on furosemide Previous hospitalist discussed with Dr. Denney he would like to hold further fluids to minimize risk of respiratory deterioration Continue monitor urine output electrolytes and creatinine. bookkeeping assistant discontinued furosemide today. (4) Metastatic breast cancer: Code(s): C50.919 - Malignant neoplasm of unspecified site of unspecified female breast Status: Acute Assessment and Plan: She has history of T 1 N 1 Breast Cancer treated in 2014. she was on adjuvant hormonal therapy. Workup during this hospitalization showed metastatic breast cancer to liver and lung. Oncology plans to resume chemotherapy as an outpatient once patient is discharged. She is currently on Arimidex (5) CHF (congestive heart failure): Qualifiers: Heart failure type: unspecified Heart failure chronicity: unspecified Qualified Code(s): I50.9 - Heart failure, unspecified Code(s): I50.9 - Heart failure, unspecified Status: Chronic Assessment and Plan: She has cardiomyopathy with EF of 30% Lasix IV was given on admission to ICU. Does not appear to be any significant volume overload. Hold further Lasix Patient denied any chest pain at that time She had a troponin checked they were [place] [address]26, EKG reviewed and showed nonspecific T-wave changes and sinus rhythm Cardiology following Echo 09/27 Summary 1. Complete two-dimensional, color flow and Doppler transthoracic echocardiogram is performed. 2. Left ventricular chamber dimension is mild to moderately enlarged. 3. Left ventricular systolic function is severely reduced, estimated at 30% with hypokinesis of the anterolateral wall.. 4. Left ventricular septal wall motion is abnormal with septal motion related to bundle branch block. 5. The left ventricular diastolic function is grade I diastolic dysfunction. 6. There is no aortic valve stenosis. 7. There is mild mitral valve regurgitation. (6) Hyponatremia:
--- NOTE | 2021-10-14 11:06 | PM.PNNEP ---
Progress Note: A&P Additional Plan 1. the patient has acute kidney injury. The patient's baseline creatinine is normal at 0.9. Renal ultrasound shows mild renal atrophy. Urine electrolytes are pre renal. CPK is normal urinalysis is bland most likely this is acute kidney injury due to pre renal azotemia and contrast. her creatinine is up to 1.4 today. I do not think we should give her fluids right now because of her respiratory status. I discussed with her yesterday that it is possible that she might need a higher creatinine to achieve euvolemia. 1.5. The patient has hyponatremia. Her sodium level is low. She has baseline normal sodium. Cortisol is okay. TSH is a little high. She is on diuretics. She is on sertraline She is on narcotics. She has breast cancer. Sodium level is stable 2. Metastatic breast cancer. Oncology is on the case. 3. The patient has CO2 retention. This is most likely related to COPD and possibly fluid. Will change furosemide to IV for a day or 2. She is also getting inhalers, CPAP, and Solu-Medrol for respiratory support. 4. Anemia. Hemoglobin has returned to normal. Subjective Date/time seen: 10/14/21 11:06 Interval history: Patient is on her CPAP machine. She is a little bit confused. Exam Narrative: General: elderly female intubated/sedated Heart: normal S1 and S2; no rub or gallop Lungs: coarse breath sound throughout Abdomen: soft, nontender, nondistended, positive bowel sounds Extremities: no cyanosis or clubbing; trace edema Skin: no rash or subcu nodules Objective Data Vital Signs Vital Signs: Vital Signs - 24 hr 10/13/21 11:47 10/13/21 12:00 10/13/21 12:30 Temperature 36.7 C Pulse Rate 94 107 H Respiratory Rate 17 19 Blood Pressure 124/62 Pulse Oximetry 95 93 10/13/21 12:32 10/13/21 12:45 10/13/21 14:00 Temperature Pulse Rate 102 H 97 Respiratory Rate 20 Blood Pressure Pulse Oximetry 92 10/13/21 16:00 10/13/21 17:25 10/13/21 18:00 Temperature 36.7 C Pulse Rate 90 84 83 Respiratory Rate 24 H 16 Blood Pressure 129/87 Pulse Oximetry 95 91 92 10/13/21 18:20 10/13/21 18:40 10/13/21 19:45 Temperature 36.4 C L Pulse Rate 77 Respiratory Rate 16 Blood Pressure 113/48 L Pulse Oximetry 95 92 96 10/13/21 19:46 10/13/21 19:47 10/13/21 19:57 Temperature 36.1 C L Pulse Rate 78 78 82 Respiratory Rate 15 15 16 Blood Pressure 112/80 Pulse Oximetry 96 96 10/13/21 20:00 10/13/21 20:49 10/13/21 22:00 Temperature Pulse Rate 77 79 85 Respiratory Rate Blood Pressure Pulse Oximetry 10/13/21 23:50 10/14/21 00:00 10/14/21 00:40 Temperature 36.7 C Pulse Rate 86 72 76 Respiratory Rate 25 H 16 Blood Pressure 112/76 Pulse Oximetry 95 93 10/14/21 02:00 10/14/21 03:11 10/14/21 03:14 Temperature Pulse Rate 74 75 75 Respiratory Rate 19 16 Blood Pressure Pulse Oximetry 91 10/14/21 03:28 10/14/21 04:00 10/14/21 05:52 Temperature 36.5 C Pulse Rate 76 78 73 Respiratory Rate 18 17 Blood Pressure 113/59 L Pulse Oximetry 95 96 10/14/21 06:00 10/14/21 08:00 10/14/21 08:05 Temperature 36.0 C L Pulse Rate 73 76 81 Respiratory Rate 22 H 19 Blood Pressure 96/73 L Pulse Oximetry 92 10/14/21 08:08 Temperature Pulse Rate 70 Respiratory Rate 27 H Blood Pressure Pulse Oximetry 93 Intake/Output Intake/Output: Intake & Output 10/11/21 10/12/21 10/13/21 10/14/21 23:59 23:59 23:59 23:59 Intake Total 240 1080 100 Output Total 625 600 375 200 Balance -385 480 -275 -200 Meds/Results Medications: Active Medications Generic Name Dose Route Start Last Admin Trade Name Bogdanq PRN Reason Stop Dose Admin Acetaminophen 650 mg 10/04/21 12:45 10/13/21 16:53 Acetaminophen 325 Mg Tablet PO 650 mg Q6H PRN Administration Pain Rated 5 or Less Albuterol 2 puff 10/10/21 14:09
[2021-10-14] MEDS: BUMETANIDE INJ 1 MG/4 ML VIAL IV PUSH (12:44)
--- NOTE | 2021-10-14 12:45 | PM.PNPUL ---
Progress Note: A&P Assessment and Plan (1) Acute on chronic respiratory failure: Qualifiers: Respiratory failure complication: hypoxia and hypercapnia Qualified Code(s): J96.21 - Acute and chronic respiratory failure with hypoxia; J96.22 - Acute and chronic respiratory failure with hypercapnia Code(s): J96.20 - Acute and chronic respiratory failure, unspecified whether with hypoxia or hypercapnia Status: Acute Assessment and Plan: PLAN: Increased pressure difference between IPAP and EPAP, 18/ from 15/06, repeat ABG. If worse, go to ICU. Family is considering code change. Dr Pearson has talked with them, as well. Acute on chronic hypercapnic hypoxemic respiratory failure is multifactorial with contributions from COPD, poor cardiac function with ef 35%, systolic and diastolic dysfunction, and metastatic breast cancer to lungs. Last echo September 17 - EF 30%. (2) SOB (shortness of breath): Code(s): R06.02 - Shortness of breath Status: Acute Assessment and Plan: Progressive, multifactorial. Pleural based mets from recurrent breast cancer, COPD, chronic respiratory failure on O2, elevated BMI, deconditioning, nonischemic cardiomyopathy 08/22/20 echo EF 35% w/ moderate global LV systolic dysfunction and Grade I diastolic dysfunction w/ RSVP 21 mmHg. (3) COPD (chronic obstructive pulmonary disease): Code(s): J44.9 - Chronic obstructive pulmonary disease, unspecified Status: Chronic Assessment and Plan: Long standing, on triple inhaled therapy Stopped smoking; prior to admission, was vaping and doing edibles (marijuana). (4) Metastatic breast cancer: Code(s): C50.919 - Malignant neoplasm of unspecified site of unspecified female breast Status: Acute Assessment and Plan: Initial diagnosed Left breast in 2014, now with metastatic disease in lungs with a left lung nodule and nodular left-sided pleural thickening consistent with metastatic disease, liver, abdominal lymphadenopathy, with plans for out patient chemotherapy after discharge. Subjective Date/time seen: 10/14/21 12:45 pm This 76 year old female is seen in follow up for hypercapnic hypoxemia acute on chronic respiratory failure, COPD, shortness of breath; Had increased pCO2 overnight with BiPAP settings 15/06,; changed to 16/ this am. Her SOHEILA is worse, BUN /creat 60/1.4. Her niece Adelita and daughter Marizol are at the bedside. I spoke with her by phone. He is at home, sick with a cold. Saturation now is 90% on BiPAP 14/12 and 60% FiO2. She has decreased mentation, looks much worse, has restraints in place. She continues to worsen. Received 2 mg morphine this am. She cannot speak coherently at all. Lips are dry, not responding to voice. ABG this morning on BiPAP 15/06 and 60%- 7.189/86.1/82.6/92.8 She has widely metastatic breast cancer to liver, lungs made on a biopsy from the liver. She deteriorated yesterday 10/11 with increased shortness of breath, improved after stay in ICU October 11-, now on BiPAP /, 50% and a back up rate 10. At home, she is on 4 L/min, and 35% is about her baseline. Review of Systems Review of Systems: ROS unobtainable: Yes unobtainable due to medical condition Exam Narrative: HEENT: on BIPAP, oral membranes dry NECK: Trachea is midline CHEST: Equal air entry, coarse crackles, much worse exam today. CV: Regular S1S2 Extremities : no clubbing, cyanosis, or edema. PSYCH: She is not responsive. Objective Data Vital Signs Vital Signs: Vital Signs - 24 hr 10/13/21 14:00 10/13/21 16:00 10/13/21 17:25 Temperature 36.7 C Pulse Rate 97 90 84 Respiratory Rate 24 H 16 Blood Pressure 129/87 Pu
--- NOTE | 2021-10-14 13:53 | WPDINTPN ---
Progress Note: A&P Assessment and Plan (1) Acute and chronic respiratory failure: Code(s): J96.20 - Acute and chronic respiratory failure, unspecified whether with hypoxia or hypercapnia Status: Acute Assessment and Plan: Patient at baseline has moderate COPD and is on 6 L oxygen Acute on chronic Respiratory failure is multifactorial and secondary to COPD exacerbation, congestive heart failure, metastatic breast cancer with spread to lungs Patient was admitted to ICU on 10/11 and was put treated with BiPAP, bronchodilators and steroids Bryce respiratory status improved and patient was transitioned off of BiPAP and was placed on BiPAP on p.r.n. and nightly basis this morning her ABG was worse showing worsening hypercarbia and respiratory acidosis 7.189/86/82 Patient currently on 16/6 and 60%. I have change of BiPAP to 18/6 and 50%. I will repeat ABG at this time Continue BiPAP p.r.n. and at night Continue Incentive spirometry Continue bronchodilators, Solu-Medrol She is on doxycycline for COPD exacerbation She has been inpatient for many days now, her WBC is normal, procalcitonin level was low and she is afebrile hence pneumonia was not assessed suspected and patient was not started on any antibiotics towards pneumonia (2) COPD exacerbation: Code(s): J44.1 - Chronic obstructive pulmonary disease with (acute) exacerbation Status: Acute Assessment and Plan: See above (3) SOHEILA (acute kidney injury): Code(s): N17.9 - Acute kidney failure, unspecified Status: Acute Assessment and Plan: Patient developed SOHEILA with creatinine peaking at 2.7. Patient is being seen by Nephrology Renal ultrasound showed mild renal atrophy. Urine electrolytes were pre renal. And CPK was normal Since that her creatinine has improved to 1.1 but over last 2 days creatinine has gone back up to 1.4 She has received Lasix here in there and has had poor p.o. intake due to her respiratory status requiring BiPAP Continue monitor urine output electrolytes and creatinine (4) Metastatic breast cancer: Code(s): C50.919 - Malignant neoplasm of unspecified site of unspecified female breast Status: Acute Assessment and Plan: She has history of T 1 N 1 Breast Cancer treated in 2014. she was on adjuvant hormonal therapy. Workup during this hospitalization showed metastatic breast cancer to liver and lung. Oncology plans to resume chemotherapy as an outpatient once patient is discharged. She is currently on Arimidex (5) CHF (congestive heart failure): Qualifiers: Heart failure chronicity: unspecified Heart failure type: unspecified Qualified Code(s): I50.9 - Heart failure, unspecified Code(s): I50.9 - Heart failure, unspecified Status: Chronic Assessment and Plan: She has cardiomyopathy with EF of 30% Lasix IV was given on admission to ICU and later in the hospital course Does not appear to be any significant volume overload. Hold further Lasix Patient denied any chest pain at that time She had a troponin checked they were all [place] [address]1588, EKG reviewed and showed nonspecific T-wave changes and sinus rhythm Cardiology following Echo 09/27 Summary 1. Complete two-dimensional, color flow and Doppler transthoracic echocardiogram is performed. 2. Left ventricular chamber dimension is mild to moderately enlarged. 3. Left ventricular systolic function is severely reduced, estimated at 30% with hypokinesis of the anterolateral wall.. 4. Left ventricular septal wall motion is abnormal with septal motion related to bundle branch block. 5. The left ventricular diastolic function is grade I diastolic dysfunction. 6. There is no aortic valve stenosis. 7. There is mild mitral valve regurgitation. (6) Hyponatremia: Code(s): E87.1 - Hypo-osmolality and hyponatremia Status: Acute Assessment and Plan: She is on fluid restriction diet
[2021-10-14 14:02] LABS: Alveolar/Arterial O2 Gradient 165.9 mmHg; Base Excess ABG 2.3 mEq/l (+/-2.0); Fractional Inspired Oxygen 50 %; HCO3 ABG 35.9 mEq/l (22.0-26.0); Oxygen Content ABG 14.3 %vol (16.0-22.0); PO2 ABG 51.3 mmHg (80.0-100.0); PO2 FiO2 Ratio Arterial Blood 1.03 %; Total Hemoglobin 12.7 g/dL (12.0-18.0)
[2021-10-14 14:04] LABS: Device BIPAP; Modified Allen's Test Pass; Oxygen Saturation ABG 68.5 % (95.0-100.0); Oxyhemoglobin 79.9 % THb (90.0-100.0); PCO2 ABG 123.8 mmHg (35.0-45.0); Site Drawn RIGHT RADIAL
[2021-10-14 14:05] LABS: Expiratory Pressure 6 cmH2O; Inspiratory Pressure 18 cmH2O
--- NOTE | 2021-10-14 14:41 | P.PNCROSS_ITS ---
Event Note Event Note Event Note: Patient's repeat ABG showed worsening hypercarbia and respiratory acidosis. Patient needed intubation and mechanical ventilation. As per patient's daughter's request, I met with patient's daughter, patient's son and patient's in the waiting room. We discussed goals of care. we reviewed patient's current status including COPD congestive heart failure acute kidney injury metastatic breast cancer and worsening respiratory status. Then the patient needs to be intubated and placed on mechanical ventilation due to worsening respiratory status. Also explained them that mechanical ventilation is a life support and not a treatment for any of her medical condition. I explained them that our overall prognosis will continue to be poor considering her current medical problems. They told me the patient would have taken a short trial of mechanical ventilation if her prognosis was good and the cause of respiratory failure was reversible. but considering her current condition including heart failure COPD and metastatic breast cancer they do not feel the patient would want to go on a ventilator. They felt the patient had been dealing with pain for far too long and wanted patient to be comfortable and pain-free. The family has decided, in accordance with pt's wishes, to discontinue all medical therapy and institute comfort measures only. I have explained them the comfort measures. I have explained them that I will use opioids, anxiolytics and other agents on as needed basis to promote comfort and discontinue all medical therapy, lab testing and invasive monitoring. This will eventually lead to patient's . They verbalized understanding and agreed to proceed. I have spoken to patient's primary physician Dr. Koehler and assembly and packing supervisor Dr. Crisostomo who both agree with the plan Additional time spent in coordinating care and advance care planning - 30 minutes
[2021-10-14] MEDS: LORazepam INJ (*CRX) 2 MG/ML VIAL IV PUSH ×3 (16:03→20:10)
[2021-10-14] MEDS: MORPHINE SULFATE INJ (*CRX) 10 MG/ML AMP 5 MG IV PUSH (16:03)
[2021-10-14] MEDS: MORPHINE SULFATE (*CRX) 2 MG/ML INJ 4 MG IV PUSH ×2 (18:49→20:09)
--- NOTE | 2021-10-25 15:59 | PM.DS ---
DS: Admitting Diagnosis Discharge Date 10/14/21 Admitting Diagnosis #Acute on Chronic respiratory failure with hypoxia #COPD exacerbation #Acute CHF DS: Discharge Diagnosis Discharge Diagnosis (1) Acute on chronic respiratory failure: Qualifiers: Respiratory failure complication: hypoxia and hypercapnia Qualified Code(s): J96.21 - Acute and chronic respiratory failure with hypoxia; J96.22 - Acute and chronic respiratory failure with hypercapnia Code(s): J96.20 - Acute and chronic respiratory failure, unspecified whether with hypoxia or hypercapnia Status: Acute (2) COPD (chronic obstructive pulmonary disease): Code(s): J44.9 - Chronic obstructive pulmonary disease, unspecified Status: Chronic (3) Metastatic breast cancer: Code(s): C50.919 - Malignant neoplasm of unspecified site of unspecified female breast Status: Acute (4) Acute and chronic respiratory failure: Code(s): J96.20 - Acute and chronic respiratory failure, unspecified whether with hypoxia or hypercapnia Status: Acute (5) SOHEILA (acute kidney injury): Code(s): N17.9 - Acute kidney failure, unspecified Status: Acute (6) Hyponatremia: Code(s): E87.1 - Hypo-osmolality and hyponatremia Status: Acute DS: Summary Hospital Course Hospital Course: 76F with cardiomyopathy s/p AICD on 4LNC continuous at home, L. breast CA s/p xrt on AI, COPD, depression, anxiety, diverticulitis, HTN, hypothyroidism, idiopathic peripheral neuropathy who presented to the ED with shortness of breath. She had noticed increased shortness of breath for the past few days after finishing a course of steroids and Augmentin prescribed by her skip load driver on 09/13/2021, but stated that this shortness of breath had been bothersome since May 2021. She reported temporarily feeling better while on the steroids. She stated the shortness of breath was only with exertion and denied having shortness of breath at rest. Denied chest pain, lightheadedness, dizziness, fever, chills, rhinorrhea, sore throat, abdominal pain, nausea, vomiting, dysuria, hematuria. Denied having had to increase her home oxygen above 4LPM due to her shortness of breath as it improves with rest. Tested negative for COVID 19 prior to having steroids and antibiotics. Had her two doses and 3rd dose of the COVID-19 vaccine. Patient stated that she recently saw her Quality Project Manager who also worked up her shortness of breath and was told she may need to be referred to another specialist as he was unable to find a cause for her new shortness of breath. Patient stated that she has noticed some increased swelling initially in her feet and then ankles for which she took PRN furosemide 40 mg and the fluid seemed to be removed. In the ED, her BNP was elevated-->Furosemide 40 mg IV x1, CTA chest noted lymphadenopathy and hepatic nodules concerning for metastatic disease and R. lung ground glass opacity. Leukocytosis. Negative urine and negative COVID19. She was in acute and chronic respiratory failure with hypoxia and hypercapnia, stated requiring BiPAP, thus she was transferred to the ICU on 10/11/2021 from the general floor and was managed by the ergonomic specialist. The etiology of her respiratory failure is multifactorial and secondary to COPD exacerbation, acute on chronic systolic congestive heart failure and metastatic breast cancer to lungs. She was managed with IV furosemide, doxycycline, duonebs, solumedrol, incentive spirometry and BiPAP. Regarding her SOHEILA, creatinine peaked at 2.7. She was being managed by Nephrology. Renal ultrasound showed mild renal atrophy. Urine electrolytes were pre renal. And CPK was normal. She was intermittently on furosemide. Previous hospitalist discussed with Dr. Denney who would like to hold further fluids to minimize risk of respiratory deterioration. Quality Project Manager discontinued furosemide on 10/14/2021 The patient had metastatic breast canc
--- NOTE | 2021-10-27 10:03 | PM.DDS ---
Discharge Summary Date and Time Date of : 10/14/21 Time of : 20:16 Provider Pronounced By: Yamini Lockett RN and Radha Clemente RN Probable Cause of Probable Cause of : #Acute on Chronic respiratory failure with hypoxia and hypercapnia #COPD exacerbation #Acute congestive heart failure #SOHEILA #Breast cancer with lug metastasis Summary Hospital Course: 76F with cardiomyopathy s/p AICD on 4LNC continuous at home, L. breast CA s/p xrt on AI, COPD, depression, anxiety, diverticulitis, HTN, hypothyroidism, idiopathic peripheral neuropathy who presented to the ED with shortness of breath. She had noticed increased shortness of breath for the past few days after finishing a course of steroids and Augmentin prescribed by her housecleaner floor on 09/13/2021, but stated that this shortness of breath had been bothersome since May 2021. She reported temporarily feeling better while on the steroids. She stated the shortness of breath was only with exertion and denied having shortness of breath at rest. Denied chest pain, lightheadedness, dizziness, fever, chills, rhinorrhea, sore throat, abdominal pain, nausea, vomiting, dysuria, hematuria. Denied having had to increase her home oxygen above 4LPM due to her shortness of breath as it improves with rest. Tested negative for COVID 19 prior to having steroids and antibiotics. Had her two doses and 3rd dose of the COVID-19 vaccine. Patient stated that she recently saw her Geomagnetist who also worked up her shortness of breath and was told she may need to be referred to another specialist as he was unable to find a cause for her new shortness of breath. Patient stated that she has noticed some increased swelling initially in her feet and then ankles for which she took PRN furosemide 40 mg and the fluid seemed to be removed. In the ED, her BNP was elevated-->Furosemide 40 mg IV x1, CTA chest noted lymphadenopathy and hepatic nodules concerning for metastatic disease and R. lung ground glass opacity. Leukocytosis. Negative urine and negative COVID19. She was in acute and chronic respiratory failure with hypoxia and hypercapnia, stated requiring BiPAP, thus she was transferred to the ICU on 10/11/2021 from the general floor and was managed by the pharmaceutical assistant. The etiology of her respiratory failure is multifactorial and secondary to COPD exacerbation, acute on chronic systolic congestive heart failure and metastatic breast cancer to lungs. She was managed with IV furosemide, doxycycline, duonebs, solumedrol, incentive spirometry and BiPAP. Regarding her SOHEILA, creatinine peaked at 2.7. She was being managed by Nephrology. Renal ultrasound showed mild renal atrophy. Urine electrolytes were pre renal. And CPK was normal. She was intermittently on furosemide. Previous hospitalist discussed with Dr. Denney who would like to hold further fluids to minimize risk of respiratory deterioration. Geomagnetist discontinued furosemide on 10/14/2021 The patient had metastatic breast cancer. History is that she had T 1 N 1 Breast Cancer treated in 2014. she was on adjuvant hormonal therapy. Workup during this hospitalization showed metastatic breast cancer to liver and lung. Oncology planned to resume chemotherapy as an outpatient once patient is discharged. She was currently on Arimidex. Further work up revealed cardiomyopathy with EF of 30%, [place] [id number], EKG reviewed and showed nonspecific T-wave changes and sinus rhythm. Geomagnetist was following: Echo 09/27 Summary 1. Complete two-dimensional, color flow and Doppler transthoracic echocardiogram is performed. 2. Left ventricular chamber dimension is mild to moderately enlarged. 3. Left ventricular systolic function is severely reduced, estimated at 30% with hypokinesis of the anterolateral wall.. 4. Left ventricular septal wall motion is abnormal with septal motion related to bundle branch block. 5. The left ventricular diast
== END 2021-10-14 20:17 | disposition expired | DRG 291 ==
LOC: ANHED 06:43 → ANH3MEDSUR 07:38 → ANHICU 10-12 00:57 → ANHIMU 10-14 22:14 → ANH3MEDSUR 10-16 09:53 → ANHICU 10-16 09:53 → ANHIMU 10-16 09:53
PROVIDERS: Chiropractor; Family Medicine; Internal Medicine; Internal Medicine Nephrology; Nurse Practitioner; Admitting Provider Internal Medicine; Emergency Provider Emergency Medicine; PCP Family Medicine; Visit Provider Internal Medicine
DX: I11.0 Hypertensive heart disease with heart failure (principal); I50.23 Acute on chronic systolic (congestive) heart failure; J96.21 Acute and chronic respiratory failure with hypoxia; J96.22 Acute and chronic respiratory failure with hypercapnia; C34.90 Malignant neoplasm of unspecified part of unspecified bronchus or lung; N17.9 Acute kidney failure, unspecified; E87.1 Hypo-osmolality and hyponatremia; J44.1 Chronic obstructive pulmonary disease with (acute) exacerbation; C78.7 Secondary malignant neoplasm of liver and intrahepatic bile duct; I42.9 Cardiomyopathy, unspecified; Z20.822 Contact with and (suspected) exposure to COVID-19; Z95.810 Presence of automatic (implantable) cardiac defibrillator; Z99.81 Dependence on supplemental oxygen; F41.8 Other specified anxiety disorders; E03.9 Hypothyroidism, unspecified; I34.1 Nonrheumatic mitral (valve) prolapse; C50.919 Malignant neoplasm of unspecified site of unspecified female breast; G47.33 Obstructive sleep apnea (adult) (pediatric); J45.909 Unspecified asthma, uncomplicated; G62.9 Polyneuropathy, unspecified; Z82.49 Family history of ischemic heart disease and other diseases of the circulatory system; Z80.8 Family history of malignant neoplasm of other organs or systems; Z95.5 Presence of coronary angioplasty implant and graft; Z87.891 Personal history of nicotine dependence; Z79.82 Long term (current) use of aspirin; Z79.899 Other long term (current) drug therapy; Z79.51 Long term (current) use of inhaled steroids; R59.1 Generalized enlarged lymph nodes; D72.829 Elevated white blood cell count, unspecified; G89.4 Chronic pain syndrome; K59.03 Drug induced constipation; M19.012 Primary osteoarthritis, left shoulder; G47.31 Primary central sleep apnea
CPT/HCPCS: 36415; 36600; 47000; 70470; 71045; 71275; 73030; 74019; 74177; 76775; 76942; 80048; 80053; 80069; 81001; 81003; 82375; 82378; 82533; 82550; 82570; 82805; 82948; 83050; 83605; 83735; 83880; 83930; 83935; 84100; 84145; 84295; 84300; 84439; 84443; 84480; 84484; 85025; 85027; 85610; 85730; 86300; 87086; 87088; 88307; 88342; 92610; 92611; 93005; 93306; 94002; 94003; 94618; 94640; 94762; 96372; 96374; 96375; 96376; 97110; 97161; 97165; 97530; 97535; 99285; A9270; C9803; G0378; J1650; J1940; J2060; J2270; J2405; J2930; J7030; J7040; Q9967; U0003; U0005